=== PATIENT | male | born 1960 | race Caucasian/White ===

== ENCOUNTER 2020-07-01 10:51 | Outpatient (REF) | payer OTHER, SELFPAY ==
[2020-07-01 12:07] LABS: Cholesterol 224 mg/dL; HDL Cholesterol 51 mg/dL; LDL Cholesterol Calculated 135 mg/dl; Triglycerides 193 mg/dL
== END 2020-07-01 10:52 | disposition home or self-care (01) ==
LOC: HO.LAB 10:51
PROVIDERS: PCP Physician Assistant; Visit Provider Physician Assistant
DX: E78.5 Hyperlipidemia, unspecified (principal)
CPT/HCPCS: 80061

== ENCOUNTER → 2020-07-21 13:17 | Outpatient (BNVA) | payer OTHER, SELFPAY | PROVIDERS: PCP Physician Assistant; Referring Provider Physician Assistant; Visit Provider Nurse Practitioner Family | DX: Z76.89 Persons encountering health services in other specified circumstances (principal) ==

== ENCOUNTER 2021-01-13 07:27 | Day surgery (SDC) | payer OTHER, SELFPAY ==
[2021-01-13 07:54] VITALS: BP 117/79; PULSE 62; TEMP 36.3; O2SAT 96; BMI 27.2
--- NOTE | 2021-01-13 07:54 | MHC.SHP ---
Pre-Procedural Eval Section B Chief Complaint: Screening Relevant Social History: None Present Medications: see Short Stay Collaborative assessment Medical History: Significant History (lumbar back pain) History of Previous Operations: Relevant previous surgery/procedure and date(s) (spinal stimulator) Allergies: Allergies Allergy/AdvReac Type Severity Reaction Status Date / Time dexamethasone [DEXAMETHASONE] Allergy Unknown VERTIGO Verified 07/06/20 10:12 lisinopril [LISINOPRIL] Allergy Unknown COUGH Verified 07/06/20 10:12 atorvastatin AdvReac Unknown bone pain Verified 07/21/20 13:19 Wellbutrin Allergy Unknown Unknown Uncoded 07/06/20 06:39 Review of Systems Sugical H&P ROS: Negative: Constitution, Cardiovascular, Respiratory, Neurological, Psychiatric, Hem-Onc, Allergic/Immunologic, Gastrointestinal, Genitourinary, Musculoskeletal, Integumentary, Endocrine and Eyes/Ears/Nose/Throat Exam Surgical H&P Exam: Normal: HEENT, Normal: Heart, Normal: Lungs, Normal: Extremities, Normal: Abdomen, Normal: Skin and Normal: Neurological Plan Diagnosis/Plan: Unchanged I have reviewed the history and physical and performed a pertinent physical examination on my patient. No changes have occurred unless specified.
[2021-01-13] MEDS: Lactated Ringers 1,000 ML 20 ML IVCONT (07:57)
--- NOTE | 2021-01-13 08:19 | P.CONAN_ITS ---
FORMERLY [facility] Active Problems Active Problems: All Active Problems (Updated 07/06/20 @ 10:35 by Juan C soto PA-C) HLD (hyperlipidemia) (Acute) Overweight (BMI 25.0-29.9) (Acute) Lumbar disc disease (Acute) Annual physical exam (Acute) Screening PSA (prostate specific antigen) (Acute) Screening for hypothyroidism (Acute) Colon cancer screening (Acute) Past Medical History Medical History Spinal cord stimulator status Family History Family History Father Hypertension COPD (chronic obstructive pulmonary disease) Mother Hypertension Dementia Family/Other Lung cancer Surgical History Surgical History H/O colonoscopy Spinal cord stimulator status Social History Social History Alcohol intake: never Smoking Status: Never smoker Use of substances other than those prescribed or required for medical reasons: No Advance Directives: No Advance Directives Information Provided: Yes Recently lost weight without trying: No Meds Allergies Allergy/AdvReac Type Severity Reaction Status Date / Time dexamethasone [DEXAMETHASONE] Allergy Unknown VERTIGO Verified 07/06/20 10:12 lisinopril [LISINOPRIL] Allergy Unknown COUGH Verified 07/06/20 10:12 atorvastatin AdvReac Unknown bone pain Verified 07/21/20 13:19 Wellbutrin Allergy Unknown Unknown Uncoded 07/06/20 06:39 Active Medications: Current Medications Generic Name Dose Route Start Last Admin Trade Name Hollis PRN Reason Stop Dose Admin Lactated Ringer's 1,000 mls @ 20 mls/hr 01/12/21 14:00 01/13/21 07:57 Lr IVCONT 20 mls/hr .Q24H RENAE Administration Home Medications Medication Instructions Recorded Confirmed Last Taken Type coenzyme Q10 50 mg capsule 50 mg PO DAILY 07/21/20 07/21/20 Unknown History garlic 500 mg PO DAILY 07/21/20 07/21/20 Unknown History milk thistle 150 mg capsule 300 mg PO DAILY 07/21/20 07/21/20 Unknown History multivitamin 1 tab PO DAILY 07/21/20 07/21/20 Unknown History omega-3 fatty acids 500 mg capsule 500 mg PO DAILY 07/21/20 07/21/20 Unknown History Exam Exam Date and Time: January 13, 2021 0819 Height,Weight and Vital Signs: Height 6 ft Weight 91.172 kg Last Vital Signs Temp 97.3 F 01/13/21 07:54 Pulse 62 01/13/21 07:54 BP 117/79 01/13/21 07:54 Pulse Ox 96 01/13/21 07:54 Airway Mallampati Class: I TM Dist: >3cm Neck ROM: Full Loose/Missing/Broken Teeth: No Heart: RRR Assessment and Plan Assessment Anesthesia Assessment: Anesthesia Plan Discussed and Chart Reviewed Final Anesthetic Review NPO: Yes ASA Class: II Final Preanesthetic Review: No Changes in Pt Med Stat, Consent Obtained/Reviewed and Anes Risks/Benef Reviewed Patient Risk: Low Procedure Risk: Low Anesthetic Plan Anesthetic Plan: MAC: Disposition: Standard PACU
--- NOTE | 2021-01-13 09:15 | PM.OP ---
Brief Operative Note Date of Service: 01/13/21 Pre-op diagnosis: colon screening Post-op diagnosis: same Procedure: see op note Surgeon: Jeannette Marcum MD Anesthesia: MAC Estimated blood loss (mL): 0 Condition: stable Disposition: PACU
--- NOTE | 2021-01-13 09:17 | P.OP_ITS ---
Operative Note Operative Note Date of Service: 01/13/21 Narrative: Operative Information Procedure Description: Colonoscopy COLONOSCOPY Instrument: Olympus variable stiffness pediatric scope 190L Colonoscopy Monitoring: Vital signs and clinical assessment, continuous EKG monitoring, Pulse oximetry, Carbon Dioxide monitoring and blood pressure monitoring were done throughout the procedure. Colon withdrawal time was 13 minutes. Procedure: The patient was placed in the left lateral decubitis position and pre-procedure medications were administered. After a digital rectal examination of the ano-rectum, the video colonoscope was inserted into the rectum and advanced through the colon to the cecum/TI. The colonoscope was slowly withdrawn in a retrograde panoramic fashion and the colon mucosa was carefully examined including a retroflexed view of the rectum. Findings and interventions are described below. Procedure Difficulty: easy Findings: Terminal Ileum-normal Cecum:normal Ascending Colon: normal Transverse Colon -normal Descending Colon:normal Sigmoid Colon: moderate severe diverticulosis Rectum: Retroflexion with small internal hemorrhoids, grade I Anorectum - normal Colon preparation: [place] Bowel Preparation Scale Right colon; 2 Transverse colon: 2 Left colon; 2 (0 = Unprepared colon segment with mucosa not seen due to solid stool that cannot be cleared. 1 = Portion of mucosa of the colon segment seen, but other areas of the colon segment not well seen due to staining, residual stool and/or opaque liquid. 2 = Minor amount of residual staining, small fragments of stool and/or opaque liquid, but mucosa of colon segment seen well. 3 = Entire mucosa of colon segment seen well with no residual staining, small fragments of stool or opaque liquid) Impression and Post Procedure Diagnosis: internal hemorrhoids diverticular disease Plan: High fiber diet leaflet Avoid straining at stool, epsom salts and sitz bath, anusol supps or cream Repeat Colonoscopy in 10 years or earlier if clinically indicated Above findings were reviewed with the patient and relevant handouts were provided if indicated.
[2021-01-13 09:20] VITALS: BP 107/71; PULSE 78; RESP 16; TEMP 36.3; O2SAT 97
[2021-01-13 09:35] VITALS: BP 125/78; PULSE 76; RESP 18; O2SAT 96
== END 2021-01-13 10:30 | disposition home or self-care (01) ==
PROVIDERS: PCP Physician Assistant; Visit Provider Internal Medicine Gastroenterology
PROC: 0DJD8ZZ Inspection of Lower Intestinal Tract, Via Natural or Artificial Opening Endoscopic (ICD-10-PCS; CPT 45378; principal; 2021-01-13 08:30)
DX: Z12.11 Encounter for screening for malignant neoplasm of colon (principal); K57.30 Diverticulosis of large intestine without perforation or abscess without bleeding; K64.0 First degree hemorrhoids; E66.3 Overweight; M51.9 Unspecified thoracic, thoracolumbar and lumbosacral intervertebral disc disorder; Z96.82 Presence of neurostimulator; Z88.8 Allergy status to other drugs, medicaments and biological substances
CPT/HCPCS: 45378

== ENCOUNTER 2021-01-13 15:08 | Emergency (ER) | payer OTHER, SELFPAY ==
[2021-01-13 15:41] VITALS: BP 136/90; PULSE 62; RESP 16; TEMP 36.6; BMI 27.2
--- NOTE | 2021-01-13 16:06 | ED.GENADULT ---
HPI - General Adult General Chief complaint: General Medical Stated complaint: Difficulty breathing post colonoscopy Time Seen by Provider: 01/13/21 16:05 Source: patient Mode of arrival: ambulatory Limitations: no limitations History of Present Illness HPI narrative: 60 yo male here with dry mouth s/p colonoscopy. Had procedure earlier today with propofol. Uneventful procedure per patient. Had dry mouth in PACU. Thought he was dehydrated so went home and forcing fluids but continued dry mouth. No difficulty swallowing, abdominal cramping, vomiting, diarrhea, rash, difficulty breathing or itching/scratchy throat. Related Data Home Medications Medication Instructions Recorded Confirmed coenzyme Q10 50 mg capsule 50 mg PO DAILY 07/21/20 07/21/20 garlic 500 mg PO DAILY 07/21/20 07/21/20 milk thistle 150 mg capsule 300 mg PO DAILY 07/21/20 07/21/20 multivitamin 1 tab PO DAILY 07/21/20 07/21/20 omega-3 fatty acids 500 mg capsule 500 mg PO DAILY 07/21/20 07/21/20 Previous Rx's Medication Instructions Recorded polyethylene glycol 3350 17 17 g PO ONCE #238 g 07/21/20 gram/dose oral powder peg 3350-electrolytes 227.1 240 ml PO Q10M #1 ea 01/11/21 gram-21.5 gram-6.36gram oral powder packet Allergies Allergy/AdvReac Type Severity Reaction Status Date / Time dexamethasone [DEXAMETHASONE] Allergy Unknown VERTIGO Verified 07/06/20 10:12 lisinopril [LISINOPRIL] Allergy Unknown COUGH Verified 07/06/20 10:12 atorvastatin AdvReac Unknown bone pain Verified 07/21/20 13:19 Wellbutrin Allergy Unknown Unknown Uncoded 07/06/20 06:39 Review of Systems Review of Systems: Yes all other systems are reviewed and are negative Constitutional: Constitutional: Reports no additional constitutional complaints, Denies body ache(s), Denies chills, Denies fever(s), Denies headache(s) and Denies weakness Eyes: Eyes: Reports no additional eye complaints and Denies change in vision ENT: Reports system reviewed and no additional complaints, except as documented, Denies dizziness, Denies headache(s), Denies nasal congestion, Denies nasal discharge and Denies neck pain Comments: +dry mouth Cardiovascular: Cardiovascular: Reports no additional cardiovascular complaints, Denies chest pain, Denies leg edema and Denies dyspnea Respiratory: Respiratory: Reports no additional respiratory complaints, Denies cough and Denies dyspnea Gastrointestinal: Gastrointestinal: Reports no additional gastrointestinal complaints, Denies abdominal pain, Denies diarrhea, Denies nausea and Denies vomiting Genitourinary: Genitourinary: Denies urinary incontinence Musculoskeletal: Musculoskeletal: Reports no additional musculoskeletal complaints, Denies back pain, Denies arthralgias, Denies joint swelling, Denies neck pain, Denies numbness and Denies tingling Integumentary/Breasts: Skin/Breast: Reports system reviewed and no additional complaints, except as docu and Denies rash Neurologic: Reports system reviewed and no additional complaints, except as documented, Denies Abnormal speech present, Denies dizziness, Denies headache(s), Denies numbness, Denies tingling and Denies weakness PMFSH Past Medical History Attestation statement: The following information was validated with the patient. Source: old records reviewed and nursing notes reviewed Medical History Spinal cord stimulator status Surgical History H/O colonoscopy Spinal cord stimulator status Family History Family History Father Hypertension COPD (chronic obstructive pulmonary disease) Mother Hypertension Dementia Family/Other Lung cancer Social History Social History Alcohol intake: never Smoking Status: Never smoker Advance Directives: Yes Advance Directives Information Provided: No Advance Directives on File: No Physical Exam Vital Signs: Vital Signs: Last Vital Signs Temp 97.9 F 01/13/21 15:41 Pulse 62 01/13/21 15:41 Resp 16 01/13/21 15:41 BP 136/90 H 01/13/21 15:41 Body Mass Index 27.2 Const: General: cooperative, healthy appearing, comfortable and no acute distress Orientation/consciousness: patient oriented x3 Limitations: no limitations HENMT: Head: Yes normal to inspection Ears: hearing grossly normal bilaterally General nose exam: Normal external nose present Face and sinus: Yes normal facial exam Mouth: Normal oral and palatal mucosa present and moist mucous membranes Throat: Yes posterior oropharynx normal Eyes: General: appearance normal, both eyes and all related structures Pupils: Equal, round and reactive pupils present Neck: Neck: Yes normal visual inspection Chest: Chest palpation & inspection: normal inspection of the chest Resp: Effort & Inspection: normal respiratory effort Auscultation: clear to auscultation bilaterally Cardio: Rate: regular rate Rhythm: regular rhythm Peripheral pulses: Peripheral pulses 2+ throughout GI: Inspection: Yes normal to inspection Palpation (GI): Soft to palpation and nontender Auscultation: normal bowel sounds Back/Spine/Pelvis: Thoracic/Lumbar Spine: thoracic and lumbar spine normal to inspection Skin: General skin exam: no rashes or lesions noted Neuro: General: patient oriented x3, no focal motor deficits and normal sensation to monofilament Cranial nerves: Yes Equal, round and reactive pupils present Cognition (Neuro): normal cognition Speech: No Abnormal speech present Gait exam (Neuro): Normal gait present Motor exam (neuro): 5/5 motor strength present throughout Extrem: General: Yes normal to inspection Course Course Course Narrative: 60 yo male here with dry mouth s/p colonoscopy with propofol today. Normal exam. MMM. Discussed with patient that this is a typical side effect from anesthesia. Reviewed worrisome signs/symptom with patient and when to return to ED. Comfortable with discharge home. Medical Decision Making Medical Records Medical records reviewed: Yes I reviewed the patient's medical records. Lab Data Lab results reviewed: Yes I reviewed the patient's lab results. Discharge Plan Discharge Clinical Impression: Dry mouth, Medication side effect Patient Disposition: Home, Self-Care Instructions: Saliva Substitutes (By mouth), Dry Mouth (ED) Additional Instructions: Consider buying citrus candy like lemonheads Prescriptions: No Action Golytely 227.1-21.5-6.36 gram powder in packet 240 ml PO Q10M Qty: 1 RF: 0 polyethylene glycol 3350 [Miralax] 17 gram/dose powder 17 g PO ONCE Qty: 238 RF: 0 garlic Tablet 500 mg PO DAILY RF: 0 multivitamin Tablet 1 tab PO DAILY RF: 0 coenzyme Q10 50 mg capsule 50 mg PO DAILY RF: 0 milk thistle 150 mg capsule 300 mg PO DAILY RF: 0 omega-3 fatty acids 500 mg capsule 500 mg PO DAILY RF: 0 Referrals: Juan C Melchor PA-C [Primary Care Provider] - 2 days Interventions: ED Discharge Assessment Last Done: 01/13/21 16:14 Discharge Date/Time: 01/13/21 16:15
== END 2021-01-13 16:15 | disposition home or self-care (01) ==
PROVIDERS: Emergency Provider Emergency Medicine; PCP Physician Assistant
DX: R06.02 Shortness of breath (principal); Z79.899 Other long term (current) drug therapy
CPT/HCPCS: 99283

== ENCOUNTER → 2021-01-27 13:41 | Outpatient (BNVA) | payer OTHER, SELFPAY | PROVIDERS: PCP Physician Assistant; Visit Provider Nurse Practitioner Family ==

== ENCOUNTER 2021-02-01 15:17 | Outpatient (REF) | payer OTHER, SELFPAY | END 2021-02-01 15:18 | disposition home or self-care (01) | LOC: HO.HOSX 15:17 | PROVIDERS: Visit Provider Orthopaedic Surgery | DX: Z13.89 Encounter for screening for other disorder (principal) ==

== ENCOUNTER 2021-02-02 09:58 | Outpatient (REF) | payer OTHER, SELFPAY ==
--- NOTE | ~2021-02-02 | XR_ITS ---
EXAMINATION: XR KNEES, BILATERAL KNEES STANDING XR KNEE, LEFT CLINICAL INFORMATION: Pain. COMPARISON: Right knee 09/16/2015 TECHNIQUE: AP bilateral knees standing. Left knee 2 views. FINDINGS: Bilateral Knees: There is mild reduction in medial and lateral compartment joint space both kidneys. No bony erosive changes seen. The soft tissues are normal. Left Knee: There is mild loss of patellofemoral compartment joint space with periarticular spurring. There is no loose body. No bony erosive changes. No soft tissue mass. There is vascular calcification. XR/XR knee LT 2V IMPRESSION: Early degenerative changes medial compartment both knees and patellofemoral compartment left knee. There is mild periarticular spurring patellofemoral compartment left knee without joint effusion.
--- NOTE | ~2021-02-02 | XR_ITS ---
EXAMINATION: XR KNEES, BILATERAL KNEES STANDING XR KNEE, LEFT CLINICAL INFORMATION: Pain. COMPARISON: Right knee 09/16/2015 TECHNIQUE: AP bilateral knees standing. Left knee 2 views. FINDINGS: Bilateral Knees: There is mild reduction in medial and lateral compartment joint space both kidneys. No bony erosive changes seen. The soft tissues are normal. Left Knee: There is mild loss of patellofemoral compartment joint space with periarticular spurring. There is no loose body. No bony erosive changes. No soft tissue mass. There is vascular calcification. XR/XR knee standing BI IMPRESSION: Early degenerative changes medial compartment both knees and patellofemoral compartment left knee. There is mild periarticular spurring patellofemoral compartment left knee without joint effusion.
== END 2021-02-02 09:59 | disposition home or self-care (01) ==
LOC: HO.HOSX 09:58
PROVIDERS: PCP Physician Assistant; Visit Provider Orthopaedic Surgery
DX: S83.282A Other tear of lateral meniscus, current injury, left knee, initial encounter (principal)
CPT/HCPCS: 73560; 73565

== ENCOUNTER 2021-03-03 08:17 | Day surgery (SDC) | payer OTHER, SELFPAY ==
[2021-02-25 11:06] VITALS: BMI 28.0
--- NOTE | 2021-03-02 09:39 | HO.ANESPROP2 ---
Documented by User: Ingrid Castanoney 03/02/21 09:40 HPI - Anesthesia Eval Consult details Narrative: 60yo M for Left Knee Arthroscopy ? spinal cord stim in situ PMFSH Active Problems Active Problems: All Active Problems (Updated 02/25/21 @ 11:05 by Ayde Gomez) HLD (hyperlipidemia) (Acute) Overweight (BMI 25.0-29.9) (Acute) Lumbar disc disease (Acute) Annual physical exam (Acute) Screening PSA (prostate specific antigen) (Acute) Screening for hypothyroidism (Acute) Colon cancer screening (Acute) Neuropathy (Acute) Locking of left knee (Acute) Polyp of left ear canal (Acute) Tear of lateral meniscus of left knee (Acute) Diverticulosis (Acute) Past Medical History Medical History (Updated 03/02/21 @ 17:23 by Juan C Melchor PA-C) Diverticulosis HLD (hyperlipidemia) Lumbar disc disease Neuropathy Overweight (BMI 25.0-29.9) Family History Family History Father Hypertension COPD (chronic obstructive pulmonary disease) Mother Hypertension Dementia Family/Other Lung cancer Surgical History Surgical History (Updated 02/25/21 @ 11:05 by Ayde Gomez) H/O colonoscopy Spinal cord stimulator status Social History Social History (Updated 02/02/21 @ 10:18 by Adriana Franz) Alcohol intake: never Patient Tobacco Use Status: Former Tobacco user Quit Date: 30 YRS AGO Use of substances other than those prescribed or required for medical reasons: No Are you DNR?: No Advance Directives: No Advance Directives Information Provided: Yes Current occupational status: employed 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 Meds Allergies Allergy/AdvReac Type Severity Reaction Status Date / Time dexamethasone [DEXAMETHASONE] Allergy Intermediate VERTIGO Verified 03/03/21 08:23 atorvastatin AdvReac Intermediate bone pain Verified 03/03/21 08:23 lisinopril [LISINOPRIL] AdvReac Intermediate COUGH Verified 03/03/21 08:23 propofol AdvReac Intermediate Excessively Verified 03/03/21 08:23 dry mouth, Wellbutrin Allergy Unknown Unknown Uncoded 07/06/20 06:39 Home Medications Medication Instructions Recorded Confirmed Last Taken Type coenzyme Q10 50 mg capsule 50 mg PO DAILY 07/21/20 01/26/21 Unknown History garlic 500 mg PO DAILY 07/21/20 01/26/21 Unknown History milk thistle 150 mg capsule 300 mg PO DAILY 07/21/20 01/26/21 Unknown History multivitamin 1 tab PO DAILY 07/21/20 01/26/21 Unknown History omega-3 fatty acids 500 mg capsule 500 mg PO DAILY 07/21/20 01/26/21 Unknown History Exam Exam Date and Time: March 02, 2021 0939 Height,Weight and Vital Signs: Height 5 ft 11 in Weight 91.172 kg Assessment and Plan Assessment Anesthesia Assessment: Chart Reviewed Documented by User: Claus Melendez MD 03/03/21 08:33 PMFSH Past Medical History Medical History (Updated 03/02/21 @ 17:23 by Juan C Melchor PA-C) Diverticulosis HLD (hyperlipidemia) Lumbar disc disease Neuropathy Overweight (BMI 25.0-29.9) Family History Family History Father Hypertension COPD (chronic obstructive pulmonary disease) Mother Hypertension Dementia Family/Other Lung cancer Surgical History Surgical History (Updated 02/25/21 @ 11:05 by Ayde Gomez) H/O colonoscopy Spinal cord stimulator status Social History Social History (Updated 02/02/21 @ 10:18 by Adriana Franz) Alcohol intake: never Patient Tobacco Use Status: Former Tobacco user Quit Date: 30 YRS AGO Use of substances other than those prescribed or required for medical reasons: No Are you DNR?: No Advance Directives: No Advance Directives Information Provided: Yes Current occupational status: employed 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 Meds Allergies Allergy/AdvReac Type Severity Reaction Status Date / Time dexamethasone [DEXAMETHASONE] Allergy Intermediate VERTIGO Verified 03/03/21 08:23 atorvastatin AdvReac Intermediate bone pain Verified 03/03/21 08:23 lisinopril [LISINOPRIL] AdvReac Intermediate COUGH Verified 03/03/21 08:23 propofol AdvReac Intermediate Excessively Verified 03/03/21 08:23 dry mouth, Wellbutrin Allergy Unknown Unknown Uncoded 07/06/20 06:39 Home Medications Medication Instructions Recorded Confirmed Last Taken Type coenzyme Q10 50 mg capsule 50 mg PO DAILY 07/21/20 01/26/21 Unknown History garlic 500 mg PO DAILY 07/21/20 01/26/21 Unknown History milk thistle 150 mg capsule 300 mg PO DAILY 07/21/20 01/26/21 Unknown History multivitamin 1 tab PO DAILY 07/21/20 01/26/21 Unknown History omega-3 fatty acids 500 mg capsule 500 mg PO DAILY 07/21/20 01/26/21 Unknown History Exam Airway Mallampati Class: I TM Dist: >3cm Neck ROM: Full Loose/Missing/Broken Teeth: No Heart: RRR Lungs: NL Assessment and Plan Assessment Anesthesia Assessment: Anesthesia Plan Discussed and Chart Reviewed Final Anesthetic Review NPO: Yes ASA Class: II Final Preanesthetic Review: No Changes in Pt Med Stat, Meds/Allgs Chart Reviewed, Consent Obtained/Reviewed and Anes Risks/Benef Reviewed Patient Risk: Low Procedure Risk: Low Anesthetic Plan Anesthetic Plan: GA Disposition: Standard PACU
--- NOTE | 2021-03-02 13:31 | MHC.SHP ---
Pre-Procedural Eval Section A The patient is an INPATIENT: No Changes since office visit: No Cold of Flu in the past 2 weeks, No New Medical Problems, No Changes in Medication and No Patient answered all questions The History & Physical has been completed within 30 days and I have reviewed it.: Yes Section B Chief Complaint: tear of lateral meniscus Allergies: Allergies Allergy/AdvReac Type Severity Reaction Status Date / Time dexamethasone [DEXAMETHASONE] Allergy Intermediate VERTIGO Verified 02/25/21 11:06 atorvastatin AdvReac Intermediate bone pain Verified 02/25/21 11:06 lisinopril [LISINOPRIL] AdvReac Intermediate COUGH Verified 02/25/21 11:06 propofol AdvReac Intermediate Excessively Verified 02/25/21 11:06 dry mouth, Wellbutrin Allergy Unknown Unknown Uncoded 07/06/20 06:39 Plan I have reviewed the history and physical and performed a pertinent physical examination on my patient. No changes have occurred unless specified.
[2021-03-03] VITALS (8 sets, daily range): BP systolic 108–132; BP diastolic 66–88; PULSE 58–67; RESP 12–18; TEMP 36.1–36.3; O2SAT 94–98; BMI 28.5
[2021-03-03] MEDS: Lactated Ringers 1,000 ML 100 ML IVCONT (08:38)
[2021-03-03] MEDS: Acetaminophen 325 MG TABLET 975 MG PO (09:52)
[2021-03-03] MEDS: oxyCODONE HCl Immed Release 5 MG TABLET PO (09:53)
[2021-03-03] MEDS: HYDROmorphone HCl 0.5 MG/0.5 ML SYRINGE 0.25 MG IVPUSH (09:59)
--- NOTE | 2021-03-03 10:08 | P.OP_ITS ---
Operative Note Operative Note Date of Service: 03/03/21 Narrative: ARTHROSCOPIC SURGERY NOTE SURGEON: Dr Rachel Randall) [employer] PERFORATOR OPERATOR: Shahida NATH PREOP DIAGNOSIS: Lateral meniscal tear left knee POSTOP DIAGNOSIS: 1) medial meniscal tear left knee; 2)lateral meniscal tear left knee; 3)grade 3 injury lateral femoral and tibial articular surfaces; 4) grade 3-4 injury of patella and femoral sulcus left knee OPERATIVE PROCEDURE: 1) PARTIAL MEDIAL MENISCECTOMY LEFT KNEE, 2) PARTIAL LATERAL MENISCECTOMY LEFT KNEE,3) DEBRIDEMENT LATERAL AND ANTERIOR COMPARTMENT LEFT KNEE CLINICAL NOTE: THIS GENTLEMAN HAS HAD ONGOING PAIN AND DISCOMFORT INVOLVING HIS LATERAL ASPECT OF HIS LEFT KNEE. HIS FINDINGS WERE CONSISTENT WITH THE LATERAL MENISCAL TEAR. HE HAD FAILED NON OPERATIVE MANAGEMENT AND THEREFORE AFTER EXPLAINING THE RISKS, BENEFITS, ALTERNATIVES OF THE SURGERY IT WAS MUTUALLY AGREED UPON TO CARRY OUT THE FOLLOWING PROCEDURE MOTION: Full range of motion STABILITY: Cruciate and collateral ligaments intact OPERATIVE DETAILS PREPARATION: GA, STANDARD TECHNIQUE, tourniquet E to 300 mm of mercury for 18 MINUTES SURGICAL TIME-OUT: Patient identified; procedure confirmed; site confirmed. Medical and allergy history reviewed. No preoperative antibiotics. No DVT prophylaxis. All other items discussed and agreed upon. INCISIONS: Superolateral, inferolateral, inferomedial stab incisions SYNOVIUM: Normal SYNOVIAL FLUID: Clear MEDIAL COMPARTMENT: There was complex tearing of the posterior horn with the detached radial segment of the medial meniscus. This was resected using a combination handheld cutters and power shaver to stable meniscus. The tibial and femoral articular surfaces were intact. INTERCONDYLAR NOTCH: ACL visualized palpated and intact. PCL palpated and intact LATERAL COMPARTMENT: The lateral meniscus had degenerative complex tearing the posterior horn extending to the middle of the middle horn. This was resected using power shaver and handheld cutters to stable meniscus. There was an area of grade 3-4 injury of the weight-bearing surface of the femoral condyle. There was grade 3 injury of the tibial articular surface as well. This was debrided using the power shaver. The popliteus tendon was intact ANTERIOR COMPARTMENT: Medial and lateral gutters were clear. Suprapatellar pouch clear. The patella had his middle and lateral facet superiorly where down to grade 4. There was an area of grade 3 injury as well. The femoral sulcus had grade 3-4 injury. This was debrided with the power shaver. CLOSURE: 30 cc of 0.25% Marcaine with epinephrine injected in the knee. Steri- Strips and sterile dressing then applied. RECOMMENDATIONS: 1)Restore motion strength 2)Resume activities as tolerated 3)Discharge today with prescription for analgesic 4)Follow up in the office in 10-14 days
== END 2021-03-03 10:49 | disposition home or self-care (01) ==
PROVIDERS: PCP Physician Assistant; Visit Provider Orthopaedic Surgery
PROC: (CPT 29870; principal; 2021-03-03 09:50)
DX: S83.232A Complex tear of medial meniscus, current injury, left knee, initial encounter (principal); S83.272A Complex tear of lateral meniscus, current injury, left knee, initial encounter; M23.309 Other meniscus derangements, unspecified meniscus, unspecified knee; M51.36 Other intervertebral disc degeneration, lumbar region; G62.9 Polyneuropathy, unspecified; X58.XXXA Exposure to other specified factors, initial encounter; Y93.9 Activity, unspecified; Y92.9 Unspecified place or not applicable; Y99.8 Other external cause status; Z88.8 Allergy status to other drugs, medicaments and biological substances; Z87.891 Personal history of nicotine dependence
CPT/HCPCS: 29880; J1170; J2250; J2405; J3010

== ENCOUNTER → 2021-03-08 14:10 | Outpatient (BNVA) | payer OTHER, SELFPAY | PROVIDERS: PCP Physician Assistant; Visit Provider Nurse Practitioner Family ==

== ENCOUNTER → 2021-03-15 09:52 | Outpatient (BNVA) | payer OTHER, SELFPAY | PROVIDERS: PCP Physician Assistant; Visit Provider Orthopaedic Surgery | DX: Z48.89 Encounter for other specified surgical aftercare (principal) | CPT/HCPCS: 99212 ==

== ENCOUNTER → 2021-07-11 14:38 | Outpatient (BNVA) | payer OTHER, SELFPAY | PROVIDERS: PCP Physician Assistant; Visit Provider Internal Medicine Pulmonary Disease | DX: R06.2 Wheezing (principal); Z77.090 Contact with and (suspected) exposure to asbestos | CPT/HCPCS: 99202 ==

== ENCOUNTER 2021-07-19 14:43 | Outpatient (REF) | payer OTHER, SELFPAY ==
--- NOTE | 2021-07-19 17:28 | PFT_ITS ---
FLOWS: FEV1 101% of predicted at 3.70 L. FVC 94% of predicted at 4.59 L. FEV1 to FVC ratio of 0.81. No bronchodilator response except in small to medium airways. LUNG VOLUMES: Total lung capacity 100% of predicted at 7.27 L. Residual volume 114% of predicted at 2.69 L. Slow vital capacity 94% of predicted at 4.57 L. Expiratory reserve volume 14% of predicted at 0.20 L. Diffusion capacity is normal. IMPRESSION: No obstructive or restrictive ventilatory defect. No bronchodilator response except in small to medium airways. Essentially normal pulmonary function test. MD MAGDALENO Tinoco/MODL / [id number]
== END 2021-07-19 14:44 | disposition home or self-care (01) ==
LOC: HO.RESP 14:43
PROVIDERS: PCP Physician Assistant; Visit Provider Internal Medicine Pulmonary Disease
DX: R06.2 Wheezing (principal)
CPT/HCPCS: 94060; 94727; 94729

== ENCOUNTER 2021-07-22 09:26 | Outpatient (REF) | payer OTHER, SELFPAY ==
[2021-07-22 10:29] LABS: Hematocrit 44.6 % (42-52); Hemoglobin 14.8 g/dl (14.0-18.0); Mean Corpuscular HGB Conc 33.2 g/dl (31.0-36.0); Mean Corpuscular Hemoglobin 29.7 pg (27.0-33.0); Mean Corpuscular Volume 89.4 fL (80-98); Mean Platelet Volume 10.1 fL (9.4-12.4); Platelet Count 301 X10*3/uL (160-400); Red Blood Count 4.99 X10*6/uL (4.60-5.80); Red Cell Distribution Width 12.9 % (11.0-16.0); White Blood Count 8.1 X10*3/uL (4.8-10.8)
[2021-07-22 10:49] LABS: Alanine Aminotransferase 25 U/L (0-40); Albumin Level 4.4 g/dL (3.5-5.0); Alkaline Phosphatase 50 U/L (39-117); Anion Gap 10 (12-20); Aspartate Amino Transferase 21 U/L (5-37); Bilirubin Total 0.8 mg/dL (0.0-1.0); Blood Urea Nitrogen 15 mg/dL (9-16); Calcium 9.4 mg/dL (8.4-10.2); Carbon Dioxide 30 mmol/L (22-29); Chloride 105 mmol/L (96-108); Cholesterol 219 mg/dL; Estimated Glomerular Filt Rate > 60; Glucose Fasting 93 mg/dL (60-99); HDL Cholesterol 43 mg/dL; LDL Cholesterol Calculated 152 mg/dl; Potassium 5.2 mmol/L (3.3-5.1); Sodium 140 mmol/L (135-145); Total Protein 6.6 g/dL (6.5-8.0); Triglycerides 124 mg/dL
[2021-07-22 11:11] LABS: TSH reflex Free T4 1.05 uIU/mL (0.32-4.0)
[2021-07-22 11:20] LABS: Folate 19.3 ng/mL (> or = 4.0); Vitamin B12 576 pg/mL (200-900)
== END 2021-07-22 09:27 | disposition home or self-care (01) ==
LOC: HO.LAB 09:26
PROVIDERS: PCP Physician Assistant; Visit Provider Physician Assistant
DX: Z12.5 Encounter for screening for malignant neoplasm of prostate (principal); E78.2 Mixed hyperlipidemia; G62.9 Polyneuropathy, unspecified; I10 Essential (primary) hypertension
CPT/HCPCS: 36415; 80053; 80061; 82607; 82746; 84153; 84443; 85027

== ENCOUNTER 2021-07-26 14:17 | Outpatient (REF) | payer OTHER, SELFPAY ==
--- NOTE | ~2021-07-26 | CT_ITS ---
EXAMINATION: CT CHEST WITHOUT CONTRAST CLINICAL INFORMATION: Asbestos exposure COMPARISON: Previous chest x-ray September 2016 TECHNIQUE: Multidetector volumetric CT imaging of the chest was done. Axial MIP volume rendering provided. Sagittal and coronal reformatted images were obtained. This CT examination was performed using dose optimization techniques as appropriate, variously including the following: *Automated exposure control *Adjustment of mA and/or kV according to patient size (this includes techniques or standardized protocols for targeted exams where dose is matched to indication/reason for exam; i.e. extremities or head) *Use of iterative reconstruction technique DLP: 192 mGy-cm FINDINGS: LUNGS: There is a 6 mm peripheral or subpleural left lower lobe nodule in the anterior lateral costophrenic sulcus axial image 494 series 7. As a 3 mm peripheral or subpleural left lower lobe nodule posterior costophrenic sulcus axial image 467 series 7. There are minimal increased peripheral interstitial markings in the anterior right upper and right middle lobes for example sagittal reconstructed image 79 series 6. There is a tiny 1 mm right upper lobe nodule axial image 280 series 7. The lungs are otherwise clear. No other evidence of interstitial lung disease is seen. MEDIASTINUM: There is diffuse mediastinal lymphadenopathy. Larger lymph nodes are upper normal in size. No enlarged lymph nodes are seen. No hilar adenopathy is seen. The heart does not appear enlarged. There is mild coronary artery calcification. There is no pericardial effusion. The thoracic aorta is normal in caliber. The thyroid gland is normal. PLEURA: There is no pleural effusion. No pleural mass or thickening. No pleural calcification. AXILLA: No lymphadenopathy. UPPER ABDOMEN: Unremarkable. OSSEOUS STRUCTURES: There are degenerative changes of the spine. There is a spinal stimulator with the top of the T8 vertebral body. CT/CT chest wo con IMPRESSION: Minimal increased peripheral interstitial markings in the anterior right upper and right middle lobe. No other evidence of interstitial disease. Small left lower lobe pulmonary nodules. According to the UPDATED 2017 Fleischner Society recommendations, the advised follow-up imaging for a 6 mm nodule: Low risk, no chest CT follow-up and high risk, optional chest CT follow-up in one year. Diffuse mediastinal lymphadenopathy. Largest nodes are upper normal in size. Mild coronary artery calcification.
== END 2021-07-26 14:18 | disposition home or self-care (01) ==
LOC: HO.CT 14:17
PROVIDERS: PCP Physician Assistant; Visit Provider Internal Medicine Pulmonary Disease
DX: Z77.090 Contact with and (suspected) exposure to asbestos (principal)
CPT/HCPCS: 71250

== ENCOUNTER → 2021-07-29 15:06 | Outpatient (BNVA) | payer OTHER, SELFPAY | PROVIDERS: PCP Physician Assistant; Visit Provider Internal Medicine Pulmonary Disease | DX: R91.8 Other nonspecific abnormal finding of lung field (principal); R06.2 Wheezing | CPT/HCPCS: 99212 ==

== ENCOUNTER 2021-08-04 08:45 | Outpatient (REF) | payer OTHER, SELFPAY ==
--- NOTE | ~2021-08-04 | XR_ITS ---
EXAMINATION: XR SHOULDER, LEFT CLINICAL INFORMATION: Pain COMPARISON: None TECHNIQUE: AP external rotation, Grashey, scapular Y, and axillary views of the left shoulder. FINDINGS: Bone alignment is normal. No fracture or dislocation is seen. The glenohumeral joint is normal. There is mild arthritis at the acromioclavicular joint. Soft tissues are unremarkable. XR/XR shoulder LT min 2V IMPRESSION: Mild arthritis at the acromioclavicular joint.
== END 2021-08-04 08:46 | disposition home or self-care (01) ==
LOC: HO.HOSX 08:45
PROVIDERS: Visit Provider Physician Assistant
DX: M19.012 Primary osteoarthritis, left shoulder (principal)
CPT/HCPCS: 73030; 99212

== ENCOUNTER → 2021-08-26 14:51 | Outpatient (BNVA) | payer OTHER, SELFPAY | PROVIDERS: PCP Physician Assistant; Visit Provider Internal Medicine Pulmonary Disease | DX: J45.20 Mild intermittent asthma, uncomplicated (principal); R91.8 Other nonspecific abnormal finding of lung field | CPT/HCPCS: 99212 ==

== ENCOUNTER → 2021-10-31 14:31 | Outpatient (BNVA) | payer OTHER, SELFPAY | PROVIDERS: PCP Physician Assistant; Visit Provider Internal Medicine | DX: U09.9 Post COVID-19 condition, unspecified (principal); R91.8 Other nonspecific abnormal finding of lung field; R06.2 Wheezing | CPT/HCPCS: 99212 ==

== ENCOUNTER → 2021-11-09 12:53 | Outpatient (BNVA) | payer OTHER, SELFPAY | PROVIDERS: PCP Physician Assistant; Visit Provider Internal Medicine Pulmonary Disease | DX: R05.9 Cough, unspecified (principal); R06.83 Snoring | CPT/HCPCS: 99212 ==

== ENCOUNTER → 2021-11-25 11:42 | Outpatient (BNVA) | payer OTHER, SELFPAY | PROVIDERS: Visit Provider Orthopaedic Surgery | DX: M25.562 Pain in left knee (principal); M17.12 Unilateral primary osteoarthritis, left knee; G62.9 Polyneuropathy, unspecified; E78.5 Hyperlipidemia, unspecified; Z87.891 Personal history of nicotine dependence; Z96.652 Presence of left artificial knee joint; Z96.82 Presence of neurostimulator; Z88.8 Allergy status to other drugs, medicaments and biological substances | CPT/HCPCS: 20610; 99212; J1040 ==

== ENCOUNTER 2021-12-11 15:35 | Emergency (ER) | payer OTHER, SELFPAY ==
--- NOTE | ~2021-12-11 | CT_ITS ---
EXAMINATION: CT ABDOMEN AND PELVIS WITH CONTRAST CLINICAL INFORMATION: Left lower quadrant pain. COMPARISON: None TECHNIQUE: Multidetector volumetric images were obtained from the superior aspect of the liver through the pubic symphysis following administration 85 mL of Omnipaque 350 intravenous contrast. Sagittal and coronal reformatted images were obtained on the technologist's workstation. Oral Contrast: No. This CT examination was performed using dose optimization techniques as appropriate, variously including the following: *Automated exposure control *Adjustment of mA and/or kV according to patient size (this includes techniques or standardized protocols for targeted exams where dose is matched to indication/reason for exam; i.e. extremities or head) *Use of iterative reconstruction technique DLP: 636 mGy-cm FINDINGS: LUNG BASES: The visualized lung bases are unremarkable. LIVER, GALLBLADDER, AND BILIARY TREE: The liver is normal in size, shape, and attenuation. No focal hepatic lesion or biliary ductal dilatation is present. The gallbladder is unremarkable with no evidence of radiopaque gallstones, gallbladder wall thickening, or obvious pericholecystic inflammatory changes. PANCREAS: Unremarkable. SPLEEN: Unremarkable. ADRENAL GLANDS: Unremarkable. KIDNEYS AND URETERS: Right lower pole renal atrophy. No right-sided hydronephrosis or hydroureter. No right-sided renal or ureteral stone. Left ureterovesicular junction stone measuring up to 0.6 cm with mild left-sided hydroureteronephrosis and mild left perinephric stranding. Additional non-obstructing left midpole renal stone measuring 0.2 cm. BLADDER: Unremarkable. GASTROINTESTINAL TRACT: Sigmoid diverticulosis without evidence of acute diverticulitis. No bowel wall thickening or inflammatory change. No small or large bowel obstruction. Appendicolith measuring up to 1.3 cm without appendiceal wall thickening or inflammatory change to suggest acute appendicitis. PERITONEAL CAVITY: No intra-abdominal free air or free fluid. No intra-abdominal mass or organized fluid collection/abscess formation. ABDOMINAL WALL: Small, fat-containing periumbilical hernia. There is an intramuscular lipoma within the proximal aspect of the left iliotibial band muscle belly. LYMPH NODES: Normal. VASCULAR: No abdominal aortic dilatation or dissection. Atherosclerotic calcifications. PELVIC VISCERA: The prostate and seminal vesicles are unremarkable. OSSEOUS STRUCTURES: No acute osseous abnormality. Mechanical pump within the left posterior soft tissues with catheter leads at the level of the mid thoracic spine. CT/CT abdomen pelvis w con IMPRESSION: 1. Left ureterovesicular junction stone measuring up to 0.6 cm with mild left-sided hydroureteronephrosis and mild left perinephric stranding. Additional non-obstructing left midpole renal stone measuring 0.2 cm. No right-sided renal stone or hydronephrosis. 2. Sigmoid diverticulosis without evidence of acute diverticulitis. No small or large bowel obstruction. Appendicolith without evidence of acute appendicitis. Fleischner guidelines were followed.
[2021-12-11 15:47] VITALS: BP 148/91; PULSE 88; RESP 18; TEMP 36.8; O2SAT 100; BMI 30.6
--- NOTE | 2021-12-11 15:52 | ECG_ITS ---
Test Reason : abd pain/diaphoresis Blood Pressure : / mmHG Vent. Rate : 080 BPM Atrial Rate : 080 BPM P-R Int : 180 ms QRS Dur : 100 ms QT Int : 388 ms P-R-T Axes : 040 -14 025 degrees QTc Int : 447 ms Normal sinus rhythm with sinus arrhythmia RSR' or QR pattern in V1 suggests right ventricular conduction delay Borderline ECG When compared with ECG of 04-APR-2018 16:41, RSR' pattern in V1 is now Present Referred By: Generic ED Physician Electronically Signed By:Vega Augustin
--- NOTE | 2021-12-11 18:53 | ED_ITS ---
HPI - Abdominal Pain General Chief Complaint: Abdominal Pain Stated Complaint: abd pain Time Seen by Provider: 12/11/21 18:46 Source: patient Mode of arrival: ambulatory Limitations: no limitations History of Present Illness MD elicited complaint: abdominal pain Pertinent past history: other (diverticulosis) Onset (ago): hour(s) (12pm today) Pain Consistency: constant Location: LLQ Severity: moderate Quality: aching and dull Radiation: epigastric Migration to: no migration Exacerbating factors: movement Relieving factors: nothing Associated symptoms: nausea and other (3 BMs today not diarrhea, sweaty, hot flashes) Related Data Home Medications Medication Instructions Recorded Confirmed coenzyme Q10 50 mg capsule 50 mg PO DAILY 07/21/20 08/03/21 garlic 500 mg PO DAILY 07/21/20 08/03/21 multivitamin 1 tab PO DAILY 07/21/20 08/03/21 omega-3 fatty acids 500 mg capsule 500 mg PO DAILY 07/21/20 08/03/21 albuterol sulfate 90 mcg/actuation INHALATION 10/31/21 aerosol inhaler (ProAir HFA) ipratropium 20 mcg-albuterol 100 1 puff INHALATION Q6H PRN ml 10/31/21 mcg/actuation mist for inhalation (Combivent Respimat) Previous Rx's Medication Instructions Recorded guaifenesin 1,200 mg tablet, 1,200 mg PO BID #60 tab 11/01/21 extended release 12 hr (Mucinex) benzonatate 200 mg capsule 200 mg PO TID PRN 30 Days #90 cap 11/09/21 fluticasone propionate 115 2 puff INHALATION BID 30 Days #1 ea 11/21/21 mcg-salmeterol 21 mcg/actuation HFA inhaler (Advair HFA) morphine 15 mg immediate release 15 mg PO Q6H PRN 3 Days #12 tab 12/11/21 tablet ondansetron 4 mg disintegrating 4 mg PO Q8H PRN #20 tab 12/11/21 tablet prednisone 20 mg tablet 40 mg PO DAILY 4 Days #8 tab 12/11/21 tamsulosin 0.4 mg capsule 0.4 mg PO DAILY 5 Days #5 cap 12/11/21 Allergies Allergy/AdvReac Type Severity Reaction Status Date / Time dexamethasone [DEXAMETHASONE] Allergy Intermediate VERTIGO Verified 12/11/21 15:47 atorvastatin AdvReac Intermediate bone pain Verified 12/11/21 15:47 lisinopril [LISINOPRIL] AdvReac Intermediate COUGH Verified 12/11/21 15:47 propofol AdvReac Intermediate Excessively Verified 12/11/21 15:47 dry mouth, Wellbutrin Allergy Unknown Unknown Uncoded 10/31/21 14:44 Review of Systems Review of Systems Constitutional : No Weight loss, No Fever, No Chills ENT/Mouth : No sore throat, No Rhinorrhea Eyes: No Swelling, No Redness Cardiovascular : No Chest Pain, No SOB, NoEdema Respiratory : No Cough, No Sputum, No Wheezing Gastrointestinal : Positive Nausea, no Vomiting, no Diarrhea, positive abdominal Pain, No Hematochezia, No Melena, pos loose stools Genitourinary : No Dysuria, No Urinary Frequency, No Hematuria, No Urgency Musculoskeletal : No joint pain, No Myalgias, No Joint Swelling Skin : No Skin Lesions, No rash Neuro : No Weakness, No Numbness, No Dizziness, No Headache Psych : No Anxiety/Panic, No Depression Heme/Lymph: No Bruising, No Lymphadenopathy Endocrine : No Polyuria, No Polydipsia All other systems reviewed and are negative. [facility] Past Medical History Attestation statement: The following information was validated with the patient. Medical History Diverticulosis HLD (hyperlipidemia) Lumbar disc disease Neuropathy Overweight (BMI 25.0-29.9) Surgical History H/O arthroscopy H/O colonoscopy Spinal cord stimulator status Family History Family History Father Hypertension COPD (chronic obstructive pulmonary disease) Mother Hypertension Dementia Family/Other Lung cancer Social History Social History Housing: House Alcohol intake: never Patient Tobacco Use Status: Former Tobacco user Quit Date: 30 YRS AGO e-Cigarette/Vaping Use: Never Used Advance Directives: No Advance Directives Information Provided: No Current occupational status: employed 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 Oriented X3. No acute distress. Eyes: Pupils equal, round and reactive to light. ENT: Pharynx normal. Neck: Normal inspection. Neck supple. CVS: Normal heart rate and rhythm. Pulses normal. Respiratory: No respiratory distress. Breath sounds normal. Abdomen: Soft and mild LLQ pain no rebound Skin: Skin warm and dry. Normal skin color. Normal skin turgor. Extremities: No lower extremity edema. No calf ttp Neuro: Oriented X 3. No motor deficit. No sensory deficit. 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 Seems atypical for ACS. Lab Data Result diagrams: 12/11/21 19:31 12/11/21 19:31 Labs: Lab Results 12/11/21 12/11/21 12/11/21 Range/Units 19:19 19:31 19:31 WBC 11.0 H (4.8-10.8) X10*3/uL RBC 4.86 (4.60-5.80) X10*6/uL Hgb 14.4 (14.0-18.0) g/dl Hct 44.0 (42.0-52.0) % MCV 90.5 (80.0-98.0) fL MCH 29.6 (27.0-33.0) pg MCHC 32.7 (31.0-36.0) g/dl RDW 13.0 (11.0-16.0) % Plt Count 280 (160-400) X10*3/uL MPV 9.5 (9.4-12.4) fL Immature Gran % (Auto) 0.2 (0.0-0.4) % Neut % (Auto) 78.5 H (45-73) % Lymph % (Auto) 11.6 L (20-40) % [place] % (Auto) 7.9 (2-11) % Eos % (Auto) 1.3 (0-4) % Baso % (Auto) 0.5 (0-2) % Lymph # (Auto) 1.3 (1.2-4.9) X10*3/uL [place] # (Auto) 0.9 (0.1-1.2) X10*3/uL Eos # (Auto) 0.1 (0.0-0.4) X10*3/uL Baso # (Auto) 0.1 (0.0-0.2) X10*3/uL Abs Immat Gran (auto) 0.02 (0.00-0.03) X10*3/uL Absolute Neuts (auto) 8.6 H (2.0-8.3) x10*3/uL Absolute Nucleated RBC 0.000 (0.0-0.012) X10*3/uL Nucleated RBC % (auto) 0.0 (0.0-0.2) /100WBC PT (9.9-13.0) SEC INR (0.9-1.1) Sodium 141 (135-145) mmol/L Potassium 4.4 (3.3-5.1) mmol/L Chloride 105 (96-108) mmol/L Carbon Dioxide 27 (22-29) mmol/L Anion Gap 13 (12-20) BUN 28 H (9-16) mg/dL Creatinine 1.50 H (0.5-1.4) mg/dL Estim Creat Clear Calc 58.8 Estimated GFR 47 Random Glucose 91 (60-115) mg/dL Lactic Acid (0.5-2.0) mmol/L Calcium 9.7 (8.4-10.2) mg/dL Magnesium 2.3 (1.6-2.6) mg/dL Total Bilirubin 0.3 (0.0-1.0) mg/dL Direct Bilirubin < 0.2 (0.0-0.5) mg/dL AST 43 H D (5-37) U/L ALT 48 H (0-40) U/L Alkaline Phosphatase 48 (39-117) U/L Troponin I High Sens (<3.5-35.0) ng/L Total Protein 6.8 (6.5-8.0) g/dL Albumin 4.5 (3.5-5.0) g/dL Lipase 24 (8-78) U/L Urine Color YELLOW Urine Appearance CLEAR Urine pH 6.0 (5.0-8.0) Ur Specific [place] 1.025 (1.005-1.025) Urine Protein NEG (NEG-TRACE) MG/DL Urine Glucose (UA) NEG (NEG) MG/DL Urine Ketones 5 (NEG) MG/DL Urine Blood 1+ H (NEG) Urine Nitrite NEG (NEG) Ur Leukocyte Esterase NEG (NEG) Urine RBC 5-9 H (0) /HPF Urine WBC 0 (0-4) /HPF Ur Squamous Epith Cells TRACE /LPF Urine Bacteria NONE /LPF Urine Mucus TRACE /LPF 12/11/21 12/11/21 12/11/21 Range/Units 19:31 19:31 19:31 WBC (4.8-10.8) X10*3/uL RBC (4.60-5.80) X10*6/uL Hgb (14.0-18.0) g/dl Hct (42.0-52.0) % MCV (80.0-98.0) fL MCH (27.0-33.0) pg MCHC (31.0-36.0) g/dl RDW (11.0-16.0) % Plt Count (160-400) X10*3/uL MPV (9.4-12.4) fL Immature Gran % (Auto) (0.0-0.4) % Neut % (Auto) (45-73) % Lymph % (Auto) (20-40) % [place] % (Auto) (2-11) % Eos % (Auto) (0-4) % Baso % (Auto) (0-2) % Lymph # (Auto) (1.2-4.9) X10*3/uL [place] # (Auto) (0.1-1.2) X10*3/uL Eos # (Auto) (0.0-0.4) X10*3/uL Baso # (Auto) (0.0-0.2) X10*3/uL Abs Immat Gran (auto) (0.00-0.03) X10*3/uL Absolute Neuts (auto) (2.0-8.3) x10*3/uL Absolute Nucleated RBC (0.0-0.012) X10*3/uL Nucleated RBC % (auto) (0.0-0.2) /100WBC PT 11.3 (9.9-13.0) SEC INR 1.0 (0.9-1.1) Sodium (135-145) mmol/L Potassium (3.3-5.1) mmol/L Chloride (96-108) mmol/L Carbon Dioxide (22-29) mmol/L Anion Gap (12-20) BUN (9-16) mg/dL Creatinine (0.5-1.4) mg/dL Estim Creat Clear Calc Estimated GFR Random Glucose (60-115) mg/dL Lactic Acid 0.6 (0.5-2.0) mmol/L Calcium (8.4-10.2) mg/dL Magnesium (1.6-2.6) mg/dL Total Bilirubin (0.0-1.0) mg/dL Direct Bilirubin (0.0-0.5) mg/dL AST (5-37) U/L ALT (0-40) U/L Alkaline Phosphatase (39-117) U/L Troponin I High Sens < 3.5 (<3.5-35.0) ng/L Total Protein (6.5-8.0) g/dL Albumin (3.5-5.0) g/dL Lipase (8-78) U/L Urine Color Urine Appearance Urine pH (5.0-8.0) Ur Specific [place] (1.005-1.025) Urine Protein (NEG-TRACE) MG/DL Urine Glucose (UA) (NEG) MG/DL Urine Ketones (NEG) MG/DL Urine Blood (NEG) Urine Nitrite (NEG) Ur Leukocyte Esterase (NEG) Urine RBC (0) /HPF Urine WBC (0-4) /HPF Ur Squamous Epith Cells /LPF Urine Bacteria /LPF Urine Mucus /LPF ECG Data Attestation: I personally reviewed and interpreted this ECG as follows: ECG interpretation date: 12/11/21 ECG interpretation time: 18:57 Interpretation: Rate: 80 Rhythm: NSR [place]: left Normal P waves. Normal SUSANNE. incomplete RBBB ST T wave : inverted t waves inf leads III and aVF no VILMA qTC: normal prior studies: no sig change from prior The study has been interpreted contemporaneously by me. EKG #2 Rate: 68 Rhythm: NSR [place]: normal Normal P waves. Normal SUSANNE. Normal QRS complex. ST T wave : inverted t waves inf leads III and aVF no VILMA qTC: normal prior studies: no acute ischemia The study has been interpreted contemporaneously by me. Discharge Plan Discharge Clinical Impression: Abdominal pain, Ureterolithiasis Patient Disposition: Home, Self-Care Instructions: Ureteral Stones (ED) Additional Instructions: return to ED for any worsening symptoms or concerns if pain is not improved tomorrow, you have vomiting, cannot pee, fevers, pain persists this will need to be surgically removed repeat kidney function in 2 days drink 60 ounces of water a day Prescriptions: New prednisone 20 mg tablet 40 mg PO DAILY 4 Days Qty: 8 0RF tamsulosin 0.4 mg capsule 0.4 mg PO DAILY 5 Days Qty: 5 0RF morphine 15 mg tablet 15 mg PO Q6H PRN (Reason: pain) 3 Days Qty: 12 0RF ondansetron 4 mg tablet,disintegrating 4 mg PO Q8H PRN (Reason: nausea and vomiting) Qty: 20 0RF No Action Mucinex 1,200 mg tablet extended release 12hr 1,200 mg PO BID Qty: 60 0RF Advair HFA 115-21 mcg/actuation HFA aerosol inhaler 2 puff inhalation BID 30 Days Qty: 1 6RF garlic Tablet 500 mg PO DAILY 0RF multivitamin Tablet 1 tab PO DAILY 0RF coenzyme Q10 50 mg capsule 50 mg PO DAILY 0RF omega-3 fatty acids 500 mg capsule 500 mg PO DAILY 0RF Combivent Respimat 20-100 mcg/actuation mist 1 puff inhalation Q6H PRN (Reason: for wheezing) 0RF Rx Instructions: on hold right now, seemed to be making things worse albuterol sulfate [ProAir HFA] 90 mcg/actuation HFA aerosol inhaler inhalation 0RF benzonatate 200 mg capsule 200 mg PO TID PRN (Reason: cough) 30 Days Qty: 90 3RF Referrals: Hardy Ocampo MD [Physician] - 1 day (if not better) Interventions: ED Discharge Assessment Last Done: 12/11/21 22:15 Discharge Date/Time: 12/11/21 22:16
[2021-12-11 19:07] VITALS: BP 155/88; PULSE 74; RESP 17; TEMP 36.8; O2SAT 97
[2021-12-11 19:22] VITALS: BP 147/91; PULSE 64; RESP 14; O2SAT 98
[2021-12-11 19:30] LABS: Appearance Urine CLEAR; Color Urine YELLOW; Glucose Urine UA NEG (NEG); Leukocyte Esterase Urine NEG (NEG); Nitrite Urine NEG (NEG); Specific Gravity - Urine 1.025 (1.005-1.025); UACC Culture Trigger NO; Urine Blood 1+ (NEG); Urine Ketones 5 MG/DL (NEG); Urine Protein NEG (NEG-TRACE)
[2021-12-11 19:37] LABS: MANUAL DIFF FLAG NO
[2021-12-11 19:38] LABS: Basophils Absolute Auto 0.1 X10*3/uL (0.0-0.2); Basophils Percent Auto 0.5 % (0-2); Eosinophils Absolute Auto 0.1 X10*3/uL (0.0-0.4); Eosinophils Percent Auto 1.3 % (0-4); Hemoglobin 14.4 g/dl (14.0-18.0); Imm Gran Abs Auto 0.02 X10*3/uL (0.00-0.03); Imm Gran Pct Auto 0.2 % (0.0-0.4); Lymphocytes Absolute Auto 1.3 X10*3/uL (1.2-4.9); Lymphocytes Percent Auto 11.6 % (20-40); Mean Corpuscular HGB Conc 32.7 g/dl (31.0-36.0); Mean Corpuscular Hemoglobin 29.6 pg (27.0-33.0); Mean Corpuscular Volume 90.5 fL (80.0-98.0); Mean Platelet Volume 9.5 fL (9.4-12.4); Monocytes Absolute Auto 0.9 X10*3/uL (0.1-1.2); Monocytes Percent Auto 7.9 % (2-11); Neutrophils Absolute Auto 8.6 x10*3/uL (2.0-8.3); Neutrophils Percent Auto 78.5 % (45-73); Platelet Count 280 X10*3/uL (160-400); Red Blood Count 4.86 X10*6/uL (4.60-5.80)
[2021-12-11 19:42] LABS: Mucus Urine TRACE /LPF; Squamous Epithelial Cell Urine TRACE /LPF
[2021-12-11 19:43] LABS: WBC Urine 0 /HPF (0-4)
[2021-12-11] MEDS: 0.9 % Sodium Chloride 1,000 ML 999 ML IVCONT (19:43)
[2021-12-11] MEDS: ondansetron HCL 4 MG/2 ML VIAL IVPUSH (19:43)
[2021-12-11 19:44] LABS: Prothrombin Time 11.3 SEC (9.9-13.0)
[2021-12-11] MEDS: Morphine Sulfate 4 MG/ML CARTRIDGE IVPUSH (19:45)
[2021-12-11 19:51] LABS: Lactic Acid 0.6 mmol/L (0.5-2.0)
[2021-12-11 19:55] LABS: Alanine Aminotransferase 48 U/L (0-40); Albumin Level 4.5 g/dL (3.5-5.0); Alkaline Phosphatase 48 U/L (39-117); Anion Gap 13 (12-20); Aspartate Amino Transferase 43 U/L (5-37); Bilirubin Direct < 0.2 mg/dL (0.0-0.5); Bilirubin Total 0.3 mg/dL (0.0-1.0); Blood Urea Nitrogen 28 mg/dL (9-16); Calcium 9.7 mg/dL (8.4-10.2); Carbon Dioxide 27 mmol/L (22-29); Chloride 105 mmol/L (96-108); Creatinine Clr Calc Pharmacy 58.8; Estimated Glomerular Filt Rate 47; Glucose Random 91 mg/dL (60-115); Lipase 24 U/L (8-78); Magnesium 2.3 mg/dL (1.6-2.6); Potassium 4.4 mmol/L (3.3-5.1); Sodium 141 mmol/L (135-145); Total Protein 6.8 g/dL (6.5-8.0)
[2021-12-11 20:00] VITALS: BP 147/64; PULSE 64; RESP 14; O2SAT 98
[2021-12-11 20:01] LABS: Troponin-I High Sensitivity < 3.5 ng/L (<3.5-35.0)
[2021-12-11] MEDS: iohexoL 350 MG/ML 100 ML INFUS..BTL 85 ML IV (20:18)
[2021-12-11] MEDS: 0.9 % Sodium Chloride 1,000 ML 999 ML IV (21:16)
[2021-12-11] MEDS: predniSONE 20 MG TABLET 40 MG PO (21:55)
[2021-12-11] MEDS: Tamsulosin HCL 0.4 MG CAPSULE PO (21:55)
[2021-12-11] MEDS: Morphine Sulfate Immed Release 15 MG TABLET PO (21:56)
[2021-12-11 22:00] VITALS: BP 150/94; PULSE 66; RESP 15; O2SAT 98
--- NOTE | 2021-12-12 17:49 | ECG_ITS ---
Test Reason : abdominal pain Blood Pressure : / mmHG Vent. Rate : 068 BPM Atrial Rate : 068 BPM P-R Int : 192 ms QRS Dur : 096 ms QT Int : 404 ms P-R-T Axes : 043 -11 -02 degrees QTc Int : 429 ms Sinus rhythm with marked sinus arrhythmia Minimal voltage criteria for LVH, may be normal variant ( R in aVL ) Borderline ECG When compared with ECG of 11-DEC-2021 15:55, No significant change was found Referred By: Generic ED Physician Electronically Signed By:Vega Augustin
== END 2021-12-11 22:16 | disposition home or self-care (01) ==
PROVIDERS: Emergency Provider Emergency Medicine; PCP Physician Assistant
DX: N20.1 Calculus of ureter (principal); R10.32 Left lower quadrant pain; Z79.899 Other long term (current) drug therapy; Z87.891 Personal history of nicotine dependence
CPT/HCPCS: 36415; 74177; 80048; 80076; 81001; 83605; 83690; 83735; 84484; 85025; 85610; 93005; 99284; J2270; J2405; Q9967

== ENCOUNTER → 2021-12-12 13:20 | Outpatient (BNVA) | payer OTHER, SELFPAY | PROVIDERS: PCP Physician Assistant; Visit Provider Orthopaedic Surgery | DX: M25.561 Pain in right knee (principal); M25.361 Other instability, right knee; N20.0 Calculus of kidney; E78.5 Hyperlipidemia, unspecified; E66.3 Overweight; Z88.4 Allergy status to anesthetic agent; Z88.8 Allergy status to other drugs, medicaments and biological substances | CPT/HCPCS: 99212 ==

== ENCOUNTER → 2021-12-19 09:54 | Outpatient (BNVA) | payer OTHER, SELFPAY | PROVIDERS: PCP Physician Assistant | DX: N20.0 Calculus of kidney (principal) | CPT/HCPCS: 99202 ==

== ENCOUNTER → 2021-12-20 13:58 | Outpatient (REF) | payer OTHER, SELFPAY ==
--- NOTE | 2021-12-20 14:00 | CA_ITS ---
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 The visually estimated ejection fraction is between 65-70%. - Mildly increased right ventricular cavity size. - There is mild calcification of the aortic valve. - No obvious valvular pathology seen on this study. - The pulmonary artery systolic pressure is normal. Findings Left Ventricle Normal left ventricular cavity size. There is mildly increased left ventricular wall thickness. The left ventricular systolic function is normal. The visually estimated ejection fraction is between 65-70%. There is no evidence of regional wall motion abnormalities. Diastolic function is normal for age. Right Ventricle Mildly increased right ventricular cavity size. There is normal right ventricular systolic function. Atria Both atria are normal in size. Aortic Valve There is mild calcification of the aortic valve. There is no aortic valve stenosis. There is no aortic valve regurgitation. Mitral Valve The mitral valve appears normal. There is no mitral valve regurgitation. There is no mitral valve stenosis. Pulmonic Valve The pulmonic valve was not well visualized. Tricuspid Valve Normal tricuspid valve structure. There is trace tricuspid valve regurgitation. The pulmonary artery systolic pressure is normal. Great Vessels The aortic annulus, sinuses of valsalva, and asc aorta are normal in size. Venous The inferior vena cava is normal in size and collapses greater than 50% with inspiration. Pericardium/Pleural There is no evidence of pericardial effusion. Prior Study Comparison No prior study available for comparison. Recommendations, Care & Conclusions No obvious valvular pathology seen on this study. Measurements 2D Linear Measurements IVSd: 1.37 0.6-0.9/0.6-1.0 cm LVIDd: 4.65 3.9-5.3/4.2-5.9 cm LVIDd Index: 2.14 2.4-3.2/2.2-3.1 cm/m2 LVIDs: 2.76 2.0-3.6 cm LVPWd: 1.17 0.7-1.1 cm LA Diam: 3.00 2.7-3.8/3.0-4.0 cm LAIDs Index: 1.38 1.5-2.3 cm/m2 LV Mass: 282.00 67-162/88-224 g LV Mass Index: 129.95 43-95/49-115 g/m2 LVOT Diam: 2.30 3.0+(-)1.3 cm 2D Systolic Function EF 4C: 60.10 >55% EF 2C: 59.00 >55% EF BiP: 60.20 >55% Mitral Valve MV Pk E: 0.60 MV PK A: 0.59 MV Decel Time: 198.00 E/A: 1.00 E'Lateral: 11.50 E'Medial: 7.51 E/E' Med: 7.90 E/E' Lat: 5.20 PHT: 58.00 MVA PHT: 3.79 Decel Dundy: 3.01 Aortic Valve AoV Pk Sung: 1.16 AoV Mn Sung: 0.88 AoV VTI: 0.21 AoV Pk Grad: 5.00 Aov Mn Grad: 3.00 MILKA Cont.VTI: 4.29 LVOT LVOT Pk Sung: 1.16 LVOT Mn Sung: 0.81 LVOT VTI: 0.22 LVOT Pk Grad: 5.00 LVOT Mn Grad: 3.00 LVOT Diam: 2.30 LVOT Area: 4.15 Diastolic Function MV Pk E: 0.60 MV Pk A: 0.59 E/A: 1.00 E'Medial: 7.51 E/E' Med: 7.90 E' Laterial: 11.50 E/E' Lat: 5.20 Right Ventricle TAPSE (mm): 28.00 TVS' Sung: 16.00 Tricuspid Valve TR Pk Sung: 2.10 TR Pk Grad: 18.00 RA Press: 3.00 RVSP: 21.00 Great Vessels Aorta Sinus of Valsalva: 3.49 2.0-3.[address] [place]: 3.03 1.7-3.4 cm Ao Asc: 3.30 2.1-3.4 cm Ao Arch: 3.00 Updated in Other Vendor System with Status of Final Erasto Rivera MD electronically signed on 12/21/2021 11:20:51 AM with status of Final
== END ==
LOC: HO.CARD 13:58
PROVIDERS: Visit Provider Internal Medicine Pulmonary Disease
DX: U09.9 Post COVID-19 condition, unspecified (principal)
CPT/HCPCS: 93306

== ENCOUNTER → 2021-12-26 12:55 | Outpatient (BNVA) | payer OTHER, SELFPAY | PROVIDERS: PCP Physician Assistant; Visit Provider Internal Medicine Pulmonary Disease | DX: R06.2 Wheezing (principal); R91.8 Other nonspecific abnormal finding of lung field; Z87.891 Personal history of nicotine dependence; Z86.16 Personal history of COVID-19; Z77.090 Contact with and (suspected) exposure to asbestos | CPT/HCPCS: 99212 ==

== ENCOUNTER 2022-01-23 16:15 | Outpatient (REF) | payer OTHER, SELFPAY ==
--- NOTE | ~2022-01-23 | US_ITS ---
EXAMINATION: US RETROPERITONEAL LIMITED (RENAL ONLY) CLINICAL INFORMATION: Calculus of kidney. COMPARISON: CT abdomen and pelvis 12/11/2021. TECHNIQUE: Real-time imaging of the kidneys. FINDINGS: RIGHT KIDNEY: 11.3 x 5.8 x 4.8 cm (SAG x AP x TRV). The kidney is normal in size, contour, and echogenicity. Renal cortical thickness is normal. No calculi or focal parenchymal lesions. No hydronephrosis. LEFT KIDNEY: 12.5 x 6.8 x 4.9 cm (SAG x AP x TRV). The kidney is normal in size, contour, and echogenicity. Renal cortical thickness is normal. No focal parenchymal lesions or hydronephrosis. There is an echogenic stone midpole measuring 0.7 x 0.5 cm. US/US renal BI IMPRESSION: Unremarkable renal ultrasound. Small nonobstructive echogenic stone midpole measuring 0.7 x 0.5 cm.
== END 2022-01-23 16:16 | disposition home or self-care (01) ==
LOC: HO.US 16:15
DX: N20.0 Calculus of kidney (principal)
CPT/HCPCS: 76775

== ENCOUNTER → 2022-01-30 11:13 | Outpatient (BNVA) | payer OTHER, SELFPAY | PROVIDERS: PCP Physician Assistant | DX: Z13.89 Encounter for screening for other disorder (principal) ==

== ENCOUNTER → 2022-02-03 11:29 | Outpatient (BNVA) | payer OTHER, SELFPAY | PROVIDERS: PCP Physician Assistant; Visit Provider Orthopaedic Surgery | DX: M17.0 Bilateral primary osteoarthritis of knee (principal) | CPT/HCPCS: 20610; 99212; J1100 ==

== ENCOUNTER → 2022-03-09 12:26 | Outpatient (BNVA) | payer MEDICARE, MEDICAID, SELFPAY | PROVIDERS: PCP Physician Assistant; Visit Provider Orthopaedic Surgery | DX: M17.0 Bilateral primary osteoarthritis of knee (principal); R20.0 Anesthesia of skin | CPT/HCPCS: 99212 ==

== ENCOUNTER 2022-03-30 12:41 | Outpatient (REF) | payer MEDICARE, OTHER, SELFPAY | END 2022-03-30 12:42 | disposition home or self-care (01) | LOC: HO.CT 12:41 | PROVIDERS: Visit Provider Internal Medicine | DX: Z13.89 Encounter for screening for other disorder (principal) ==

== ENCOUNTER 2022-04-04 13:19 | Outpatient (REF) | payer MEDICARE, MEDICAID, SELFPAY ==
--- NOTE | ~2022-04-04 | CT_ITS ---
EXAMINATION: CT chest wo con. CLINICAL INFORMATION: Reason for Exam R91.8 - Other nonspecific abnormal finding of lung field COMPARISON: Prior CT scan July 2021 TECHNIQUE: Multidetector volumetric CT imaging of the chest was done. Axial MIP volume rendering provided. Sagittal and coronal reformatted images were obtained. This CT examination was performed using dose optimization techniques as appropriate, variously including the following: *Automated exposure control *Adjustment of mA and/or kV according to patient size (this includes techniques or standardized protocols for targeted exams where dose is matched to indication/reason for exam; i.e. extremities or head) *Use of iterative reconstruction technique CONTRAST: Noncontrasted study. DLP: 198 mGy-cm FINDINGS: CARTON STAPLER: LINES/TUBES: Telecom Billing Analyst reviewed, no lines. LUNGS: Lung parenchyma: Mild pulmonary emphysema. No CT evidence of significant interstitial disease process, no bronchiectasis, no peripheral honeycombing or interlobular septal thickening to suggest interstitial lung disease. Lung nodules/masses: No lung mass or suspicious spiculated nodules, no CT evidence of lung neoplasm, there are few scattered tiny nonspecific lung densities measuring up to 3 mm or less AIRWAYS: Trachea and bronchi are normal. PLEURA: No pleural effusion or pneumothorax. MEDIASTINUM AND FELA: No mediastinal, hilar or axillary lymphadenopathy. No mediastinal mass. VESSELS: HEART AND PERICARDIUM: Thoracic aorta is normal in size. Heart is normal in size. No pericardial effusion. Pulmonary arteries are normal in size. LOWER NECK, AXILLA: The visualized thyroid gland is unremarkable. No axillary mass or adenopathy. VISUALIZED ABDOMEN: Tiny calcific density projecting over the area left renal hilum probably a nonobstructing stone to millimeter. Otherwise included upper abdomen is unremarkable. CHEST WALL AND BONES: No chest wall mass. The visualized bony thorax is within normal limits. CT/CT chest wo con IMPRESSION: *No CT evidence of significant interstitial lung disease. *Ray mild pulmonary emphysema. *No lung mass or suspicious spiculated nodules, no CT evidence of lung neoplasm, there are few scattered tiny nonspecific lung densities measuring up to 3 mm or less, this has not changed. *Tiny 2 mm nonobstructing stone in the left kidney. *Coronary calcification. Various management parameters for solitary pulmonary nodules are in the literature. According to the UPDATED 2017 Fleischner Society recommendations, the advised follow-up imaging for solid nodules < 6 mm is: LOW RISK PATIENT: No routine follow-up. HIGH RISK PATIENT: Optional CT at 12 months. Reference: Guidelines for Management of Incidental Pulmonary Nodules Detected on CT Images: From the Fleischner Society 2017.
== END 2022-04-04 13:20 | disposition home or self-care (01) ==
LOC: HO.CT 13:19
PROVIDERS: Visit Provider Internal Medicine Pulmonary Disease
DX: R91.8 Other nonspecific abnormal finding of lung field (principal); J84.9 Interstitial pulmonary disease, unspecified
CPT/HCPCS: 71250

== ENCOUNTER → 2022-05-22 14:01 | Outpatient (REF) | payer MEDICARE, MEDICAID, SELFPAY | LOC: HO.SL 14:01 | PROVIDERS: PCP Physician Assistant; Visit Provider Internal Medicine Pulmonary Disease | DX: G47.33 Obstructive sleep apnea (adult) (pediatric) (principal); R06.83 Snoring | CPT/HCPCS: 95806; 99212 ==

== ENCOUNTER 2022-06-30 11:09 | Outpatient (REF) | payer MEDICARE, MEDICAID, SELFPAY ==
--- NOTE | ~2022-06-30 | CT_ITS ---
EXAMINATION: CT CHEST WITHOUT CONTRAST CLINICAL INFORMATION: Other nonspecific abnormal finding of lung field COMPARISON: Previous chest CT March 2022 and July 2021 TECHNIQUE: Multidetector volumetric CT imaging of the chest was done. Axial MIP volume rendering provided. Sagittal and coronal reformatted images were obtained. This CT examination was performed using dose optimization techniques as appropriate, variously including the following: *Automated exposure control *Adjustment of mA and/or kV according to patient size (this includes techniques or standardized protocols for targeted exams where dose is matched to indication/reason for exam; i.e. extremities or head) *Use of iterative reconstruction technique DLP: 196 mGy-cm FINDINGS: LUNGS: The 6 mm peripheral or subpleural left lower lobe nodule in the anterior lateral costophrenic sulcus axial image 463 series 7 is stable. The 3 mm peripheral or subpleural left lower lobe nodule in the posterior lateral costophrenic sulcus axial image 470 series 7 is stable. There are increased peripheral interstitial markings in the anterior right upper and right middle lobes that are stable. The lungs are otherwise clear. No evidence of emphysema or bronchiectasis. No endobronchial or endotracheal lesion. MEDIASTINUM: There are small mediastinal lymph nodes that are stable. No enlarged lymph nodes are seen. Normal heart size. No pericardial effusion. Visualized thyroid gland is normal. Normal caliber thoracic aorta. CORONARY ARTERY CALCIFICATION: Mild PLEURA: There is no pleural effusion. No pleural mass or thickening. AXILLA: No lymphadenopathy. UPPER ABDOMEN: Unremarkable. OSSEOUS STRUCTURES: There are degenerative changes of the spine. There is a spinal stimulator in the lower thoracic spinal canal. CT/CT chest wo IV con IMPRESSION: No change in left lower lobe nodules and increased peripheral interstitial markings in the anterior right upper and right middle lobes from prior exams. Fleischner guidelines were followed.
== END 2022-06-30 11:10 | disposition home or self-care (01) ==
LOC: HO.CT 11:09
PROVIDERS: Visit Provider Internal Medicine Pulmonary Disease
DX: R91.8 Other nonspecific abnormal finding of lung field (principal)
CPT/HCPCS: 71250

== ENCOUNTER → 2022-07-24 14:00 | Outpatient (BNVA) | payer MEDICARE, MEDICAID, SELFPAY | PROVIDERS: PCP Nurse Practitioner Family; Visit Provider Internal Medicine Pulmonary Disease | DX: R91.8 Other nonspecific abnormal finding of lung field (principal); J45.20 Mild intermittent asthma, uncomplicated | CPT/HCPCS: 99212 ==

== ENCOUNTER 2022-07-25 12:59 | Outpatient (REF) | payer MEDICARE, MEDICAID, SELFPAY ==
--- NOTE | ~2022-07-25 | US_ITS ---
EXAMINATION: US RETROPERITONEAL LIMITED (RENAL ONLY) CLINICAL INFORMATION: Calculus of kidney. COMPARISON: Ultrasound retroperitoneal limited (renal only) 01/23/2022. CT abdomen and pelvis with contrast 12/19/2021. TECHNIQUE: Real-time imaging of the kidneys. FINDINGS: RIGHT KIDNEY: 11.2 x 5.8 x 5.6 cm (SAG x AP x TRV). The kidney is normal in size, contour, and echogenicity. Renal cortical thickness is normal. No calculi or focal parenchymal lesions. No hydronephrosis. LEFT KIDNEY: 11.8 x 6.0 x 5.4 cm (SAG x AP x TRV). The kidney is normal in size, contour, and echogenicity. Renal cortical thickness is normal. No focal parenchymal lesions or hydronephrosis. There is a echogenic nonobstructive calculi midpole measuring 0.6 x 0.4 x 0.4 cm. US/US renal BI IMPRESSION: 1. Nonobstructive echogenic stone midpole left kidney. 2. The right kidney is unremarkable.
== END 2022-07-25 13:00 | disposition home or self-care (01) ==
LOC: HO.US 12:59
PROVIDERS: Visit Provider Urology
DX: N20.0 Calculus of kidney (principal)
CPT/HCPCS: 76775

== ENCOUNTER 2022-08-02 15:12 | Outpatient (REF) | payer MEDICARE, MEDICAID, SELFPAY ==
--- NOTE | 2022-08-02 09:45 | EMG_ITS ---
Please see scanned EMG / Nerve Conduction Report. MTDD
== END 2022-08-02 15:13 | disposition home or self-care (01) ==
LOC: HO.NEURO 15:12
PROVIDERS: PCP Physician Assistant; Visit Provider Orthopaedic Surgery
DX: R20.0 Anesthesia of skin (principal)
CPT/HCPCS: 95885; 95913

== ENCOUNTER 2022-08-11 12:23 | Outpatient (REF) | payer MEDICARE, MEDICAID, SELFPAY ==
[2022-08-11 12:42] LABS: MANUAL DIFF FLAG NO
[2022-08-11 13:28] LABS: Basophils Absolute Auto 0.1 X10*3/uL (0.0-0.2); Basophils Percent Auto 0.9 % (0-2); Eosinophils Absolute Auto 0.2 X10*3/uL (0.0-0.4); Eosinophils Percent Auto 2.6 % (0-4); Hematocrit 46.5 % (42.0-52.0); Hemoglobin 15.4 g/dl (14.0-18.0); Imm Gran Abs Auto 0.02 X10*3/uL (0.00-0.03); Imm Gran Pct Auto 0.3 % (0.0-0.4); Lymphocytes Absolute Auto 1.5 X10*3/uL (1.2-4.9); Lymphocytes Percent Auto 20.7 % (20-40); Mean Corpuscular HGB Conc 33.1 g/dl (31.0-36.0); Mean Corpuscular Hemoglobin 29.8 pg (27.0-33.0); Mean Corpuscular Volume 90.1 fL (80.0-98.0); Mean Platelet Volume 9.8 fL (9.4-12.4); Monocytes Absolute Auto 0.6 X10*3/uL (0.1-1.2); Monocytes Percent Auto 8.5 % (2-11); Platelet Count 317 X10*3/uL (160-400); Red Blood Count 5.16 X10*6/uL (4.60-5.80); Red Cell Distribution Width 13.2 % (11.0-16.0); White Blood Count 7.4 X10*3/uL (4.8-10.8)
[2022-08-11 14:07] LABS: Alanine Aminotransferase 25 U/L (0-40); Albumin Level 4.5 g/dL (3.5-5.0); Alkaline Phosphatase 56 U/L (39-117); Anion Gap 12 (12-20); Aspartate Amino Transferase 23 U/L (5-37); Bilirubin Total 0.8 mg/dL (0.0-1.0); Blood Urea Nitrogen 17 mg/dL (9-16); Calcium 9.9 mg/dL (8.4-10.2); Carbon Dioxide 29 mmol/L (22-29); Chloride 105 mmol/L (96-108); Cholesterol 247 mg/dL; Estimated Glomerular Filt Rate > 60; Glucose Random 90 mg/dL (60-115); HDL Cholesterol 48 mg/dL; LDL Cholesterol Calculated 177 mg/dl; PSA,Total (Free>4and<10) 0.62 ng/mL (0.00-4.00); Potassium 5.2 mmol/L (3.3-5.1); Sodium 141 mmol/L (135-145); TSH reflex Free T4 1.46 uIU/mL (0.32-4.0); Total Protein 6.7 g/dL (6.5-8.0); Triglycerides 114 mg/dL
[2022-08-16 11:37] LABS: Vitamin B6 168.1 ng/mL (2.1-21.7)
== END 2022-08-11 12:24 | disposition home or self-care (01) ==
LOC: HO.LAB 12:23
PROVIDERS: PCP Physician Assistant; Visit Provider Nurse Practitioner Family
DX: Z13.220 Encounter for screening for lipoid disorders (principal); Z13.29 Encounter for screening for other suspected endocrine disorder; Z12.5 Encounter for screening for malignant neoplasm of prostate; Z13.0 Encounter for screening for diseases of the blood and blood-forming organs and certain disorders involving the immune mechanism; N20.0 Calculus of kidney
CPT/HCPCS: 36415; 80053; 80061; 84153; 84207; 84443; 85025

== ENCOUNTER → 2022-08-24 15:15 | Outpatient (BNVA) | payer MEDICARE, MEDICAID, SELFPAY | PROVIDERS: PCP Physician Assistant; Visit Provider Urology | DX: N20.0 Calculus of kidney (principal) | CPT/HCPCS: 99212 ==

== ENCOUNTER → 2022-08-30 10:37 | Outpatient (BNVA) | payer MEDICARE, MEDICAID, OTHER, SELFPAY | PROVIDERS: PCP Physician Assistant; Visit Provider Orthopaedic Surgery | DX: G56.03 Carpal tunnel syndrome, bilateral upper limbs (principal) | CPT/HCPCS: 99202 ==

== ENCOUNTER 2022-09-06 12:43 | Outpatient (REF) | payer MEDICARE, MEDICAID, SELFPAY ==
--- NOTE | ~2022-09-06 | XR_ITS ---
EXAMINATION: XR SHOULDER, RIGHT CLINICAL INFORMATION: Pain COMPARISON: Previous x-rays most recent November 2019 TECHNIQUE: 3 views of the right shoulder. FINDINGS: No acute fracture or dislocation. The right acromioclavicular and coracoclavicular distances are slightly widened similar to 2020 exam questionable for old injury. Joint spaces are otherwise normal. Soft tissues are normal. Degenerative changes of the spine. Lead projecting over the mid thoracic spine. XR/XR shoulder RT min 2V IMPRESSION: Slightly widened acromioclavicular and coracoclavicular distances similar to previous exam questionable for old injury. No acute fracture or dislocation.
== END 2022-09-06 12:44 | disposition home or self-care (01) ==
LOC: HO.HOSX 12:43
PROVIDERS: Visit Provider Physician Assistant
DX: M75.41 Impingement syndrome of right shoulder (principal); M25.511 Pain in right shoulder
CPT/HCPCS: 73030; 99212

== ENCOUNTER 2022-09-27 11:13 | Outpatient (REF) | payer MEDICARE, MEDICAID, SELFPAY ==
[2022-09-27 12:54] LABS: Anion Gap 10 (12-20); Blood Urea Nitrogen 16 mg/dL (9-16); Calcium 9.8 mg/dL (8.4-10.2); Carbon Dioxide 30 mmol/L (22-29); Chloride 105 mmol/L (96-108); Cholesterol 167 mg/dL; Estimated Glomerular Filt Rate > 60; Glucose Random 98 mg/dL (60-115); HDL Cholesterol 51 mg/dL; LDL Cholesterol Calculated 99 mg/dl; Sodium 140 mmol/L (135-145); Triglycerides 85 mg/dL
[2022-10-02 15:24] LABS: Vitamin B6 65.6 ng/mL (2.1-21.7)
== END 2022-09-27 11:14 | disposition home or self-care (01) ==
LOC: HO.LAB 11:13
PROVIDERS: PCP Physician Assistant; Visit Provider Physician Assistant
DX: E78.9 Disorder of lipoprotein metabolism, unspecified (principal); E78.5 Hyperlipidemia, unspecified; E67.2 Megavitamin-B6 syndrome
CPT/HCPCS: 36415; 80048; 80061; 82550; 84207

== ENCOUNTER 2022-09-28 11:51 | Day surgery (SDC) | payer MEDICARE, MEDICAID, SELFPAY ==
--- NOTE | 2022-09-28 09:20 | W.PM.OPN ---
Operative Note Operative Note Date of Service: 09/28/22 Narrative: Preop diagnosis: 1. left Carpal tunnel syndrome Postop diagnosis: same Procedure: 1. left Carpal tunnel release Surgeon: Kyleigh Joseph MD Anesthesia: local block using 1% lidocaine with epinephrine Findings: Thickened transverse carpal ligament. EBL: Less than 5 mL Specimens: None Complications: None Disposition: Brought to recovery room in stable condition Plan: Follow-up for 10-14 days for wound check and suture removal Indications: The patient is 62 years old, with left carpal tunnel syndrome that has been unresponsive to nonoperative management. The risks and benefits of operative treatment including but not limited to risk of damage to blood vessels, nerves, tendons, infection, persistent pain, persistent symptoms, or possible need for additional surgery were discussed with the patient and the patient wishes to proceed with surgery. Procedure: Once consent was obtained a local block was performed using a combination of 1% lidocaine with epinephrine. The patient was then brought back to the operating suite and placed on the operative table in supine position. A tourniquet was applied to the proximal aspect of the left upper extremity and the limb was prepped and draped in a standard surgical fashion. Once assured that we had a good block, a 2.0 cm longitudinal incision was made centered over the carpal tunnel. The incision was made through the skin to the subcutaneous tissues using a #15 blade. Dissection was made down to the level of the transverse carpal ligament with care being taken to protect the palmar cutaneous nerve. Once the transverse carpal ligament was clearly visualized, a longitudinal incision was made in the transverse carpal ligament 1st using a #15 blade, then using tenotomy scissors under direct visualization. Care was taken to look for and protect the motor branch of the median nerve when seen in this area. Once satisfied with our carpal tunnel release the wound was copiously irrigated with normal saline and hemostasis was obtained with a brief period of local pressure. The skin edges were reapproximated with some 5.0 nylon suture material and a sterile dressing was applied. The patient appears to have tolerated the procedure well and with no complications. All digits were well vascularized at the conclusion of the case.
[2022-09-28 11:57] VITALS: BP 131/83; PULSE 74; RESP 15; TEMP 36.7; O2SAT 96; BMI 28.7
--- NOTE | 2022-09-28 12:44 | MHC.SHP ---
Pre-Procedural Eval Section A Date of Service: 09/28/22 The patient is an INPATIENT: No Changes since office visit: No Cold of Flu in the past 2 weeks, No New Medical Problems, No Changes in Medication and No Patient answered all questions The History & Physical has been completed within 30 days and I have reviewed it.: Yes Section B Chief Complaint: Carpal tunnel syndrome, left upper limb Allergies: Allergies Allergy/AdvReac Type Severity Reaction Status Date / Time dexamethasone [DEXAMETHASONE] Allergy Severe Steroid Verified 09/28/22 12:04 Physcosis atorvastatin AdvReac Intermediate bone pain Verified 09/28/22 12:04 lisinopril [LISINOPRIL] AdvReac Intermediate COUGH Verified 09/28/22 12:04 propofol AdvReac Intermediate Excessively Verified 09/28/22 12:04 dry mouth, Wellbutrin Allergy Unknown Unknown Uncoded 05/25/22 16:27 Plan I have reviewed the history and physical and performed a pertinent physical examination on my patient. No changes have occurred unless specified. Time Spent With Patient Time: Total time managing care of this patient today ____ minutes.
[2022-09-28 14:24] VITALS: BP 129/87; PULSE 70; RESP 18; O2SAT 97
== END 2022-09-28 14:26 | disposition home or self-care (01) ==
PROVIDERS: PCP Physician Assistant; Visit Provider Orthopaedic Surgery
PROC: (CPT 64721; principal; 2022-09-28 13:40)
DX: G56.02 Carpal tunnel syndrome, left upper limb (principal); R20.0 Anesthesia of skin; R20.2 Paresthesia of skin; G62.9 Polyneuropathy, unspecified; M96.1 Postlaminectomy syndrome, not elsewhere classified; Z96.82 Presence of neurostimulator; M79.7 Fibromyalgia; Z88.8 Allergy status to other drugs, medicaments and biological substances; Z87.891 Personal history of nicotine dependence
CPT/HCPCS: 64721; J0171

== ENCOUNTER → 2022-10-11 13:11 | Outpatient (BNVA) | payer MEDICARE, MEDICAID, SELFPAY | PROVIDERS: PCP Physician Assistant; Visit Provider Orthopaedic Surgery | DX: Z13.89 Encounter for screening for other disorder (principal) | CPT/HCPCS: 99212 ==

== ENCOUNTER → 2022-11-09 13:27 | Outpatient (BNVA) | payer MEDICARE, MEDICAID, SELFPAY | PROVIDERS: PCP Physician Assistant; Visit Provider Orthopaedic Surgery | DX: M17.0 Bilateral primary osteoarthritis of knee (principal) | CPT/HCPCS: 20610; 99212; J1100 ==

== ENCOUNTER → 2022-12-07 14:49 | Outpatient (BNVA) | payer MEDICARE, MEDICAID, SELFPAY | PROVIDERS: PCP Physician Assistant; Visit Provider Orthopaedic Surgery | DX: M17.11 Unilateral primary osteoarthritis, right knee (principal); M23.91 Unspecified internal derangement of right knee | CPT/HCPCS: 99212 ==

== ENCOUNTER 2022-12-11 10:41 | Outpatient (REF) | payer MEDICARE, MEDICAID, SELFPAY ==
[2022-12-11 13:04] LABS: Anion Gap 14 (12-20); Blood Urea Nitrogen 20 mg/dL (9-16); Calcium 9.6 mg/dL (8.4-10.2); Carbon Dioxide 28 mmol/L (22-29); Chloride 104 mmol/L (96-108); Cholesterol 212 mg/dL; Estimated Glomerular Filt Rate > 60; Glucose Fasting 87 mg/dL (60-99); HDL Cholesterol 43 mg/dL; LDL Cholesterol Calculated 141 mg/dl; Potassium 4.8 mmol/L (3.3-5.1); Sodium 141 mmol/L (135-145); Triglycerides 143 mg/dL
[2022-12-22 15:04] LABS: Vitamin B6 73.4 ng/mL (2.1-21.7)
== END 2022-12-11 10:42 | disposition home or self-care (01) ==
LOC: HO.LAB 10:41
PROVIDERS: PCP Physician Assistant; Visit Provider Physician Assistant
DX: E67.2 Megavitamin-B6 syndrome (principal); E78.5 Hyperlipidemia, unspecified; E55.9 Vitamin D deficiency, unspecified
CPT/HCPCS: 36415; 80048; 80061; 82306; 84207

== ENCOUNTER 2022-12-21 19:20 | Outpatient (REF) | payer MEDICARE, MEDICAID, SELFPAY ==
--- NOTE | ~2022-12-21 | MR_ITS ---
EXAMINATION: MR KNEE WITHOUT CONTRAST, RIGHT CLINICAL INFORMATION: Right knee pain COMPARISON: MRI 09/22/2015 TECHNIQUE: MRI of the knee without contrast was performed using routine sequences on a high-field scanner. FINDINGS: MENISCI: Medial Meniscus: Oblique undersurface tear of the posterior horn. Lateral Meniscus: Inner margin and horizontal tearing of the meniscal body and posterior horn. Degenerative high-grade tearing at the root of the posterior horn. LIGAMENTS: Cruciate: Intact Collateral: Intact EXTENSOR MECHANISM: Intact ARTICULAR CARTILAGE/BONE: Patellofemoral Compartment: Cartilage thinning and surface irregularity of the central trochlea and minimal irregularity of the central patella. Medial Compartment: Cartilage signal heterogeneity along the lateral weightbearing femoral condyle. Degenerative cysts of the tibia posteriorly and the junction of the meniscal root and PCL insertion. Small marginal osteophytes. Lateral Compartment: Partial-thickness cartilage loss of the posterior weightbearing femoral condyle and near full-thickness cartilage loss with degenerative cyst formation at the posterior aspect of the tibia. This has progressed since the previous study. Marginal osteophyte formation. JOINT FLUID AND BURSAE: Small joint effusion. MR/MR knee RT wo con IMPRESSION: 1. Oblique undersurface tear of the posterior horn of the medial meniscus. 2. Inner margin/horizontal tearing of the lateral meniscus body and posterior horn with high-grade tearing at the root of the posterior horn. 3. Moderate lateral compartment and mild patellofemoral/medial compartment osteoarthritis with a small joint effusion.
== END 2022-12-21 19:21 | disposition home or self-care (01) ==
LOC: HO.MRI 19:20
PROVIDERS: PCP Physician Assistant; Visit Provider Orthopaedic Surgery
DX: M23.91 Unspecified internal derangement of right knee (principal)
CPT/HCPCS: 73721

== ENCOUNTER 2022-12-25 10:37 | Day surgery (SDC) | payer MEDICARE, MEDICAID, SELFPAY ==
[2022-12-25 10:37] VITALS: BMI 28.7
[2022-12-25 10:44] VITALS: BP 125/79; PULSE 75; RESP 16; TEMP 36.3; O2SAT 96
--- NOTE | 2022-12-25 12:00 | MHC.SHP ---
Pre-Procedural Eval Section A Date of Service: 12/25/22 The patient is an INPATIENT: No Changes since office visit: No Cold of Flu in the past 2 weeks, No New Medical Problems, No Changes in Medication and No Patient answered all questions The History & Physical has been completed within 30 days and I have reviewed it.: Yes Section B Chief Complaint: Carpal tunnel syndrome, right upper limb Allergies: Allergies Allergy/AdvReac Type Severity Reaction Status Date / Time dexamethasone [DEXAMETHASONE] Allergy Severe Steroid Verified 12/14/22 14:16 Physcosis atorvastatin AdvReac Intermediate bone pain Verified 12/14/22 14:16 fluticasone AdvReac Intermediate hand Verified 12/14/22 14:16 [From [facility]] tremors, blood pressure dropping lisinopril [LISINOPRIL] AdvReac Intermediate COUGH Verified 12/14/22 14:16 propofol AdvReac Intermediate Excessively Verified 12/14/22 14:16 dry mouth, salmeterol AdvReac Intermediate hand Verified 12/14/22 14:16 [From [facility]] tremors, blood pressure dropping Wellbutrin Allergy Unknown Unknown Uncoded 12/07/22 14:52 Plan I have reviewed the history and physical and performed a pertinent physical examination on my patient. No changes have occurred unless specified. Time Spent With Patient Time: Total time managing care of this patient today ____ minutes.
--- NOTE | 2022-12-25 12:00 | W.PM.OPN ---
Operative Note Operative Note Date of Service: 12/25/22 Narrative: Preop diagnosis: 1. Right Carpal tunnel syndrome Postop diagnosis: same Procedure: 1. Right Carpal tunnel release Surgeon: Kyleigh Joseph MD Anesthesia: local block using 1% lidocaine with epinephrine Findings: Thickened transverse carpal ligament. EBL: Less than 5 mL Specimens: None Complications: None Disposition: Brought to recovery room in stable condition Plan: Follow-up for 10-14 days for wound check and suture removal Indications: The patient is 62 years old, with right carpal tunnel syndrome that has been unresponsive to nonoperative management. The risks and benefits of operative treatment including but not limited to risk of damage to blood vessels, nerves, tendons, infection, persistent pain, persistent symptoms, or possible need for additional surgery were discussed with the patient and the patient wishes to proceed with surgery. Procedure: Once consent was obtained a local block was performed using a combination of 1% lidocaine with epinephrine. The patient was then brought back to the operating suite and placed on the operative table in supine position. The right upper extremity was prepped and draped in a standard surgical fashion. Once assured that we had a good block, a 2.0 cm longitudinal incision was made centered over the carpal tunnel. The incision was made through the skin to the subcutaneous tissues using a #15 blade. Dissection was made down to the level of the transverse carpal ligament with care being taken to protect the palmar cutaneous nerve. Once the transverse carpal ligament was clearly visualized, a longitudinal incision was made in the transverse carpal ligament 1st using a #15 blade, then using tenotomy scissors under direct visualization. Care was taken to look for and protect the motor branch of the median nerve when seen in this area. Once satisfied with our carpal tunnel release the wound was copiously irrigated with normal saline and hemostasis was obtained with a brief period of local pressure. The skin edges were reapproximated with some 5.0 nylon suture material and a sterile dressing was applied. The patient appears to have tolerated the procedure well and with no complications. All digits were well vascularized at the conclusion of the case.
[2022-12-25 12:28] VITALS: BP 145/88; PULSE 96; RESP 16; O2SAT 99
== END 2022-12-25 12:29 | disposition home or self-care (01) ==
PROVIDERS: PCP Physician Assistant; Visit Provider Orthopaedic Surgery
PROC: (CPT 64721; principal; 2022-12-25 11:30)
DX: G56.01 Carpal tunnel syndrome, right upper limb (principal); M79.7 Fibromyalgia; G62.9 Polyneuropathy, unspecified; M96.1 Postlaminectomy syndrome, not elsewhere classified; Z96.82 Presence of neurostimulator; E78.5 Hyperlipidemia, unspecified; E66.3 Overweight; Z68.28 Body mass index [BMI] 28.0-28.9, adult; F32.A Depression, unspecified; Z88.8 Allergy status to other drugs, medicaments and biological substances; Z87.891 Personal history of nicotine dependence
CPT/HCPCS: 64721; J0171

== ENCOUNTER → 2022-12-28 13:29 | Outpatient (BNVA) | payer MEDICARE, MEDICAID, SELFPAY | PROVIDERS: PCP Physician Assistant; Visit Provider Orthopaedic Surgery | DX: M17.11 Unilateral primary osteoarthritis, right knee (principal) | CPT/HCPCS: 99212 ==

== ENCOUNTER → 2023-01-10 12:44 | Outpatient (BNVA) | payer MEDICARE, MEDICAID, SELFPAY | PROVIDERS: PCP Physician Assistant; Visit Provider Orthopaedic Surgery | DX: Z47.89 Encounter for other orthopedic aftercare (principal); Z86.69 Personal history of other diseases of the nervous system and sense organs | CPT/HCPCS: 99212 ==

== ENCOUNTER → 2023-01-23 12:59 | Outpatient (BNVA) | payer MEDICARE, MEDICAID, SELFPAY | PROVIDERS: PCP Physician Assistant; Visit Provider Orthopaedic Surgery ==

== ENCOUNTER 2023-02-12 11:02 | Outpatient (REF) | payer MEDICARE, MEDICAID, SELFPAY ==
--- NOTE | ~2023-02-12 | CT_ITS ---
EXAMINATION: CT CHEST WITHOUT CONTRAST CLINICAL INFORMATION: Pulmonary nodules COMPARISON: Previous chest CT most recent June 2022 TECHNIQUE: Multidetector volumetric CT imaging of the chest was done. Axial MIP volume rendering provided. Sagittal and coronal reformatted images were obtained. This CT examination was performed using dose optimization techniques as appropriate, variously including the following: *Automated exposure control *Adjustment of mA and/or kV according to patient size (this includes techniques or standardized protocols for targeted exams where dose is matched to indication/reason for exam; i.e. extremities or head) *Use of iterative reconstruction technique DLP: 213 mGy-cm FINDINGS: RAT CULTURIST: LUNGS: The 4 mm peripheral or subpleural left lower lobe nodule axial image 477 series 5 is stable. The 5 mm peripheral or subpleural left lower lobe nodule axial image 521 series 5 is stable. There is a new 3 mm peripheral or subpleural left lower lobe nodule axial image 376 series 5 probably representing a subpleural lymph node. There are increased peripheral markings in the anterior right upper and right middle lobes that is stable. The lungs are otherwise clear. MEDIASTINUM: Small mediastinal lymph nodes similar to previous exams. No enlarged lymph nodes. Normal heart size. No pericardial effusion. Normal thyroid gland. CORONARY ARTERY CALCIFICATION: Mild PLEURA: There is no pleural effusion. No pleural mass or thickening. Small left posterior medial diaphragmatic hernia containing fat. AXILLA: No lymphadenopathy. UPPER ABDOMEN: Unremarkable. OSSEOUS STRUCTURES: Degenerative changes of the spine. Spinal stimulator in the lower thoracic spine canal. CT/CT chest wo IV con IMPRESSION: New 3 mm peripheral or subpleural left lower lobe nodule probably representing a subpleural lymph node. Left lower lobe pulmonary nodules are otherwise stable. Fleischner guidelines were followed.
== END 2023-02-12 11:03 | disposition home or self-care (01) ==
LOC: HO.CT 11:02
PROVIDERS: PCP Physician Assistant; Visit Provider Internal Medicine Pulmonary Disease
DX: Z01.818 Encounter for other preprocedural examination (principal); R91.8 Other nonspecific abnormal finding of lung field
CPT/HCPCS: 36415; 71250; 80048; 84207; 85027; 85610

== ENCOUNTER 2023-02-12 11:21 | Outpatient (REF) | payer MEDICARE, MEDICAID, SELFPAY ==
[2023-02-12 12:13] LABS: Hematocrit 41.5 % (42.0-52.0); Hemoglobin 14.2 g/dl (14.0-18.0); Mean Corpuscular HGB Conc 34.2 g/dl (31.0-36.0); Mean Corpuscular Hemoglobin 30.1 pg (27.0-33.0); Mean Corpuscular Volume 87.9 fL (80.0-98.0); Mean Platelet Volume 10.3 fL (9.4-12.4); Platelet Count 266 X10*3/uL (160-400); Red Blood Count 4.72 X10*6/uL (4.60-5.80); Red Cell Distribution Width 12.4 % (11.0-16.0)
[2023-02-12 12:17] LABS: Prothrombin Time 11.5 SEC (10.0-13.1)
[2023-02-12 12:40] LABS: Anion Gap 12 (12-20); Blood Urea Nitrogen 23 mg/dL (9-16); Calcium 9.8 mg/dL (8.4-10.2); Carbon Dioxide 25 mmol/L (22-29); Chloride 107 mmol/L (96-108); Estimated Glomerular Filt Rate > 60; Glucose Random 93 mg/dL (60-115); Potassium 4.5 mmol/L (3.3-5.1); Sodium 139 mmol/L (135-145)
[2023-02-16 13:33] LABS: Vitamin B6 112.2 ng/mL (2.1-21.7)
== END 2023-02-12 11:22 | disposition home or self-care (01) ==
LOC: HO.LAB 11:21
PROVIDERS: Nurse Practitioner Family; PCP Physician Assistant; Visit Provider Physician Assistant
DX: Z13.89 Encounter for screening for other disorder (principal)
CPT/HCPCS: 36415; 80048; 84207; 85027; 85610

== ENCOUNTER 2023-02-16 11:18 | Outpatient (REF) | payer MEDICARE, MEDICAID, SELFPAY ==
--- NOTE | 2023-02-16 11:23 | ECG_ITS ---
Test Reason : PREPROC EXAM Blood Pressure : / mmHG Vent. Rate : 060 BPM Atrial Rate : 060 BPM P-R Int : 186 ms QRS Dur : 092 ms QT Int : 432 ms P-R-T Axes : 045 -09 001 degrees QTc Int : 432 ms Normal sinus rhythm Minimal voltage criteria for LVH, may be normal variant ( R in aVL ) Borderline ECG When compared with ECG of 11-DEC-2021 18:59, T wave amplitude has increased in Lateral leads Referred By: Endy Sharp Electronically Signed By:NEISHA OGDEN
[2023-02-16 12:16] LABS: Hemoglobin 14.6 g/dl (14.0-18.0); Mean Corpuscular HGB Conc 33.2 g/dl (31.0-36.0); Mean Corpuscular Hemoglobin 29.6 pg (27.0-33.0); Mean Corpuscular Volume 89.2 fL (80.0-98.0); Mean Platelet Volume 9.8 fL (9.4-12.4); Platelet Count 266 X10*3/uL (160-400); Red Blood Count 4.93 X10*6/uL (4.60-5.80); Red Cell Distribution Width 12.7 % (11.0-16.0); White Blood Count 6.7 X10*3/uL (4.8-10.8)
[2023-02-16 13:01] LABS: Alanine Aminotransferase 33 U/L (0-40); Albumin Level 4.5 g/dL (3.5-5.0); Alkaline Phosphatase 46 U/L (39-117); Anion Gap 13 (12-20); Aspartate Amino Transferase 40 U/L (5-37); Bilirubin Total 0.8 mg/dL (0.0-1.0); Blood Urea Nitrogen 17 mg/dL (9-16); Calcium 9.7 mg/dL (8.4-10.2); Carbon Dioxide 27 mmol/L (22-29); Chloride 106 mmol/L (96-108); Cholesterol 165 mg/dL; Estimated Glomerular Filt Rate > 60; Glucose Fasting 97 mg/dL (60-99); HDL Cholesterol 46 mg/dL; LDL Cholesterol Calculated 100 mg/dl; Potassium 4.7 mmol/L (3.3-5.1); Sodium 141 mmol/L (135-145); Total Protein 6.6 g/dL (6.5-8.0); Triglycerides 95 mg/dL
== END 2023-02-16 11:19 | disposition home or self-care (01) ==
LOC: HO.LAB 11:18
PROVIDERS: PCP Physician Assistant; Visit Provider Physician Assistant
DX: Z01.810 Encounter for preprocedural cardiovascular examination (principal); E78.2 Mixed hyperlipidemia
CPT/HCPCS: 36415; 80053; 80061; 85027; 93005

== ENCOUNTER 2023-02-22 12:40 | Outpatient (REF) | payer MEDICARE, MEDICAID, SELFPAY ==
--- NOTE | ~2023-02-22 | XR_ITS ---
EXAMINATIONS: XR KNEE 4 VIEWS EACH, RIGHT CLINICAL INFORMATION: Right knee pain COMPARISON: 02/02/2021 TECHNIQUE: AP, lateral, tunnel, sunrise views of each knee were obtained. FINDINGS: There are mild degenerative changes in both knee joints, more prominent on the left anterolateral tibial plateau and lateral femoral condyle with marginal spurring On the right there is mild spurring of the patella with trace of joint effusion. XR/XR knee standing BI IMPRESSION: Mild degenerative changes in both knee joints, more prominent on the left
--- NOTE | ~2023-02-22 | XR_ITS ---
EXAMINATIONS: XR KNEE 4 VIEWS EACH, RIGHT CLINICAL INFORMATION: Right knee pain COMPARISON: 02/02/2021 TECHNIQUE: AP, lateral, tunnel, sunrise views of each knee were obtained. FINDINGS: There are mild degenerative changes in both knee joints, more prominent on the left anterolateral tibial plateau and lateral femoral condyle with marginal spurring On the right there is mild spurring of the patella with trace of joint effusion. XR/XR knee RT 2V IMPRESSION: Mild degenerative changes in both knee joints, more prominent on the left
== END 2023-02-22 12:41 | disposition home or self-care (01) ==
LOC: HO.HOSX 12:40
PROVIDERS: Visit Provider Physician Assistant
DX: Z01.818 Encounter for other preprocedural examination (principal); M17.11 Unilateral primary osteoarthritis, right knee; M25.562 Pain in left knee
CPT/HCPCS: 73560; 73565; 99212

== ENCOUNTER 2023-02-27 05:52 | Day surgery (SDC) | payer MEDICARE, MEDICAID, SELFPAY ==
[2023-02-20 12:13] VITALS: BP 107/74; PULSE 94; RESP 20; O2SAT 95; BMI 30.1
[2023-02-20 14:52] LABS: MRSA Nasal PCR NEGATIVE (Negative); SA Nasal PCR NEGATIVE (Negative)
--- NOTE | 2023-02-26 09:18 | P.CONAN_ITS ---
Documented by User: Ingrid Barnhart NP 02/26/23 09:20 HPI - Anesthesia Eval Consult details Narrative: 62yo M for Right Knee Replacement Total Medically optimized per PCP [facility] Active Problems Active Problems: All Active Problems (Updated 02/26/23 @ 07:52 by Danette Ramos PA-C) Osteoarthritis of right knee (Acute) Annual physical exam (Acute) Screening PSA (prostate specific antigen) (Acute) Screening for hypothyroidism (Acute) Colon cancer screening (Acute) Locking of left knee (Acute) Polyp of left ear canal (Acute) Tear of lateral meniscus of left knee (Acute) Skin lesion (Acute) Cervical radiculitis (Acute) Visual floaters (Acute) HLD (hyperlipidemia) (Acute) Post covid-19 condition, unspecified (Acute) Wheezing (Acute) H/O asbestos exposure (Acute) Pulmonary nodules (Acute) Annual physical exam (Acute) Reactive airway disease (Acute) Borderline high cholesterol (Acute) Arthritis of left acromioclavicular joint (Acute) Lumbar disc disease (Acute) Cough (Acute) Snoring (Acute) Localized osteoarthritis of left knee (Acute) Localized osteoarthritis of right knee (Acute) Numbness of right hand (Acute) Abdominal discomfort (Acute) HLD (hyperlipidemia) (Acute) Hyperkalemia (Acute) Carpal tunnel syndrome of right wrist (Acute) Carpal tunnel syndrome of left wrist (Acute) Hypervitaminosis B6 (Acute) Impingement syndrome of right shoulder (Acute) Internal derangement of right knee (Acute) Vitamin D deficiency (Acute) Pre-op evaluation (Acute) Depression (Acute) Renal calculi (Acute) Diverticulosis (Acute) Past Medical History Medical History Allergic cough Asthma Depression Diverticulosis Failed back syndrome of lumbar spine Fibromyalgia HLD (hyperlipidemia) Lumbar disc disease Neuropathy Overweight (BMI 25.0-29.9) Pulmonary nodule Renal calculi Family History Family History Father Hypertension COPD (chronic obstructive pulmonary disease) Mother Hypertension Dementia Family/Other Lung cancer Surgical History Surgical History H/O arthroscopy H/O colonoscopy History of arthroscopy of right knee History of carpal tunnel release Spinal cord stimulator status Social History Social History Household Members: Spouse and Family Household Members Other:: Stepson Housing: House Are you a primary health care attorney to a significant other at home: No Do you presently have visiting nurse or other home services: No Alcohol intake: never Patient Tobacco Use Status: Former Tobacco user Quit Date: 1994 Tobacco use type: Cigarette Years Smoked: 20 e-Cigarette/Vaping Use: Never Used Second Hand Smoke Exposure: No Use of substances other than those prescribed or required for medical reasons: No Currently Displaying Signs/Symptoms of Drug Intoxication Withdrawal: No Any prior treatment program specific to substance use: No Have you been hit, kicked, punched, or otherwise hurt by someone within the past year? If so, by whom?: No Do you feel safe in your current relationship?: Yes Is there a partner from a previous relationship who is making you feel unsafe now?: No Are you made to feel afraid or neglected: No Buddhist Healthcare Practices: Druze, willing to talk to anyone Are you DNR?: No Advance Directives: No Advance Directives Information Provided: Yes (to bring DOS) Advance Directives on File: No Do you have thoughts of harming others: None Do you have a plan to hurt others: No Plan Recently lost weight without trying: No How much weight loss: Not applicable Eating poorly because of decreased appetite: No Nutrition screen score: 0 Nutrition Risks: No Nutritional Risk Poor oral hygiene: No service: No Current occupational status: employed 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 Current occupational exposures/hazards: No Cognitive needs: No Hearing needs: No Vision needs: No Meds Allergies Allergy/AdvReac Type Severity Reaction Status Date / Time dexamethasone [DEXAMETHASONE] Allergy Severe Steroid Verified 02/22/23 13:29 Physcosis atorvastatin AdvReac Intermediate bone pain Verified 02/22/23 13:29 fluticasone AdvReac Intermediate hand Verified 02/22/23 13:29 [From [facility]] tremors, blood pressure dropping lisinopril [LISINOPRIL] AdvReac Intermediate COUGH Verified 02/22/23 13:29 salmeterol AdvReac Intermediate hand Verified 02/22/23 13:29 [From [facility]] tremors, blood pressure dropping Wellbutrin Allergy Unknown Unknown Uncoded 02/22/23 13:29 Home Medications Medication Instructions Recorded Confirmed Last Taken Type coenzyme Q10 50 mg capsule 50 mg PO DAILY 07/21/20 02/22/23 Unknown History garlic 500 mg PO DAILY 07/21/20 02/16/23 Unknown History multivitamin 1 tab PO DAILY 07/21/20 02/16/23 Unknown History omega-3 fatty acids 500 mg capsule 500 mg PO DAILY 07/21/20 02/16/23 Unknown History red yeast rice 600 mg tablet 600 mg PO DAILY 02/12/23 02/22/23 Unknown History budesonide 90 mcg/actuation breath 2 inh inhalation BID 02/16/23 02/22/23 02/27/23 History activated powder inhaler (Pulmicort Flexhaler) ciclopirox 8 %-fluconazole 1 ml topical 02/20/23 02/22/23 Unknown History %-terbinafine 1 % topical solution minoxidil 5 % topical foam ea topical 02/20/23 02/22/23 Unknown History simvastatin 20 mg tablet 20 mg PO DAILY 02/20/23 02/22/23 Unknown History Exam Exam Date and Time: February 26, 2023 0918 Height,Weight and Vital Signs: Height 5 ft 10 in Weight 95.254 kg Last Vital Signs Pulse 94 02/20/23 12:13 Resp 20 02/20/23 12:13 BP 107/74 02/20/23 12:13 Pulse Ox 95 02/20/23 12:13 O2 Del Method Room Air 02/20/23 12:13 Pertinent Lab Results Pertinent Lab Results: Laboratory Tests 02/20/23 02/20/23 12:48 Unknown Nasal Screen MRSA (PCR) NEGATIVE Nasal S. aureus Screen NEGATIVE Nasal MRSA/S.aureus Interp SEE NOTE Blood Type A Positive Antibody Screen NEGATIVE Laboratory Tests 02/16/23 02/16/23 11:48 11:48 WBC 6.7 Hgb 14.6 Hct 44.0 Plt Count 266 Sodium 141 Potassium 4.7 Chloride 106 Carbon Dioxide 27 BUN 17 H Creatinine 0.86 Narrative Narrative: EKG 01/2023 Vent. Rate : 060 BPM ? ? Atrial Rate : 060 BPM ?? P-R Int : 186 ms? QRS Dur : 092 ms ? ? QT Int : 432 ms ? ? ? P-R-T Axes : 045 -09 001 degrees ?? QTc Int : 432 ms ? Normal sinus rhythm Minimal voltage criteria for LVH, may be normal variant ( R in aVL ) Borderline ECG When compared with ECG of 11-DEC-2021 18:59, T wave amplitude has increased in Lateral leads ECHO 2021 Conclusions: - The left ventricular systolic function is normal.? The visually estimated ejection fraction is between 65-70%. ? - Mildly increased right ventricular cavity size.? - There is mild calcification of the aortic valve. ? - No obvious valvular pathology seen on this study.? - The pulmonary artery systolic pressure is normal.? ?? Assessment and Plan Assessment Anesthesia Assessment: Chart Reviewed Documented by User: Isacc Hunter MD 02/27/23 18:11 [facility] Past Medical History Medical History Allergic cough Asthma Depression Diverticulosis Failed back syndrome of lumbar spine Fibromyalgia HLD (hyperlipidemia) Lumbar disc disease Neuropathy Overweight (BMI 25.0-29.9) Pulmonary nodule Renal calculi Functional capacity: independent ambulation Family History Family History Father Hypertension COPD (chronic obstructive pulmonary disease) Mother Hypertension Dementia Family/Other Lung cancer Family history of problems with anesthesia: No Surgical History Surgical History H/O arthroscopy H/O colonoscopy History of arthroscopy of right knee History of carpal tunnel release Spinal cord stimulator status History of Problems with Anesthesia: No Social History Social History Household Members: Spouse and Family Household Members Other:: [place] Housing: House Are you a primary health care attorney to a significant other at home: No Do you presently have visiting nurse or other home services: No Alcohol intake: never Patient Tobacco Use Status: Former Tobacco user Quit Date: 1994 Tobacco use type: Cigarette Years Smoked: 20 e-Cigarette/Vaping Use: Never Used Second Hand Smoke Exposure: No Use of substances other than those prescribed or required for medical reasons: No Currently Displaying Signs/Symptoms of Drug Intoxication Withdrawal: No Any prior treatment program specific to substance use: No Have you been hit, kicked, punched, or otherwise hurt by someone within the past year? If so, by whom?: No Do you feel safe in your current relationship?: Yes Is there a partner from a previous relationship who is making you feel unsafe now?: No Are you made to feel afraid or neglected: No Buddhist Healthcare Practices: Druze, willing to talk to anyone Are you DNR?: No Advance Directives: No Advance Directives Information Provided: Yes (to bring DOS) Advance Directives on File: No Do you have thoughts of harming others: None Do you have a plan to hurt others: No Plan Recently lost weight without trying: No How much weight loss: Not applicable Eating poorly because of decreased appetite: No Nutrition screen score: 0 Nutrition Risks: No Nutritional Risk Poor oral hygiene: No service: No Current occupational status: employed 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 Current occupational exposures/hazards: No Cognitive needs: No Hearing needs: No Vision needs: No Meds Allergies Allergy/AdvReac Type Severity Reaction Status Date / Time dexamethasone [DEXAMETHASONE] Allergy Severe Steroid Verified 02/22/23 13:29 Physcosis atorvastatin AdvReac Intermediate bone pain Verified 02/22/23 13:29 fluticasone AdvReac Intermediate hand Verified 02/22/23 13:29 [From [facility]] tremors, blood pressure dropping lisinopril [LISINOPRIL] AdvReac Intermediate COUGH Verified 02/22/23 13:29 salmeterol AdvReac Intermediate hand Verified 02/22/23 13:29 [From [facility]] tremors, blood pressure dropping Wellbutrin Allergy Unknown Unknown Uncoded 02/22/23 13:29 Home Medications Medication Instructions Recorded Confirmed Last Taken Type coenzyme Q10 50 mg capsule 50 mg PO DAILY 07/21/20 02/22/23 Unknown History garlic 500 mg PO DAILY 07/21/20 02/16/23 Unknown History multivitamin 1 tab PO DAILY 07/21/20 02/16/23 Unknown History omega-3 fatty acids 500 mg capsule 500 mg PO DAILY 07/21/20 02/16/23 Unknown History red yeast rice 600 mg tablet 600 mg PO DAILY 02/12/23 02/22/23 Unknown History budesonide 90 mcg/actuation breath 2 inh inhalation BID 02/16/23 02/22/23 02/27/23 History activated powder inhaler (Pulmicort Flexhaler) ciclopirox 8 %-fluconazole 1 ml topical 02/20/23 02/22/23 Unknown History %-terbinafine 1 % topical solution minoxidil 5 % topical foam ea topical 02/20/23 02/22/23 Unknown History simvastatin 20 mg tablet 20 mg PO DAILY 02/20/23 02/22/23 Unknown History Exam Airway Mallampati Class: III TM Dist: >3cm Neck ROM: Full Loose/Missing/Broken Teeth: Yes Assessment and Plan Assessment Anesthesia Assessment: Anesthesia Plan Discussed Final Anesthetic Review Family History of Problems with Anesthesia: No History of Problems with Anesthesia: No NPO: Yes ASA Class: III Final Preanesthetic Review: Meds/Allgs Chart Reviewed, Consent Obtained/Reviewed and Anes Risks/Benef Reviewed Patient Risk: Intermediate Procedure Risk: Intermediate Anesthetic Plan Anesthetic Plan: GA, Regional Block and Agree w/ Assess. and Plan Disposition: Standard PACU
[2023-02-27] VITALS (29 sets, daily range): BP systolic 109–156; BP diastolic 65–89; PULSE 53–84; RESP 12–18; TEMP 36.4–37.1; O2SAT 94–100; BMI 29.1
--- NOTE | ~2023-02-27 | XR_ITS ---
EXAMINATION: XR KNEE, RIGHT CLINICAL INFORMATION: Right total knee arthroplasty COMPARISON: X-rays of the right knee 02/22/2023 MRI right knee November 2022 TECHNIQUE: Portable AP and portable crosstable lateral view of the right knee FINDINGS: There is a total knee arthroplasty in place. The components are in the usual position There is no periprosthetic fracture or surrounding abnormal lucency. There is a small effusion. There is a small amount of gas in the soft tissues compatible with postoperative result. Skin heidi also noted. The surrounding soft tissues are normal. XR/XR knee RT 2V IMPRESSION: Right total knee arthroplasty without complication by x-ray.
[2023-02-27 06:41] LABS: Hematocrit 44.2 % (42.0-52.0); Hemoglobin 14.8 g/dl (14.0-18.0)
[2023-02-27] MEDS: Lactated Ringers 1,000 ML 100 ML IVCONT ×3 (06:48→20:26)
[2023-02-27] MEDS: ceFAZolin Sodium/Dextrose,Iso 2 GM/50 ML PIGGYBACK IV ×2 (07:53→14:07)
--- NOTE | 2023-02-27 09:18 | P.BOP_ITS ---
Brief Operative Note Date of Service: 02/27/23 Pre-op diagnosis: Right knee OA Post-op diagnosis: same Procedure: Right TKA Implants: Milo Triathlon press fit cruciate retaining Surgeon: Endy Sharp MD Anesthesia: regional and spinal Was an Hadoop Developer used for this Procedure?: Yes Hadoop Developer: Danette Ramos Estimated blood loss (mL): 150 IV fluids (mL): 1,000 Pathology: other Condition: stable Disposition: PACU
--- NOTE | 2023-02-27 09:18 | MHC.SHP ---
Pre-Procedural Eval Section A Date of Service: 02/27/23 The patient is an INPATIENT: No Changes since office visit: No Cold of Flu in the past 2 weeks, No New Medical Problems, No Changes in Medication and No Patient answered all questions The History & Physical has been completed within 30 days and I have reviewed it.: Yes Section B Chief Complaint: Unilateral primary osteoarthritis, right knee Allergies: Allergies Allergy/AdvReac Type Severity Reaction Status Date / Time dexamethasone [DEXAMETHASONE] Allergy Severe Steroid Verified 02/22/23 13:29 Physcosis atorvastatin AdvReac Intermediate bone pain Verified 02/22/23 13:29 fluticasone AdvReac Intermediate hand Verified 02/22/23 13:29 [From [facility]] tremors, blood pressure dropping lisinopril [LISINOPRIL] AdvReac Intermediate COUGH Verified 02/22/23 13:29 salmeterol AdvReac Intermediate hand Verified 02/22/23 13:29 [From [facility]] tremors, blood pressure dropping Wellbutrin Allergy Unknown Unknown Uncoded 02/22/23 13:29 Plan I have reviewed the history and physical and performed a pertinent physical examination on my patient. No changes have occurred unless specified. Time Spent With Patient Time: Total time managing care of this patient today ____ minutes.
--- NOTE | 2023-02-27 09:20 | PHA.MEDREC ---
Pharmacy Consult ? Medication Reconciliation Pharmacy has completed the medication reconciliation. Reviewed med rec done by nursing
[2023-02-27] MEDS: fentaNYL citrate/PF 100 MCG/2 ML VIAL 25 MCG IVPUSH ×4 (09:59→10:14)
[2023-02-27] MEDS: oxyCODONE HCl Immed Release 5 MG TABLET PO ×3 (10:00→23:35)
[2023-02-27] MEDS: Acetaminophen 1,000 MG/100 ML PIGGYBACK 400 MG IV (10:20)
[2023-02-27] MEDS: HYDROmorphone HCl 0.5 MG/0.5 ML SYRINGE 0.25 MG IVPUSH ×2 (11:17→11:30)
[2023-02-27] MEDS: Acetaminophen 325 MG TABLET 650 MG PO ×2 (14:53→21:20)
[2023-02-27] MEDS: oxyCODONE HCl ER 10 MG TAB.ER.12H PO (20:25)
[2023-02-27] MEDS: Docusate Sodium 100 MG CAPSULE PO (20:26)
[2023-02-27] MEDS: Celecoxib 200 MG CAPSULE PO (20:26)
[2023-02-28 03:23] VITALS: BP 126/71; PULSE 83; RESP 16; TEMP 37.1; O2SAT 94
[2023-02-28] MEDS: Acetaminophen 325 MG TABLET 650 MG PO (05:16)
[2023-02-28] MEDS: Lactated Ringers 1,000 ML 100 ML IVCONT (05:17)
[2023-02-28] MEDS: oxyCODONE HCl Immed Release 5 MG TABLET PO ×2 (05:17→12:04)
[2023-02-28 05:58] LABS: Basophils Percent Auto 0.3 % (0-2); Eosinophils Absolute Auto 0.1 X10*3/uL (0.0-0.4); Eosinophils Percent Auto 0.7 % (0-4); Hematocrit 37.1 % (42.0-52.0); Hemoglobin 12.6 g/dl (14.0-18.0); Imm Gran Abs Auto 0.06 X10*3/uL (0.00-0.03); Imm Gran Pct Auto 0.5 % (0.0-0.4); Lymphocytes Absolute Auto 1.4 X10*3/uL (1.2-4.9); Lymphocytes Percent Auto 12.1 % (20-40); MANUAL DIFF FLAG SCAN; Mean Corpuscular Hemoglobin 30.4 pg (27.0-33.0); Mean Corpuscular Volume 89.4 fL (80.0-98.0); Mean Platelet Volume 9.7 fL (9.4-12.4); Monocytes Absolute Auto 1.5 X10*3/uL (0.1-1.2); Monocytes Percent Auto 13.2 % (2-11); Neutrophils Absolute Auto 8.5 x10*3/uL (2.0-8.3); Neutrophils Percent Auto 73.2 % (45-73); Platelet Count 282 X10*3/uL (160-400); Red Blood Count 4.15 X10*6/uL (4.60-5.80); Red Cell Distribution Width 12.6 % (11.0-16.0); SCAN SMEAR FLAG 1; White Blood Count 11.7 X10*3/uL (4.8-10.8)
[2023-02-28 06:15] LABS: Anion Gap 11 (12-20); Blood Urea Nitrogen 15 mg/dL (9-16); Calcium 9.1 mg/dL (8.4-10.2); Carbon Dioxide 28 mmol/L (22-29); Chloride 104 mmol/L (96-108); Creatinine Clr Calc Pharmacy 103.7; Estimated Glomerular Filt Rate > 60; Glucose Fasting 138 mg/dL (60-99); Potassium 4.8 mmol/L (3.3-5.1); Sodium 138 mmol/L (135-145)
[2023-02-28] MEDS: Aspirin 325 MG TABLET PO (06:33)
[2023-02-28] MEDS: Celecoxib 200 MG CAPSULE PO (06:34)
[2023-02-28] MEDS: Docusate Sodium 100 MG CAPSULE PO (06:34)
[2023-02-28] MEDS: oxyCODONE HCl ER 10 MG TAB.ER.12H PO (06:34)
[2023-02-28 06:36] LABS: SLIDE REVIEW VERIFIED
[2023-02-28 07:08] VITALS: BP 124/74; PULSE 77; RESP 18; TEMP 36.1; O2SAT 94
--- NOTE | 2023-02-28 07:18 | PM.PNORT ---
Subjective Subjective Date of Service: 02/28/23 Interval history: POD s/p RTKA. No overnight events. Patient is resting in bed comfortably. Pain is managed. No additional complaints. Physical Exam Vital Signs: Vital Signs: Last Vital Signs Temp 97 F 02/28/23 07:08 Pulse 77 02/28/23 07:08 Resp 18 02/28/23 07:08 BP 124/74 02/28/23 07:08 Pulse Ox 94 02/28/23 07:08 O2 Del Method Room Air 02/28/23 07:08 O2 Flow Rate 2 02/27/23 14:29 BMI result Body Mass Index 29.1 Const: General: cooperative, healthy appearing and no acute distress Resp: Effort & Inspection: normal respiratory effort and able to speak in complete sentences Cardio: Rate: regular rate Peripheral pulses: Peripheral pulses 2+ throughout GI: Palpation (GI): Soft to palpation Skin: Lesions: no lesions Rashes: no rashes Extrem: Other: Right knee Aquacel is c/d/i. Able to dorsi/plantar flex. NVI. Procedures Date of Service Date of Service: 02/28/23 Progress Note: A&P Assessment and plan (1) Status post total knee replacement, right: Status: Acute Assessment and Plan: Continue pain mgmnt Begin ASA for dvt ppx begin PT for RTKA Dispo planning-Pending PT eval, pain mgmnt Time Spent With Patient Time: Total time managing care of this patient today ____ minutes. Quality Stroke Does the patient have a stroke diagnosis?: No VTE Prior VTE?: No VTE Risk Level:: Medical - moderate - high VTE Device Contraindication: N/A - Device Ordered VTE Drug Contraindication: N/A - Med Ordered
[2023-02-28 07:47] VITALS: BP 124/74; PULSE 77; O2SAT 94
[2023-02-28 09:44] VITALS: BP 124/74; PULSE 77; O2SAT 94
--- NOTE | 2023-02-28 10:37 | P.DS_ITS ---
DS: Providers Provider Date of Service: 02/28/23 Primary care physician: Juan C Melchor PA-C Consults: 02/27/23 14:42 Consult to Hospitalist Routine Comment: Consulting Provider: Hospitalist Reason For Exam: post op medical management DS: Diagnosis Discharge Diagnosis (1) Status post total knee replacement, right: Status: Acute DS: Summary Hospital Course Hospital Course: The patient underwent a successful Right total knee arthroplasty on 02/27/23, was transferred to PACU and then to the floor to recover. During their stay, their vitals were stable, afebrile at 97.0. Labs were unremarkable, H/H 12.6/37.1 . POD 1 he was started on Aspirin 325mg tabs po bid for DVT ppx, they also received Physical Therapy services twice a day. Physical therapy should include gait training, ROM to tolerance and quad strength. He is WBAT. Prior to discharge, his dressing was changed, incision clean dry and intact, new Aquacel dressing applied. The Aquacel dressing should remain intact and dry at all times. Any concerns with the dressing, please contact orthopedic office. No showering. The plan is to be discharged home with VNA Time Spent with Patient Time attestation: Total time managing care of this patient today ____ minutes. Discharge coordination time: Less than 30 minutes Quality: Safe Use of Opioids Does Pt have an Active Cancer Diagnosis on the Problem List?: No Quality: Stroke Does the patient have a stroke diagnosis?: No Physical Exam Vital Signs: Vital Signs: Last Vital Signs Temp 97 F 02/28/23 07:08 Pulse 77 02/28/23 09:44 Resp 18 02/28/23 07:08 BP 124/74 02/28/23 09:44 Pulse Ox 94 02/28/23 09:44 O2 Del Method Room Air 02/28/23 07:08 O2 Flow Rate 2 02/27/23 14:29 BMI result Body Mass Index 29.1 DS: Data Data Completed and Pending Pending studies at discharge: Pending at discharge 02/27/23 08:52 Surgical [PTH] Routine Labs on day of discharge: Laboratory Results - last 24 hr 02/28/23 02/28/23 05:35 05:35 WBC 11.7 H RBC 4.15 L Hgb 12.6 L Hct 37.1 L MCV 89.4 MCH 30.4 MCHC 34.0 RDW 12.6 Plt Count 282 MPV 9.7 Immature Gran % (Auto) 0.5 H Neut % (Auto) 73.2 H Lymph % (Auto) 12.1 L [place] % (Auto) 13.2 H Eos % (Auto) 0.7 Baso % (Auto) 0.3 Lymph # (Auto) 1.4 [place] # (Auto) 1.5 H Eos # (Auto) 0.1 Baso # (Auto) 0.0 Abs Immat Gran (auto) 0.06 H Absolute Neuts (auto) 8.5 H Absolute Nucleated RBC 0.000 Nucleated RBC % (auto) 0.0 Smear Tech's Comments VERIFIED Sodium 138 Potassium 4.8 Chloride 104 Carbon Dioxide 28 Anion Gap 11 L BUN 15 Creatinine 0.82 Estim Creat Clear Calc 103.7 Estimated GFR > 60 Fasting Glucose 138 H Calcium 9.1 D Discharge Plan Discharge Patient Disposition: Home Health Service Referrals: Danette Ramos PA-C [Physician Emergency Department Manager] - 2 Weeks (03/15/23 13:15 [facility] Orthopedic Surgeons Danette Ramos PA-C) Discharge Medications: New oxycodone-acetaminophen [Percocet] 5-325 mg tablet 1 tab PO Q4-6H PRN (Reason: pain) 7 Days Qty: 42 0RF Rx Instructions: Partial Fill upon patient request. docusate sodium 100 mg Capsule 100 mg PO BID 14 Days Qty: 28 0RF celecoxib 200 mg Capsule 200 mg PO BID 30 Days Qty: 60 0RF aspirin 325 mg Tablet 325 mg PO BID 42 Days Qty: 84 0RF Continued albuterol sulfate [Ventolin HFA] 90 mcg/actuation HFA aerosol inhaler 2 puff inhalation Q4-6H PRN (Reason: for wheezing) Qty: 18 6RF Pulmicort Flexhaler 90 mcg/actuation aerosol powdr breath activated 2 inh INHALATION BID minoxidil 5 % Foam TOPICAL unqcuhhmva-rluqjeasrvl-funxybe 8-1-1 % Solution TOPICAL simvastatin 20 mg tablet 20 mg PO DAILY red yeast rice 600 mg tablet 600 mg PO DAILY Rx Instructions: give with meal/snack garlic Tablet 500 mg PO DAILY multivitamin Tablet 1 tab PO DAILY coenzyme Q10 50 mg capsule 50 mg PO DAILY Discontinued ibuprofen 800 mg tablet 800 mg PO TID PRN (Reason: for pain) Qty: 90 0RF omega-3 fatty acids 500 mg capsule 500 mg PO DAILY tramadol 50 mg tablet 50 mg PO Q6-8H PRN (Reason: pain) 30 Days Qty: 30 0RF Discharge Orders: Discharge Order (Routine); Ordered 02/28/23 Ordered By: Danette Ramos Diet: Regular diet Activity on Discharge: Use cane or walker Activity Restrictions/Additional Instructions: Physical Therapy for Total knee arthroplasty: WBAT, gait training, ROM 0-12, quad strength * Limit stair climbing * No showering, no tub bath-keep dressing clean, dry and intact * No driving x6 weeks * Continue Aspirin twice a day x 6 weeks * Follow up with [facility] Orthopedics in 2 weeks: 03/15/2313:15[facility] [place] Orthopedic SurgeonsDanette Ramos PA-C * --you will also have your first out patient PT severoal on the day of your post op appt-so please plan on being in the office that day for an extended period of time.
--- NOTE | 2023-02-28 10:47 | MHC.CM.PN ---
PATIENT LIVES WITH HCP/ COPY REQUESTED HE IS DC HOME TODAY WITH A REFERRAL TO [facility] FOR HOME P.T. NO IMM NEEDED, PATIENT IS EXTENDED STAY TO TRANSPORT 2 CANES AND WALKER AT HOME
--- NOTE | 2023-02-28 10:58 | W.MHC.F2F ---
Service Date Service Date: 02/28/23 Encounter Date of encounter: 02/28/23 Reasons for Services Signs and symptoms assessed: right knee pain, swelling, weakness, poor balance Reason for physical therapy: home safety and mobility, therapeutic exercises, restore joint function, gait/transfer training, ADL training and energy conservation Reason for occupational therapy: home safety and mobility, therapeutic exercises, restore joint function, gait/transfer training, ADL training and energy conservation Overseeing Care: Endy Sharp Homebound: Leaving the home is medically contraindicated at this time without the asist of a device and/or another person due th the listed conditions above and below. Reason homebound: unsteady gait / fall risk, pain with ambulation, pain with transfers, poor balance / fall risk and unable to drive Homebound supporting statement: Pt. is considered home bound due to recent surgery. Unable to drive, poor balance, poor gait mechanics. Certification: Based on the above findings, I certify that this patient is confined to the home and needs intermittent retirement care, physical therapy and/or speech therapy, or continues to need occupational therapy. The patient is under my care, and I have initiated the establishment of the plan of care. The patient will be followed by a physician who will periodically review the plan of care. Time Spent With Patient Time: Total time managing care of this patient today ____ minutes.
[2023-02-28 11:03] VITALS: BP 124/74; PULSE 77; O2SAT 94
--- NOTE | 2023-02-28 14:31 | HO.POSTANES ---
Post Anesthesia Evaluation Post Anesthesia Evaluation Date of Service: 02/28/23 Vital Signs: Vital Signs Temp Pulse Resp BP Pulse Ox O2 Del Method 02/28/23 11:03 77 124/74 94 02/28/23 09:44 77 124/74 94 02/28/23 07:47 77 124/74 94 02/28/23 07:08 97 F 77 18 124/74 94 Room Air 02/28/23 03:23 98.7 F 83 16 126/71 94 Room Air Anesthesia: Spinal and Nerve Block Mental Status: Awake Pain Control: Satisfactory Nausea/Vomiting: None Hydration: Adequate Anesthesia-Related Issues: No Anes. Related Issues
--- NOTE | 2023-03-01 14:39 | W.PM.OPN ---
Operative Note Operative Note Date of Service: 02/27/23 Narrative: Pre-op diagnosis: Right knee OA Post-op diagnosis: same Procedure: Right TKA Implants: [employer] Triathlon press fit cruciate retaining Surgeon: Endy Sharp MD Anesthesia: regional and spinal Was an Upscale Security Officer used for this Procedure?: Yes Upscale Security Officer: Danette Ramos Estimated blood loss (mL): 150 IV fluids (mL): 1,000 Pathology: other Condition: stable Disposition: PACU Procedure in detail: The patient was brought to the operating room and prepped and draped in standard sterile fashion. A time-out was called to identify proper site proper procedure proper surgeon and IV antibiotics were administered. 1 g of IV tranexamic acid was administered. I began by making a midline incision to the retinaculum and performed a medial parapatellar arthrotomy. The patella was translated laterally and the knee was flexed up. There was moderate tricompartmental OA . I performed a small medial peel and resected the infrapatellar fat pad. Shelbi's line was then used to drill my intramedullary femoral guide and my distal femur cut of 10 mm was made in 5 degrees of valgus while protecting the soft tissues. I then measured a # 5 femur and placed my cutting guide and made my anterior posterior and chamfer cuts protecting the soft tissues at all times. Once I was satisfied with my cuts I turned my attention to the tibia. I removed the meniscus medially and laterally and , using an external cutting guide, in line with the tibial crest and the third ray, I made my distal tibial cut in 3 deg slope of while protecting the PCL the posterior soft tissues at all times. An extension block was used to confirm appropriate amount of bony resection. I then sized a #5 tibia and once I was satisfied that there was complete tibial coverage I placed my trial and with the trial femur in place took the knee through range of motion. I was satisfied with the extension and flexion as well as the stability and balance at 0, 30 and 90 degrees. I then turned my attention to the patella where I removed 1 cm from the undersurface of the patella and then trialed a 35a patellar button. Again the knee was taken through range of motion I was satisfied with the tracking. I then returned to the femur and drilled my femoral lug holes and prepared the tibia. A femoral bone plug was placed and the knee was irrigated copiously. I then press fit the patella, tibia and femur in standard fashion. I trialed different inserts until I selected a 9mm insert. The final insert was placed and a 3 minutes iodine soak with local TXA was performed. A Werewolf cautery wand was used to maintain hemostasis over the capsule and meniscal beds, the gutters and peripatellar soft tissues. The knee was then closed with a running Quill suture, a 3 0 Vicryl and heidi on the skin. Patient was then placed in sterile dressing and brought to recovery room in stable condition there were no known complications.
== END 2023-02-28 14:10 | disposition home health service (06) ==
LOC: HO.SSS 05:53 → HO.S3 14:17
PROVIDERS: Physician Assistant; PCP Physician Assistant; Visit Provider Orthopaedic Surgery
PROC: (CPT 27447; principal; 2023-02-27 07:30)
DX: M17.11 Unilateral primary osteoarthritis, right knee (principal); G89.29 Other chronic pain; M23.91 Unspecified internal derangement of right knee; M51.9 Unspecified thoracic, thoracolumbar and lumbosacral intervertebral disc disorder; M54.50 Low back pain, unspecified; M96.1 Postlaminectomy syndrome, not elsewhere classified; G62.9 Polyneuropathy, unspecified; M79.7 Fibromyalgia; E78.5 Hyperlipidemia, unspecified; J45.30 Mild persistent asthma, uncomplicated; E66.3 Overweight; Z68.29 Body mass index [BMI] 29.0-29.9, adult; N20.0 Calculus of kidney; F32.A Depression, unspecified; Z79.899 Other long term (current) drug therapy; Z88.8 Allergy status to other drugs, medicaments and biological substances; Z87.891 Personal history of nicotine dependence
CPT/HCPCS: 27447; 36415; 73560; 80048; 85014; 85018; 85025; 86850; 86900; 86901; 87640; 87641; 88305; 88311; 97110; 97116; 97162; C1776; J0131; J0690; J1170; J2250; J2405; J3010

== ENCOUNTER → 2023-03-15 10:28 | Outpatient (BNVA) | payer MEDICARE, MEDICAID, SELFPAY | PROVIDERS: PCP Physician Assistant; Visit Provider Nurse Practitioner Family | DX: Z47.89 Encounter for other orthopedic aftercare (principal); M17.11 Unilateral primary osteoarthritis, right knee; J45.20 Mild intermittent asthma, uncomplicated; R91.8 Other nonspecific abnormal finding of lung field; M51.9 Unspecified thoracic, thoracolumbar and lumbosacral intervertebral disc disorder; M96.1 Postlaminectomy syndrome, not elsewhere classified; M54.16 Radiculopathy, lumbar region; G89.4 Chronic pain syndrome; Z96.89 Presence of other specified functional implants; Z77.090 Contact with and (suspected) exposure to asbestos | CPT/HCPCS: 99212 ==

== ENCOUNTER 2023-04-13 12:25 | Outpatient (AMB) | payer MEDICARE, MEDICAID, SELFPAY ==
--- NOTE | 2023-04-13 12:27 | MHC.OFFVIS ---
Intake Intake Visit Reasons: PO - RT TKA 02/27/23 Intake Note: Mayco is a 62 year old male who presents today for a post operative appointment s/p Right TKA 02/27/23. Patient reports that he is doing well with no concerns. Allergies dexamethasone [DEXAMETHASONE] Allergy (Severe, Verified 04/13/23 12:28) Steroid Physcosis atorvastatin Adverse Reaction (Intermediate, Verified 04/13/23 12:28) bone pain fluticasone [From [employer] Inhub] Adverse Reaction (Intermediate, Verified 04/13/23 12:28) hand tremors, blood pressure dropping lisinopril [LISINOPRIL] Adverse Reaction (Intermediate, Verified 04/13/23 12:28) COUGH salmeterol [From [facility] [employer]] Adverse Reaction (Intermediate, Verified 04/13/23 12:28) hand tremors, blood pressure dropping Wellbutrin Allergy (Unknown, Uncoded 04/13/23 12:28) Unknown HPI PO - RT TKA 02/27/23 HPI Details Mayco is approximately 6-7 weeks status post right knee replacement. He is doing well. He is doing physical therapy. He is active. He has minimal pain. He denies fevers and chills. He complains of left knee pain. [facility] Medical History Allergic cough Asthma Depression Diverticulosis Failed back syndrome of lumbar spine Fibromyalgia HLD (hyperlipidemia) Lumbar disc disease Neuropathy Overweight (BMI 25.0-29.9) Pulmonary nodule Renal calculi Surgical History H/O arthroscopy H/O colonoscopy History of arthroscopy of right knee History of carpal tunnel release Spinal cord stimulator status Family History Father Hypertension COPD (chronic obstructive pulmonary disease) Mother Hypertension Dementia Family/Other Lung cancer Social History Household Members: Spouse and Family Household Members Other:: [place] Housing: House Are you a primary patient care representative to a significant other at home: No Do you presently have visiting nurse or other home services: No Alcohol intake: never Patient Tobacco Use Status: Former Tobacco user Quit Date: 1994 Tobacco use type: Cigarette Years Smoked: 20 e-Cigarette/Vaping Use: Never Used Second Hand Smoke Exposure: No service: No Current occupational status: employed 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 0-115 degrees of motion. Mild effusion. left knee with lateral tenderness to palpation. Results Reviewed Results Reviewed: I personally reviewed relevant radiographs. Right total knee arthroplasty in expected post operative position with no hardware complications or evidence of loosening Left with lateral compartment OA Assessment & Plan Assessment & Plan (1) Status post total knee replacement, right: Code(s): Z96.651 - Presence of right artificial knee joint Plan: Doing well status post right knee replacement. Continue strengthening and [id number] exercises. (2) Localized osteoarthritis of left knee: Code(s): M17.12 - Unilateral primary osteoarthritis, left knee Plan: Can wants to schedule left knee arthroplasty. I think this is reasonable given his arthritis and his activity limitations. We have discussed this previously. I will have our nurse navigator contact him. Medications: Discontinued simvastatin 10 mg (1/2 x 20 mg) PO DAILY 30 days 15 tabs 0RF E78.2 - Mixed hyperlipidemia Coding Level of Care Code Global (16138) Diagnoses Status post total knee replacement, right Z96.651 Localized osteoarthritis of left knee M17.12
== END 2023-04-13 12:52 | disposition home or self-care (01) ==
PROVIDERS: PCP Physician Assistant; Visit Provider Orthopaedic Surgery
DX: Z96.651 Presence of right artificial knee joint (principal); M17.12 Unilateral primary osteoarthritis, left knee
CPT/HCPCS: 99024

== ENCOUNTER → 2023-04-13 12:25 | Outpatient (BNVA) | payer MEDICARE, MEDICAID, SELFPAY | PROVIDERS: PCP Physician Assistant; Visit Provider Orthopaedic Surgery ==

== ENCOUNTER 2023-05-03 12:19 | Outpatient (REF) | payer MEDICARE, MEDICAID, SELFPAY ==
[2023-05-03 16:39] LABS: Alanine Aminotransferase 17 U/L (0-40); Albumin Level 4.5 g/dL (3.5-5.0); Alkaline Phosphatase 53 U/L (39-117); Anion Gap 12 (12-20); Aspartate Amino Transferase 19 U/L (5-37); Bilirubin Total 0.6 mg/dL (0.0-1.0); Blood Urea Nitrogen 18 mg/dL (9-16); Carbon Dioxide 29 mmol/L (22-29); Chloride 107 mmol/L (96-108); Cholesterol 206 mg/dL; Estimated Glomerular Filt Rate > 60; Glucose Fasting 80 mg/dL (60-99); HDL Cholesterol 46 mg/dL; LDL Cholesterol Calculated 137 mg/dl; Potassium 4.7 mmol/L (3.3-5.1); Sodium 143 mmol/L (135-145); Total Protein 6.9 g/dL (6.5-8.0); Triglycerides 118 mg/dL
== END 2023-05-03 12:20 | disposition home or self-care (01) ==
LOC: HO.LAB 12:19
PROVIDERS: Visit Provider Physician Assistant
DX: E78.2 Mixed hyperlipidemia (principal)
CPT/HCPCS: 36415; 80053; 80061

== ENCOUNTER 2023-05-07 13:53 | Outpatient (AMB) | payer MEDICARE, MEDICAID, SELFPAY ==
[2023-05-07 13:55] VITALS: BP 120/72; PULSE 88; O2SAT 96; BMI 28.7
--- NOTE | 2023-05-07 13:55 | A.OFFPC_ITS ---
Vital Signs 05/07/23 13:55 Height 5 ft 10 in Weight 200 lb BMI 28.7 BP 120/72 Blood Pressure Location Lt brachial Position Sitting Pulse 88 Pulse Source Pulse Oximeter Pulse Oximetry (%) 96 Oxygen Delivery Method Room Air Intake Visit Reasons: f/u HLD Allergies dexamethasone [DEXAMETHASONE] Allergy (Severe, Verified 05/07/23 14:19) Steroid Physcosis atorvastatin Adverse Reaction (Intermediate, Verified 05/07/23 14:19) bone pain fluticasone [From [employer] Inhub] Adverse Reaction (Intermediate, Verified 05/07/23 14:19) hand tremors, blood pressure dropping lisinopril [LISINOPRIL] Adverse Reaction (Intermediate, Verified 05/07/23 14:19) COUGH salmeterol [From [facility]ela Inhub] Adverse Reaction (Intermediate, Verified 05/07/23 14:19) hand tremors, blood pressure dropping Wellbutrin Allergy (Unknown, Uncoded 05/07/23 13:57) Unknown Medication List - Last Reconciled 05/07/23 by Juan C Melchor PA-C aspirin 325 mg PO BID 42 days budesonide 90 mcg/actuation (Pulmicort Flexhaler) 2 inhalations inhalation BID celecoxib 200 mg PO BID 30 days coenzyme Q10 50 mg PO DAILY docusate sodium 100 mg PO BID 14 days fluticasone propion-salmeterol 113-14 mcg/actuation (AirDuo RespiClick) 1 inh i nhalation BID 30 days garlic 500 mg PO DAILY hydrocodone-acetaminophen 5-325 mg 1 tab PO Q12H PRN 7 days minoxidil 5% ea topical multivitamin 1 tab PO DAILY red yeast rice 600 mg PO DAILY Ventolin HFA 90 mcg/actuation (albuterol sulfate) 2 puffs inhalation Q4-6H PRN NS Tobacco use date assessed: 12/14/22 HPI f/u HLD HPI Details Patient is a 62 year male here today for a follow-up visit. Patient's past medical history significant for osteoarthritis, failed back syndrome, mild asthma, borderline high total cholesterol . Patient is status post right knee replacement and anticipates getting his left knee done in May of 2023. .. Asthma: Has been stable with use of his maintenance inhales.. Has not had any severe asthma exacerbations or nighttime awakenings with asthma symptoms. .. Hyperlipidemia:? Patient's most recent lipid panel showing improved total cholesterol.? He is now off of statin in taking supplement [id number]-[id number] red rice yeast. Continues on lifestyle modifications to help reduce his cholesterol which have been helpful. Laboratory Tests 02/16/23 05/03/23 11:48 12:43 Creatinine 0.85 Cholesterol 165 206 LDL Cholesterol, C alc 100 137 PFSH Medical History (Updated 05/08/23 @ 07:26 by Juan C Melchor PA-C) Allergic cough Asthma Depression Diverticulosis Failed back syndrome of lumbar spine Fibromyalgia HLD (hyperlipidemia) Lumbar disc disease Neuropathy Overweight (BMI 25.0-29.9) Post covid-19 condition, unspecified Pulmonary nodule Pulmonary nodules Renal calculi Surgical History H/O arthroscopy H/O colonoscopy History of arthroscopy of right knee History of carpal tunnel release Spinal cord stimulator status Family History Father Hypertension COPD (chronic obstructive pulmonary disease) Mother Hypertension Dementia Family/Other Lung cancer Social History Household Members: Spouse and Family Household Members Other:: [place] Housing: House Are you a primary senior care provider to a significant other at home: No Do you presently have visiting nurse or other home services: No Alcohol intake: never Patient Tobacco Use Status: Former Tobacco user Quit Date: 1994 Tobacco use type: Cigarette Years Smoked: 20 e-Cigarette/Vaping Use: Never Used Second Hand Smoke Exposure: No service: No Current occupational status: employed 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 1. Little interest or pleasure in doing things: not at all 2. Feeling down, depressed, or hopeless: not at all 3. Trouble falling or staying asleep, or sleeping too much: not at all 4. Feeling tired or having little energy: not at all 5. Poor appetite or overeating: not at all 6. Feeling bad about yourself - or that you are a failure or have let yourself or your family down: not at all 7. Trouble concentrating on things, such as reading the newspaper or watching television: not at all 8. Moving or speaking so slowly that other people could have noticed. Or the opposite - being so fidgety or restless that you have been moving around a lot more than usual: not at all 9. Thoughts that you would be better off or of hurting yourself in some way: not at all Total score: 0 Depression Screening Interpretation: Negative 10949 - PHQ-9 Billing: Yes Source: Developed by Drs. Hernan Durant, Seble Penn, Kj Boyle and colleagues, with an educational yamel from [employer]. Thrive Questionnaire Date Thrive assessed: 12/14/22 I am a: Patient What is your living situation today?: I have a steady place to live Within the past 12 months, did the food you bought not last and you didn't have the money to get more?: Never true Within the past 12 months, did you worry whether your food would run out before you got money to buy more?: Never true Currently or been in a relationship where the following occur: no concerns reported AUDIT C Alcohol Use Questionnaire (AUDIT-C) 1. How often do you have a drink containing alcohol?: Monthly or less 2. How many drinks containing alcohol do you have on a typical day when you are drinking?: 1 or 2 3. How often do you have six or more drinks on one occasion?: Never Total Score: 1 BRIAN-7 AMB Questionnaire BRIAN-7 Date BRIAN - 7 assessed: 12/14/22 Feeling nervous, anxious, or on edge: 0 = Not at all Not being able to stop or control worryin = Not at all Worrying too much about different things: 0 = Not at all Trouble relaxin = Not at all Being so restless that it is hard to sit still: 0 = Not at all Becoming easily annoyed or irritable: 0 = Not at all Feeling afraid as if something awful might happen: 0 = Not at all Total BRIAN-7 score (0-4 normal; 5-9 mild; 10-14 moderate; 15-21 severe): 0 Source: Developed by Drs. Hernan Durant, Kj Noyola Kroenke and colleagues, with an educational yamel from [employer]. BRIAN-7 Assessment Billing BRIAN-7 Assessment Tool: BRIAN-7 Assessment 24403 ACT Questionnaire In the past 4 weeks, how much of the time did your asthma keep you from getting as much done at work, school or at home?: None of the time During the past 4 weeks, how often have you had shortness of breath?: Not at all During the past 4 weeks, how often did your asthma symptoms wake you up at night or earlier than usual in the morning?: Not at all During the past 4 weeks, how often have you had to use your rescue inhaler or nebulizer medication?: Not at all How would you rate your asthma control during the past 4 weeks?: Completely controlled ACT Interpretation: Negative Score: 25 Review of Systems Const Denies headache(s) Eyes Denies loss of vision ENT Denies vertigo, Denies dizziness, Denies headache(s) and Denies sore throat Card Denies chest pain, Denies leg edema and Denies lightheadedness Resp Denies cough, Denies hemoptysis and Denies wheezing GI Denies abdominal pain, Denies melena, Denies constipation, Denies diarrhea and Denies vomiting Denies dysuria, Denies urinary frequency and Denies urinary urgency Musc Denies arthralgias, Denies joint swelling, Denies numbness and Denies tingling Neuro Denies Abnormal speech present, Denies behavioral changes, Denies vertigo, Denies dizziness, Denies headache(s), Denies loss of vision, Denies memory loss, Denies numbness and Denies tingling Psych Denies anxiety, Denies behavioral changes, Denies depression, Denies memory loss and Denies panic attacks Gurjit/Lymph Denies easy bleeding and Denies easy bruising Aller/Immun Denies wheezing Physical exam (Primary Care) Vital Signs: Last Vital Signs Pulse 88 05/07/23 13:55 BP 120/72 05/07/23 13:55 Pulse Ox 96 05/07/23 13:55 Oxygen Delivery Method Room Air 05/07/23 13:55 BMI result Body Mass Index 28.7 Tobacco/Smoking Status: Tobacco use Status Tobacco use date assessed 12/14/22 05/07/23 14:01 Patient Tobacco Use Status Former Tobacco user 08/14/23 14:01 Tobacco use type Cigarette 05/07/23 14:01 e-Cigarette/Vaping Use Never Used 05/07/23 14:01 PHQ-9: PHQ-9 Score PHQ-9: Total score 0 05/07/23 14:59 Depression Screening Interpretation: Negative Thrive Assessment: Date of Thrive Assessment Date Thrive assessed 12/14/22 05/07/23 14:01 Currently or been in a relationship where the following occur: no concerns reported Const General: healthy appearing, no acute distress, alert and awake Nutritional Appearance: well nourished Orientation/consciousness: oriented to person, oriented to place and oriented to time HENMT Ears: TM's normal bilaterally General nose exam: Normal nasal mucous membranes and turbinates present Eyes Conjunctivae: conjunctivae normal Sclerae: sclerae normal Pupils: Equal, round and reactive pupils present Neck Neck: Yes no lymphadenopathy and Yes no JVD Thyroid: Thyroid normal Carotids: no bruits Resp Effort & Inspection: normal respiratory effort and not tachypneic Auscultation: no crackles, no rales, no rhonchi and no wheezes Cardio Rate: regular rate Rhythm: regular rhythm Heart sounds: no murmurs and normal S1 and S2 GI Palpation (GI): Soft to palpation, nontender, no hepatomegaly and no splenomegaly Auscultation: normal bowel sounds Skin General skin exam: no rashes or lesions noted and dry skin Neuro General: oriented to person, oriented to place and oriented to time Cranial nerves: Yes Equal, round and reactive pupils present Speech: No Abnormal speech present Gait exam (Neuro): Normal gait present Motor exam (neuro): no tremor noted Extrem Right upper extremity: full ROM Left upper extremity: full ROM Right lower extremity: full ROM; no edema Left lower extremity: full ROM; no edema Psych Mental Status: mental status grossly normal Speech and movement: Normal speech and movement present Affect: normal affect Attitude: cooperative Thought process: Normal thought process present Assessment and Plan Assessment & Plan (1) Borderline high cholesterol: Code(s): E78.9 - Disorder of lipoprotein metabolism, unspecified Plan: Continues to use natural lmpf-rbo-nzqgeog meds for his cholesterol. Now off of statin therapy. Most recent total cholesterol much improved. Will continue lifestyle modifications and ygnu-vxc-[id number] meds for his cholesterol. (2) Localized osteoarthritis of left knee: Code(s): M17.12 - Unilateral primary osteoarthritis, left knee Plan: Patient is due for another total knee arthroplasty in May 2023. 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 Will recheck B6 level (4) Asthma: Code(s): J45.909 - Unspecified asthma, uncomplicated Qualifiers: Asthma severity: mild Asthma persistence: persistent Asthma complicat ion type: uncomplicated Qualified Code(s): J45.30 - Mild persistent asthma, uncomplicated Plan: Patient's asthma has been well controlled with maintenance inhalers and only p.r.n. use of his Ventolin inhaler. He denies any nighttime awakenings with asthma symptoms are recent asthma exacerbations. Orders: Orders Comprehensive [place]. 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
== END 2023-05-07 14:38 | disposition home or self-care (01) ==
PROVIDERS: Visit Provider Physician Assistant
DX: E78.9 Disorder of lipoprotein metabolism, unspecified (principal); M17.12 Unilateral primary osteoarthritis, left knee; E67.2 Megavitamin-B6 syndrome; J45.30 Mild persistent asthma, uncomplicated
CPT/HCPCS: 99214

== ENCOUNTER 2023-05-17 11:24 | Outpatient (AMB) | payer MEDICARE, MEDICAID, SELFPAY ==
--- NOTE | 2023-05-17 11:28 | MHC.OFFVIS ---
Intake Vital Signs 05/17/23 11:29 Height 5 ft 10 in Weight 199 lb 8 oz BMI 28.6 BP 118/80 Blood Pressure Location Lt brachial Position Sitting Respiration 16 Pulse 80 Pulse Oximetry (%) 98 Oxygen Delivery Method Room Air Intake Visit Reasons: Procedure Discussion s/p Knee Replacement Allergies dexamethasone [DEXAMETHASONE] Allergy (Severe, Verified 05/17/23 12:29) Steroid Physcosis atorvastatin Adverse Reaction (Intermediate, Verified 05/17/23 12:29) bone pain fluticasone [From Wixela Inhub] Adverse Reaction (Intermediate, Verified 05/17/23 12:29) hand tremors, blood pressure dropping lisinopril [LISINOPRIL] Adverse Reaction (Intermediate, Verified 05/17/23 12:29) COUGH salmeterol [From W[employer] Inhub] Adverse Reaction (Intermediate, Verified 05/17/23 12:29) hand tremors, blood pressure dropping Wellbutrin Allergy (Unknown, Uncoded 05/17/23 12:29) Unknown HPI HPI Comments History of Present Illness Details Patient presents today for follow up regarding ongoing pain in his right anterior knee, more lateral aspect status post Right TKA 02/27/23. He reports residual numbness along medial aspect and localized tenderness in his lateral aspects. He continues to stay active with physical therapy 3x per week for strengthening and [id number] exercises. Patient notices increased right knee pain as his Vicodin has been titrated down. He is interested in interventional treatment options for right knee. He is scheduled to undergo left TKA on 06/05/23. We will schedule him for left femoral nerve block prior this for potential peripheral nerve stimulation after his rehab for left knee after TKA. He continues to use lumbar SCS device for his chronic back pain with good results. Denies any recent cough, cold, infection, fever or other significant changes in medical history since last office visit. PRIOR: Patient is a very pleasant 62-year-old male presents today for follow-up for SCS program adjustment and meeting with rep Kline from [employer]. He is accompanied by his Caroline. Patient was last seen in our office by Dr. Aly on 04/21/2020. Patient reports spinal cord stimulator has been working well for his back pain relief but has no pain relief coverage in his legs. He reports 0/10 pain today. As of note, patient recently underwent right total knee replacement and has follow-up appointment with Orthopedics today for staple removal. Curiously his taking Vicodin as needed for postop knee pain. Patient is looking forward to adjust his spinal cord stimulator to obtain better coverage to include his leg pain. Denies any recent cough, cold, infection, fever or other significant changes in medical history since last office visit. Patient denies any bladder or bowel incontinence or saddle anesthesia. Ambulates with mildly antalgic gait and uses cane with ambulation. PRIOR 04/21/2020 Dr. Aly: Mr. Hart returns to the office today for an ongoing left heel pain. He received transforaminal left L3-L4 and L4-5 epidural steroid injections again. He reports better mobility, better moved around, HOWEVER THIS TIME HE REPORTS AGGRAVATED PAIN FOR NEXT 2 WEEKS AFTER THE INJECTION AND THEN THE PAIN SUBSIDED AND BECAME BETTER. I A A SUSPECT THAT MIGHT BE EFFECT OF THE RADIATION OF THE NERVE ROOTS FROM THE STEROIDS. I OFFERED HIM NEXT TIME WHEN HIS PAIN IS GETTING STRONGER TO COME AND RECEIVE INJECTIONS WITH NON PARTICULATE STEROIDS. ALTERNATIVELY HIS FORAMINAL STENOSIS MIGHT BE RE-EVALUATED BY NEUROSURGEON. WE DECIDED THAT 1 MORE TIME WE WILL TRY NON PARTICULATE STEROID INJECTIONS AND IF THIS WILL GIVE YOU THE SAME AGGRAVATION I WILL REFER HIM TO NEUROSURGICAL CARE. HE WILL GIVE US A CALL WHEN HIS PAIN IS STRONGER AND HE WANTS INJECTION AGAIN. ALTERNATIVELY WE CAN RETURN BACK TO DISCUSSION OF THE PAIN PUMP FOR HIM. HE ALSO HAS SPINAL CORD STIMULATOR ALREADY IMPLANTED HOWEVER HE REPORTS THAT IT HELPS HIS PAIN ONLY 20%. PRIOR: He was evaluated by a neurosurgeon Dr. Arzola and he did not receive recommendation for surgery. 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 He reports that his pain is being helped by spinal cord stimulator but he cannot continue working he wants to apply for disability. His pain is in the projection of the posterior calcaneal bone to the skin. He reports the most severe pain he feels when he bends himself forward and at that moment he feels the pain in lthe lumbar spine with the pain increase in the area described above. He reports he has had a progressively worsening electrical charge, burning, stabbing pain. Last time we started him on gabapentin and amitriptyline a and he reported side effect on both gabapentin and amitriptyline. Gabapentin causes him to have introduced if suicidal thoughts. Amitriptyline causes dry mouth, urinary retention, and difficulties with vision. I told him to stop both medications we discussed Lyrica today. I do not thing Lyrica is a good medication considering the fact that gabapentin gave him suicidal thoughts He has not had any injuries to foot. Mr. Hart had a Spinal Cord Stimulator implanted 07/12/18, which has resulted in significant alleviation of lower back and radiating leg pain. He can obtain SCS coverage throughout legs and down to feet, including his heels. He reports that regardless of if stimulator is on or off, he continues to experience this burning nerve pain in this distribution. MRI results: Chronic fatty marrow degenerative endplate changes noted at multiple levels with moderate to severe loss of disc height at L4-5 and L5-S1, similar to prior imaging. Mild endplate in a edematous changes noted at the L3-L4 and L4-L5. There is also minimal endplate edema anterior inferiorly at the T11 level due to degenerative Schmorl's node there are no compression fractures slight a retro subluxation is stable at L3-L4 no anterior subluxations are seen small far pelvic renal cyst partially visualized the paraspinal soft tissues are otherwise unremarkable there is leftward curvature of the upper lumbar spine and the rightward curvature of the lower lumbar spine. L1-L2: No disc pathology no central canal stenosis or foraminal narrowing. L2-L3: Very mild facet arthropathy. Well-hydrated normal appearance of the disc without central canal stenosis or foraminal narrowing. L3-L4: Mild retro subluxation and disc bulge with resorption of the previously small central disc protrusion mild central canal stenosis and facet arthropathy again evident contributing to mild bilateral foraminal narrowing. L4-L5: Moderate to severe loss of disc height with makes chronic and mild edematous endplate changes hypertrophic facet arthropathy again noted with mild central canal stenosis and very mild left foraminal narrowing. L5-S1 moderate to severe loss of disc height with endplate spurring and facet arthropathy no central canal stenosis or foraminal narrowing. [facility] Medical History Allergic cough Asthma Depression Diverticulosis Failed back syndrome of lumbar spine Fibromyalgia HLD (hyperlipidemia) Lumbar disc disease Neuropathy Overweight (BMI 25.0-29.9) Post covid-19 condition, unspecified Pulmonary nodule Pulmonary nodules Renal calculi Surgical History H/O arthroscopy H/O colonoscopy History of arthroscopy of right knee History of carpal tunnel release Spinal cord stimulator status Family History Father Hypertension COPD (chronic obstructive pulmonary disease) Mother Hypertension Dementia Family/Other Lung cancer Social History Household Members: Spouse and Family Household Members Other:: Stepson Housing: House Are you a primary care management specialist to a significant other at home: No Do you presently have visiting nurse or other home services: No Alcohol intake: never Patient Tobacco Use Status: Former Tobacco user Quit Date: 1994 Tobacco use type: Cigarette Years Smoked: 20 e-Cigarette/Vaping Use: Never Used Second Hand Smoke Exposure: No service: No Current occupational status: employed 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 Alert and oriented. Mood and affect appropriate. Fully engaged in exam. Follows and participates in conversation appropriately. Respiratory effort is unlabored. Able to transition from sit to stand unassisted. Ambulates with bilaterally normal heel strike and toe off. Extrem General: Yes capillary refill normal, Yes no clubbing, cyanosis or edema and Yes no calf tenderness Right lower extremity: knee (Well healed incision.) Details: normal to inspection, tenderness Location: of the lateral joint line and normal ROM; no swelling, no ecchymosis and no unusual warmth Left lower extremity: knee (Limited ROM) Details: tenderness Location: of the lateral joint line and crepitus; no swelling, no ecchymosis and no unusual warmth Results Reviewed Results Reviewed: XR KNEE, RIGHT 02/27/23 CLINICAL INFORMATION: Right total knee arthroplasty COMPARISON: X-rays of the right knee 02/22/2023 MRI right knee November 2022 TECHNIQUE: Portable AP and portable crosstable lateral view of the right knee FINDINGS: There is a total knee arthroplasty in place. The components are in the usual position There is no periprosthetic fracture or surrounding abnormal lucency. There is a small effusion. There is a small amount of gas in the soft tissues compatible with postoperative result. Skin heidi also noted. The surrounding soft tissues are normal. IMPRESSION: Right total knee arthroplasty without complication by x-ray. Assessment & Plan Assessment & Plan (1) Chronic pain syndrome: Code(s): G89.4 - Chronic pain syndrome (2) Status post total knee replacement, right: Code(s): Z96.651 - Presence of right artificial knee joint (3) Right knee pain: Code(s): M25.561 - Pain in right knee Plan Discussed interventional treatments with patient in greater detail. Patient is 11 weeks status post right TKA with residual right lateral knee pain but significantly improved gait and ROM. He is currently active with physical therapy and HEP. He is interested to undergo Right Femoral Nerve Block with local and fluoroscopy for potential Sprint PNS trial. We also discussed genicular RFA and its limitations. Expectations, risks and benefits were reviewed. Patient is aware he will be contacted to schedule this procedure. Follow up with Orthopedic provider as scheduled. All questions were answered and the patient is in agreement of plan. Follow-up after injections and sooner as needed. Medications: Discontinued simvastatin 10 mg (1/2 x 20 mg) PO DAILY 30 days 15 tabs 0RF E78.2 - Mixed hyperlipidemia Coding Level of Care Code Est Pt Level 4 (75147) Diagnoses Chronic pain syndrome G89.4 Status post total knee replacement, right Z96.651 Right knee pain M25.561
[2023-05-17 11:29] VITALS: BP 118/80; PULSE 80; RESP 16; O2SAT 98; BMI 28.6
== END 2023-05-17 11:53 | disposition home or self-care (01) ==
PROVIDERS: PCP Physician Assistant; Visit Provider Nurse Practitioner Family
DX: M25.561 Pain in right knee (principal); G89.4 Chronic pain syndrome; Z96.651 Presence of right artificial knee joint
CPT/HCPCS: 99214

== ENCOUNTER → 2023-05-17 11:24 | Outpatient (BNVA) | payer MEDICARE, MEDICAID, SELFPAY | PROVIDERS: PCP Physician Assistant; Visit Provider Nurse Practitioner Family | DX: Z01.818 Encounter for other preprocedural examination (principal); M25.561 Pain in right knee; G89.4 Chronic pain syndrome; Z96.651 Presence of right artificial knee joint | CPT/HCPCS: 36415; 84443; 85025; 85610; 99212 ==

== ENCOUNTER 2023-05-17 13:17 | Outpatient (AMB) | payer MEDICARE, MEDICAID, SELFPAY ==
[2023-05-17 12:28] VITALS: BP 128/70; PULSE 80; O2SAT 98; BMI 28.6
--- NOTE | 2023-05-17 12:28 | A.OFFPC_ITS ---
Vital Signs 05/17/23 12:28 Height 5 ft 10 in Weight 199 lb BMI 28.6 BP 128/70 Blood Pressure Location Lt brachial Position Sitting Pulse 80 Pulse Source Pulse Oximeter Pulse Oximetry (%) 98 Oxygen Delivery Method Room Air Intake Visit Reasons: L knee surgery-06/05 Allergies dexamethasone [DEXAMETHASONE] Allergy (Severe, Verified 05/17/23 12:29) Steroid Physcosis bupropion [From Wellbutrin] Allergy (Unknown, Verified 05/18/23 08:49) Unknown atorvastatin Adverse Reaction (Intermediate, Verified 05/17/23 12:29) bone pain fluticasone [From [employer]ela Inhub] Adverse Reaction (Intermediate, Verified 05/17/23 12:29) hand tremors, blood pressure dropping lisinopril [LISINOPRIL] Adverse Reaction (Intermediate, Verified 05/17/23 12:29) COUGH salmeterol [From Wixela Inhub] Adverse Reaction (Intermediate, Verified 05/17/23 12:29) hand tremors, blood pressure dropping Tobacco use date assessed: 12/14/22 Fall risk assessment: No Falls in past year Last assessed Fall Risk: 05/17/23 Dental Screening Dental Screen Date: 05/17/23 Did you have a dental visit in the last 12 months?: Yes Did you have a dental problem in the last 6 months where you did not have access to dental care?: No Was dental information given to patient?: Patient has dentist HPI HPI Comments History of Present Illness Details 62-year-old male past medical history significant for asthma, chronic pain syndrome hyperlipidemia, depression, lumbar radiculopathy and osteoarthritis.Patient s/p right total knee replacement 11 weeks ago. Patient of Kenton Melchor presents today fro pre-op for left knee surgery on 06/05/[address] Sharp. Patient denies previous complications to general anesthesia. Denies CP,Palpitations, sob and syncope. Laboratory Tests 05/03/23 05/17/23 05/17/23 12:43 14:35 14:35 WBC 8.5 RBC 4.59 L Hgb 13.7 L Hct 41.0 L MCV 89.3 MCH 29.8 MCHC 33.4 RDW 13.1 Plt Count 308 MPV 9.4 Immature Gran % (A uto) 0.4 Neut % (Auto) 68.9 Lymph % (Auto) 20.6 PT 11.4 INR 0.9 Sodium 143 Potassium 4.7 Chloride 107 Carbon Dioxide 29 Anion Gap 12 BUN 18 H Creatinine 0.85 Estim Creat Clear Calc Not Reportable Estimated GFR > 60 Fasting Glucose 80 Calcium 10.0 D Total Bilirubin 0.6 AST 19 ALT 17 Alkaline Phosphata se 53 Total Protein 6.9 Albumin 4.5 TSH 05/17/23 14:35 WBC RBC Hgb Hct MCV MCH MCHC RDW Plt Count MPV Immature Gran % (A uto) Neut % (Auto) Lymph % (Auto) PT INR Sodium Potassium Chloride Carbon Dioxide Anion Gap BUN Creatinine Estim Creat Clear Calc Estimated GFR Fasting Glucose Calcium Total Bilirubin AST ALT Alkaline Phosphata se Total Protein Albumin TSH 0.83 EKG February 2023: Normal sinus rhythm Minimal voltage criteria for LVH, may be normal variant ( R in aVL ) Borderline ECG When compared with ECG of 11-DEC-2021 18:59, T wave amplitude has increased in Lateral leads PFSH Medical History (Updated 05/18/23 @ 08:50 by Ayde Gomez RN) Allergic cough Asthma Depression Diverticulosis Failed back syndrome of lumbar spine Fibromyalgia HLD (hyperlipidemia) Lumbar disc disease Neuropathy Osteoarthritis Overweight (BMI 25.0-29.9) Post covid-19 condition, unspecified Pulmonary nodules Renal calculi Surgical History (Updated 05/18/23 @ 08:57 by Ayde Gomez RN) H/O arthroscopy H/O colonoscopy History of arthroscopy of right knee History of carpal tunnel release History of total right knee replacement Spinal cord stimulator status Family History Father Hypertension COPD (chronic obstructive pulmonary disease) Mother Hypertension Dementia Family/Other Lung cancer Social History Household Members: Spouse and Family Household Members Other:: Stepson Housing: House Are you a primary acute care physician to a significant other at home: No Do you presently have visiting nurse or other home services: No Alcohol intake: never Patient Tobacco Use Status: Former Tobacco user Quit Date: 1994 Tobacco use type: Cigarette Years Smoked: 20 e-Cigarette/Vaping Use: Never Used Second Hand Smoke Exposure: No service: No Current occupational status: employed 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 1. Little interest or pleasure in doing things: not at all 2. Feeling down, depressed, or hopeless: not at all 3. Trouble falling or staying asleep, or sleeping too much: not at all 4. Feeling tired or having little energy: not at all 5. Poor appetite or overeating: not at all 6. Feeling bad about yourself - or that you are a failure or have let yourself or your family down: not at all 7. Trouble concentrating on things, such as reading the newspaper or watching television: not at all 8. Moving or speaking so slowly that other people could have noticed. Or the opposite - being so fidgety or restless that you have been moving around a lot more than usual: not at all 9. Thoughts that you would be better off or of hurting yourself in some way: not at all Total score: 0 Depression Screening Interpretation: Negative 09102 - PHQ-9 Billing: Yes Source: Developed by Drs. Hernan Durant, Kj Noyola and colleagues, with an educational yamel from [employer]. Thrive Questionnaire Date Thrive assessed: 12/14/22 AUDIT C Alcohol Use Questionnaire (AUDIT-C) 1. How often do you have a drink containing alcohol?: Monthly or less 2. How many drinks containing alcohol do you have on a typical day when you are drinking?: 1 or 2 3. How often do you have six or more drinks on one occasion?: Never Total Score: 1 BRIAN-7 AMB Questionnaire BRIAN-7 Date BRIAN - 7 assessed: 12/14/22 Source: Developed by Drs. Hernan Durant, Kj Noyola and colleagues, with an educational yamel from [employer]. Review of Systems Const Denies chills, Denies fatigue, Denies fever(s) and Denies poor appetite Eyes Denies no additional complaints ENT Reports Normal hearing present Card Denies chest pain, Denies syncope, Denies rapid heart rate and Denies dyspnea Resp Denies cough and Denies dyspnea GI Denies change in stool character, Denies constipation, Denies diarrhea, Denies nausea and Denies vomiting Denies dysuria, Denies urinary frequency and Denies urinary urgency Neuro Reports Normal hearing present, Denies confusion and Denies syncope Psych Denies confusion Endo Denies fatigue Physical exam (Primary Care) Vital Signs: Last Vital Signs Pulse 80 05/17/23 12:28 BP 128/70 05/17/23 12:28 Pulse Ox 98 05/17/23 12:28 Oxygen Delivery Method Room Air 05/17/23 12:28 BMI result Body Mass Index 28.6 Tobacco/Smoking Status: Tobacco use Status Tobacco use date assessed 12/14/22 05/17/23 12:32 Patient Tobacco Use Status Former Tobacco user 05/17/23 12:32 Tobacco use type Cigarette 05/17/23 12:32 e-Cigarette/Vaping Use Never Used 05/17/23 12:32 PHQ-9: PHQ-9 Score PHQ-9: Total score 0 05/17/23 14:02 Depression Screening Interpretation: Negative Thrive Assessment: Date of Thrive Assessment Date Thrive assessed 12/14/22 05/17/23 12:32 Const General: No confusion Orientation/consciousness: No confusion HENMT Head: Yes normocephalic and Yes atraumatic Eyes Conjunctivae: conjunctivae normal Chest Chest palpation & inspection: normal inspection of the chest Resp Effort & Inspection: normal respiratory effort Auscultation: clear to auscultation bilaterally, no crackles, no rhonchi and no wheezes Cardio Rate: regular rate Rhythm: regular rhythm Heart sounds: S1 normal heart sound present and S2 normal heart sound present GI Inspection: Yes normal to inspection Neuro General: No confusion Cranial nerves: Yes Normal hearing present Extrem General: No edema Assessment and Plan Assessment & Plan (1) Pre-op evaluation: Code(s): Z01.818 - Encounter for other preprocedural examination Plan: Based on a vent examination, review of labs an EKG. Patient is of average risk to undergo scheduled left total knee arthroplasty. Gaspar surgical risk: 0.0%. No further workup needed at this time and patient can proceed with scheduled surgery. Plan Keep scheduled follow-up with PCP or follow-up sooner if needed. Orders: Orders TSH reflex Free T4 05/17/23 Z01.818 - Encounter for other preprocedural examination Prothrombin Time INR 05/17/23 Z01.818 - Encounter for other preprocedural examination Complete Blood Count Auto Diff 05/17/23 Z01.818 - Encounter for other preprocedural examination Medications: Discontinued simvastatin 10 mg (1/2 x 20 mg) PO DAILY 30 days 15 tabs 0RF E78.2 - Mixed hyperlipidemia Coding Level of Care Code Est Pt Level 3 (02846) Diagnoses Pre-op evaluation Z01.818
== END 2023-05-17 13:56 | disposition home or self-care (01) ==
PROVIDERS: PCP Physician Assistant; Visit Provider Nurse Practitioner Family
DX: Z01.818 Encounter for other preprocedural examination (principal)
CPT/HCPCS: 99213

== ENCOUNTER 2023-05-17 14:18 | Outpatient (REF) | payer MEDICARE, MEDICAID, SELFPAY ==
[2023-05-17 14:37] LABS: MANUAL DIFF FLAG NO
[2023-05-17 14:49] LABS: Basophils Absolute Auto 0.1 X10*3/uL (0.0-0.2); Basophils Percent Auto 0.7 % (0-2); Eosinophils Absolute Auto 0.1 X10*3/uL (0.0-0.4); Eosinophils Percent Auto 1.4 % (0-4); Hemoglobin 13.7 g/dl (14.0-18.0); Imm Gran Abs Auto 0.03 X10*3/uL (0.00-0.03); Imm Gran Pct Auto 0.4 % (0.0-0.4); Lymphocytes Absolute Auto 1.8 X10*3/uL (1.2-4.9); Lymphocytes Percent Auto 20.6 % (20-40); Mean Corpuscular HGB Conc 33.4 g/dl (31.0-36.0); Mean Corpuscular Hemoglobin 29.8 pg (27.0-33.0); Mean Corpuscular Volume 89.3 fL (80.0-98.0); Mean Platelet Volume 9.4 fL (9.4-12.4); Monocytes Absolute Auto 0.7 X10*3/uL (0.1-1.2); Neutrophils Absolute Auto 5.9 x10*3/uL (2.0-8.3); Neutrophils Percent Auto 68.9 % (45-73); Platelet Count 308 X10*3/uL (160-400); Red Blood Count 4.59 X10*6/uL (4.60-5.80); Red Cell Distribution Width 13.1 % (11.0-16.0); White Blood Count 8.5 X10*3/uL (4.8-10.8)
[2023-05-17 14:57] LABS: INTERNATIONAL NORM RATIO 0.9 (0.9-1.1); Prothrombin Time 11.4 SEC (11.1-13.3)
[2023-05-17 17:13] LABS: TSH reflex Free T4 0.83 uIU/mL (0.32-4.0)
== END 2023-05-17 14:19 | disposition home or self-care (01) ==
LOC: HO.LAB 14:18
PROVIDERS: PCP Physician Assistant; Visit Provider Nurse Practitioner Family
DX: Z13.89 Encounter for screening for other disorder (principal)
CPT/HCPCS: 36415; 84443; 85025; 85610

== ENCOUNTER 2023-05-29 06:07 | Outpatient (REF) | payer MEDICARE, MEDICAID, SELFPAY | END 2023-05-29 06:08 | disposition home or self-care (01) | LOC: CF 06:07 | PROVIDERS: Visit Provider Anesthesiology | DX: M25.561 Pain in right knee (principal); G89.4 Chronic pain syndrome; Z96.651 Presence of right artificial knee joint | CPT/HCPCS: 64447 ==

== ENCOUNTER 2023-05-29 13:06 | Outpatient (AMB) | payer MEDICARE, MEDICAID, SELFPAY ==
--- NOTE | 2023-05-29 13:24 | MHC.OFFVIS ---
Intake Vital Signs 05/29/23 13:25 05/29/23 13:52 Height 5 ft 10 in Weight 199 lb BMI 28.6 BP 124/72 118/70 Blood Pressure Location Lt brachial Lt brachial Position Sitting Sitting Respiration 16 16 Pulse 80 68 Pulse Source Pulse Oximeter Pulse Oximeter Pulse Oximetry (%) 97 98 Oxygen Delivery Method Room Air Room Air Comment pre-op post-op Intake Visit Reasons: Right Femoral Nerve Block Allergies dexamethasone [DEXAMETHASONE] Allergy (Severe, Verified 05/29/23 13:51) Steroid Physcosis atorvastatin Adverse Reaction (Intermediate, Verified 05/29/23 13:51) bone pain bupropion [From Wellbutrin] Adverse Reaction (Intermediate, Verified 05/29/23 13:51) negative thoughts fluticasone [From Wixela Inhub] Adverse Reaction (Intermediate, Verified 05/29/23 13:51) hand tremors, blood pressure dropping lisinopril [LISINOPRIL] Adverse Reaction (Intermediate, Verified 05/29/23 13:51) COUGH salmeterol [From Wixela Inhub] Adverse Reaction (Intermediate, Verified 05/29/23 13:51) hand tremors, blood pressure dropping PFSH Medical History (Updated 05/21/23 @ 12:17 by Ayde Gomez RN) Allergic cough Asthma Depression Diverticulosis Failed back syndrome of lumbar spine Fibromyalgia HLD (hyperlipidemia) Lumbar disc disease Neuropathy Osteoarthritis Overweight (BMI 25.0-29.9) Post covid-19 condition, unspecified Pulmonary nodules Renal calculi Surgical History (Updated 05/21/23 @ 12:18 by Ayde Gomez RN) H/O arthroscopy H/O colonoscopy History of arthroscopy of right knee History of carpal tunnel release History of total right knee replacement Spinal cord stimulator status Family History Father Hypertension COPD (chronic obstructive pulmonary disease) Mother Hypertension Dementia Family/Other Lung cancer Social History Household Members: Spouse and Family Household Members Other:: Stepson Housing: House Are you a primary personal care service provider to a significant other at home: No Do you presently have visiting nurse or other home services: No Alcohol intake: never Patient Tobacco Use Status: Former Tobacco user Quit Date: 1996 Tobacco use type: Cigarette Years Smoked: 20 e-Cigarette/Vaping Use: Never Used Second Hand Smoke Exposure: No service: No Current occupational status: employed 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 Informed consent was plain to the patient. Postoperative weakness versus postoperative pain was explained to the patient. Patient expressed understanding. He was positioned supine in the bed. His right groin was prepped with ChloraPrep and draped with sterile utility towels. Sterilely draped ultrasound probe was brought over the operating field and picture of femoral vein, femoral nerve, and femoral artery were delineated on the screen. The location of the femoral nerve was noted on the screen. After that 100 mm echo stim needle was inserted extra anatomically through the skin and was advanced under in Plain fashion to were the image of the femoral nerve. When needle was positioned in the city of the nerve injection of the saline was performed after aspiration. Expansion of the saline in the tension on the screen was observed. After that 3 cc of Ropivacaine 0.5% was performed in the vicinity of the nerve. Upon completion of the injection needle was removed and sterile dressing was applied. Patient tolerated procedure fairly well. (3) Right knee pain: Code(s): M25.561 - Pain in right knee Plan Discussed interventional treatments with patient in greater detail. Patient is 11 weeks status post right TKA with residual right lateral knee pain but significantly improved gait and ROM. He is currently active with physical therapy and HEP. He is interested to undergo Right Femoral Nerve Block with local and fluoroscopy for potential Sprint PNS trial. We also discussed genicular RFA and its limitations. Expectations, risks and benefits were reviewed. Patient is aware he will be contacted to schedule this procedure. Follow up with Orthopedic provider as scheduled. All questions were answered and the patient is in agreement of plan. Follow-up after injections and sooner as needed. Orders: Orders [place] guidance in treatment room 05/29/23 M25.561 - Pain in right knee, Z96.651 - Presence of right artificial knee joint Medications: Discontinued simvastatin 10 mg (1/2 x 20 mg) PO DAILY 30 days 15 tabs 0RF E78.2 - Mixed hyperlipidemia hydrocodone-acetaminophen 5-325 mg Partial Fill upon patient request. 1 tab PO DAILY 15 days PRN 15 tabs 0RF pain Coding Level of Care Code Procedure Only Diagnoses Chronic pain syndrome G89.4 Status post total knee replacement, right Z96.651 Right knee pain M25.561
[2023-05-29 13:25] VITALS: BP 124/72; PULSE 80; RESP 16; O2SAT 97; BMI 28.6
[2023-05-29 13:52] VITALS: BP 118/70; PULSE 68; RESP 16; O2SAT 98
== END 2023-05-29 13:33 | disposition home or self-care (01) ==
LOC: HO.PMCPRC 13:06
PROVIDERS: PCP Physician Assistant; Visit Provider Anesthesiology
DX: G89.4 Chronic pain syndrome (principal); M25.561 Pain in right knee; Z96.651 Presence of right artificial knee joint
CPT/HCPCS: 64447

== ENCOUNTER 2023-05-31 12:45 | Outpatient (AMB) | payer MEDICARE, MEDICAID, SELFPAY ==
--- NOTE | 2023-05-31 12:48 | A.OFFVIS_ITS ---
<Statement entered by Endy Sharp MD - 06/01/23 15:51> Carlos has moderate arthritic changes on xray and cannot complete her ADLs without pain. He has failed NSAIDs and additional conservative treatment. TKA is indicated. Intake Intake Visit Reasons: Preop-LT TKA 06/05/23 NE Intake Note: Carlos a 62 year old male who presents today for a preoperative LT TKA 06/05/23 NE. Pain management agreement reviewed and signed. Allergies dexamethasone [DEXAMETHASONE] Allergy (Severe, Verified 05/31/23 12:49) Steroid Physcosis atorvastatin Adverse Reaction (Intermediate, Verified 05/31/23 12:49) bone pain bupropion [From Wellbutrin] Adverse Reaction (Intermediate, Verified 05/31/23 12:49) negative thoughts fluticasone [From Wixela Inhub] Adverse Reaction (Intermediate, Verified 05/31/23 12:49) hand tremors, blood pressure dropping lisinopril [LISINOPRIL] Adverse Reaction (Intermediate, Verified 05/31/23 12:49) COUGH salmeterol [From Wixela Inhub] Adverse Reaction (Intermediate, Verified 05/31/23 12:49) hand tremors, blood pressure dropping Medication List - Last Reconciled 05/31/23 by Mili Ruiz, JOANNE albuterol sulfate 90 mcg/actuation (Ventolin HFA) 2 puffs inhalation Q4-6H PRN celecoxib 200 mg PO BID 30 days coenzyme Q10 50 mg PO DAILY fluticasone propion-salmeterol 113-14 mcg/actuation (AirDuo RespiClick) 1 inh inhalation BID 30 days garlic 500 mg PO DAILY hydrocodone-acetaminophen 5-325 mg 1 tab PO BEDTIME PRN minoxidil 5% 1 ea topical DAILY multivitamin 1 tab PO DAILY red yeast rice 600 mg PO DAILY Ventolin HFA 90 mcg/actuation (albuterol sulfate) 2 puffs inhalation Q4-6H PRN NS HPI HPI Comments History of Present Illness Details Mr Hart presents to the office today for preop visit. He is scheduled for left total knee arthroplasty with Dr. Sharp. He continues to have ongoing pain and difficulty with ambulation in the left knee, which is affecting his quality of life; therefore, he has elected to move forward with surgery. He underwent a successful RT TKA with Dr Sharp approx 3 months ago. [facility] Medical History (Updated 05/21/23 @ 12:17 by Ayde Gomez RN) Osteoarthritis Allergic cough Asthma Depression Fibromyalgia Failed back syndrome of lumbar spine Renal calculi Pulmonary nodules Post covid-19 condition, unspecified Diverticulosis Neuropathy Lumbar disc disease Overweight (BMI 25.0-29.9) HLD (hyperlipidemia) Surgical History (Updated 05/21/23 @ 12:18 by Ayde Gomez RN) History of total right knee replacement History of arthroscopy of right knee History of carpal tunnel release H/O arthroscopy H/O colonoscopy Spinal cord stimulator status Family History Father Hypertension COPD (chronic obstructive pulmonary disease) Mother Hypertension Dementia Family/Other Lung cancer Social History Household Members: Spouse and Family Household Members Other:: Stepson Housing: House Are you a primary farm or ranch animal caretaker to a significant other at home: No Do you presently have visiting nurse or other home services: No Alcohol intake: never Patient Tobacco Use Status: Former Tobacco user Quit Date: 1996 Tobacco use type: Cigarette Years Smoked: 20 e-Cigarette/Vaping Use: Never Used Second Hand Smoke Exposure: No Use of substances other than those prescribed or required for medical reasons: No Have you been hit, kicked, punched, or otherwise hurt by someone within the past year? 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 Current occupational exposures/hazards: No Cognitive needs: No Hearing needs: No Vision needs: No Review of Systems Const All systems reviewed & are unremarkable except as noted in HPI and below Physical Exam Const General: cooperative and no acute distress Orientation/consciousness: patient oriented x3 Neck Neck: Yes normal visual inspection and Yes no lymphadenopathy Resp Effort & Inspection: normal respiratory effort and able to speak in complete sentences Cardio Peripheral pulses: Peripheral pulses 2+ throughout GI Inspection: Yes normal to inspection Palpation (GI): Soft to palpation Skin General skin exam: no rashes or lesions noted Neuro General: patient oriented x3 Extrem Other: Left knee: Skin intact. No open wound or rashes. ROM is 0-95 degrees. No effusion present. Calf supple, nontender. NVI. Results Reviewed Results Reviewed: XR knee RT 2V 02/22/23 IMPRESSION: Mild degenerative changes in both knee joints, more prominent on the left Assessment & Plan Assessment & Plan (1) Localized osteoarthritis of left knee: Code(s): M17.12 - Unilateral primary osteoarthritis, left knee Plan: I discussed in detail the procedure and what to expect pre and post operatively. We discussed the risks, benefits and alternatives to the surgery as well as the rehabilitation course. The risks; which include, but are not limited to infection, bleeding, nerve injury, ongoing pain, swelling, and stiffness, perioperative risk of injury to bones and soft tissues, and blood clots. I?ve answered all questions and with their understanding they have consented to move forward with Left total knee arthroplasty with Dr. Sharp Previous d/c oxycodone-acetaminophen [Percocet] 5-325 mg tablet 1 tab PO Q4-6H PRN (Reason: pain) 7 Days Qty: 42 0RF Rx Instructions: Partial Fill upon patient request. docusate sodium 100 mg Capsule 100 mg PO BID 14 Days Qty: 28 0RF celecoxib 200 mg Capsule 200 mg PO BID 30 Days Qty: 60 0RF aspirin 325 mg Tablet 325 mg PO BID 42 Days Qty: 84 0RF Patient Instructions: Scribed for Danette Ramos PA-C, by Horace De La Fuente medical educator, on 05/31/2023 at 12:45 PM EST. IDanette PA-C, have personally reviewed and agree with the information entered by the scribe. Coding Level of Care Code Est Pt Level 3 (39795) Diagnoses Localized osteoarthritis of left knee M17.12
== END 2023-05-31 14:22 | disposition home or self-care (01) ==
PROVIDERS: PCP Physician Assistant; Visit Provider Physician Assistant
DX: M17.12 Unilateral primary osteoarthritis, left knee (principal)
CPT/HCPCS: 99024

== ENCOUNTER → 2023-05-31 12:45 | Outpatient (BNVA) | payer MEDICARE, MEDICAID, SELFPAY | PROVIDERS: PCP Physician Assistant; Visit Provider Physician Assistant ==

== ENCOUNTER 2023-06-05 05:52 | Day surgery (SDC) | payer MEDICARE, MEDICAID, SELFPAY ==
[2023-05-21 12:23] VITALS: BMI 29.6
[2023-05-21 12:33] VITALS: BP 137/77; PULSE 78; RESP 20; O2SAT 98
--- NOTE | 2023-05-21 12:43 | P.CONAN_ITS ---
Documented by User: Ingrid Barnhart NP 05/30/23 14:09 HPI - Anesthesia Eval Consult details Narrative: 62yo M for Left Knee Replacement Total, 06/05/23 s/p right side 02/2023 with GA (spinal stim in situ) and nerve block Dry mouth with ?propofol, resolves with lemon candy No recent illness No CP/SOB with >5 mile hike Spinal stim in situ PMFSH Active Problems Active Problems: All Active Problems (Updated 05/21/23 @ 12:17 by Ayde Gomez RN) Annual physical exam (Acute) Screening PSA (prostate specific antigen) (Acute) Screening for hypothyroidism (Acute) Colon cancer screening (Acute) Locking of left knee (Acute) Polyp of left ear canal (Acute) Skin lesion (Acute) Cervical radiculitis (Acute) Visual floaters (Acute) Wheezing (Acute) Annual physical exam (Acute) Reactive airway disease (Acute) Borderline high cholesterol (Acute) Arthritis of left acromioclavicular joint (Acute) Localized osteoarthritis of left knee (Acute) Localized osteoarthritis of right knee (Acute) HLD (hyperlipidemia) (Acute) Carpal tunnel syndrome of right wrist (Acute) Carpal tunnel syndrome of left wrist (Acute) Hypervitaminosis B6 (Acute) Impingement syndrome of right shoulder (Acute) Internal derangement of right knee (Acute) Vitamin D deficiency (Acute) Pre-op evaluation (Acute) Osteoarthritis of right knee (Acute) Status post total knee replacement, right (Acute) Chronic pain syndrome (Acute) Lumbar radiculopathy (Acute) Right knee pain (Acute) Asthma (Acute) Spinal cord stimulator status (Acute) Depression (Acute) Renal calculi (Acute) Past Medical History Medical History Osteoarthritis Allergic cough Asthma Depression Fibromyalgia Failed back syndrome of lumbar spine Renal calculi Pulmonary nodules Post covid-19 condition, unspecified Diverticulosis Neuropathy Lumbar disc disease Overweight (BMI 25.0-29.9) HLD (hyperlipidemia) Family History Family History Father Hypertension COPD (chronic obstructive pulmonary disease) Mother Hypertension Dementia Family/Other Lung cancer Family history of problems with anesthesia: No Surgical History Surgical History History of total right knee replacement History of arthroscopy of right knee History of carpal tunnel release H/O arthroscopy H/O colonoscopy Spinal cord stimulator status History of Problems with Anesthesia: No Social History Social History Household Members: Spouse Household Members Other:: Stepson [facility] Are you a primary behavioral health care coordinator to a significant other at home: No Do you presently have visiting nurse or other home services: No Alcohol intake: never Patient Tobacco Use Status: Former Tobacco user Quit Date: 1996 Tobacco use type: Cigarette Years Smoked: 20 e-Cigarette/Vaping Use: Never Used Second Hand Smoke Exposure: No service: No Current occupational status: employed 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 Current occupational exposures/hazards: No Cognitive needs: No Hearing needs: No Vision needs: No Meds Allergies Allergy/AdvReac Type Severity Reaction Status Date / Time dexamethasone [DEXAMETHASONE] Allergy Severe Steroid Verified 06/05/23 06:50 Physcosis atorvastatin AdvReac Intermediate bone pain Verified 06/05/23 06:50 bupropion [From Wellbutrin] AdvReac Intermediate negative Verified 06/05/23 0 6:50 thoughts fluticasone AdvReac Intermediate hand Verified 06/05/23 06:50 [From Wixela Inhub] tremors, blood pressure dropping lisinopril [LISINOPRIL] AdvReac Intermediate COUGH Verified 06/05/23 06:50 salmeterol AdvReac Intermediate hand Verified 06/05/23 06:50 [From Anuragxela Marisaub] tremors, blood pressure dropping Home Medications Medication Instructions Recorded Confirmed Last Taken Type coenzyme Q10 50 mg capsule 50 mg PO DAILY 07/21/20 05/31/23 Unknown History garlic 500 mg PO DAILY 07/21/20 05/31/23 Unknown History multivitamin 1 tab PO DAILY 07/21/20 05/31/23 Unknown History red yeast rice 600 mg tablet 600 mg PO DAILY 02/12/23 05/31/23 Unknown History minoxidil 5 % topical foam 1 ea topical DAILY 02/20/23 05/31/23 Unknown History albuterol sulfate 90 mcg/actuation 2 puff inhalation Q4-6H PRN 05/21/23 05/31/23 Unknown History aerosol inhaler (Ventolin HFA) wheezing hydrocodone 5 mg-acetaminophen 325 1 tab PO BEDTIME PRN pain 05/21/23 05/31/23 Unknown History mg tablet Exam Exam Date and Time: May 21, 2023 1243 Height,Weight and Vital Signs: Height 5 ft 10 in Weight 93.44 kg Last Vital Signs Pulse 78 05/21/23 12:33 Resp 20 05/21/23 12:33 BP 137/77 05/21/23 12:33 Pulse Ox 98 05/21/23 12:33 O2 Del Method Room Air 05/21/23 12:33 Pertinent Lab Results Pertinent Lab Results: Laboratory Tests 05/03/23 05/17/23 12:43 14:35 WBC 8.5 Hgb 13.7 L Hct 41.0 L Plt Count 308 Sodium 143 Potassium 4.7 Chloride 107 Carbon Dioxide 29 BUN 18 H Creatinine 0.85 Airway Mallampati Class: I TM Dist: >3cm Neck ROM: Full Loose/Missing/Broken Teeth: No (1 x gold crown) Heart: RRR Lungs: CTAB Assessment and Plan Assessment Anesthesia Assessment: Anesthesia Plan Discussed and PAT Visit Final Anesthetic Review Family History of Problems with Anesthesia: No History of Problems with Anesthesia: No Documented by User: Isacc Hunter MD 06/05/23 18:01 [facility] Past Medical History Medical History Osteoarthritis Allergic cough Asthma Depression Fibromyalgia Failed back syndrome of lumbar spine Renal calculi Pulmonary nodules Post covid-19 condition, unspecified Diverticulosis Neuropathy Lumbar disc disease Overweight (BMI 25.0-29.9) HLD (hyperlipidemia) Family History Family History Father Hypertension COPD (chronic obstructive pulmonary disease) Mother Hypertension Dementia Family/Other Lung cancer Surgical History Surgical History History of total right knee replacement History of arthroscopy of right knee History of carpal tunnel release H/O arthroscopy H/O colonoscopy Spinal cord stimulator status Social History Social History Household Members: Spouse Household Members Other:: Stepson Housing: Condominium Are you a primary behavioral health care coordinator to a significant other at home: No Do you presently have visiting nurse or other home services: No Alcohol intake: never Patient Tobacco Use Status: Former Tobacco user Quit Date: 1996 Tobacco use type: Cigarette Years Smoked: 20 e-Cigarette/Vaping Use: Never Used Second Hand Smoke Exposure: No service: No Current occupational status: employed 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 Current occupational exposures/hazards: No Cognitive needs: No Hearing needs: No Vision needs: No Meds Allergies Allergy/AdvReac Type Severity Reaction Status Date / Time dexamethasone [DEXAMETHASONE] Allergy Severe Steroid Verified 06/05/23 06:50 Physcosis atorvastatin AdvReac Intermediate bone pain Verified 06/05/23 06:50 bupropion [From Wellbutrin] AdvReac Intermediate negative Verified 06/05/23 06:50 thoughts fluticasone AdvReac Intermediate hand Verified 06/05/23 06:50 [From Wixela Inhub] tremors, blood pressure dropping lisinopril [LISINOPRIL] AdvReac Intermediate COUGH Verified 06/05/23 06:50 salmeterol AdvReac Intermediate hand Verified 06/05/23 06:50 [From Wixela Inhub] tremors, blood pressure dropping Home Medications Medication Instructions Recorded Confirmed Last Taken Type coenzyme Q10 50 mg capsule 50 mg PO DAILY 07/21/20 05/31/23 Unknown History garlic 500 mg PO DAILY 07/21/20 05/31/23 Unknown History multivitamin 1 tab PO DAILY 07/21/20 05/31/23 Unknown History red yeast rice 600 mg tablet 600 mg PO DAILY 02/12/23 05/31/23 Unknown History minoxidil 5 % topical foam 1 ea topical DAILY 02/20/23 05/31/23 Unknown History albuterol sulfate 90 mcg/actuation 2 puff inhalation Q4-6H PRN 05/21/23 05/31/23 Unknown History aerosol inhaler (Ventolin HFA) wheezing hydrocodone 5 mg-acetaminophen 325 1 tab PO BEDTIME PRN pain 05/21/23 05/31/23 Unknown History mg tablet Exam Airway Loose/Missing/Broken Teeth: Yes (crowns) Assessment and Plan Final Anesthetic Review NPO: Yes ASA Class: III Final Preanesthetic Review: Meds/Allgs Chart Reviewed, Consent Obtained/Reviewed and Anes Risks/Benef Reviewed Patient Risk: Intermediate Procedure Risk: Intermediate Anesthetic Plan Anesthetic Plan: GA, Regional Block and Agree w/ Assess. and Plan Disposition: Standard PACU
[2023-05-21 14:42] LABS: MRSA Nasal PCR NEGATIVE (Negative); SA Nasal PCR NEGATIVE (Negative)
[2023-06-05] VITALS (21 sets, daily range): BP systolic 118–166; BP diastolic 62–98; PULSE 65–96; RESP 12–18; TEMP 31–36.9; O2SAT 93–99; BMI 29.1
--- NOTE | ~2023-06-05 | XR_ITS ---
EXAMINATION: XR KNEE, LEFT CLINICAL INFORMATION: Left total knee replacement COMPARISON: 02/22/2023 TECHNIQUE: 2 views of the left knee. FINDINGS: Left total knee replacement has been performed. Prosthetic components appear appropriate in position. Alignment is satisfactory. Surgical skin heidi, suprapatellar effusion and soft tissue air identified in the immediate postoperative state. XR/XR knee LT 2V IMPRESSION: Left total knee replacement.
[2023-06-05] MEDS: Lactated Ringers 1,000 ML 100 ML IVCONT ×3 (06:36→21:31)
[2023-06-05 06:54] LABS: Hemoglobin 13.9 g/dl (14.0-18.0)
--- NOTE | 2023-06-05 07:26 | MHC.SHP ---
Pre-Procedural Eval Section A Date of Service: 06/05/23 The patient is an INPATIENT: No Changes since office visit: No Cold of Flu in the past 2 weeks, No New Medical Problems, No Changes in Medication and No Patient answered all questions The History & Physical has been completed within 30 days and I have reviewed it.: Yes Section B Chief Complaint: Unilateral primary osteoarthritis, left knee Allergies: Allergies Allergy/AdvReac Type Severity Reaction Status Date / Time dexamethasone [DEXAMETHASONE] Allergy Severe Steroid Verified 06/05/23 06:50 Physcosis atorvastatin AdvReac Intermediate bone pain Verified 06/05/23 06:50 bupropion [From Wellbutrin] AdvReac Intermediate negative Verified 06/05/23 06:50 thoughts fluticasone AdvReac Intermediate hand Verified 06/05/23 06:50 [From Wixela Inhub] tremors, blood pressure dropping lisinopril [LISINOPRIL] AdvReac Intermediate COUGH Verified 06/05/23 06:50 salmeterol AdvReac Intermediate hand Verified 06/05/23 06:50 [From Wixela Inhub] tremors, blood pressure dropping Plan I have reviewed the history and physical and performed a pertinent physical examination on my patient. No changes have occurred unless specified. Time Spent With Patient Time: Total time managing care of this patient today ____ minutes.
--- NOTE | 2023-06-05 09:44 | PHA.MEDREC ---
Pharmacy Consult ? Medication Reconciliation Pharmacy has completed the medication reconciliation. Reviewed med rec done by nursing
[2023-06-05] MEDS: HYDROmorphone HCl 0.5 MG/0.5 ML SYRINGE 0.25 MG IVPUSH ×3 (09:56→10:22)
[2023-06-05] MEDS: oxyCODONE HCl ER 10 MG TAB.ER.12H PO ×2 (10:19→21:30)
--- NOTE | 2023-06-05 10:46 | P.BOP_ITS ---
Brief Operative Note Date of Service: 06/05/23 Pre-op diagnosis: left knee OA Post-op diagnosis: same Procedure: Left TKA Implants: [place] Triathlon press fit cruciate retaining Surgeon: Endy Sharp MD Anesthesia: regional and spinal Was an Supervisor Color Making used for this Procedure?: Yes Supervisor Color Making: Danette Ramos Estimated blood loss (mL): 20 Tourniquet time (min): 50 IV fluids (mL): 1,000 Pathology: other Condition: stable Disposition: PACU
[2023-06-05] MEDS: fentaNYL citrate/PF 100 MCG/2 ML VIAL 25 MCG IVPUSH (12:13)
[2023-06-05] MEDS: ceFAZolin Sodium/Dextrose,Iso 2 GM/50 ML PIGGYBACK IV (14:32)
--- NOTE | 2023-06-05 16:42 | P.CONHOSP_ITS ---
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 He is feeling well and reports pain is well controlled. Rates a 2/10 pain in the left knee. He has urinated and is beginning to regain sensation in the left lower extremity following nerve block. He has no complaints at this time. He denies any alcohol use, illicit drug use, or cigarette smoking. Review of Systems 2 Review of Systems: General: No fevers, malaise, unintentional weight loss HEENT: No blurred vision, diplopia. No sore throat, nasal congestion, rhinorrhea, sinus pain, ear pain Cardiovascular: No chest pain, palpitations, or leg edema Respiratory: No shortness of breath, wheezing, cough GI: No abdominal pain, nausea, vomiting, diarrhea, constipation, melena, hematochezia : No dysuria, hematuria, increased urinary frequency, decreased urinary output MSK: No myalgia, back pain. +pain L knee Neuro: No headaches, weakness, paresthesias Skin: No rashes or lesions [facility] Medical History Osteoarthritis Allergic cough Asthma Depression Fibromyalgia Failed back syndrome of lumbar spine Renal calculi Pulmonary nodules Post covid-19 condition, unspecified Diverticulosis Neuropathy Lumbar disc disease Overweight (BMI 25.0-29.9) HLD (hyperlipidemia) Family History Father Hypertension COPD (chronic obstructive pulmonary disease) Mother Hypertension Dementia Family/Other Lung cancer Surgical History History of total right knee replacement History of arthroscopy of right knee History of carpal tunnel release H/O arthroscopy H/O colonoscopy Spinal cord stimulator status Social History Household Members: Spouse Household Members Other:: Stepson Housing: Condominium Are you a primary respiratory care program director to a significant other at home: No Do you presently have visiting nurse or other home services: No Alcohol intake: never Patient Tobacco Use Status: Former Tobacco user Quit Date: 1996 Tobacco use type: Cigarette Years Smoked: 20 e-Cigarette/Vaping Use: Never Used Second Hand Smoke Exposure: No service: No Current occupational status: employed 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 Current occupational exposures/hazards: No Cognitive needs: No Hearing needs: No Vision needs: No Meds Allergies Allergy/AdvReac Type Severity Reaction Status Date / Time dexamethasone [DEXAMETHASONE] Allergy Severe Steroid Verified 06/05/23 06:50 Physcosis atorvastatin AdvReac Intermediate bone pain Verified 06/05/23 06:50 bupropion [From Wellbutrin] AdvReac Intermediate negative Verified 06/05/23 06:50 thoughts fluticasone AdvReac Intermediate hand Verified 06/05/23 06:50 [From Wixela Inhub] tremors, blood pressure dropping lisinopril [LISINOPRIL] AdvReac Intermediate COUGH Verified 06/05/23 06:50 salmeterol AdvReac Intermediate hand Verified 06/05/23 06:50 [From Wixela Inhub] tremors, blood pressure dropping Active Medications: Current Medications Acetaminophen (Acetaminophen 325 Mg Tablet) 650 mg PO Q6H PRN PRN Reason: Pain, Mild (Pain Scale 1-3) Aspirin (Aspirin 325 Mg Tablet) 325 mg PO BID [facility] Celecoxib (Celecoxib 200 Mg Capsule) 200 mg PO BID [facility] Docusate Sodium (Docusate Sodium 100 Mg Capsule) 100 mg PO BID [facility] Fentanyl (Fentanyl Citrate/Pf 100 Mcg/2 Ml Vial) 25 mcg IVPUSH Q5M PRN; Protocol PRN Reason: Pain, Moderate(Pain Scale 4-6) Last Admin: 06/05/23 12:13 Dose: 25 mcg Hydromorphone HCl (Hydromorphone Hcl 0.5 Mg/0.5 Ml Syringe) 0.25 mg IVPUSH Q5M PRN; Protocol PRN Reason: Pain, Severe (Pain Scale 7-10) Last Admin: 06/05/23 10:22 Dose: 0.25 mg Hydromorphone HCl (Hydromorphone Hcl 0.5 Mg/0.5 Ml Syringe) 0.25 mg IVPUSH Q4H PRN; Protocol PRN Reason: Pain, Severe (Pain Scale 7-10) Promethazine HCl 6.25 mg/ (Sodium Chloride) 50.25 mls @ 201 mls/hr IV ONCE PRN PRN Reason: Nausea and Vomiting Lactated Ringer's (Lr) 1,000 mls @ 100 mls/hr IVCONT .Q10H [facility] Stop: 06/06/23 09:37 Last Admin: 06/05/23 12:34 Dose: 100 mls/hr Ondansetron HCl (Ondansetron Hcl 4 Mg/2 Ml Vial) 4 mg IVPUSH Q8H PRN PRN Reason: Nausea and Vomiting Oxycodone HCl (Oxycodone Hcl Er 10 Mg Tab.Er.12h) 10 mg PO BID [facility] Last Admin: 06/05/23 10:19 Dose: 10 mg Oxycodone HCl (Oxycodone Hcl Immed Release 5 Mg Tablet) 5 mg PO Q4H PRN PRN Reason: Pain, Moderate(Pain Scale 4-6) Sodium Chloride (0.9 % Sodium Chloride Flush 3 Ml Syringe) 3 ml IVFLUSH QSHIFT [facility] Last Admin: 06/05/23 15:18 Dose: Not Given Home Medications Medication Instructions Recorded Confirmed Last Taken Type coenzyme Q10 50 mg capsule 50 mg PO DAILY 07/21/20 05/31/23 Unknown History garlic 500 mg PO DAILY 07/21/20 05/31/23 Unknown History multivitamin 1 tab PO DAILY 07/21/20 05/31/23 Unknown History red yeast rice 600 mg tablet 600 mg PO DAILY 02/12/23 05/31/23 Unknown History minoxidil 5 % topical foam 1 ea topical DAILY 02/20/23 05/31/23 Unknown History albuterol sulfate 90 mcg/actuation 2 puff inhalation Q4-6H PRN 05/21/23 05/31/23 Unknown History aerosol inhaler (Ventolin HFA) wheezing hydrocodone 5 mg-acetaminophen 325 1 tab PO BEDTIME PRN pain 05/21/23 05/31/23 Unknown History mg tablet Physical Exam 2 Vital Signs and Narrative: Vital Signs: Last Vital Signs Temp 97.4 F 06/05/23 16:00 Pulse 72 06/05/23 16:00 Resp 18 06/05/23 16:00 BP 119/78 06/05/23 16:00 Pulse Ox 97 06/05/23 16:00 O2 Del Method Room Air 06/05/23 16:00 O2 Flow Rate 2 06/05/23 12:19 BMI result Body Mass Index 29.1 Constitutional - Awake and Alert, No apparent distress Eyes - PERRLA, EOMI Cardiovascular - S1S2, RRR, No edema Respiratory - Normal lung expansion, Normal respiratory effort, No respiratory distress, CTA bilaterally Gastrointestinal - NT / ND; +BS; No rebound or guarding Extremities - no calf tenderness bilaterally, no swelling Skin - Warm/Dry Neurological - Alert & oriented x3 Psychological - Appropriate affect Results Labs 06/05/23 06:35 Imaging Radiologist's Impressions: Impressions Knee X-Ray 06/05/23 11:23 IMPRESSION: Left total knee replacement. 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 #OA Left Knee s/p TKA POD0 -plan per orthopedic surgery #Mild persistent asthma -no acute exacerbation -continue maintenance inhalers, albuterol p.r.n. # hyperlipidemia -continue supplements, not on statin Thank you for allowing me to participate in this consult. Signing off at this time. Please do not hesitate to call for further questions. Time Spent With Patient Time: Total time managing care of this patient today ____ minutes.
[2023-06-05] MEDS: Acetaminophen 325 MG TABLET 650 MG PO (18:03)
[2023-06-05] MEDS: oxyCODONE HCl Immed Release 5 MG TABLET PO (19:06)
[2023-06-05] MEDS: Docusate Sodium 100 MG CAPSULE PO (21:31)
[2023-06-05] MEDS: Celecoxib 200 MG CAPSULE PO (21:31)
[2023-06-06] VITALS (9 sets, daily range): BP systolic 129–140; BP diastolic 64–82; PULSE 80–100; RESP 16–20; TEMP 36.7–37.1; O2SAT 95–98
[2023-06-06] MEDS: oxyCODONE HCl Immed Release 5 MG TABLET PO ×5 (02:18→22:47)
[2023-06-06] MEDS: Acetaminophen 325 MG TABLET 650 MG PO ×4 (02:19→22:46)
[2023-06-06 05:53] LABS: MANUAL DIFF FLAG NO
[2023-06-06 05:59] LABS: Basophils Percent Auto 0.5 % (0-2); Eosinophils Absolute Auto 0.2 X10*3/uL (0.0-0.4); Hematocrit 36.6 % (42.0-52.0); Hemoglobin 11.9 g/dl (14.0-18.0); Imm Gran Abs Auto 0.02 X10*3/uL (0.00-0.03); Imm Gran Pct Auto 0.2 % (0.0-0.4); Lymphocytes Absolute Auto 1.3 X10*3/uL (1.2-4.9); Lymphocytes Percent Auto 15.1 % (20-40); Mean Corpuscular HGB Conc 32.5 g/dl (31.0-36.0); Mean Corpuscular Hemoglobin 29.6 pg (27.0-33.0); Mean Platelet Volume 9.8 fL (9.4-12.4); Monocytes Absolute Auto 1.4 X10*3/uL (0.1-1.2); Monocytes Percent Auto 15.9 % (2-11); Neutrophils Absolute Auto 5.9 x10*3/uL (2.0-8.3); Neutrophils Percent Auto 66.3 % (45-73); Platelet Count 247 X10*3/uL (160-400); Red Blood Count 4.02 X10*6/uL (4.60-5.80); Red Cell Distribution Width 13.2 % (11.0-16.0); White Blood Count 8.9 X10*3/uL (4.8-10.8)
[2023-06-06 06:10] LABS: Anion Gap 11 (12-20); Blood Urea Nitrogen 17 mg/dL (9-16); Calcium 9.1 mg/dL (8.4-10.2); Carbon Dioxide 29 mmol/L (22-29); Chloride 104 mmol/L (96-108); Estimated Glomerular Filt Rate > 60; Glucose Fasting 134 mg/dL (60-99); Potassium 4.5 mmol/L (3.3-5.1); Sodium 139 mmol/L (135-145)
--- NOTE | 2023-06-06 07:37 | PM.PNORT ---
Subjective Subjective Date of Service: 06/06/23 Interval history: POD1 s/p LTKA. No overnight events. Pain is managed. No additional complaints. Physical Exam Vital Signs: Vital Signs: Last Vital Signs Temp 98.1 F 06/06/23 07:01 Pulse 82 06/06/23 07:01 Resp 18 06/06/23 07:01 BP 133/82 06/06/23 07:01 Pulse Ox 97 06/06/23 07:01 O2 Del Method Room Air 06/06/23 07:01 O2 Flow Rate 2 06/05/23 12:19 BMI result Body Mass Index 29.1 Const: General: cooperative, healthy appearing and no acute distress Resp: Effort & Inspection: normal respiratory effort and able to speak in complete sentences Cardio: Rate: regular rate Peripheral pulses: Peripheral pulses 2+ throughout GI: Palpation (GI): Soft to palpation Skin: Lesions: no lesions Rashes: no rashes Extrem: Other: Left knee Aquacel is c/d/i. Able to dorsi/plantar felx. NVI. Procedures Date of Service Date of Service: 06/06/23 Progress Note: A&P Assessment and plan (1) Status post total knee replacement, right: Status: Acute Assessment and Plan: Continue pain mgmnt Begin ASA for dvt ppx begin PT for LTKA Dispo planning-Pending PT eval, pain mgmnt Time Spent With Patient Time: Total time managing care of this patient today ____ minutes. Quality Stroke Does the patient have a stroke diagnosis?: No VTE Prior VTE?: No VTE Risk Level:: Medical - moderate - high VTE Device Contraindication: N/A - Device Ordered VTE Drug Contraindication: N/A - Med Ordered
[2023-06-06] MEDS: Lactated Ringers 1,000 ML 100 ML IVCONT (07:46)
[2023-06-06] MEDS: oxyCODONE HCl ER 10 MG TAB.ER.12H PO ×2 (08:16→19:50)
[2023-06-06] MEDS: Aspirin 325 MG TABLET PO ×2 (08:16→19:50)
[2023-06-06] MEDS: Celecoxib 200 MG CAPSULE PO ×2 (08:16→19:50)
[2023-06-06] MEDS: Docusate Sodium 100 MG CAPSULE PO ×2 (08:16→19:50)
--- NOTE | 2023-06-06 08:24 | HO.POSTANES ---
Post Anesthesia Evaluation Post Anesthesia Evaluation Date of Service: 06/06/23 Vital Signs: Vital Signs Temp Pulse Resp BP Pulse Ox O2 Del Method 06/06/23 07:01 98.1 F 82 18 133/82 97 Room Air 06/06/23 02:49 98.4 F 80 18 132/74 98 Room Air 06/05/23 23:45 98.5 F 91 18 124/72 97 Room Air Anesthesia: Nerve Block and General Mental Status: Awake Pain Control: Satisfactory Nausea/Vomiting: None Hydration: Adequate Anesthesia-Related Issues: No Anes. Related Issues
--- NOTE | 2023-06-06 13:24 | MHC.CM.PN ---
pt lives with he had no servceis prior [facility] admission pt will need a vna when dcd will trans[port home
[2023-06-06] MEDS: HYDROmorphone HCl 0.5 MG/0.5 ML SYRINGE 0.25 MG IVPUSH (15:54)
[2023-06-06] MEDS: 0.9 % Sodium Chloride Flush 3 ML SYRINGE IVFLUSH ×2 (15:55→22:47)
[2023-06-07] MEDS: oxyCODONE HCl Immed Release 5 MG TABLET PO ×2 (03:26→12:19)
[2023-06-07 04:00] VITALS: BP 138/71; PULSE 87; RESP 16; TEMP 36.4; O2SAT 96
[2023-06-07 06:25] LABS: MANUAL DIFF FLAG NO
[2023-06-07 06:28] LABS: Basophils Percent Auto 0.4 % (0-2); Eosinophils Absolute Auto 0.2 X10*3/uL (0.0-0.4); Eosinophils Percent Auto 2.2 % (0-4); Hematocrit 35.2 % (42.0-52.0); Hemoglobin 11.6 g/dl (14.0-18.0); Imm Gran Abs Auto 0.04 X10*3/uL (0.00-0.03); Imm Gran Pct Auto 0.4 % (0.0-0.4); Lymphocytes Percent Auto 10.5 % (20-40); Mean Corpuscular Hemoglobin 29.5 pg (27.0-33.0); Mean Corpuscular Volume 89.6 fL (80.0-98.0); Mean Platelet Volume 9.9 fL (9.4-12.4); Monocytes Absolute Auto 1.2 X10*3/uL (0.1-1.2); Monocytes Percent Auto 12.8 % (2-11); Neutrophils Absolute Auto 6.8 x10*3/uL (2.0-8.3); Neutrophils Percent Auto 73.7 % (45-73); Platelet Count 224 X10*3/uL (160-400); Red Blood Count 3.93 X10*6/uL (4.60-5.80); Red Cell Distribution Width 13.2 % (11.0-16.0); White Blood Count 9.3 X10*3/uL (4.8-10.8)
[2023-06-07 06:44] LABS: Anion Gap 11 (12-20); Blood Urea Nitrogen 15 mg/dL (9-16); Carbon Dioxide 27 mmol/L (22-29); Chloride 106 mmol/L (96-108); Creatinine Clr Calc Pharmacy 110.4; Estimated Glomerular Filt Rate > 60; Glucose Fasting 149 mg/dL (60-99); Potassium 3.9 mmol/L (3.3-5.1); Sodium 140 mmol/L (135-145)
[2023-06-07 07:44] VITALS: BP 155/94; PULSE 84; RESP 16; TEMP 37; O2SAT 95
[2023-06-07] MEDS: Aspirin 325 MG TABLET PO (08:24)
[2023-06-07] MEDS: 0.9 % Sodium Chloride Flush 3 ML SYRINGE IVFLUSH (08:25)
[2023-06-07] MEDS: HYDROmorphone HCl 0.5 MG/0.5 ML SYRINGE 0.25 MG IVPUSH (08:26)
[2023-06-07] MEDS: Docusate Sodium 100 MG CAPSULE PO (08:26)
[2023-06-07] MEDS: oxyCODONE HCl ER 10 MG TAB.ER.12H PO (08:26)
[2023-06-07] MEDS: Celecoxib 200 MG CAPSULE PO (08:30)
--- NOTE | 2023-06-07 09:01 | P.DS_ITS ---
DS: Providers Provider Date of Service: 06/07/23 Primary care physician: Juan C Melchor PA-C Consults: 06/05/23 12:29 Consult to Hospitalist Routine Comment: Consulting Provider: Hospitalist Reason For Exam: medical management DS: Diagnosis Discharge Diagnosis (1) Status post total knee replacement, right: Status: Acute DS: Summary Hospital Course Hospital Course: The patient underwent a successful left total knee arthroplasty, they were tr ansferred to PACU and then to the floor to recover. During their stay, their vitals were stable, afebrile at 98.6. Labs were unremarkable, H/H 11.6/35.2. POD 1 they were started on Aspirin 325mg po bid for DVT ppx, they also received Physical Therapy services twice a day. Prior to discharge, their dressing was changed, incision clean dry and intact, new Aquacel dressing applied and the plan was to be discharged home with VNA services. Time Spent with Patient Time attestation: Total time managing care of this patient today ____ minutes. Discharge coordination time: Less than 30 minutes Quality: Safe Use of Opioids Does Pt have an Active Cancer Diagnosis on the Problem List?: No Quality: Stroke Does the patient have a stroke diagnosis?: No Physical Exam Vital Signs: Vital Signs: Last Vital Signs Temp 98.6 F 06/07/23 07:44 Pulse 84 06/07/23 07:44 Resp 16 06/07/23 07:44 BP 155/94 H 06/07/23 07:44 Pulse Ox 95 06/07/23 07:44 O2 Del Method Room Air 06/07/23 07:44 O2 Flow Rate 2 06/05/23 12:19 BMI result Body Mass Index 29.1 Const: General: cooperative, healthy appearing and no acute distress Resp: Effort & Inspection: normal respiratory effort and able to speak in complete sentences Cardio: Rate: regular rate Peripheral pulses: Peripheral pulses 2+ throughout GI: Palpation (GI): Soft to palpation Skin: Lesions: no lesions Rashes: no rashes Extrem: Other: Left knee incision site is c/d/i. Able to flex and extend the knee. Able to dorsi/plantar flex. NVI. DS: Data Data Completed and Pending Pending studies at discharge: Pending at discharge 06/05/23 09:22 Surgical [PTH] Routine Labs on day of discharge: Laboratory Results - last 24 hr 06/07/23 05:35 WBC 9.3 RBC 3.93 L Hgb 11.6 L Hct 35.2 L MCV 89.6 MCH 29.5 MCHC 33.0 RDW 13.2 Plt Count 224 MPV 9.9 Immature Gran % (Auto) 0.4 Neut % (Auto) 73.7 H Lymph % (Auto) 10.5 L Hickman % (Auto) 12.8 H Eos % (Auto) 2.2 Baso % (Auto) 0.4 Lymph # (Auto) 1.0 L Hickman # (Auto) 1.2 Eos # (Auto) 0.2 Baso # (Auto) 0.0 Abs Immat Gran (auto) 0.04 H Absolute Neuts (auto) 6.8 Absolute Nucleated RBC 0.000 Nucleated RBC % (auto) 0.0 Sodium 140 Potassium 3.9 Chloride 106 Carbon Dioxide 27 Anion Gap 11 L BUN 15 Creatinine 0.77 Estim Creat Clear Calc 110.4 Estimated GFR > 60 Fasting Glucose 149 H Calcium 9.0 Discharge Plan Discharge Patient Disposition: Home, Self-Care Referrals: Danette Ramos PA-C [Physician Bread Dough Mixer] - 06/21/23 11:15 am Discharge Medications: New acetaminophen 325 mg Tablet 650 mg PO Q6H PRN (Reason: Pain, Mild (Pain Scale 1-3)) 30 Days Qty: 240 0RF aspirin 325 mg Tablet 325 mg PO BID 42 Days Qty: 84 0RF celecoxib 200 mg Capsule 200 mg PO BID 30 Days Qty: 60 0RF docusate sodium 100 mg Capsule 100 mg PO BID 30 Days Qty: 60 0RF oxycodone 5 mg Tablet 5 mg PO Q4H PRN (Reason: Pain, Moderate(Pain Scale 4-6)) 7 Days Qty: 42 0RF Rx Instructions: Partial Fill upon patient request. Continued albuterol sulfate [Ventolin HFA] 90 mcg/actuation HFA aerosol inhaler 2 puff inhalation Q4-6H PRN (Reason: for wheezing) Qty: 18 6RF fluticasone propion-salmeterol [AirDuo RespiClick] 113-14 mcg/actuation aerosol powdr breath activated 1 inh inhalation BID 30 Days Qty: 1 6RF celecoxib 200 mg capsule 200 mg PO BID 30 Days Qty: 60 3RF minoxidil 5 % Foam 1 ea TOPICAL DAILY albuterol sulfate [Ventolin HFA] 90 mcg/actuation HFA aerosol inhaler 2 puff inhalation Q4-6H PRN (Reason: wheezing) hydrocodone-acetaminophen 5-325 mg tablet 1 tab PO BEDTIME PRN (Reason: pain) Rx Instructions: Partial Fill upon patient request. red yeast rice 600 mg tablet 600 mg PO DAILY Rx Instructions: give with meal/snack garlic Tablet 500 mg PO DAILY multivitamin Tablet 1 tab PO DAILY coenzyme Q10 50 mg capsule 50 mg PO DAILY Discharge Orders: Discharge Order (Routine); Ordered 06/07/23 Ordered By: Shahida Sosa Diet: Advance to usual diet Activity on Discharge: Use cane or walker Activity Restrictions/Additional Instructions: Physical Therapy for ROM 0-120, quad strength, gait training. Use walker for ambulation Limit stair climbing, No shower, No tub bath, No driving Continue anticoagulant Keep Aquacel dressing clean, dry and intact. Follow up with orthopedics in 2 weeks
--- NOTE | 2023-06-07 09:29 | MHC.CM.PN ---
DP: PT HAS BEEN MEDICALLY CLEARED FOR DC HME WITH [facility] FOR P.T. [facility] NOTIFIED OF TODAY'S DC. PT HAS OWN RIDE HOME.
--- NOTE | 2023-06-07 09:30 | W.MHC.F2F ---
Service Date Service Date: 06/07/23 Encounter Date of encounter: 06/07/23 Reasons for Services Signs and symptoms assessed: Pt. is considered homebound due to recent surgery. Unable to drive, poor balance, poor gait mechanics. S/p LTKA. Reason for physical therapy: home safety and mobility, therapeutic exercises, restore joint function, gait/transfer training, assess need for DME and ADL training Homebound: Leaving the home is medically contraindicated at this time without the asist of a device and/or another person due th the listed conditions above and below. Reason homebound: unsteady gait / fall risk, leg weakness, pain with ambulation, pain with transfers, poor balance / fall risk and unable to drive Certification: Based on the above findings, I certify that this patient is confined to the home and needs intermittent halfway care, physical therapy and/or speech therapy, or continues to need occupational therapy. The patient is under my care, and I have initiated the establishment of the plan of care. The patient will be followed by a physician who will periodically review the plan of care. Time Spent With Patient Time: Total time managing care of this patient today ____ minutes.
[2023-06-07] MEDS: Acetaminophen 325 MG TABLET 650 MG PO (12:20)
--- NOTE | 2023-06-15 11:10 | W.PM.OPN ---
Operative Note Operative Note Date of Service: 06/05/23 Narrative: Date of Service: 06/05/23 Pre-op diagnosis: left knee OA Post-op diagnosis: same Procedure: Left TKA Implants: Larned Triathlon press fit cruciate retaining Surgeon: Endy Sharp MD Anesthesia: regional and spinal Was an Printed Circuit Designer used for this Procedure?: Yes Printed Circuit Designer: Danette Ramos Estimated blood loss (mL): 20 Tourniquet time (min): 50 IV fluids (mL): 1,000 Pathology: other Condition: stable Disposition: PACU Procedure in detail: The patient was brought to the operating room and prepped and draped in standard sterile fashion. A time-out was called to identify proper site proper procedure proper surgeon and IV antibiotics were administered. 1 g of IV tranexamic acid was administered. I began by making a midline incision to the retinaculum and performed a medial parapatellar arthrotomy. The patella was translated laterally and the knee was flexed up. There was medial comaprtment G4 changes . I performed a small medial peel and resected the infrapatellar fat pad. Vincent's line was then used to drill my intramedullary femoral guide and my distal femur cut of 10mm was made in 5 degrees of valgus while protecting the soft tissues. I then measured a # 5 femur and placed my cutting guide in 3 deg or ER and made my anterior posterior and chamfer cuts protecting the soft tissues at all times. Once I was satisfied with my cuts I turned my attention to the tibia. I removed the meniscus medially and laterally and , using an external cutting guide, in line with the tibial crest and the third ray, I made my distal tibial cut in 3 deg slope of while protecting the PCL the posterior soft tissues at all times. An extension block was used to confirm appropriate amount of bony resection. I then sized a #5 tibia and once I was satisfied that there was complete tibial coverage I placed my trial and with the trial femur in place took the knee through range of motion. I was satisfied with the extension and flexion as well as the stability and balance at 0, 30 and 90 degrees. I then turned my attention to the patella where I removed 1 cm from the undersurface of the patella and then trialed a 35a patellar button. Again the knee was taken through range of motion I was satisfied with the tracking. I then returned to the femur and drilled my femoral lug holes and prepared the tibia. A femoral bone plug was placed and the knee was irrigated copiously. I then press fit the patella, tibia and femur in standard fashion. I trialed different inserts until I selected a #9 insert. The final insert was placed and a 3 minutes iodine soak with local TXA was performed. A Werewolf cautery wand was used to maintain hemostasis over the capsule and meniscal beds, the gutters and peripatellar soft tissues. The knee was then closed with a running Quill suture, a 3 0 Vicryl and heidi on the skin. Patient was then placed in sterile dressing and brought to recovery room in stable condition there were no known complications.
== END 2023-06-07 14:13 | disposition home health service (06) ==
LOC: HO.SSS 05:53 → HO.S3 10:29
PROVIDERS: Physician Assistant; PCP Physician Assistant; Visit Provider Orthopaedic Surgery
PROC: (CPT 27447; principal; 2023-06-05 08:00)
DX: M17.12 Unilateral primary osteoarthritis, left knee (principal); Z96.651 Presence of right artificial knee joint; M79.7 Fibromyalgia; M51.36 Other intervertebral disc degeneration, lumbar region; Z96.82 Presence of neurostimulator; J45.30 Mild persistent asthma, uncomplicated; J45.909 Unspecified asthma, uncomplicated; R91.8 Other nonspecific abnormal finding of lung field; Z79.51 Long term (current) use of inhaled steroids; Z79.899 Other long term (current) drug therapy; Z88.8 Allergy status to other drugs, medicaments and biological substances; Z86.16 Personal history of COVID-19; Z87.891 Personal history of nicotine dependence
CPT/HCPCS: 27447; 36415; 73560; 80048; 85014; 85018; 85025; 86850; 86900; 86901; 87640; 87641; 88305; 88311; 97110; 97116; 97162; C1776; J0131; J0690; J1170; J2250; J2795; J3010

== ENCOUNTER → 2023-06-05 05:52 | Outpatient (BNV) | payer MEDICARE, MEDICAID, SELFPAY | PROVIDERS: PCP Physician Assistant; Visit Provider Orthopaedic Surgery | DX: M17.12 Unilateral primary osteoarthritis, left knee (principal) | CPT/HCPCS: 27447; 99024; G0180 ==

== ENCOUNTER → 2023-06-05 05:52 | Outpatient (BNV) | payer MEDICARE, MEDICAID, SELFPAY | PROVIDERS: PCP Physician Assistant; Visit Provider Physician Assistant | DX: M17.12 Unilateral primary osteoarthritis, left knee (principal) | CPT/HCPCS: 99221 ==

== ENCOUNTER 2023-06-21 11:13 | Outpatient (AMB) | payer MEDICARE, MEDICAID, SELFPAY ==
--- NOTE | 2023-06-21 11:22 | A.OFFVIS_ITS ---
Intake Intake Visit Reasons: PO-LT TKA 06/05/23 NE Intake Note: Carlos a 62 year old female who presents today for a post operative LT TKA, DOS 06/05/23 NE. Patient reports he is doing well, no concerns. States pain is controlled with medication Allergies dexamethasone [DEXAMETHASONE] Allergy (Severe, Verified 06/21/23 11:26) Steroid Physcosis atorvastatin Adverse Reaction (Intermediate, Verified 06/21/23 11:26) bone pain bupropion [From Wellbutrin] Adverse Reaction (Intermediate, Verified 06/21/23 11:26) negative thoughts fluticasone [From Wixela Inhub] Adverse Reaction (Intermediate, Verified 06/21/23 11:26) hand tremors, blood pressure dropping lisinopril [LISINOPRIL] Adverse Reaction (Intermediate, Verified 06/21/23 11:26) COUGH salmeterol [From Wixela Inhub] Adverse Reaction (Intermediate, Verified 06/21/23 11:26) hand tremors, blood pressure dropping HPI PO-LT TKA 06/05/23 NE HPI Details 62-year-old male who returns to the [facility] today for post-op left TKA, 06/05/[address] Sharp. He continues to have mild pain in his knee but the pain is well controlled with his medication. He is doing well otherwise and has no concerns today. [facility] Medical History Osteoarthritis Allergic cough Asthma Depression Fibromyalgia Failed back syndrome of lumbar spine Renal calculi Pulmonary nodules Post covid-19 condition, unspecified Diverticulosis Neuropathy Lumbar disc disease Overweight (BMI 25.0-29.9) HLD (hyperlipidemia) Surgical History History of total right knee replacement History of arthroscopy of right knee History of carpal tunnel release H/O arthroscopy H/O colonoscopy Spinal cord stimulator status Family History Father Hypertension COPD (chronic obstructive pulmonary disease) Mother Hypertension Dementia Family/Other Lung cancer Social History Household Members: Spouse Household Members Other:: Stepson Housing: Condominium Are you a primary direct support professional caregiver to a significant other at home: No Do you presently have visiting nurse or other home services: No Alcohol intake: never Patient Tobacco Use Status: Former Tobacco user Quit Date: 1996 Tobacco use type: Cigarette Years Smoked: 20 e-Cigarette/Vaping Use: Never Used Second Hand Smoke Exposure: No service: No Current occupational status: employed 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 No erythema. ROM is 0-90 degrees. Calf supple, nontender. NVI. Assessment & Plan Assessment & Plan (1) History of total left knee replacement: Code(s): Z96.652 - Presence of left artificial knee joint Plan Francisca removed, steri strips applied. He will begin to transition to Outpatient PT to continue working on Gait training, ROM and quad strength. No driving for another 4 weeks. He will require ppx abx for dental procedures. He will f/u in 4 weeks, sooner if needed. Orders: Orders PT Evaluation and Treatment Today Z96.652 - Presence of left artificial knee joint Patient Instructions: Scribed for Danette Ramos PA-C, by Horace De La Fuente emergency medical services coordinator, on 06/21/2023 at 11:15 AM EST. IDanette PA-C, have personally reviewed and agree with the information entered by the scribe. Coding Level of Care Code Global (05432) Diagnoses History of total left knee replacement Z96.652
== END 2023-06-21 11:51 | disposition home or self-care (01) ==
PROVIDERS: PCP Physician Assistant; Visit Provider Physician Assistant
DX: Z96.652 Presence of left artificial knee joint (principal)
CPT/HCPCS: 99024

== ENCOUNTER → 2023-06-21 11:13 | Outpatient (BNVA) | payer MEDICARE, MEDICAID, SELFPAY | PROVIDERS: PCP Physician Assistant; Visit Provider Physician Assistant ==

== ENCOUNTER 2023-07-05 13:20 | Outpatient (AMB) | payer MEDICARE, MEDICAID, SELFPAY ==
--- NOTE | 2023-07-05 13:29 | A.OFFVIS_ITS ---
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 Required: No Accompanied by: Self / Same As Patient Allergies dexamethasone [DEXAMETHASONE] Allergy (Severe, Verified 07/05/23 13:34) Steroid Physcosis atorvastatin Adverse Reaction (Intermediate, Verified 07/05/23 13:34) bone pain bupropion [From Wellbutrin] Adverse Reaction (Intermediate, Verified 07/05/23 13:34) negative thoughts fluticasone [From Wixela Inhub] Adverse Reaction (Intermediate, Verified 07/05/23 13:34) hand tremors, blood pressure dropping lisinopril [LISINOPRIL] Adverse Reaction (Intermediate, Verified 07/05/23 13:34) COUGH salmeterol [From Wixela Inhub] Adverse Reaction (Intermediate, Verified 07/05/23 13:34) hand tremors, blood pressure dropping HPI HPI Comments History of Present Illness Details Patient presents today to assess response to Diagnostic Right Femoral Nerve Block 05/29/[address] Aly. Patient reports 100% pain relief for 14 hours status post procedure with significant improvement in mobility, functioning, and ADLs on the right. Patient undergone left sided TKA on 06/05/23 and has been recovering well. He is currently in Physical Therapy rehabbing his left knee. Patient takes oxycodone for left knee pain and this provides partial pain relief for his right knee as well. Patient is interested to proceed with Sprint PNS trial for a longer term pain relief. Denies any recent cough, cold, infection, fever or other significant changes in medical history since last office visit. Past Procedures: 05/29/23: Diagnostic Right Femoral Nerve Block-100% pain relief for 14 hours PRIOR: Patient presents today for follow up regarding ongoing pain in his right anterior knee, more lateral aspect status post Right TKA 02/27/23. He reports residual numbness along medial aspect and localized tenderness in his lateral aspects. He continues to stay active with physical therapy 3x per week for strengthening and [id number] exercises. Patient notices increased right knee pain as his Vicodin has been titrated down. He is interested in interventional treatment options for right knee. He is scheduled to undergo left TKA on 06/05/23. We will schedule him for left femoral nerve block prior this for potential peripheral nerve stimulation after his rehab for left knee after TKA. He continues to use lumbar SCS device for his chronic back pain with good results. Denies any recent cough, cold, infection, fever or other significant changes in medical history since last office visit. PRIOR: Patient is a very pleasant 62-year-old male presents today for follow-up for SCS program adjustment and meeting with rep Kline from [employer]. He is accompanied by his Caroline. Patient was last seen in our office by Dr. Aly on 04/21/2020. Patient reports spinal cord stimulator has been working well for his back pain relief but has no pain relief coverage in his legs. He reports 0/10 pain today. As of note, patient recently underwent right total knee replacement and has follow-up appointment with Orthopedics today for staple removal. Curiously his taking Vicodin as needed for postop knee pain. Patient is looking forward to adjust his spinal cord stimulator to obtain better coverage to include his leg pain. Denies any recent cough, cold, infection, fever or other significant changes in medical history since last office visit. Patient denies any bladder or bowel incontinence or saddle anesthesia. Ambulates with mildly antalgic gait and uses cane with ambulation. PRIOR 04/21/2020 Dr. Aly: Mr. Hart returns to the office today for an ongoing left heel pain. He received transforaminal left L3-L4 and L4-5 epidural steroid injections again. He reports better mobility, better moved around, HOWEVER THIS TIME HE REPORTS AGGRAVATED PAIN FOR NEXT 2 WEEKS AFTER THE INJECTION AND THEN THE PAIN SUBSIDED AND BECAME BETTER. I A A SUSPECT THAT MIGHT BE EFFECT OF THE RADIATION OF THE NERVE ROOTS FROM THE STEROIDS. I OFFERED HIM NEXT TIME WHEN HIS PAIN IS GETTING STRONGER TO COME AND RECEIVE INJECTIONS WITH NON PARTICULATE STEROIDS. ALTERNATIVELY HIS FORAMINAL STENOSIS MIGHT BE RE-EVALUATED BY NEUROSURGEON. WE DECIDED THAT 1 MORE TIME WE WILL TRY NON PARTICULATE STEROID INJECTIONS AND IF THIS WILL GIVE YOU THE SAME AGGRAVATION I WILL REFER HIM TO NEUROSURGICAL CARE. HE WILL GIVE US A CALL WHEN HIS PAIN IS STRONGER AND HE WANTS INJECTION AGAIN. ALTERNATIVELY WE CAN RETURN BACK TO DISCUSSION OF THE PAIN PUMP FOR HIM. HE ALSO HAS SPINAL CORD STIMULATOR ALREADY IMPLANTED HOWEVER HE REPORTS THAT IT HELPS HIS PAIN ONLY 20%. PRIOR: He was evaluated by a neurosurgeon Dr. Arzola and he did not receive recommendation for surgery. 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 He reports that his pain is being helped by spinal cord stimulator but he cannot continue working he wants to apply for disability. His pain is in the projection of the posterior calcaneal bone to the skin. He reports the most severe pain he feels when he bends himself forward and at that moment he feels the pain in lthe lumbar spine with the pain increase in the area described above. He reports he has had a progressively worsening electrical charge, burning, stabbing pain. Last time we started him on gabapentin and amitriptyline a and he reported side effect on both gabapentin and amitriptyline. Gabapentin causes him to have introduced if suicidal thoughts. Amitriptyline causes dry mouth, urinary retention, and difficulties with vision. I told him to stop both medications we discussed Lyrica today. I do not thing Lyrica is a good medication considering the fact that gabapentin gave him suicidal thoughts He has not had any injuries to foot. Mr. Hart had a Spinal Cord Stimulator implanted 07/12/18, which has resulted in significant alleviation of lower back and radiating leg pain. He can obtain SCS coverage throughout legs and down to feet, including his heels. He reports that regardless of if stimulator is on or off, he continues to experience this burning nerve pain in this distribution. MRI results: Chronic fatty marrow degenerative endplate changes noted at multiple levels with moderate to severe loss of disc height at L4-5 and L5-S1, similar to prior imaging. Mild endplate in a edematous changes noted at the L3-L4 and L4- L5. There is also minimal endplate edema anterior inferiorly at the T11 level due to degenerative Schmorl's node there are no compression fractures slight a retro subluxation is stable at L3-L4 no anterior subluxations are seen small far pelvic renal cyst partially visualized the paraspinal soft tissues are otherwise unremarkable there is leftward curvature of the upper lumbar spine and the rightward curvature of the lower lumbar spine. L1-L2: No disc pathology no central canal stenosis or foraminal narrowing. L2-L3: Very mild facet arthropathy. Well-hydrated normal appearance of the disc without central canal stenosis or foraminal narrowing. L3-L4: Mild retro subluxation and disc bulge with resorption of the previously small central disc protrusion mild central canal stenosis and facet arthropathy again evident contributing to mild bilateral foraminal narrowing. L4-L5: Moderate to severe loss of disc height with makes chronic and mild edematous endplate changes hypertrophic facet arthropathy again noted with mild central canal stenosis and very mild left foraminal narrowing. L5-S1 moderate to severe loss of disc height with endplate spurring and facet arthropathy no central canal stenosis or foraminal narrowing. [facility] Medical History Localized osteoarthritis of left knee Osteoarthritis Allergic cough Asthma Depression Fibromyalgia Failed back syndrome of lumbar spine Renal calculi Pulmonary nodules Post covid-19 condition, unspecified Diverticulosis Neuropathy Lumbar disc disease Overweight (BMI 25.0-29.9) HLD (hyperlipidemia) Surgical History History of total right knee replacement History of arthroscopy of right knee History of carpal tunnel release H/O arthroscopy H/O colonoscopy Spinal cord stimulator status Family History Father Hypertension COPD (chronic obstructive pulmonary disease) Mother Hypertension Dementia Family/Other Lung cancer Social History Household Members: Spouse Household Members Other:: Stepson Housing: Condominium Are you a primary pet caregiver to a significant other at home: No Do you presently have visiting nurse or other home services: No Alcohol intake: never Patient Tobacco Use Status: Former Tobacco user Quit Date: 1996 Tobacco use type: Cigarette Years Smoked: 20 e-Cigarette/Vaping Use: Never Used Second Hand Smoke Exposure: No service: No Current occupational status: employed 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 Alert and oriented. Mood and affect appropriate. Fully engaged in exam. Follows and participates in conversation appropriately. Respiratory effort is unlabored. Able to transition from sit to stand unassisted. Ambulates with bilaterally normal heel strike and toe off. Extrem General: Yes capillary refill normal, Yes no clubbing, cyanosis or edema and Yes no calf tenderness Right lower extremity: knee (Well healed incision.) Details: normal to inspection, tenderness Location: of the lateral joint line and normal ROM; no swelling, no ecchymosis and no unusual warmth Left lower extremity: knee (Well healed incision. Limited ROM. ) Details: normal to inspection, tenderness Location: of the lateral joint line and crepitus; no swelling, no ecchymosis, no deformity and no unusual warmth Results Reviewed Results Reviewed: XR KNEE, RIGHT 02/27/23 CLINICAL INFORMATION: Right total knee arthroplasty COMPARISON: X-rays of the right knee 02/22/2023 MRI right knee November 2022 TECHNIQUE: Portable AP and portable crosstable lateral view of the right knee FINDINGS: There is a total knee arthroplasty in place. The components are in the usual position There is no periprosthetic fracture or surrounding abnormal lucency. There is a small effusion. There is a small amount of gas in the soft tissues compatible with postoperative result. Skin heidi also noted. The surrounding soft tissues are normal. IMPRESSION: Right total knee arthroplasty without complication by x-ray. XR KNEE, LEFT 06/05/23 CLINICAL INFORMATION: Left total knee replacement COMPARISON: 02/22/2023 FINDINGS: Left total knee replacement has been performed. Prosthetic components appear appropriate in position. Alignment is satisfactory. Surgical skin heidi, suprapatellar effusion and soft tissue air identified in the immediate postoperative state. IMPRESSION: Left total knee replacement. Assessment & Plan Assessment & Plan (1) Status post total knee replacement, right: Code(s): Z96.651 - Presence of right artificial knee joint (2) Right knee pain: Code(s): M25.561 - Pain in right knee (3) History of total left knee replacement: Code(s): Z96.652 - Presence of left artificial knee joint (4) Osteoarthritis of right knee: Code(s): M17.11 - Unilateral primary osteoarthritis, right knee Plan Patient is status post Right Diagnostic Femoral nerve block with good results. He also recently underwent left TKA and recovering and rehabbing left knee well. Patient wishes to proceed with Right Femoral Nerve Sprint PNS temporary lead placement with local and US guidance for a longer term relief. Expectations, risks and benefits were reviewed. Patient is aware he will be contacted to schedule this procedure. All questions were answered and the patient is in agreement of plan. Follow-up after Sprint PNS trial and sooner as needed. Coding Level of Care Code Est Pt Level 3 (19970) Diagnoses Status post total knee replacement, right Z96.651 Right knee pain M25.561 History of total left knee replacement Z96.652 Osteoarthritis of right knee M17.11
[2023-07-05 13:33] VITALS: BP 115/82; PULSE 89; O2SAT 100; BMI 28.4
== END 2023-07-05 13:58 | disposition home or self-care (01) ==
PROVIDERS: PCP Physician Assistant; Visit Provider Nurse Practitioner Family
DX: Z96.651 Presence of right artificial knee joint (principal); M25.561 Pain in right knee; Z96.652 Presence of left artificial knee joint; M17.11 Unilateral primary osteoarthritis, right knee
CPT/HCPCS: 99213

== ENCOUNTER → 2023-07-05 13:20 | Outpatient (BNVA) | payer MEDICARE, MEDICAID, SELFPAY | PROVIDERS: PCP Physician Assistant; Visit Provider Nurse Practitioner Family | DX: M25.561 Pain in right knee (principal); M25.562 Pain in left knee; Z96.651 Presence of right artificial knee joint | CPT/HCPCS: 99212 ==

== ENCOUNTER 2023-07-19 12:36 | Outpatient (AMB) | payer MEDICARE, MEDICAID, SELFPAY ==
--- NOTE | 2023-07-19 12:37 | MHC.OFFVIS ---
Intake Intake Visit Reasons: 4 wk PO-LT TKA 06/05/23 NE Intake Note: Carlos a 62 year old female who presents today for a post operative LT TKA, DOS 06/05/23 NE. Right Femoral nerve block done 07/05/23 with Pain mgmt. Allergies dexamethasone [DEXAMETHASONE] Allergy (Severe, Verified 07/19/23 12:49) Steroid Physcosis atorvastatin Adverse Reaction (Intermediate, Verified 07/19/23 12:49) bone pain bupropion [From Wellbutrin] Adverse Reaction (Intermediate, Verified 07/19/23 12:49) negative thoughts fluticasone [From Wixela Inhub] Adverse Reaction (Intermediate, Verified 07/19/23 12:49) hand tremors, blood pressure dropping lisinopril [LISINOPRIL] Adverse Reaction (Intermediate, Verified 07/19/23 12:49) COUGH salmeterol [From Wixela Inhub] Adverse Reaction (Intermediate, Verified 07/19/23 12:49) hand tremors, blood pressure dropping HPI 4 wk PO-LT TKA 06/05/23 NE HPI Details Mayco is a 63 year old man ~6 weeks S/P left TKA. He is ~5 months S/P right TKA. He says he is doing well in regards to his left knee. He has been working with PT & continues to use Oxycodone. Doing PT. Pain at night. [facility] Medical History Localized osteoarthritis of left knee Osteoarthritis Allergic cough Asthma Depression Fibromyalgia Failed back syndrome of lumbar spine Renal calculi Pulmonary nodules Post covid-19 condition, unspecified Diverticulosis Neuropathy Lumbar disc disease Overweight (BMI 25.0-29.9) HLD (hyperlipidemia) Surgical History History of total right knee replacement History of arthroscopy of right knee History of carpal tunnel release H/O arthroscopy H/O colonoscopy Spinal cord stimulator status Family History Father Hypertension COPD (chronic obstructive pulmonary disease) Mother Hypertension Dementia Family/Other Lung cancer Social History Household Members: Spouse Household Members Other:: [place]pson [facility] Are you a primary out of school hours care worker to a significant other at home: No Do you presently have visiting nurse or other home services: No Alcohol intake: never Patient Tobacco Use Status: Former Tobacco user Quit Date: 1996 Tobacco use type: Cigarette Years Smoked: 20 e-Cigarette/Vaping Use: Never Used Second Hand Smoke Exposure: No service: No Current occupational status: employed 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 Current occupational exposures/hazards: No Cognitive needs: No Hearing needs: No Vision needs: No Review of Systems Const All systems reviewed & are unremarkable except as noted in HPI and below Physical Exam Const General: no acute distress, alert and awake Orientation/consciousness: patient oriented x3 HEENT Head: Yes normocephalic and Yes atraumatic Eyes EOM: EOMs intact bilaterally Resp Effort & Inspection: normal respiratory effort and able to speak in complete sentences Cardio Jugular venous distension: no JVD Skin General skin exam: turgor normal Rashes: no rashes Neuro General: patient oriented x3 Extrem Other: inc c/d/i 0-115 on left Psych Appearance: grossly normal Affect: normal affect Attitude: cooperative Assessment & Plan Assessment & Plan (1) History of total left knee replacement: Code(s): Z96.652 - Presence of left artificial knee joint Plan: This is a 63 year old man S/P left TKA, DOS: 06/05/23. He is doing well. Continue PT and activity as tolerated. F/u 6 weeks (2) Status post total knee replacement, right: Code(s): Z96.651 - Presence of right artificial knee joint Plan: S/P right TKA, DOS: 02/27/23. Continued pain with activity, good but short relief from femoral nerve block done by Pain Management on 06/05/23. Going to proceed with femoral PNS trial soon. (3) Right knee pain: Code(s): M25.561 - Pain in right knee Coding Level of Care Code Global (79580) Diagnoses History of total left knee replacement Z96.652 Status post total knee replacement, right Z96.651 Right knee pain M25.561
== END 2023-07-19 14:09 | disposition home or self-care (01) ==
PROVIDERS: PCP Physician Assistant; Visit Provider Orthopaedic Surgery
DX: Z96.652 Presence of left artificial knee joint (principal); Z96.651 Presence of right artificial knee joint; M25.561 Pain in right knee
CPT/HCPCS: 99024

== ENCOUNTER → 2023-07-19 12:36 | Outpatient (BNVA) | payer MEDICARE, MEDICAID, SELFPAY | PROVIDERS: PCP Physician Assistant; Visit Provider Orthopaedic Surgery ==

== ENCOUNTER 2023-07-26 14:50 | Outpatient (REF) | payer MEDICARE, MEDICAID, SELFPAY ==
--- NOTE | ~2023-07-26 | XR_ITS ---
EXAMINATION: XR ABDOMEN KUB CLINICAL INDICATION: Calculus of kidney COMPARISON: 07/25/2022 renal ultrasound TECHNIQUE: AP view of the abdomen. FINDINGS: Mild fecal retention. No abnormal calcifications. Soft tissues within normal limits. Lung bases are clear. Bony structures are intact. Spinal stimulation or identified. Internal leads terminating in the mid/lower thoracic spine. XR/XR KUB IMPRESSION: No identifiable renal calculi.
== END 2023-07-26 14:51 | disposition home or self-care (01) ==
LOC: HO.XRAY 14:50
PROVIDERS: PCP Physician Assistant; Visit Provider Urology
DX: N20.0 Calculus of kidney (principal)
CPT/HCPCS: 74018

== ENCOUNTER 2023-07-27 13:26 | Outpatient (AMB) | payer MEDICARE, MEDICAID, SELFPAY ==
--- NOTE | 2023-07-27 13:31 | A.OFFVIS_ITS ---
Intake Intake Visit Reasons: 12 month follow up/stones/with KUB results Intake Note: Patient is Present for Follow Up Stones/KUB Urology Medication:None Antibiotic Allergies: None Blood Thinners: Aspirin Allergies dexamethasone [DEXAMETHASONE] Allergy (Severe, Verified 07/27/23 15:10) Steroid Physcosis atorvastatin Adverse Reaction (Intermediate, Verified 07/27/23 15:10) bone pain bupropion [From Wellbutrin] Adverse Reaction (Intermediate, Verified 07/27/23 15:10) negative thoughts fluticasone [From Wixela Inhub] Adverse Reaction (Intermediate, Verified 07/27/23 15:10) hand tremors, blood pressure dropping lisinopril [LISINOPRIL] Adverse Reaction (Intermediate, Verified 07/27/23 15:10) COUGH salmeterol [From Wixela Inhub] Adverse Reaction (Intermediate, Verified 07/27/23 15:10) hand tremors, blood pressure dropping Medication List - Last Reconciled 07/27/23 by GEORGES Redmond-MARÍA acetaminophen 650 mg (2 x 325 mg) PO Q6H PRN 30 days albuterol sulfate 90 mcg/actuation (Ventolin HFA) 2 puffs inhalation Q4-6H PRN aspirin 325 mg PO BID 42 days celecoxib 200 mg PO BID docusate sodium 100 mg PO BID 30 days fluticasone propion-salmeterol 113-14 mcg/actuation (AirDuo RespiClick) 1 inh inhalation BID 30 days garlic 500 mg PO DAILY minoxidil 5% 1 ea topical DAILY multivitamin 1 tab PO DAILY oxycodone 5 mg PO Q12H PRN 7 days red yeast rice 600 mg PO DAILY Ventolin HFA 90 mcg/actuation (albuterol sulfate) 2 puffs inhalation Q4-6H PRN NS HPI HPI Comments History of Present Illness Details Mayco is a very pleasant 63-year-old male patient of Dr. Melchor. He presents to the office today for follow-up of his nephrolithiasis. He has a past medical history of osteoarthritis, asthma, depression, fibromyalgia, nephrolithiasis, pulmonary nodules, neuropathy, lumbar disc disease, and hyperlipidemia. In discussion with the patient today he reports to be doing and feeling well. KUB results reviewed with the patient today. No identifiable renal calculi. He denies any urological issues or concerns at this time. In office urinalysis results reviewed with the patient today. Discussed at length potential causes of nephrolithiasis. 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 Discussed and stressed the importance of drinking plenty of water daily. He discusses following up with his PCP regarding his PSA. He denies urinary urgency, urinary frequency, incontinence, nocturia, hematuria, dysuria, foul smelling urine, changes to urinary stream, flank pain, fever, and or chills. He is happy with his current voiding parameters. He discusses previously being on vitamin B6 daily however when obtaining blood work with PCP elevation and labs were noted and he has since stopped taking vitamin B6. He otherwise offers no other issues or concerns at this time. [facility] Medical History Localized osteoarthritis of left knee Osteoarthritis Allergic cough Asthma Depression Fibromyalgia Failed back syndrome of lumbar spine Renal calculi Pulmonary nodules Post covid-19 condition, unspecified Diverticulosis Neuropathy Lumbar disc disease Overweight (BMI 25.0-29.9) HLD (hyperlipidemia) Surgical History History of total right knee replacement History of arthroscopy of right knee History of carpal tunnel release H/O arthroscopy H/O colonoscopy Spinal cord stimulator status Family History Father Hypertension COPD (chronic obstructive pulmonary disease) Mother Hypertension Dementia Family/Other Lung cancer Social History Household Members: Spouse Household Members Other:: Stepson Housing: Condominium Are you a primary congregational care pastor to a significant other at home: No Do you presently have visiting nurse or other home services: No Alcohol intake: never Patient Tobacco Use Status: Former Tobacco user Quit Date: 1996 Tobacco use type: Cigarette Years Smoked: 20 e-Cigarette/Vaping Use: Never Used Second Hand Smoke Exposure: No service: No Current occupational status: employed 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 Current occupational exposures/hazards: No Cognitive needs: No Hearing needs: No Vision needs: No Review of Systems Const All systems reviewed & are unremarkable except as noted in HPI and below Eyes Reports no additional complaints ENT Reports no additional complaints Card Reports as per [facility] Resp Reports as per [facility] GI Reports no additional complaints Reports as per HPI Musc Reports as per HPI Neuro Reports as per [facility] Psych Reports as per [facility] Endo Reports no additional complaints Physical Exam Const General: cooperative, healthy appearing, comfortable, no acute distress, well developed, alert and awake Orientation/consciousness: patient oriented x3 Limitations: no limitations HEENT Head: Yes normal to inspection, Yes normocephalic and Yes atraumatic Ears: hearing grossly normal bilaterally Eyes General: appearance normal, both eyes and all related structures Neck Neck: Yes normal visual inspection and Yes trachea midline Chest Chest palpation & inspection: normal inspection of the chest Resp Effort & Inspection: normal respiratory effort and able to speak in complete sentences Cardio Rate: regular rate GI Inspection: Yes normal to inspection General: Yes no CVA tenderness Back/Spine/Pelvis Back: no CVA tenderness Skin General skin exam: no rashes or lesions noted Neuro General: patient oriented x3 Extrem General: Yes normal to inspection Psych Appearance: grossly normal and well kempt Mental Status: mental status grossly normal Speech and movement: Normal speech and movement present and Clear speech present Affect: normal affect Attitude: cooperative Thought process: Normal thought process present Thought content: Normal thought content present Insight: Fair insight present (Psych) Judgement: Fair judgement present (Psych) Results AMB Urinalysis, Automated UA Leukoctes 0 Ang/uL Last Edit by ABBEY Hatfield on 07/27/23 13:47 UA Nitrite Negative Last Edit by ABBEY Hatfield on 07/27/23 13:47 UA Urobilinogen 0.2 mg/dL Last Edit by ABBEY Hatfield on 07/27/23 13:4 7 UA Protein 15 mg/dL Last Edit by ABBEY Hatfield on 07/27/23 13:47 UA pH 5.5 Last Edit by ABBEY Hatfield on 07/27/23 13:47 UA Blood 0 Dain/uL Last Edit by ABBEY Hatfield on 07/27/23 13:47 UA Specific [place] 1.025 Last Edit by ABBEY Hatfield on 07/27/23 13: 47 UA Ketone Negative Last Edit by AUDELIA HatfieldA on 07/27/23 13:47 UA Bilirubin 0 mg/dL Last Edit by AUDELIA HatfieldA on 07/27/23 13:47 UA Glucose 0 mg/dL Last Edit by ABBEY Hatfield on 07/27/23 13:47 Results Reviewed Results Reviewed: Laboratory Last Values Urine pH (Auto) 5.5 07/27/23 13:34 Specific [place] (Auto) 1.025 07/27/23 13:34 Urine Protein (Auto) 15 mg/dL 07/27/23 13:34 Glucose (UA)(Auto) 0 mg/dL 07/27/23 13:34 Urine Ketones (Auto) Negative 07/27/23 13:34 Urine Blood (Auto) 0 Dain/uL 07/27/23 13:34 Urine Nitrite (Auto) Negative 07/27/23 13:34 Urine Bilirubin (Auto) 0 mg/dL 07/27/23 13:34 Urine Urobilinogen (Auto) 0.2 mg/dL 07/27/23 13:34 Leukocyte Esterase (Auto) 0 Ang/uL 07/27/23 13:34 Date of Service: 07/26/23 EXAMINATION: XR ABDOMEN KUB FINDINGS: Mild fecal retention. No abnormal calcifications. Soft tissues within normal limits. Lung bases are clear. Bony structures are intact. Spinal stimulation or identified. Internal leads terminating in the mid/lower thoracic spine. IMPRESSION: No identifiable renal calculi. Assessment & Plan Assessment & Plan (1) Renal calculi: Code(s): N20.0 - Calculus of kidney Plan In office urinalysis results reviewed with the patient today; as noted above Recent KUB results reviewed with the patient today; as noted above Patient denies any bothersome urinary issues or concerns at this time He is happy with his current voiding parameters Discussed importance of drinking plenty of water daily Continue adding one ounce of lemon juice to water daily. Discussed surveillance monitoring Will obtain KUB in 2 years Follow up in 2 years with imaging to be completed prior; or sooner with any issues, concerns, or questions. Orders: Orders AMB Urinalysis Automated Today Z13.9 - Encounter for screening, unspecified XR KUB 364 Days N20.0 - Calculus of kidney Patient Instructions: The patient had an opportunity to ask questions regarding the treatment plan. All questions were answered. Physical exam, labs, and imaging were discussed and reviewed in detail. As well as risks, benefits, and discussion of treatment choices. No major barriers to understanding were identified. The patient expressed understanding and agreement with the above treatment plan. The patient was made aware they should contact our office by phone for worsening of their current condition, the appearance of new symptoms, or with any questions or concerns. Compliance is encouraged with any medications and follow up testing that is ordered. It is a privilege to be allowed the opportunity to p articipate in? your urological care.? Again, if you have any questions or concerns If you have any questions or concerns please do not hesitate to contact me. The office is [phone]. This note is constructed using voice recognition software. While every effort has been made to ensure accuracy java grails developer errors may have been included. Yours sincerely, HARITHA Redmond Coding Level of Care Code Est Pt Level 3 (08459) Diagnoses Renal calculi N20.0
== END 2023-07-27 14:30 | disposition home or self-care (01) ==
PROVIDERS: Visit Provider Nurse Practitioner Family
DX: N20.0 Calculus of kidney (principal); Z13.9 Encounter for screening, unspecified
CPT/HCPCS: 99213

== ENCOUNTER → 2023-07-27 13:26 | Outpatient (BNVA) | payer MEDICARE, MEDICAID, SELFPAY | PROVIDERS: Visit Provider Nurse Practitioner Family | DX: N20.0 Calculus of kidney (principal) | CPT/HCPCS: 81003; 99212 ==

== ENCOUNTER 2023-08-02 13:40 | Day surgery (SDC) | payer MEDICARE, MEDICAID, SELFPAY ==
[2023-08-02 13:50] VITALS: BMI 28.4
--- NOTE | 2023-08-02 13:52 | MHC.SHP ---
Pre-Procedural Eval Section A Date of Service: 08/02/23 Section B Chief Complaint: Pain in right knee Details of Present Illness: as above Relevant Family History (Specify if Yes): No Relevant Social History: None Present Medications: None Medical History: No relevant PMH History of Previous Operations: No relevant previous surgery Allergies: Allergies Allergy/AdvReac Type Severity Reaction Status Date / Time dexamethasone [DEXAMETHASONE] Allergy Severe Steroid Verified 08/02/23 13:49 Physcosis atorvastatin AdvReac Intermediate bone pain Verified 08/02/23 13:49 bupropion [From Wellbutrin] AdvReac Intermediate negative Verified 08/02/23 13:49 thoughts fluticasone AdvReac Intermediate hand Verified 08/02/23 13:49 [From Wixela Inhub] tremors, blood pressure dropping lisinopril [LISINOPRIL] AdvReac Intermediate COUGH Verified 08/02/23 13:49 salmeterol AdvReac Intermediate hand Verified 08/02/23 13:49 [From Wixela Inhub] tremors, blood pressure dropping Review of Systems Sugical H&P ROS: Negative: Constitution, Cardiovascular, Respiratory, Neurological, Psychiatric, Hem-Onc, Allergic/Immunologic, Gastrointestinal, Genitourinary, Integumentary, Endocrine and Eyes/Ears/Nose/Throat and Yes, Specify: Musculoskeletal (right knee pain) Exam Surgical H&P Exam: Normal: HEENT, Normal: Heart, Normal: Lungs, Normal: Extremities, Normal: Abdomen, Normal: Skin and Normal: Neurological Plan Diagnosis/Plan: Unchanged I have reviewed the history and physical and performed a pertinent physical examination on my patient. No changes have occurred unless specified. Time Spent With Patient Time: Total time managing care of this patient today ____ minutes.
[2023-08-02 14:12] VITALS: BP 147/103; PULSE 85; RESP 16; TEMP 36.6; O2SAT 95
--- NOTE | 2023-08-02 14:56 | PC.NURSE ---
Pt confirmed procedure for Right Side Sprint. Dr. Aly to enter order to reflect side.
--- NOTE | 2023-08-02 15:29 | P.OP_ITS ---
Operative Note Operative Note Date of Service: 08/02/23 Narrative: Sprint PNS femoral nerve right side. After the risks, benefits and alternatives were discussed with the patient and informed consent was obtained, patient was placed in the prone position and padded to foster comfort. Time out was performed delineating correct site and side of the procedure , name and of the patient, patient participated in time out procedure. right groin right lower abdomen and right anterior thigh were prepped with ChloraPrep and draped with sterile utility towels. Full body drape was applied. ?Sterily draped Ultrasound probe was brought over the operating field and ultrasound picture of the right femoral nerve right femoral artery and right femoral vein were demonstrated on the screen. After identifying and marking the intended target, the skin around the planned entry point and the subcutaneous tissues were injected with local anesthetic forming skin wheal.. ?A percutaneous sleeve and stimulating probe lead introduction system were assembled, inserted and advanced through the skin wheal to the? point of interest under Live ultrasound view, the introducer needle was delivered to a location in proximity to the femoral nerve in upper portion of the nerve. Mu ltiple stimulation parameters were used to deliver stimulation to the? nerve in concert with stimulating at multiple positions around the nerve. Nerve target acquisition was confirmed noting generation of? in the? corresponding to the nerve being stimulated. Various electrical parameter combinations were tested, and the lead location was adjusted? until the patient indicated? overlapping the distribution of the patient?s typical region of pain. The stimulating probe was removed from the introducer and a percutaneous lead was guided through the needle and delivered to a location in similar proximity to the nerve. Final location was verified with electrical stimulation. The introducer needle was removed, and the exposed end of the percutaneous lead was attached to an external stimulator unit. Various electrical parameter combinations were again tested until the patient indicated paresthesia or muscle tension overlapping the distribution of the patient?s typical region of pain. After confirming that lead impedance was in the normal range, the external unit was detached, the needle was removed, and the lead was anchored at the skin. The lead was threaded into the connector block and electrical continuity and desired patient response was confirmed. The connector block was attached to the external stimulator unit. The site was covered with a sterile occlusive dressing .. ?Upon completion of the procedure the patient was taken outside the OR where he recovered uneventfully, He went home without immediate complications.
[2023-08-02 15:31] VITALS: BP 148/98; PULSE 75; RESP 20; TEMP 36.6; O2SAT 96
--- NOTE | 2023-08-02 15:33 | PM.OP ---
Brief Operative Note Date of Service: 08/02/23 Pre-op diagnosis: right knee pain, status post total knee replacement right Post-op diagnosis: same Procedure: sprint PNS right femoral nerve Surgeon: Abram Aly MD Anesthesia: local Was an Automobile Repossessor used for this Procedure?: No Estimated blood loss (mL): 0 Condition: stable Disposition: PACU
== END 2023-08-02 16:09 | disposition home or self-care (01) ==
PROVIDERS: PCP Physician Assistant; Visit Provider Anesthesiology
PROC: (CPT 64555; principal; 2023-08-02 14:50)
DX: M25.561 Pain in right knee (principal); M17.0 Bilateral primary osteoarthritis of knee; Z96.653 Presence of artificial knee joint, bilateral; M79.7 Fibromyalgia; M96.1 Postlaminectomy syndrome, not elsewhere classified; E66.3 Overweight; Z68.28 Body mass index [BMI] 28.0-28.9, adult; E78.5 Hyperlipidemia, unspecified; J45.909 Unspecified asthma, uncomplicated; R91.8 Other nonspecific abnormal finding of lung field; Z88.8 Allergy status to other drugs, medicaments and biological substances; Z87.891 Personal history of nicotine dependence
CPT/HCPCS: 64555; C1778; J2795

== ENCOUNTER → 2023-08-02 13:40 | Outpatient (BNV) | payer MEDICARE, MEDICAID, SELFPAY | PROVIDERS: PCP Physician Assistant; Visit Provider Anesthesiology | DX: M25.561 Pain in right knee (principal) | CPT/HCPCS: 64555 ==

== ENCOUNTER 2023-08-09 13:02 | Outpatient (AMB) | payer MEDICARE, MEDICAID, SELFPAY ==
--- NOTE | 2023-08-09 13:05 | A.OFFVIS_ITS ---
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 Accompanied by: Self / Same As Patient Allergies dexamethasone [DEXAMETHASONE] Allergy (Severe, Verified 08/09/23 13:11) Steroid Physcosis atorvastatin Adverse Reaction (Intermediate, Verified 08/09/23 13:11) bone pain bupropion [From Wellbutrin] Adverse Reaction (Intermediate, Verified 08/09/23 13:11) negative thoughts fluticasone [From Wixela Inhub] Adverse Reaction (Intermediate, Verified 08/09/23 13:11) hand tremors, blood pressure dropping lisinopril [LISINOPRIL] Adverse Reaction (Intermediate, Verified 08/09/23 13:11) COUGH salmeterol [From Wixela Inhub] Adverse Reaction (Intermediate, Verified 08/09/23 13:11) hand tremors, blood pressure dropping HPI HPI Comments History of Present Illness Details Patient presents today 1 week status post Right femoral nerve Sprint PNS placement on 08/02/[address] Aly. Patient reports 60-70% ongoing pain relief with significant improvement in mobility, functioning, and ADLs on the right. Patient also had left sided TKA on 06/05/23 and has ongoing residual pain. He recently stopped taking oxycodone and notes increase in his left knee pain. Patient would like to undergo left femoral nerve block for potential Sprint PNS on the left too. He continues Physical Therapy for left knee s/p TKA. Romi franco from Sprint PNS was present today and has changed patient's dressing. Patient will continue this at home with the help of his family as well as in clinic dressing changes as needed. Denies any recent cough, cold, infection, fever or other significant changes in medical history since last office visit. Past Procedures: 08/02/23: Right femoral nerve Sprint PNS : 60-70% ongoing pain relief at stimulation setting 55 05/29/23: Diagnostic Right Femoral Nerve Block-100% pain relief for 14 hours PRIOR: Patient presents today for follow up regarding ongoing pain in his right anterior knee, more lateral aspect status post Right TKA 02/27/23. He reports residual numbness along medial aspect and localized tenderness in his lateral aspects. He continues to stay active with physical therapy 3x per week for strengthening and [id number] exercises. Patient notices increased right knee pain as his Vicodin has been titrated down. He is interested in interventional treatment options for right knee. He is scheduled to undergo left TKA on 06/05/23. We will schedule him for left femoral nerve block prior this for potential peripheral nerve stimulation after his rehab for left knee after TKA. He continues to use lumbar SCS device for his chronic back pain with good results. Denies any recent cough, cold, infection, fever or other significant changes in medical history since last office visit. PRIOR: Patient is a very pleasant 62-year-old male presents today for follow-up for SCS program adjustment and meeting with rep Kline from [employer]. He is accompanied by his Caroline. Patient was last seen in our office by Dr. Aly on 04/21/2020. Patient reports spinal cord stimulator has been working well for his back pain relief but has no pain relief coverage in his legs. He reports 0/10 pain today. As of note, patient recently underwent right total knee replacement and has follow-up appointment with Orthopedics today for staple removal. Curiously his taking Vicodin as needed for postop knee pain. Patient is looking forward to adjust his spinal cord stimulator to obtain better coverage to include his leg pain. Denies any recent cough, cold, infection, fever or other significant changes in medical history since last office visit. Patient denies any bladder or bowel incontinence or saddle anesthesia. Ambulates with mildly antalgic gait and uses cane with ambulation. PRIOR 04/21/2020 Dr. Aly: Mr. Hart returns to the office today for an ongoing left heel pain. He received transforaminal left L3-L4 and L4-5 epidural steroid injections again. He reports better mobility, better moved around, HOWEVER THIS TIME HE REPORTS AGGRAVATED PAIN FOR NEXT 2 WEEKS AFTER THE INJECTION AND THEN THE PAIN SUBSIDED AND BECAME BETTER. I A A SUSPECT THAT MIGHT BE EFFECT OF THE RADIATION OF THE NERVE ROOTS FROM THE STEROIDS. I OFFERED HIM NEXT TIME WHEN HIS PAIN IS GETTING STRONGER TO COME AND RECEIVE INJECTIONS WITH NON PARTICULATE STEROIDS. ALTERNATIVELY HIS FORAMINAL STENOSIS MIGHT BE RE-EVALUATED BY NEUROSURGEON. WE DECIDED THAT 1 MORE TIME WE WILL TRY NON PARTICULATE STEROID INJECTIONS AND IF THIS WILL GIVE YOU THE SAME AGGRAVATION I WILL REFER HIM TO NEUROSURGICAL CARE. HE WILL GIVE US A CALL WHEN HIS PAIN IS STRONGER AND HE WANTS INJECTION AGAIN. ALTERNATIVELY WE CAN RETURN BACK TO DISCUSSION OF THE PAIN PUMP FOR HIM. HE ALSO HAS SPINAL CORD STIMULATOR ALREADY IMPLANTED HOWEVER HE REPORTS THAT IT HELPS HIS PAIN ONLY 20%. PRIOR: He was evaluated by a neurosurgeon Dr. Arzola and he did not receive recommendation for surgery. 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 He reports that his pain is being helped by spinal cord stimulator but he cannot continue working he wants to apply for disability. His pain is in the projection of the posterior calcaneal bone to the skin. He reports the most severe pain he feels when he bends himself forward and at that moment he feels the pain in lthe lumbar spine with the pain increase in the area described above. He reports he has had a progressively worsening electrical charge, burning, stabbing pain. Last time we started him on gabapentin and amitriptyline a and he reported side effect on both gabapentin and amitriptyline. Gabapentin causes him to have introduced if suicidal thoughts. Amitriptyline causes dry mouth, urinary retention, and difficulties with vision. I told him to stop both medications we discussed Lyrica today. I do not thing Lyrica is a good medication considering the fact that gabapentin gave him suicidal thoughts He has not had any injuries to foot. Mr. Hart had a Spinal Cord Stimulator implanted 07/12/18, which has resulted in significant alleviation of lower back and radiating leg pain. He can obtain SCS coverage throughout legs and down to feet, including his heels. He reports that regardless of if stimulator is on or off, he continues to experience this burning nerve pain in this distribution. MRI results: Chronic fatty marrow degenerative endplate changes noted at multiple levels with moderate to severe loss of disc height at L4-5 and L5-S1, similar to prior imaging. Mild endplate in a edematous changes noted at the L3-L4 and L4- L5. There is also minimal endplate edema anterior inferiorly at the T11 level due to degenerative Schmorl's node there are no compression fractures slight a retro subluxation is stable at L3-L4 no anterior subluxations are seen small far pelvic renal cyst partially visualized the paraspinal soft tissues are otherwise unremarkable there is leftward curvature of the upper lumbar spine and the rightward curvature of the lower lumbar spine. L1-L2: No disc pathology no central canal stenosis or foraminal narrowing. L2-L3: Very mild facet arthropathy. Well-hydrated normal appearance of the disc without central canal stenosis or foraminal narrowing. L3-L4: Mild retro subluxation and disc bulge with resorption of the previously small central disc protrusion mild central canal stenosis and facet arthropathy again evident contributing to mild bilateral foraminal narrowing. L4-L5: Moderate to severe loss of disc height with makes chronic and mild edematous endplate changes hypertrophic facet arthropathy again noted with mild central canal stenosis and very mild left foraminal narrowing. L5-S1 moderate to severe loss of disc height with endplate spurring and facet arthropathy no central canal stenosis or foraminal narrowing. [facility] Medical History Localized osteoarthritis of left knee Osteoarthritis Allergic cough Asthma Depression Fibromyalgia Failed back syndrome of lumbar spine Renal calculi Pulmonary nodules Post covid-19 condition, unspecified Diverticulosis Neuropathy Lumbar disc disease Overweight (BMI 25.0-29.9) HLD (hyperlipidemia) Surgical History History of total right knee replacement History of arthroscopy of right knee History of carpal tunnel release H/O arthroscopy H/O colonoscopy Spinal cord stimulator status Family History Father Hypertension COPD (chronic obstructive pulmonary disease) Mother Hypertension Dementia Family/Other Lung cancer Social History Household Members: Spouse Household Members Other:: Stepson Housing: Condominium Are you a primary care tech to a significant other at home: No Do you presently have visiting nurse or other home services: No Alcohol intake: never Patient Tobacco Use Status: Former Tobacco user Quit Date: 1996 Tobacco use type: Cigarette Years Smoked: 20 e-Cigarette/Vaping Use: Never Used Second Hand Smoke Exposure: No service: No Current occupational status: employed 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 Alert and oriented. Mood and affect appropriate. Fully engaged in exam. Follows and participates in conversation appropriately. Respiratory effort is unlabored. Able to transition from sit to stand unassisted. Ambulates with bilaterally normal heel strike and toe off. Lead Insertion Site: Lead insertion sites look clean, dry, intact. Dressing change in clinic today by Sprint PNS rep . Positive paresthesia at right knee at 55 stimulation. Extrem General: Yes capillary refill normal, Yes no clubbing, cyanosis or edema and Yes no calf tenderness Assessment & Plan Assessment & Plan (1) Status post total knee replacement, right: Code(s): Z96.651 - Presence of right artificial knee joint (2) Right knee pain: Code(s): M25.561 - Pain in right knee (3) History of total left knee replacement: Code(s): Z96.652 - Presence of left artificial knee joint (4) Osteoarthritis of right knee: Code(s): M17.11 - Unilateral primary osteoarthritis, right knee Plan Patient is one week status post Right femoral nerve Sprint PNS placement with good results, improved function and mobility on the right. Dressing change done in clinic today and will be continued by patient at home with assistance of his family as needed as well as in clinic dressing changes if needed. Patient wishes to proceed with Left Diagnostic Femoral Nerve Block with local and US guidance for left knee pain s/p recent TKA. Expectations, risks and benefits were reviewed. Patient is aware he will be contacted to schedule this procedure. All questions were answered and the patient is in agreement of plan. Follow-up after injection and sooner as needed. Coding Level of Care Code Est Pt Level 3 (68274) Diagnoses Status post total knee replacement, right Z96.651 Right knee pain M25.561 History of total left knee replacement Z96.652 Osteoarthritis of right knee M17.11
[2023-08-09 13:10] VITALS: BP 137/88; PULSE 97; O2SAT 100; BMI 28.4
== END 2023-08-09 13:24 | disposition home or self-care (01) ==
PROVIDERS: PCP Physician Assistant; Visit Provider Nurse Practitioner Family
DX: M25.561 Pain in right knee (principal); Z96.651 Presence of right artificial knee joint; M25.562 Pain in left knee; Z96.652 Presence of left artificial knee joint; M17.0 Bilateral primary osteoarthritis of knee
CPT/HCPCS: 99024

== ENCOUNTER → 2023-08-09 13:02 | Outpatient (BNVA) | payer MEDICARE, MEDICAID, SELFPAY | PROVIDERS: PCP Physician Assistant; Visit Provider Nurse Practitioner Family | DX: Z48.811 Encounter for surgical aftercare following surgery on the nervous system (principal); M25.562 Pain in left knee; M25.561 Pain in right knee; M17.11 Unilateral primary osteoarthritis, right knee; Z96.651 Presence of right artificial knee joint; Z96.652 Presence of left artificial knee joint | CPT/HCPCS: 99212 ==

== ENCOUNTER 2023-08-09 13:30 | Outpatient (AMB) | payer MEDICARE, MEDICAID, SELFPAY ==
--- NOTE | 2023-08-09 13:37 | AM.OFFVISNUR ---
Intake Intake Visit Reasons: Flu Shot Allergies dexamethasone [DEXAMETHASONE] Allergy (Severe, Verified 08/09/23 13:11) Steroid Physcosis atorvastatin Adverse Reaction (Intermediate, Verified 08/09/23 13:11) bone pain bupropion [From Wellbutrin] Adverse Reaction (Intermediate, Verified 08/09/23 13:11) negative thoughts fluticasone [From Wixela Inhub] Adverse Reaction (Intermediate, Verified 08/09/23 13:11) hand tremors, blood pressure dropping lisinopril [LISINOPRIL] Adverse Reaction (Intermediate, Verified 08/09/23 13:11) COUGH salmeterol [From Wixela Inhub] Adverse Reaction (Intermediate, Verified 08/09/23 13:11) hand tremors, blood pressure dropping Office Procedures Flu Questionnaire Does the patient have a severe egg allergy?: No Does the patient have severe life threatening allergies?: No Does the patient have a fever or illness today?: No Has the patient ever had Guillain-[place] Syndrome?: No Has the patient ever had any past reaction to a flu shot?: No Immunizations flu vacc [id number] 6mos up(PF) 60 mcg(15 mcgx4)/0.5 mL IM syringe Performing Provider: Juan C Melchor PA-C [facility] Administered by: Eleanor You RN on 08/09/23 13:37 Dose Route Admin Location Dispensed Lot Number Expiration Date [employer] 0.5 mL IM Left Deltoid 0.5 mL [id number] 03/23/24 17234-292-49 [employer] VIS Given Date VIS Provided VIS Publication Date 08/09/23 Single Vaccine 21 Eligibility Eligibility Date Funding Source Not [facility] Eligible 08/09/23 Private Coding Assessment & Plan Assessment & Plan Orders: Orders Influenza [id number] Immunization Today Z23 - Encounter for immunization
== END 2023-08-09 13:39 | disposition home or self-care (01) ==
LOC: HO.HMGH 13:30
PROVIDERS: PCP Physician Assistant; Visit Provider Physician Assistant
DX: Z23 Encounter for immunization (principal)
CPT/HCPCS: 90471; 90686

== ENCOUNTER 2023-08-30 12:37 | Outpatient (REF) | payer MEDICARE, MEDICAID, SELFPAY ==
--- NOTE | ~2023-08-30 | XR_ITS ---
EXAMINATION: XR BILATERAL KNEES AP STANDING XR LATERAL AND SUNRISE VIEWS OF BILATERAL KNEES CLINICAL INFORMATION: Pain in unspecified knee. COMPARISON: 02/22/2023, 06/05/2023, 02/27/2023. TECHNIQUE: AP standing view of bilateral knees. Lateral and sunrise views of bilateral knees. FINDINGS: Right Knee: Redemonstration of right total knee arthroplasty with hardware intact. Joint effusion. Alignment is preserved. Left Knee: Redemonstration of right total knee arthroplasty with hardware intact. Joint effusion. Alignment is preserved. XR/XR knee RT 2V IMPRESSION: Bilateral total knee arthroplasties. Hardware appears intact.
--- NOTE | ~2023-08-30 | XR_ITS ---
EXAMINATION: XR BILATERAL KNEES AP STANDING XR LATERAL AND SUNRISE VIEWS OF BILATERAL KNEES CLINICAL INFORMATION: Pain in unspecified knee. COMPARISON: 02/22/2023, 06/05/2023, 02/27/2023. TECHNIQUE: AP standing view of bilateral knees. Lateral and sunrise views of bilateral knees. FINDINGS: Right Knee: Redemonstration of right total knee arthroplasty with hardware intact. Joint effusion. Alignment is preserved. Left Knee: Redemonstration of right total knee arthroplasty with hardware intact. Joint effusion. Alignment is preserved. XR/XR knee LT 2V IMPRESSION: Bilateral total knee arthroplasties. Hardware appears intact.
--- NOTE | ~2023-08-30 | XR_ITS ---
EXAMINATION: XR BILATERAL KNEES AP STANDING XR LATERAL AND SUNRISE VIEWS OF BILATERAL KNEES CLINICAL INFORMATION: Pain in unspecified knee. COMPARISON: 02/22/2023, 06/05/2023, 02/27/2023. TECHNIQUE: AP standing view of bilateral knees. Lateral and sunrise views of bilateral knees. FINDINGS: Right Knee: Redemonstration of right total knee arthroplasty with hardware intact. Joint effusion. Alignment is preserved. Left Knee: Redemonstration of right total knee arthroplasty with hardware intact. Joint effusion. Alignment is preserved. XR/XR knee standing BI IMPRESSION: Bilateral total knee arthroplasties. Hardware appears intact.
== END 2023-08-30 12:38 | disposition home or self-care (01) ==
LOC: HO.HOSX 12:37
PROVIDERS: Visit Provider Orthopaedic Surgery
DX: M25.561 Pain in right knee (principal); M25.562 Pain in left knee; Z47.1 Aftercare following joint replacement surgery; Z96.653 Presence of artificial knee joint, bilateral
CPT/HCPCS: 73560; 73565; 99212

== ENCOUNTER 2023-08-30 13:30 | Outpatient (AMB) | payer MEDICARE, MEDICAID, SELFPAY ==
[2023-08-30 13:32] VITALS: BMI 28.4
--- NOTE | 2023-08-30 13:32 | MHC.OFFVIS ---
Intake Vital Signs 08/30/23 13:32 Height 5 ft 10 in Weight 198 lb BMI 28.4 Intake Visit Reasons: PO-LT TKA 06/05/23 NE w/xrays Intake Note: Carlos a 62 year old female who presents today for a post operative LT TKA, DOS 06/05/23 NE. Sprint device was implanted on 08/02/2023. Patient reports that he is still acclimated with the sprint device but it is helping. He is also using CBD cream, tincture and edible. Allergies dexamethasone [DEXAMETHASONE] Allergy (Severe, Verified 08/30/23 13:33) Steroid Physcosis atorvastatin Adverse Reaction (Intermediate, Verified 08/30/23 13:33) bone pain bupropion [From Wellbutrin] Adverse Reaction (Intermediate, Verified 08/30/23 13:33) negative thoughts fluticasone [From Wixela Inhub] Adverse Reaction (Intermediate, Verified 08/30/23 13:33) hand tremors, blood pressure dropping lisinopril [LISINOPRIL] Adverse Reaction (Intermediate, Verified 08/30/23 13:33) COUGH salmeterol [From Wixela Inhub] Adverse Reaction (Intermediate, Verified 08/30/23 13:33) hand tremors, blood pressure dropping HPI PO-LT TKA 06/05/23 NE w/xrays HPI Details Mayco is a 63 year old man ~3 months S/P left TKA. He is ~6 1/2 months S/P right TKA. He is doing well [facility] Medical History Localized osteoarthritis of left knee Osteoarthritis Allergic cough Asthma Depression Fibromyalgia Failed back syndrome of lumbar spine Renal calculi Pulmonary nodules Post covid-19 condition, unspecified Diverticulosis Neuropathy Lumbar disc disease Overweight (BMI 25.0-29.9) HLD (hyperlipidemia) Surgical History History of total right knee replacement History of arthroscopy of right knee History of carpal tunnel release H/O arthroscopy H/O colonoscopy Spinal cord stimulator status Family History Father Hypertension COPD (chronic obstructive pulmonary disease) Mother Hypertension Dementia Family/Other Lung cancer Social History Household Members: Spouse Household Members Other:: Stepson Housing: Condominium Are you a primary care asst to a significant other at home: No Do you presently have visiting nurse or other home services: No Alcohol intake: never Patient Tobacco Use Status: Former Tobacco user Quit Date: 1996 Tobacco use type: Cigarette Years Smoked: 20 e-Cigarette/Vaping Use: Never Used Second Hand Smoke Exposure: No service: No Current occupational status: employed 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 Current occupational exposures/hazards: No Cognitive needs: No Hearing needs: No Vision needs: No Review of Systems Const All systems reviewed & are unremarkable except as noted in HPI and below Physical Exam Vital Signs: BMI result Body Mass Index 28.4 Const General: no acute distress, alert and awake Orientation/consciousness: patient oriented x3 HEENT Head: Yes normocephalic and Yes atraumatic Eyes EOM: EOMs intact bilaterally Resp Effort & Inspection: normal respiratory effort and able to speak in complete sentences Cardio Jugular venous distension: no JVD Skin General skin exam: turgor normal Rashes: no rashes Neuro General: patient oriented x3 Extrem Other: 5-130 bilaterally with inc c/d/i Psych Appearance: grossly normal Affect: normal affect Attitude: cooperative Results Reviewed Results Reviewed: I personally reviewed relevant radiographs Left total knee arthroplasty in expected post operative position with no hardware complications or evidence of loosening Assessment & Plan Assessment & Plan (1) History of total left knee replacement: Code(s): Z96.652 - Presence of left artificial knee joint Plan: doing well. continue strengthening (2) Status post total knee replacement, right: Code(s): Z96.651 - Presence of right artificial knee joint Plan: doingw ell. continue strengthening Plan Scribed for Endy Sharp MD by Isaias Cody, medical lab specialist, on 08/30/23 at 2:10 PM, EST. Orders: Orders XR knee standing BI 08/30/23 M25.569 - Pain in unspecified knee XR knee RT 2V 08/30/23 M25.569 - Pain in unspecified knee XR knee LT 2V 08/30/23 M25.569 - Pain in unspecified knee Coding Level of Care Code Global (39130) Diagnoses History of total left knee replacement Z96.652 Status post total knee replacement, right Z96.651
== END 2023-08-30 15:14 | disposition home or self-care (01) ==
PROVIDERS: PCP Physician Assistant; Visit Provider Orthopaedic Surgery
DX: Z96.652 Presence of left artificial knee joint (principal); Z96.651 Presence of right artificial knee joint
CPT/HCPCS: 99024

== ENCOUNTER 2023-09-04 13:35 | Outpatient (AMB) | payer MEDICARE, MEDICAID, SELFPAY ==
[2023-09-04 14:03] VITALS: BP 130/70; PULSE 89; O2SAT 97; BMI 30.1
--- NOTE | 2023-09-04 14:03 | A.OFFVIS_ITS ---
Intake Vital Signs 09/04/23 14:03 Height 5 ft 10 in Weight 210 lb BMI 30.1 BP 130/70 Blood Pressure Location Rt brachial Position Sitting Pulse 89 Pulse Source Pulse Oximeter Pulse Oximetry (%) 97 Oxygen Delivery Method Room Air Intake Visit Reasons: productive cough Reaming Press Operator Required: No Environmental Engineering Assistant: Environmental Engineering Assistant offered & declined Accompanied by: Self / Same As Patient Allergies dexamethasone [DEXAMETHASONE] Allergy (Severe, Verified 09/04/23 14:13) Steroid Physcosis atorvastatin Adverse Reaction (Intermediate, Verified 09/04/23 14:13) bone pain bupropion [From Wellbutrin] Adverse Reaction (Intermediate, Verified 09/04/23 14:13) negative thoughts fluticasone [From Wixela Inhub] Adverse Reaction (Intermediate, Verified 09/04/23 14:13) hand tremors, blood pressure dropping lisinopril [LISINOPRIL] Adverse Reaction (Intermediate, Verified 09/04/23 14:13) COUGH salmeterol [From Wixela Inhub] Adverse Reaction (Intermediate, Verified 09/04/23 14:13) hand tremors, blood pressure dropping Medication List - Last Reconciled 09/04/23 by Lisa Flores LPN acetaminophen 650 mg (2 x 325 mg) PO Q6H PRN 30 days albuterol sulfate 90 mcg/actuation (Ventolin HFA) 2 puffs inhalation Q4-6H PRN celecoxib 200 mg PO BID docusate sodium 100 mg PO BID 30 days fluticasone propion-salmeterol 113-14 mcg/actuation (AirDuo RespiClick) 1 inh inhalation BID 30 days garlic 500 mg PO DAILY minoxidil 5% 1 ea topical DAILY multivitamin 1 tab PO DAILY red yeast rice 600 mg PO DAILY Ventolin HFA 90 mcg/actuation (albuterol sulfate) 2 puffs inhalation Q4-6H PRN NS HPI productive cough HPI Details Carlos is a pleasant 63 year old male, former under 10 pack-year sm oker, quit over 30 years prior, with underlying history of exposure to asbestos and prior COVID-1. At baseline, he is well controlled on AirDuo and albuterol MDI. Today he presents for an acute visit. He reports symptoms of productive cough with green to brown sputum for the past 2 weeks. He denies any dyspnea, wheezing or chest tightness. He denies any fevers or chills. [facility] Medical History Localized osteoarthritis of left knee Osteoarthritis Allergic cough Asthma Depression Fibromyalgia Failed back syndrome of lumbar spine Renal calculi Pulmonary nodules Post covid-19 condition, unspecified Diverticulosis Neuropathy Lumbar disc disease Overweight (BMI 25.0-29.9) HLD (hyperlipidemia) Surgical History History of total right knee replacement History of arthroscopy of right knee History of carpal tunnel release H/O arthroscopy H/O colonoscopy Spinal cord stimulator status Family History Father Hypertension COPD (chronic obstructive pulmonary disease) Mother Hypertension Dementia Family/Other Lung cancer Social History (Updated 09/04/23 @ 14:15 by Lisa Flores LPN) Household Members: Spouse Household Members Other:: [place] [facility] Are you a primary aged or disabled care worker to a significant other at home: No Do you presently have visiting nurse or other home services: No Alcohol intake: never Patient Tobacco Use Status: Former Tobacco user Quit Date: 1996 Tobacco use type: Cigarette Years Smoked: 20 Smoked in Last 30 Days: No e-Cigarette/Vaping Use: Never Used Second Hand Smoke Exposure: No service: No Current occupational status: employed 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 Current occupational exposures/hazards: No Cognitive needs: No Hearing needs: No Vision needs: No Review of Systems Const Denies chills, Denies excessive sweating, Denies fever(s), Denies headache(s) and Denies night sweats Eyes Denies dry eyes, Denies irritation and Denies itchy eyes ENT Reports Normal hearing present, Denies headache(s), Denies nasal congestion, Denies nasal discharge, Denies post nasal drip and Denies sore throat Card Denies chest pain, Denies chest pain at rest, Denies chest pain with activity, Denies claudication, Denies leg edema, Denies dyspnea, Denies dyspnea on exertion, Denies orthopnea and Denies paroxysmal nocturnal dyspnea Resp Denies pain on inspiration, Denies pain with cough, Denies dyspnea, Denies dyspnea on exertion, Denies stridor and Denies wheezing Musc Denies myalgias Neuro Reports Normal hearing present and Denies headache(s) Endo Denies excessive sweating Gurjit/Lymph Denies lymphadenopathy Aller/Immun Denies itchy eyes, Denies seasonal rhinorrhea and Denies wheezing Physical Exam Vital Signs: Last Vital Signs Pulse 89 09/04/23 14:03 BP 130/70 09/04/23 14:03 Pulse Ox 97 09/04/23 14:03 Oxygen Delivery Method Room Air 09/04/23 14:03 BMI result Body Mass Index 30.1 Const General: cooperative, healthy appearing, comfortable, no acute distress, well developed and alert Orientation/consciousness: patient oriented x3 Limitations: no limitations HEENT Head: Yes normal to inspection, Yes normocephalic and Yes atraumatic Ears: hearing grossly normal bilaterally and external ears normal Eyes General: appearance normal, both eyes and all related structures Eyelids: Yes eyelids normal Sclerae: sclerae normal EOM: EOMs intact bilaterally Neck Neck: Yes normal visual inspection and Yes no lymphadenopathy Lymphatic: no lymphadenopathy noted Chest Chest palpation & inspection: normal inspection of the chest Resp Effort & Inspection: normal respiratory effort, able to speak in complete sentences, no audible wheezes, no cough, no stridor, not tachypneic, no tripod positioning and no use of accessory muscles Auscultation: clear to auscultation bilaterally Cardio Jugular venous distension: no JVD Rate: regular rate Rhythm: regular rhythm Skin Other: warm, dry General skin exam: no rashes or lesions noted Neuro General: patient oriented x3 Cranial nerves: Yes Normal hearing present Cognition (Neuro): normal cognition Gait exam (Neuro): Normal gait present Extrem General: Yes normal to inspection, Yes capillary refill normal, Yes no clubbing, cyanosis or edema and Yes no pedal edema Psych Appearance: grossly normal and well kempt Speech and movement: Normal speech and movement present and Clear speech present Affect: normal affect Attitude: cooperative Thought process: Normal thought process present Thought content: Normal thought content present Insight: Good insight present (Psych) Judgement: Good judgement present (Psych) Assessment & Plan Assessment & Plan (1) Bronchitis: Code(s): J40 - Bronchitis, not specified as acute or chronic (2) Reactive airway disease: Code(s): J45.909 - Unspecified asthma, uncomplicated Qualifiers: Asthma complication type: uncomplicated Asthma persistence: intermittent Asthma severity: mild Qualified Code(s): J45.20 - Mild intermittent asthma, uncomplicated Plan Will treat bronchitic symptoms with azithromycin. Patient aware if symptoms do not improve to contact office and seek emergent care if they worsen. All questions were answered and patient is in agreement of plan. Will follow up for regularly scheduled appointment with Dr. Healy or sooner if needed. Medications: New azithromycin For 250 mg dose pack: take 500 mg today (day 1), then 250 mg for 4 days (days 2-5) PO 6 tabs 0RF Refilled acetaminophen 650 mg (2 x 325 mg) PO Q6H PRN 240 tabs 0RF Pain, Mild (Pain Scale 1-3) 30 days Coding Level of Care Code Est Pt Level 3 (71713) Diagnoses Bronchitis J40 Mild intermittent reactive airway disease without complication J45.20 Asthma complication type: uncomplicated Asthma persistence: intermittent Asthma severity: mild
== END 2023-09-04 14:36 | disposition home or self-care (01) ==
PROVIDERS: PCP Physician Assistant; Visit Provider Nurse Practitioner Family
DX: J40 Bronchitis, not specified as acute or chronic (principal); J45.20 Mild intermittent asthma, uncomplicated
CPT/HCPCS: 99213

== ENCOUNTER → 2023-09-04 13:35 | Outpatient (BNVA) | payer MEDICARE, MEDICAID, SELFPAY | PROVIDERS: PCP Physician Assistant; Visit Provider Nurse Practitioner Family | DX: J40 Bronchitis, not specified as acute or chronic (principal); J45.20 Mild intermittent asthma, uncomplicated | CPT/HCPCS: 99212 ==

== ENCOUNTER 2023-09-11 05:20 | Outpatient (REF) | payer MEDICARE, MEDICAID, SELFPAY | END 2023-09-11 05:21 | disposition home or self-care (01) | LOC: CF 05:20 | PROVIDERS: Visit Provider Anesthesiology | DX: M25.561 Pain in right knee (principal); G89.4 Chronic pain syndrome; Z96.651 Presence of right artificial knee joint | CPT/HCPCS: 64447; J2795 ==

== ENCOUNTER 2023-09-11 12:40 | Outpatient (AMB) | payer MEDICARE, MEDICAID, SELFPAY ==
--- NOTE | 2023-09-11 13:02 | MHC.OFFVIS ---
Intake Vital Signs 09/11/23 14:15 09/11/23 14:16 Height 5 ft 10 in 5 ft 10 in Weight 210 lb 210 lb BMI 30.1 30.1 BP 120/86 114/72 Blood Pressure Location Lt brachial Lt brachial Position Sitting Sitting Respiration 16 16 Pulse 88 87 Pulse Source Pulse Oximeter Pulse Oximeter Pulse Oximetry (%) 97 97 Oxygen Delivery Method Room Air Room Air Comment pre-op post-op Intake Visit Reasons: LEFT DIAGNOSTIC FEMORAL NERVE BLOCK Allergies dexamethasone [DEXAMETHASONE] Allergy (Severe, Verified 09/11/23 13:03) Steroid Physcosis atorvastatin Adverse Reaction (Intermediate, Verified 09/11/23 13:03) bone pain bupropion [From Wellbutrin] Adverse Reaction (Intermediate, Verified 09/11/23 13:03) negative thoughts fluticasone [From Wixela Inhub] Adverse Reaction (Intermediate, Verified 09/11/23 13:03) hand tremors, blood pressure dropping lisinopril [LISINOPRIL] Adverse Reaction (Intermediate, Verified 09/11/23 13:03) COUGH salmeterol [From Wixela Inhub] Adverse Reaction (Intermediate, Verified 09/11/23 13:03) hand tremors, blood pressure dropping PFSH Medical History Localized osteoarthritis of left knee Osteoarthritis Allergic cough Asthma Depression Fibromyalgia Failed back syndrome of lumbar spine Renal calculi Pulmonary nodules Post covid-19 condition, unspecified Diverticulosis Neuropathy Lumbar disc disease Overweight (BMI 25.0-29.9) HLD (hyperlipidemia) Surgical History History of total right knee replacement History of arthroscopy of right knee History of carpal tunnel release H/O arthroscopy H/O colonoscopy Spinal cord stimulator status Family History Father Hypertension COPD (chronic obstructive pulmonary disease) Mother Hypertension Dementia Family/Other Lung cancer Social History (Updated 09/04/23 @ 14:15 by Lisa Flores LPN) Household Members: Spouse Household Members Other:: [place] Housing: Condominium Are you a primary childcare director to a significant other at home: No Do you presently have visiting nurse or other home services: No Alcohol intake: never Patient Tobacco Use Status: Former Tobacco user Quit Date: 1996 Tobacco use type: Cigarette Years Smoked: 20 e-Cigarette/Vaping Use: Never Used Second Hand Smoke Exposure: No service: No Current occupational status: employed 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 Informed consent was plain to the patient. Postoperative weakness versus postoperative pain was explained to the patient. Patient expressed understanding. He was positioned supine in the bed. His left groin was prepped with ChloraPrep and draped with sterile utility towels. Sterilely draped ultrasound probe was brought over the operating field and picture of femoral vein, femoral nerve, and femoral artery were delineated on the screen. The location of the femoral nerve was noted on the screen. After that 100 mm echo stim needle was inserted extra anatomically through the skin and was advanced under in-plain fashion toward the image of the femoral nerve. When needle was positioned in the vicinity of the nerve injection of the saline was performed after aspiration. Expansion of the saline inthe perineural spave on the screen was observed. After that 5 cc of Ropivacaine 0.5% was performed in the vicinity of the nerve. Upon completion of the injection needle was removed and sterile dressing was applied. Patient tolerated procedure fairly well. (3) Right knee pain: Code(s): M25.561 - Pain in right knee Plan: Orders: Orders FL guidance in treatment room Today M25.562 - Pain in left knee Coding Level of Care Code Procedure Only Diagnoses Chronic pain syndrome G89.4 Status post total knee replacement, right Z96.651 Right knee pain M25.561
[2023-09-11 14:15] VITALS: BP 120/86; PULSE 88; RESP 16; O2SAT 97; BMI 30.1
[2023-09-11 14:16] VITALS: BP 114/72; PULSE 87; RESP 16; O2SAT 97; BMI 30.1
== END 2023-09-11 13:20 | disposition home or self-care (01) ==
LOC: HO.PMCPRC 12:40
PROVIDERS: PCP Physician Assistant; Visit Provider Anesthesiology
DX: G89.4 Chronic pain syndrome (principal); Z96.651 Presence of right artificial knee joint; M25.561 Pain in right knee
CPT/HCPCS: 64447

== ENCOUNTER 2023-09-13 14:04 | Outpatient (AMB) | payer MEDICARE, MEDICAID, SELFPAY ==
[2023-09-13 14:05] VITALS: BP 117/72; PULSE 88; O2SAT 99
--- NOTE | 2023-09-13 14:05 | MHC.OFFVIS ---
Intake Vital Signs 09/13/23 14:05 Height 5 ft 10 in Weight 209 lb BMI 30.0 BP 117/72 Blood Pressure Location Rt brachial Position Sitting Pulse 88 Pulse Source Doppler Pulse Oximetry (%) 99 Oxygen Delivery Method Room Air Intake Visit Reasons: pulm nodule Allergies dexamethasone [DEXAMETHASONE] Allergy (Severe, Verified 09/13/23 14:10) Steroid Physcosis atorvastatin Adverse Reaction (Intermediate, Verified 09/13/23 14:10) bone pain bupropion [From Wellbutrin] Adverse Reaction (Intermediate, Verified 09/13/23 14:10) negative thoughts fluticasone [From Wixela Inhub] Adverse Reaction (Intermediate, Verified 09/13/23 14:10) hand tremors, blood pressure dropping lisinopril [LISINOPRIL] Adverse Reaction (Intermediate, Verified 09/13/23 14:10) COUGH salmeterol [From Wixela Inhub] Adverse Reaction (Intermediate, Verified 09/13/23 14:10) hand tremors, blood pressure dropping HPI pulm nodule HPI Details 63-year-old gentleman, former under 10 pack-year smoker, quit over 30 years prior, with underlying history of exposure to asbestos and prior COVID-19. Patient states that his father has had asbestosis and mesothelioma from his exposure to asbestos. Patient's pulmonary function tests that has been essentially normal and CT chest that did not show any evidence of asbestosis, but pulmonary nodules 6 mm and under. He has completed his 2D echocardiogram which has essentially been normal.? His sleep study showed no underlying obstructive sleep apnea.? His symptoms previously well controlled on Advair, however his insurance stopped covering.? He has been using AirDuo with good control of his symptoms. He did have a recent exacerbation treated with a course of azithromycin and now is essentially back to baseline. [facility] Medical History (Updated 09/13/23 @ 14:20 by Michael Healy MD) Pulmonary nodules Localized osteoarthritis of left knee Osteoarthritis Allergic cough Asthma Depression Fibromyalgia Failed back syndrome of lumbar spine Renal calculi Post covid-19 condition, unspecified Diverticulosis Neuropathy Lumbar disc disease Overweight (BMI 25.0-29.9) HLD (hyperlipidemia) Surgical History History of total right knee replacement History of arthroscopy of right knee History of carpal tunnel release H/O arthroscopy H/O colonoscopy Spinal cord stimulator status Family History Father Hypertension COPD (chronic obstructive pulmonary disease) Mother Hypertension Dementia Family/Other Lung cancer Social History Household Members: Spouse Household Members Other:: Ste[place] Housing: Condominium Are you a primary child care associate to a significant other at home: No Do you presently have visiting nurse or other home services: No Alcohol intake: never Patient Tobacco Use Status: Former Tobacco user Quit Date: 1996 Tobacco use type: Cigarette Years Smoked: 20 e-Cigarette/Vaping Use: Never Used Second Hand Smoke Exposure: No service: No Current occupational status: employed 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 Current occupational exposures/hazards: No Cognitive needs: No Hearing needs: No Vision needs: No Review of Systems Const Denies daytime sleepiness, Denies excessive sweating, Denies fatigue, Denies fever(s), Denies lethargy, Denies malaise, Denies night sweats, Denies snoring and Denies weight loss Eyes Denies blurry vision and Denies itchy eyes ENT Denies nasal congestion, Denies post nasal drip, Denies sinus pain, Denies sinus pressure and Denies other ( Thrush) Card Denies chest pain, Denies pedal edema, Denies dyspnea, Denies orthopnea and Denies paroxysmal nocturnal dyspnea Resp Denies cough, Denies hemoptysis, Denies excessive phlegm production, Denies dyspnea, Denies snoring and Denies wheezing GI Denies abdominal pain and Denies heartburn Musc Denies myalgias, Denies arthralgias and Denies joint swelling Skin/Breast Denies rash Neuro Denies memory loss and Denies seizure-like activity Psych Denies abnormal sleep pattern, Denies anxiety and Denies memory loss Endo Denies excessive sweating, Denies fatigue and Denies heat intolerance Gurjit/Lymph Denies easy bruising Aller/Immun Denies itchy eyes, Denies seasonal rhinorrhea and Denies wheezing Physical Exam Vital Signs: Last Vital Signs Pulse 88 09/13/23 14:05 BP 117/72 09/13/23 14:05 Pulse Ox 99 09/13/23 14:05 Oxygen Delivery Method Room Air 09/13/23 14:05 BMI result Body Mass Index 30.0 Const General: no acute distress and alert Nutritional Appearance: not obese Orientation/consciousness: Other orientation findings ( oriented) HEENT Head: Yes atraumatic Eyes General: appearance normal, both eyes and all related structures Sclerae: sclerae normal EOM: EOMs intact bilaterally Neck Neck: Yes supple Lymphatic: no lymphadenopathy noted Resp Effort & Inspection: normal respiratory effort and no use of accessory muscles Auscultation: clear to auscultation bilaterally Cardio Rate: regular rate Rhythm: regular rhythm Heart sounds: no gallops, no murmurs and no rubs Skin General skin exam: other ( warm) Extrem General: No clubbing, No cyanosis and No edema Assessment & Plan Assessment & Plan (1) Reactive airway disease: Code(s): J45.909 - Unspecified asthma, uncomplicated Qualifiers: Asthma severity: mild Asthma persistence: intermittent Asthma complication type: uncomplicated Qualified Code(s): J45.20 - Mild intermittent asthma, uncomplicated Plan: Well controlled on current regimen of AirDuo and albuterol MDI. Continue current regimen. (2) Pulmonary nodules: Code(s): R91.8 - Other nonspecific abnormal finding of lung field Plan: Previously stable nodules, follow-up CT chest is pending for January of 2024. Coding Level of Care Code Est Pt Level 4 (78280) Diagnoses Mild intermittent reactive airway disease without complication J45.20 Asthma severity: mild Asthma persistence: intermittent Asthma complication type: uncomplicated Pulmonary nodules R91.8
== END 2023-09-13 14:19 | disposition home or self-care (01) ==
PROVIDERS: PCP Physician Assistant; Visit Provider Internal Medicine Pulmonary Disease
DX: J45.20 Mild intermittent asthma, uncomplicated (principal); R91.8 Other nonspecific abnormal finding of lung field
CPT/HCPCS: 99214

== ENCOUNTER → 2023-09-13 14:04 | Outpatient (BNVA) | payer MEDICARE, MEDICAID, SELFPAY | PROVIDERS: PCP Physician Assistant; Visit Provider Internal Medicine Pulmonary Disease | DX: J45.20 Mild intermittent asthma, uncomplicated (principal); R91.8 Other nonspecific abnormal finding of lung field | CPT/HCPCS: 99212 ==

== ENCOUNTER 2023-09-18 10:55 | Outpatient (AMB) | payer MEDICARE, MEDICAID, SELFPAY ==
[2023-09-18 11:07] VITALS: BP 119/78; PULSE 80; RESP 18; O2SAT 99; BMI 29.2
--- NOTE | 2023-09-18 11:07 | MHC.OFFVIS ---
Intake Vital Signs 09/18/23 11:07 Height 5 ft 10 in Weight 203 lb 8 oz BMI 29.2 BP 119/78 Blood Pressure Location Lt brachial Position Sitting Respiration 18 Pulse 80 Pulse Source Pulse Oximeter Pulse Oximetry (%) 99 Oxygen Delivery Method Room Air Intake Visit Reasons: LEFT DIAGNOSTIC FEMORAL NB/09/11/23/lvm Allergies dexamethasone [DEXAMETHASONE] Allergy (Severe, Verified 09/18/23 11:07) Steroid Physcosis atorvastatin Adverse Reaction (Intermediate, Verified 09/18/23 11:07) bone pain bupropion [From Wellbutrin] Adverse Reaction (Intermediate, Verified 09/18/23 11:07) negative thoughts fluticasone [From Wixela Inhub] Adverse Reaction (Intermediate, Verified 09/18/23 11:07) hand tremors, blood pressure dropping lisinopril [LISINOPRIL] Adverse Reaction (Intermediate, Verified 09/18/23 11:07) COUGH salmeterol [From Wixela Inhub] Adverse Reaction (Intermediate, Verified 09/18/23 11:07) hand tremors, blood pressure dropping HPI HPI Comments History of Present Illness Details Carlos presents to the office today for follow up, 1 week s/p left femoral nerve block. Patient reports greater than 90% pain relief in the 9 hours after the procedure with improvement in function mobility. He denies untoward effects and would like to proceed with Sprint PNS placement. Past Procedures: 09/11/23: Diagnostic Left Femoral Nerve Block->90% pain relief for 9 hours 08/02/23: Right femoral nerve Sprint PNS: 60-70% ongoing pain relief 05/29/23: Diagnostic Right Femoral Nerve Block-100% pain relief for 14 hours Prior: Patient presents today 1 week status post Right femoral nerve Sprint PNS placement on 08/02/[address] Aly. Patient reports 60-70% ongoing pain relief with significant improvement in mobility, functioning, and ADLs on the right. Patient also had left sided TKA on 06/05/23 and has ongoing residual pain. He recently stopped taking oxycodone and notes increase in his left knee pain. Patient would like to undergo left femoral nerve block for potential Sprint PNS on the left too. He continues Physical Therapy for left knee s/p TKA. Romi franco from Sprint PNS was present today and has changed patient's dressing. Patient will continue this at home with the help of his family as well as in clinic dressing changes as needed. Denies any recent cough, cold, infection, fever or other significant changes in medical history since last office visit. PRIOR: Patient presents today for follow up regarding ongoing pain in his right anterior knee, more lateral aspect status post Right TKA 02/27/23. He reports residual numbness along medial aspect and localized tenderness in his lateral aspects. He continues to stay active with physical therapy 3x per week for strengthening and [id number] exercises. Patient notices increased right knee pain as his Vicodin has been titrated down. He is interested in interventional treatment options for right knee. He is scheduled to undergo left TKA on 06/05/23. We will schedule him for left femoral nerve block prior this for potential peripheral nerve stimulation after his rehab for left knee after TKA. He continues to use lumbar SCS device for his chronic back pain with good results. Denies any recent cough, cold, infection, fever or other significant changes in medical history since last office visit. PRIOR: Patient is a very pleasant 62-year-old male presents today for follow-up for SCS program adjustment and meeting with rep Kline from [facility]. He is accompanied by his Caroline. Patient was last seen in our office by Dr. Aly on 04/21/2020. Patient reports spinal cord stimulator has been working well for his back pain relief but has no pain relief coverage in his legs. He reports 0/10 pain today. As of note, patient recently underwent right total knee replacement and has follow-up appointment with Orthopedics today for staple removal. Curiously his taking Vicodin as needed for postop knee pain. Patient is looking forward to adjust his spinal cord stimulator to obtain better coverage to include his leg pain. Denies any recent cough, cold, infection, fever or other significant changes in medical history since last office visit. Patient denies any bladder or bowel incontinence or saddle anesthesia. Ambulates with mildly antalgic gait and uses cane with ambulation. PRIOR 04/21/2020 Dr. Aly: Mr. Hart returns to the office today for an ongoing left heel pain. He received transforaminal left L3-L4 and L4-5 epidural steroid injections again. He reports better mobility, better moved around, HOWEVER THIS TIME HE REPORTS AGGRAVATED PAIN FOR NEXT 2 WEEKS AFTER THE INJECTION AND THEN THE PAIN SUBSIDED AND BECAME BETTER. I A A SUSPECT THAT MIGHT BE EFFECT OF THE RADIATION OF THE NERVE ROOTS FROM THE STEROIDS. I OFFERED HIM NEXT TIME WHEN HIS PAIN IS GETTING STRONGER TO COME AND RECEIVE INJECTIONS WITH NON PARTICULATE STEROIDS. ALTERNATIVELY HIS FORAMINAL STENOSIS MIGHT BE RE-EVALUATED BY NEUROSURGEON. WE DECIDED THAT 1 MORE TIME WE WILL TRY NON PARTICULATE STEROID INJECTIONS AND IF THIS WILL GIVE YOU THE SAME AGGRAVATION I WILL REFER HIM TO NEUROSURGICAL CARE. HE WILL GIVE US A CALL WHEN HIS PAIN IS STRONGER AND HE WANTS INJECTION AGAIN. ALTERNATIVELY WE CAN RETURN BACK TO DISCUSSION OF THE PAIN PUMP FOR HIM. HE ALSO HAS SPINAL CORD STIMULATOR ALREADY IMPLANTED HOWEVER HE REPORTS THAT IT HELPS HIS PAIN ONLY 20%. PRIOR: He was evaluated by a neurosurgeon Dr. Arzola and he did not receive recommendation for surgery. 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 He reports that his pain is being helped by spinal cord stimulator but he cannot continue working he wants to apply for disability. His pain is in the projection of the posterior calcaneal bone to the skin. He reports the most severe pain he feels when he bends himself forward and at that moment he feels the pain in lthe lumbar spine with the pain increase in the area described above. He reports he has had a progressively worsening electrical charge, burning, stabbing pain. Last time we started him on gabapentin and amitriptyline a and he reported side effect on both gabapentin and amitriptyline. Gabapentin causes him to have introduced if suicidal thoughts. Amitriptyline causes dry mouth, urinary retention, and difficulties with vision. I told him to stop both medications we discussed Lyrica today. I do not thing Lyrica is a good medication considering the fact that gabapentin gave him suicidal thoughts He has not had any injuries to foot. Mr. Hart had a Spinal Cord Stimulator implanted 07/12/18, which has resulted in significant alleviation of lower back and radiating leg pain. He can obtain SCS coverage throughout legs and down to feet, including his heels. He reports that regardless of if stimulator is on or off, he continues to experience this burning nerve pain in this distribution. MRI results: Chronic fatty marrow degenerative endplate changes noted at multiple levels with moderate to severe loss of disc height at L4-5 and L5-S1, similar to prior imaging. Mild endplate in a edematous changes noted at the L3-L4 and L4-L5. There is also minimal endplate edema anterior inferiorly at the T11 level due to degenerative Schmorl's node there are no compression fractures slight a retro subluxation is stable at L3-L4 no anterior subluxations are seen small far pelvic renal cyst partially visualized the paraspinal soft tissues are otherwise unremarkable there is leftward curvature of the upper lumbar spine and the rightward curvature of the lower lumbar spine. L1-L2: No disc pathology no central canal stenosis or foraminal narrowing. L2-L3: Very mild facet arthropathy. Well-hydrated normal appearance of the disc without central canal stenosis or foraminal narrowing. L3-L4: Mild retro subluxation and disc bulge with resorption of the previously small central disc protrusion mild central canal stenosis and facet arthropathy again evident contributing to mild bilateral foraminal narrowing. L4-L5: Moderate to severe loss of disc height with makes chronic and mild edematous endplate changes hypertrophic facet arthropathy again noted with mild central canal stenosis and very mild left foraminal narrowing. L5-S1 moderate to severe loss of disc height with endplate spurring and facet arthropathy no central canal stenosis or foraminal narrowing. [facility] Medical History (Updated 09/13/23 @ 14:20 by Michael Healy MD) Pulmonary nodules Localized osteoarthritis of left knee Osteoarthritis Allergic cough Asthma Depression Fibromyalgia Failed back syndrome of lumbar spine Renal calculi Post covid-19 condition, unspecified Diverticulosis Neuropathy Lumbar disc disease Overweight (BMI 25.0-29.9) HLD (hyperlipidemia) Surgical History History of total right knee replacement History of arthroscopy of right knee History of carpal tunnel release H/O arthroscopy H/O colonoscopy Spinal cord stimulator status Family History Father Hypertension COPD (chronic obstructive pulmonary disease) Mother Hypertension Dementia Family/Other Lung cancer Social History Household Members: Spouse Household Members Other:: Stepson Housing: Condominium Are you a primary resident care aid to a significant other at home: No Do you presently have visiting nurse or other home services: No Alcohol intake: never Patient Tobacco Use Status: Former Tobacco user Quit Date: 1996 Tobacco use type: Cigarette Years Smoked: 20 e-Cigarette/Vaping Use: Never Used Second Hand Smoke Exposure: No service: No Current occupational status: employed 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 Answers questions appropriately. Fully engaged in examination. Skin: warm, dry, intact HEENT: Normocephalic. Hearing intact. Cardiac: External chest normal in appearance. Respiratory: No cough, audible wheezing or stridor. Abdomen: without gross distension. MS: No obvious swelling or deformities. Able to transition from sit to stand unassisted. Ambulates with bilaterally normal heel strike and toe off Neurological: Oriented to person, place, time and situation. Thought process intact. Psychiatric: Appropriate mood and affect. Good judgment and insight. Results Reviewed Results Reviewed: XR KNEE, RIGHT 02/27/23 CLINICAL INFORMATION: Right total knee arthroplasty COMPARISON: X-rays of the right knee 02/22/2023 MRI right knee November 2022 TECHNIQUE: Portable AP and portable crosstable lateral view of the right knee FINDINGS: There is a total knee arthroplasty in place. The components are in the usual position There is no periprosthetic fracture or surrounding abnormal lucency. There is a small effusion. There is a small amount of gas in the soft tissues compatible with postoperative result. Skin heidi also noted. The surrounding soft tissues are normal. IMPRESSION: Right total knee arthroplasty without complication by x-ray. XR KNEE, LEFT 06/05/23 CLINICAL INFORMATION: Left total knee replacement COMPARISON: 02/22/2023 FINDINGS: Left total knee replacement has been performed. Prosthetic components appear appropriate in position. Alignment is satisfactory. Surgical skin heidi, suprapatellar effusion and soft tissue air identified in the immediate postoperative state. IMPRESSION: Left total knee replacement. Assessment & Plan Assessment & Plan (1) Status post total knee replacement, right: Code(s): Z96.651 - Presence of right artificial knee joint (2) Right knee pain: Code(s): M25.561 - Pain in right knee (3) History of total left knee replacement: Code(s): Z96.652 - Presence of left artificial knee joint (4) Osteoarthritis of right knee: Code(s): M17.11 - Unilateral primary osteoarthritis, right knee Plan Carlos is a very pleasant 63 year old male who presents to the office for follow up 1 week s/p left femoral nerve block for chronic knee pain after knee replacement surgery. Patient tolerated well and reports greater than 90% pain relief in the hours after the injection with improvement in function and mobility. He would like to proceed with Sprint PNS. Will Schedule for Fluoroscopy guided left femoral nerve Sprint PNS with local anesthetic. All questions and concerns were addressed during the visit. Patient agrees with the plan. Follow-up after Sprint placement, sooner if needed. Coding Level of Care Code Est Pt Level 3 (87047) Diagnoses Status post total knee replacement, right Z96.651 Right knee pain M25.561 History of total left knee replacement Z96.652 Osteoarthritis of right knee M17.11
== END 2023-09-18 11:12 | disposition home or self-care (01) ==
PROVIDERS: PCP Physician Assistant; Visit Provider Registered Nurse Emergency
DX: Z96.651 Presence of right artificial knee joint (principal); M25.561 Pain in right knee; Z96.652 Presence of left artificial knee joint; M17.11 Unilateral primary osteoarthritis, right knee
CPT/HCPCS: 99213

== ENCOUNTER → 2023-09-18 10:55 | Outpatient (BNVA) | payer MEDICARE, MEDICAID, SELFPAY | PROVIDERS: PCP Physician Assistant; Visit Provider Registered Nurse Emergency | DX: M25.561 Pain in right knee (principal); M17.11 Unilateral primary osteoarthritis, right knee; Z96.651 Presence of right artificial knee joint; Z96.652 Presence of left artificial knee joint | CPT/HCPCS: 99212 ==

== ENCOUNTER 2023-10-04 10:57 | Day surgery (SDC) | payer MEDICARE, MEDICAID, SELFPAY ==
[2023-10-04 11:48] VITALS: BMI 29.5
--- NOTE | 2023-10-04 12:33 | MHC.SHP ---
Pre-Procedural Eval Section A Date of Service: 10/04/23 The patient is an INPATIENT: No Changes since office visit: Yes Patient answered all questions The History & Physical has been completed within 30 days and I have reviewed it.: No Section B Chief Complaint: Pain in left knee Details of Present Illness: as above Relevant Family History (Specify if Yes): No Relevant Social History: None Present Medications: None Medical History: No relevant PMH History of Previous Operations: No relevant previous surgery Allergies: Allergies Allergy/AdvReac Type Severity Reaction Status Date / Time dexamethasone [DEXAMETHASONE] Allergy Severe Steroid Verified 09/18/23 11:07 Physcosis atorvastatin AdvReac Intermediate bone pain Verified 09/18/23 11:07 bupropion [From Wellbutrin] AdvReac Intermediate negative Verified 09/18/23 11:07 thoughts fluticasone AdvReac Intermediate hand Verified 09/18/23 11:07 [From Wixela Inhub] tremors, blood pressure dropping lisinopril [LISINOPRIL] AdvReac Intermediate COUGH Verified 09/18/23 11:07 salmeterol AdvReac Intermediate hand Verified 09/18/23 11:07 [From Wixela Inhub] tremors, blood pressure dropping Review of Systems Sugical H&P ROS: Negative: Constitution, Cardiovascular, Respiratory, Neurological, Psychiatric, Hem-Onc, Allergic/Immunologic, Gastrointestinal, Genitourinary, Musculoskeletal, Integumentary, Endocrine and Eyes/Ears/Nose/Throat Exam Surgical H&P Exam: Normal: HEENT, Normal: Heart, Normal: Lungs, Normal: Extremities, Normal: Abdomen, Normal: Skin and Normal: Neurological Plan Diagnosis/Plan: Unchanged I have reviewed the history and physical and performed a pertinent physical examination on my patient. No changes have occurred unless specified. Time Spent With Patient Time: Total time managing care of this patient today ____ minutes.
--- NOTE | 2023-10-04 12:34 | W.PM.OPN ---
Operative Note Operative Note Date of Service: 10/04/23 Narrative: Sprint PNS femoral nerve left side. After the risks, benefits and alternatives were discussed with the patient and informed consent was obtained, patient was placed in the prone position and padded to foster comfort. Time out was performed delineating correct site and side of the procedure , name and of the patient, patient participated in time out procedure. Left groinleft lower abdomen and left anterior thigh were prepped with ChloraPrep and draped with sterile utility towels. Full body drape was applied. ?Sterily draped Ultrasound probe was brought over the operating field and ultrasound picture of the left femoral nerve right femoral artery and left femoral vein were demonstrated on the screen. After identifying and marking the intended target, the skin around the planned entry point and the subcutaneous tissues were injected with local anesthetic forming skin wheal.. ?A percutaneous sleeve and stimulating probe lead introduction system were assembled, inserted and advanced through the skin wheal to the? point of interest under Live ultrasound view, the introducer needle was delivered to a location in proximity to the femoral nerve in upper portion of the nerve. Multiple stimulation parameters were used to deliver stimulation to the? nerve in concert with stimulating at multiple positions around the nerve. Nerve target acquisition was confirmed noting generation of? in the? corresponding to the nerve being stimulated. Various electrical parameter combinations were tested, and the lead location was adjusted? until the patient indicated? overlapping the distribution of the patient?s typical region of pain. The stimulating probe was removed from the introducer and a percutaneous lead was guided through the needle and delivered to a location in similar proximity to the nerve. Final location was verified with electrical stimulation. The introducer needle was removed, and the exposed end of the percutaneous lead was attached to an external stimulator unit. Various electrical parameter combinations were again tested until the patient indicated paresthesia or muscle tension overlapping the distribution of the patient?s typical region of pain. After confirming that lead impedance was in the normal range, the external unit was detached, the needle was removed, and the lead was anchored at the skin. The lead was threaded into the connector block and electrical continuity and desired patient response was confirmed. The connector block was attached to the external stimulator unit. The site was covered with a sterile occlusive dressing .. ?Upon completion of the procedure the patient was taken outside the OR where he recovered uneventfully, He went home without immediate complications.
[2023-10-04 13:08] VITALS: BP 136/80; PULSE 74; RESP 18; TEMP 37.1; O2SAT 98
--- NOTE | 2023-10-04 13:32 | P.BOP_ITS ---
Brief Operative Note Date of Service: 10/04/23 Pre-op diagnosis: pain in the left knee Post-op diagnosis: same Procedure: Sprint PNS left femoral nerve Surgeon: Abram Aly MD Anesthesia: local Was an Ornamental Metal Worker Apprentice used for this Procedure?: No Estimated blood loss (mL): 0 Pathology: none sent Condition: stable Disposition: PACU
== END 2023-10-04 13:36 | disposition home or self-care (01) ==
PROVIDERS: PCP Physician Assistant; Visit Provider Anesthesiology
PROC: (CPT 64555; principal; 2023-10-04 12:30)
DX: M25.562 Pain in left knee (principal); G89.4 Chronic pain syndrome; M17.12 Unilateral primary osteoarthritis, left knee; Z96.652 Presence of left artificial knee joint; M79.7 Fibromyalgia; M96.1 Postlaminectomy syndrome, not elsewhere classified; E66.9 Obesity, unspecified; Z68.29 Body mass index [BMI] 29.0-29.9, adult; E78.5 Hyperlipidemia, unspecified; J45.909 Unspecified asthma, uncomplicated; R91.8 Other nonspecific abnormal finding of lung field; Z79.51 Long term (current) use of inhaled steroids; Z79.899 Other long term (current) drug therapy; Z88.8 Allergy status to other drugs, medicaments and biological substances; Z98.890 Other specified postprocedural states; Z87.891 Personal history of nicotine dependence
CPT/HCPCS: 64555; C1778; J2795

== ENCOUNTER → 2023-10-04 10:57 | Outpatient (BNV) | payer MEDICARE, MEDICAID, SELFPAY | PROVIDERS: PCP Physician Assistant; Visit Provider Anesthesiology | DX: M25.562 Pain in left knee (principal) | CPT/HCPCS: 64555 ==

== ENCOUNTER 2023-10-11 11:21 | Outpatient (REF) | payer MEDICARE, MEDICAID, SELFPAY ==
[2023-10-11 12:23] LABS: Hematocrit 42.2 % (42.0-52.0); Hemoglobin 13.9 g/dl (14.0-18.0); Mean Corpuscular HGB Conc 32.9 g/dl (31.0-36.0); Mean Corpuscular Hemoglobin 30.1 pg (27.0-33.0); Mean Corpuscular Volume 91.3 fL (80.0-98.0); Mean Platelet Volume 9.8 fL (9.4-12.4); Platelet Count 401 X10*3/uL (160-400); Red Blood Count 4.62 X10*6/uL (4.60-5.80); White Blood Count 6.9 X10*3/uL (4.8-10.8)
[2023-10-11 12:55] LABS: Alanine Aminotransferase 24 U/L (0-40); Albumin Level 4.5 g/dL (3.5-5.0); Alkaline Phosphatase 66 U/L (39-117); Anion Gap 13 (12-20); Aspartate Amino Transferase 22 U/L (5-37); Bilirubin Total 0.5 mg/dL (0.0-1.0); Blood Urea Nitrogen 20 mg/dL (9-16); Carbon Dioxide 29 mmol/L (22-29); Chloride 105 mmol/L (96-108); Cholesterol 218 mg/dL (<200); Estimated Glomerular Filt Rate > 60; Glucose Fasting 94 mg/dL (60-99); HDL Cholesterol 43 mg/dL (>40); LDL Cholesterol Calculated 151 mg/dL (<100); Potassium 4.6 mmol/L (3.3-5.1); Sodium 142 mmol/L (135-145); Total Protein 7.3 g/dL (6.5-8.0); Triglycerides 123 mg/dL (<150)
[2023-10-11 13:37] LABS: Prostate Specific Antigen Scr 1.01 ng/mL (<0.05-4.0)
[2023-10-15 11:33] LABS: Vitamin B6 47.9 ng/mL (2.1-21.7)
== END 2023-10-11 11:22 | disposition home or self-care (01) ==
LOC: HO.LAB 11:21
PROVIDERS: Visit Provider Physician Assistant
DX: Z12.5 Encounter for screening for malignant neoplasm of prostate (principal); E67.2 Megavitamin-B6 syndrome; E78.2 Mixed hyperlipidemia; Z96.653 Presence of artificial knee joint, bilateral
CPT/HCPCS: 36415; 80053; 80061; 84153; 84207; 85027; 99212

== ENCOUNTER 2023-10-11 11:41 | Outpatient (AMB) | payer MEDICARE, MEDICAID, SELFPAY ==
--- NOTE | 2023-10-11 11:45 | A.OFFVIS_ITS ---
Intake Vital Signs 10/11/23 11:49 Height 5 ft 10 in Weight 200 lb 8 oz BMI 28.8 BP 138/87 Blood Pressure Location Rt brachial Position Sitting Pulse 75 Pulse Source Pulse Oximeter Pulse Oximetry (%) 99 Oxygen Delivery Method Room Air Intake Visit Reasons: S/p (L) Femoral Nerve Sprint 10/04/23 Intake Note: Pain today 12/01 Hand [employer] Required: No Accompanied by: Self / Same As Patient Allergies dexamethasone [DEXAMETHASONE] Allergy (Severe, Verified 09/18/23 11:07) Steroid Physcosis atorvastatin Adverse Reaction (Intermediate, Verified 09/18/23 11:07) bone pain bupropion [From Wellbutrin] Adverse Reaction (Intermediate, Verified 09/18/23 11:07) negative thoughts fluticasone [From Wixela Inhub] Adverse Reaction (Intermediate, Verified 09/18/23 11:07) hand tremors, blood pressure dropping lisinopril [LISINOPRIL] Adverse Reaction (Intermediate, Verified 09/18/23 11:07) COUGH salmeterol [From Wixela Inhub] Adverse Reaction (Intermediate, Verified 09/18/23 11:07) hand tremors, blood pressure dropping HPI HPI Comments History of Present Illness Details Patient presents today one week s/p Left femoral nerve Sprint PNS trial on 10/04/[address] Aly. Patient reports 70% ongoing pain relief with significant improvement in mobility, functioning, and ADLs with the left knee. His right femoral Sprint lead was pulled by Dr. Aly on 10/04/23 with ongoing 90% right knee pain relief. Patient is content with outcome of both Sprint trials so far. He will continue to monitor his symptoms. Patient has changed his left Sprint dressing this morning and showed picture of lead site on his phone. The site is clean, intact, no pathological discharge. Patient denies any difficulties with device care and dressing changes. Denies any recent cough, cold, infection, fever or other significant changes in medical history since last office visit. Past Procedures: 10/04/23: Left femoral nerve Sprint PNS: 70% ongoing pain relief 09/11/23: Diagnostic Left Femoral Nerve Block->90% pain relief for 9 hours 08/02/23: Right femoral nerve Sprint PNS : 60-70% ongoing pain relief, removed 01/11/24-90% pain relief 05/29/23: Diagnostic Right Femoral Nerve Block-100% pain relief for 14 hours PRIOR: Patient presents today for follow up regarding ongoing pain in his right anterior knee, more lateral aspect status post Right TKA 02/27/23. He reports residual numbness along medial aspect and localized tenderness in his lateral aspects. He continues to stay active with physical therapy 3x per week for strengthening and [id number] exercises. Patient notices increased right knee pain as his Vicodin has been titrated down. He is interested in interventional treatment options for right knee. He is scheduled to undergo left TKA on 06/05/23. We will schedule him for left femoral nerve block prior this for potential peripheral nerve stimulation after his rehab for left knee after TKA. He continues to use lumbar SCS device for his chronic back pain with good results. Denies any recent cough, cold, infection, fever or other significant changes in medical history since last office visit. PRIOR: Patient is a very pleasant 62-year-old male presents today for follow-up for SCS program adjustment and meeting with rep Kline from [employer]. He is accompanied by his Caroline. Patient was last seen in our office by Dr. Aly on 04/21/2020. Patient reports spinal cord stimulator has been working well for his back pain relief but has no pain relief coverage in his legs. He reports 0/10 pain today. As of note, patient recently underwent right total knee replacement and has follow-up appointment with Orthopedics today for staple removal. Curiously his taking Vicodin as needed for postop knee pain. Patient is looking forward to adjust his spinal cord stimulator to obtain better coverage to include his leg pain. Denies any recent cough, cold, infection, fever or other significant changes in medical history since last office visit. Patient denies any bladder or bowel incontinence or saddle anesthesia. Ambulates with mildly antalgic gait and uses cane with ambulation. PRIOR 04/21/2020 Dr. Aly: Mr. Hart returns to the office today for an ongoing left heel pain. He received transforaminal left L3-L4 and L4-5 epidural steroid injections again. He reports better mobility, better moved around, HOWEVER THIS TIME HE REPORTS AGGRAVATED PAIN FOR NEXT 2 WEEKS AFTER THE INJECTION AND THEN THE PAIN SUBSIDED AND BECAME BETTER. I A A SUSPECT THAT MIGHT BE EFFECT OF THE RADIATION OF THE NERVE ROOTS FROM THE STEROIDS. I OFFERED HIM NEXT TIME WHEN HIS PAIN IS GETTING STRONGER TO COME AND RECEIVE INJECTIONS WITH NON PARTICULATE STEROIDS. ALTERNATIVELY HIS FORAMINAL STENOSIS MIGHT BE RE-EVALUATED BY NEUROSURGEON. WE DECIDED THAT 1 MORE TIME WE WILL TRY NON PARTICULATE STEROID INJECTIONS AND IF THIS WILL GIVE YOU THE SAME AGGRAVATION I WILL REFER HIM TO NEUROSURGICAL CARE. HE WILL GIVE US A CALL WHEN HIS PAIN IS STRONGER AND HE WANTS INJECTION AGAIN. ALTERNATIVELY WE CAN RETURN BACK TO DISCUSSION OF THE PAIN PUMP FOR HIM. HE ALSO HAS SPINAL CORD STIMULATOR ALREADY IMPLANTED HOWEVER HE REPORTS THAT IT HELPS HIS PAIN ONLY 20%. PRIOR: He was evaluated by a neurosurgeon Dr. Arzola and he did not receive recommendation for surgery. 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 He reports that his pain is being helped by spinal cord stimulator but he cannot continue working he wants to apply for disability. His pain is in the projection of the posterior calcaneal bone to the skin. He reports the most severe pain he feels when he bends himself forward and at that moment he feels the pain in lthe lumbar spine with the pain increase in the area described above. He reports he has had a progressively worsening electrical charge, burning, stabbing pain. Last time we started him on gabapentin and amitriptyline a and he reported side effect on both gabapentin and amitriptyline. Gabapentin causes him to have introduced if suicidal thoughts. Amitriptyline causes dry mouth, urinary retention, and difficulties with vision. I told him to stop both medications we discussed Lyrica today. I do not thing Lyrica is a good medication considering the fact that gabapentin gave him suicidal thoughts He has not had any injuries to foot. Mr. Hart had a Spinal Cord Stimulator implanted 07/12/18, which has resulted in significant alleviation of lower back and radiating leg pain. He can obtain SCS coverage throughout legs and down to feet, including his heels. He reports that regardless of if stimulator is on or off, he continues to experience this burning nerve pain in this distribution. MRI results: Chronic fatty marrow degenerative endplate changes noted at multiple levels with moderate to severe loss of disc height at L4-5 and L5-S1, similar to prior imaging. Mild endplate in a edematous changes noted at the L3-L4 and L4- L5. There is also minimal endplate edema anterior inferiorly at the T11 level due to degenerative Schmorl's node there are no compression fractures slight a retro subluxation is stable at L3-L4 no anterior subluxations are seen small far pelvic renal cyst partially visualized the paraspinal soft tissues are otherwise unremarkable there is leftward curvature of the upper lumbar spine and the rightward curvature of the lower lumbar spine. L1-L2: No disc pathology no central canal stenosis or foraminal narrowing. L2-L3: Very mild facet arthropathy. Well-hydrated normal appearance of the disc without central canal stenosis or foraminal narrowing. L3-L4: Mild retro subluxation and disc bulge with resorption of the previously small central disc protrusion mild central canal stenosis and facet arthropathy again evident contributing to mild bilateral foraminal narrowing. L4-L5: Moderate to severe loss of disc height with makes chronic and mild edematous endplate changes hypertrophic facet arthropathy again noted with mild central canal stenosis and very mild left foraminal narrowing. L5-S1 moderate to severe loss of disc height with endplate spurring and facet arthropathy no central canal stenosis or foraminal narrowing. [facility] Medical History Pulmonary nodules Localized osteoarthritis of left knee Osteoarthritis Allergic cough Asthma Depression Fibromyalgia Failed back syndrome of lumbar spine Renal calculi Post covid-19 condition, unspecified Diverticulosis Neuropathy Lumbar disc disease Overweight (BMI 25.0-29.9) HLD (hyperlipidemia) Surgical History History of total right knee replacement History of arthroscopy of right knee History of carpal tunnel release H/O arthroscopy H/O colonoscopy Spinal cord stimulator status Family History Father Hypertension COPD (chronic obstructive pulmonary disease) Mother Hypertension Dementia Family/Other Lung cancer Social History Household Members: Spouse Household Members Other:: Stepson Housing: Condominium Are you a primary geriatric personal care aide to a significant other at home: No Do you presently have visiting nurse or other home services: No Alcohol intake: never Patient Tobacco Use Status: Former Tobacco user Quit Date: 1996 Tobacco use type: Cigarette Years Smoked: 20 e-Cigarette/Vaping Use: Never Used Second Hand Smoke Exposure: No service: No Current occupational status: employed 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 Alert and oriented. Mood and affect appropriate. Fully engaged in exam. Follows and participates in conversation appropriately. Respiratory effort is unlabored. Able to transition from sit to stand unassisted. Ambulates with bilaterally normal heel strike and toe off. Lead Insertion Site: Lead insertion sites look clean, dry, intact. Dressing change done by patient at home this morning. Positive paresthesia at left knee at 54 stimulation. Extrem General: Yes capillary refill normal, Yes no clubbing, cyanosis or edema and Yes no calf tenderness Results Reviewed Results Reviewed: XR KNEE, RIGHT 02/27/23 CLINICAL INFORMATION: Right total knee arthroplasty COMPARISON: X-rays of the right knee 02/22/2023 MRI right knee November 2022 TECHNIQUE: Portable AP and portable crosstable lateral view of the right knee FINDINGS: There is a total knee arthroplasty in place. The components are in the usual position There is no periprosthetic fracture or surrounding abnormal lucency. There is a small effusion. There is a small amount of gas in the soft tissues compatible with postoperative result. Skin heidi also noted. The surrounding soft tissues are normal. IMPRESSION: Right total knee arthroplasty without complication by x-ray. XR KNEE, LEFT 06/05/23 CLINICAL INFORMATION: Left total knee replacement COMPARISON: 02/22/2023 FINDINGS: Left total knee replacement has been performed. Prosthetic components appear appropriate in position. Alignment is satisfactory. Surgical skin heidi, suprapatellar effusion and soft tissue air identified in the immediate postoperative state. IMPRESSION: Left total knee replacement. Assessment & Plan Assessment & Plan (1) Status post total knee replacement, right: Code(s): Z96.651 - Presence of right artificial knee joint (2) Right knee pain: Code(s): M25.561 - Pain in right knee (3) History of total left knee replacement: Code(s): Z96.652 - Presence of left artificial knee joint (4) Left knee pain: Code(s): M25.562 - Pain in left knee Plan Patient presents to the office today for follow up 1 week s/p left femoral nerve Sprint PNS lead placement for chronic knee pain after knee replacement surgery. Patient tolerated procedure well and reports greater than 70% ongoing pain relief at the 54 stimulation setting with improvement in function, mobility and sleep. Patient will continue to monitor his left knee pain level and adjust settings accordingly. All questions and concerns were addressed during the visit. Patient agrees with the plan. Follow-up for Sprint removal as scheduled and sooner if needed. Coding Level of Care Code Est Pt Level 3 (55954) Diagnoses Status post total knee replacement, right Z96.651 Right knee pain M25.561 History of total left knee replacement Z96.652 Left knee pain M25.562
[2023-10-11 11:49] VITALS: BP 138/87; PULSE 75; O2SAT 99; BMI 28.8
== END 2023-10-11 11:55 | disposition home or self-care (01) ==
PROVIDERS: PCP Physician Assistant; Visit Provider Nurse Practitioner Family
DX: Z96.651 Presence of right artificial knee joint (principal); M25.561 Pain in right knee; Z96.652 Presence of left artificial knee joint; M25.562 Pain in left knee
CPT/HCPCS: 99024

== ENCOUNTER 2023-10-15 12:34 | Outpatient (AMB) | payer MEDICARE, MEDICAID, SELFPAY ==
[2023-10-15 12:37] VITALS: BP 132/78; PULSE 64; O2SAT 98; BMI 28.8
--- NOTE | 2023-10-15 12:37 | A.OFFVIS_ITS ---
Intake Vital Signs 10/15/23 12:37 Height 5 ft 10 in Weight 200 lb 8 oz BMI 28.8 BP 132/78 Blood Pressure Location Lt brachial Position Sitting Pulse 64 Pulse Source Pulse Oximeter Pulse Oximetry (%) 98 Oxygen Delivery Method Room Air Intake Visit Reasons: [id number] Intake Note: Patient is here for an Annual Wellness Visit. 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 Accompanied by: Self / Same As Patient Allergies dexamethasone [DEXAMETHASONE] Allergy (Severe, Verified 10/15/23 13:04) Steroid Physcosis atorvastatin Adverse Reaction (Intermediate, Verified 10/15/23 13:04) bone pain bupropion [From Wellbutrin] Adverse Reaction (Intermediate, Verified 10/15/23 13:04) negative thoughts fluticasone [From Wixela Inhub] Adverse Reaction (Intermediate, Verified 10/15/23 13:04) hand tremors, blood pressure dropping lisinopril [LISINOPRIL] Adverse Reaction (Intermediate, Verified 10/15/23 13:04) COUGH salmeterol [From Wixela Inhub] Adverse Reaction (Intermediate, Verified 10/15/23 13:04) hand tremors, blood pressure dropping Medication List - Last Reconciled 10/15/23 by Juan C Melchor PA-C acetaminophen 650 mg (2 x 325 mg) PO Q6H PRN 30 days albuterol sulfate 90 mcg/actuation (Ventolin HFA) 2 puffs inhalation Q4-6H PRN celecoxib 200 mg PO BID docusate sodium 100 mg PO BID 30 days fluticasone propion-salmeterol 113-14 mcg/actuation (AirDuo RespiClick) 1 inh inhalation BID 30 days garlic 500 mg PO DAILY minoxidil 5% 1 ea topical DAILY multivitamin 1 tab PO DAILY red yeast rice 600 mg PO DAILY HPI [id number] HPI Details Patient is a 63-year-old male here today for annual wellness visit. Today we discussed the red cliff of care and end of life planning. Concern--> reports having issues with erectile dysfunction and is interested in starting medication. Colon cancer screening: Colonoscopy done in 2020, normal repeat 10 years Vaccines: Up-to-date with flu vaccine, COVID vaccine, tetanus and pneumonia vaccines. Considering the shingles vaccine Laboratory Tests 10/11/23 11:36 RBC 4.62 Fasting Glucose 94 Cholesterol 218 H LDL Cholesterol, C alc 151 H Vitamin B6 47.9 H HPI Comments History of Present Illness Details reviewed past medical history- yes reviewed surgical / hospitalization history- yes reviewed current medications- yes reviewed family history- yes home safety throw rugs? grab bars? raised toilet seat? working smoke detectors? activities of daily living difficulty bathing or showering? difficulty dressing? difficulty using the toilet? difficulty getting in and out of bed? difficulty walking? receives help from other person's with any of the above tasks? instrumental activities of daily living uses telephone - gets to place out of walking distance- go shopping for groceries- repairs own meals- does own minor home maintenance- does own laundry- does own housework- manages own money- currently takes medication- end of life planning discussed advanced directives- yes advanced directives on file? discussed wishes expressed in advanced directives. fall risk have you had any falls with injuries in the past year? have you had 2 or more falls in the past year? fall risk assessment: [facility] Medical History Pulmonary nodules Localized osteoarthritis of left knee Osteoarthritis Allergic cough Asthma Depression Fibromyalgia Failed back syndrome of lumbar spine Renal calculi Post covid-19 condition, unspecified Diverticulosis Neuropathy Lumbar disc disease Overweight (BMI 25.0-29.9) HLD (hyperlipidemia) Surgical History History of total right knee replacement History of arthroscopy of right knee History of carpal tunnel release H/O arthroscopy H/O colonoscopy Spinal cord stimulator status Family History Father Hypertension COPD (chronic obstructive pulmonary disease) Mother Hypertension Dementia Family/Other Lung cancer Social History Household Members: Spouse Household Members Other:: Stepson Housing: Condominium Are you a primary out of school hours care worker to a significant other at home: No Do you presently have visiting nurse or other home services: No Alcohol intake: never Patient Tobacco Use Status: Former Tobacco user Quit Date: 1996 Tobacco use type: Cigarette Years Smoked: 20 e-Cigarette/Vaping Use: Never Used Second Hand Smoke Exposure: No service: No Current occupational status: employed 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 Current occupational exposures/hazards: No Cognitive needs: No Hearing needs: No Vision needs: No Questionnaire Medicare Wellness Checkup [age] What gender do you identify with?: male During the past 4 weeks, how much have you been bothered by emotional problems such as feeling anxious, depressed, irritable, sad or downhearted, and blue?: not at all During the past 4 weeks, has your physical & emotional health limited your social activities with family, friends, neighbors, or groups?: not at all During the past 4 weeks, how much bodily pain have you generally had?: mild pain During the past 4 weeks, was someone available to help you if you needed & wanted help?: yes, as much as I wanted During the past 4 weeks, what was the hardest physical activity you could do for at least 2 minutes?: very heavy Can you get to places out of walking distance without help? (For eg., can you travel alone on buses, taxis or drive your car?): Yes Can you go shopping for groceries or clothes without someone's help?: Yes Can you prepare your own meals?: Yes Can you do your housework without help?: Yes Because of any health problems, do you need the help of another person with your personal care needs such as eating, bathing, dressing or getting around the house?: Yes Can you handle your own money without help?: Yes During the past 4 weeks, how would you rate your health in general?: good During the past 4 weeks how have things been going for you?: pretty well Are you having difficulties driving your car?: no Do you always fasten your seat belt when you are in a car?: yes, usually During past 4 weeks, have you been bothered by the following: never: Teeth or denture problems? and Problems using the telephone?, seldom: Falling or dizzy when standing up and Trouble eating well?, sometimes: Tiredness or fatigue? and always: Sexual problems? Have you fallen 2 or more times in the past year?: No Are you afraid of falling?: Yes Are you a smoker?: no During the past 4 weeks, how many drinks of wine, beer, or other alcoholic beverages did you have?: no alcohol at all Do you exercise for about 20 minutes 3 or more times a week?: yes, some of the time Have you been given information to help with the following?: no: Hazards in your house that might hurt you? and no: Keeping track of your medications? How often do you have trouble taking medicines the way you have been told to take them?: I do not have to take medicine How confident are you that you can control & manage most of your health problems?: somewhat confident What is your race?: White Mini Mental State Exam (MMSE) Orientation What is the (year) (season) (date) (day) (month)?: season and date Where are we (state) (county) (town or city) (hospital) (floor)?: state Score Score: 3 Activity of Daily Living Bathing - sponge bath, tub bath or shower: receives no assistance (gets in/out by self, if usual bathing means Dressing - getting clothes from closets & drawers, including inner/outer garments & fasteners.: gets clothes & gets completely dressed without help Toileting - going to the 'toilet room' for urine/bowel elimination & cleaning self/arranging clothes: goes to toilet room, cleans self, arranges clothes without help Transfer: moves in & out of bed and chair without help (may use support object) Continence: controls urination/bowel movements completely by self Feeding: feeds self without help Total Score: 0 Information obtained from: patient Using telephone: independent Traveling: independent Shopping: independent Preparing meals: independent Housework: independent Taking medicine: independent Managing money: independent PHQ-9 Over the last 2 weeks, how often have you been bothered by any of the following problems? 1. Little interest or pleasure in doing things: several days 2. Feeling down, depressed, or hopeless: several days 3. Trouble falling or staying asleep, or sleeping too much: several days 4. Feeling tired or having little energy: several days 5. Poor appetite or overeating: several days 6. Feeling bad about yourself - or that you are a failure or have let yourself or your family down: not at all 7. Trouble concentrating on things, such as reading the newspaper or watching television: not at all 8. Moving or speaking so slowly that other people could have noticed. Or the opposite - being so fidgety or restless that you have been moving around a lot more than usual: several days 9. Thoughts that you would be better off or of hurting yourself in some way: not at all Total score: 6 Depression Screening Interpretation: Positive Depression Screening Follow-up: Existing condition and Declines treatment Depression Screening Done: Yes 33622 - PHQ-9 Billing: Yes Source: Developed by Drs. Hernan Durant, Seble Penn, Kj Boyle and colleagues, with an educational yamel from [employer]. Thrive Questionnaire Date Thrive assessed: 10/15/23 I am a: Patient What is your living situation today?: I have a steady place to live Within the past 12 months, did the food you bought not last and you didn't have the money to get more?: Never true Within the past 12 months, did you worry whether your food would run out before you got money to buy more?: Never true Do you have trouble paying for medicines?: No Do you have trouble getting transportation to medical appointments?: No Do you have trouble paying your heating and electricity bill?: No Do you have trouble taking care of your child, family member or friend?: No Do you have trouble with day-to-day activities such as bathing, preparing meals, shopping, managing finances, etc.?: No Are you currently unemployed and looking for a job?: No Are you interested in more education?: No Please select the resources that you would like help with: None Currently or been in a relationship where the following occur: no concerns reported THRIVE Score: 0 Physical Exam Vital Signs: Last Vital Signs Pulse 64 10/15/23 12:37 BP 132/78 10/15/23 12:37 Pulse Ox 98 10/15/23 12:37 Oxygen Delivery Method Room Air 10/15/23 12:37 BMI result Body Mass Index 28.8 HEENT Other: hearing screening whisper test- Eyes Other: vision screening- Other: urinary incontinence? Neuro Other: balance Romberg- tandem walk test- walk-in turned test- rise from sit to stand- Assessment & Plan Assessment & Plan (1) Medicare annual wellness visit, initial: Code(s): Z00.00 - Encounter for general adult medical examination without abnormal findings Plan: As per HPI. EKG has been done prior to surgery in May of 2023- nor abnormalities (2) Erectile dysfunction: Code(s): N52.9 - Male erectile dysfunction, unspecified Qualifiers: Erectile dysfunction type: unspecified Qualified Code(s): N52.9 - Male erectile dysfunction, unspecified Plan: Patient interested in starting medication for erectile dysfunction. (3) HLD (hyperlipidemia): Code(s): E78.5 - Hyperlipidemia, unspecified Qualifiers: Hyperlipidemia type: mixed hyperlipidemia Qualified Code(s): E78.2 - Mixed hyperlipidemia Plan: Patient does have borderline high total cholesterol. He will continue working on being more physically active and adapting to better eating habits to reduce his cholesterol. (4) MDD (major depressive disorder), recurrent episode, mild: Code(s): F33.0 - Major depressive disorder, recurrent, mild Plan: Patient's PHQ-9 score positive for mild depression which has been existing condition for him. Was previously on medication though feels he does not need medication or therapy at this time. Plan As per HPI discuss patient's red cliff of care and given a MOLST form to fill out and bring back to office Medications: New sildenafil 100 mg PO DAILY 5 days 5 tabs 0RF N52.9 - Male erectile dysfunction, unspecified Quality Reporting (2019) Depression/Bipolar (159/160/161/177) PHQ-9: Total score: 6 Coding Level of Care Code Medicare Subsequent (G0439) Est Pt Level 3 (93930) Diagnoses Medicare annual wellness visit, initial Z00.00 Erectile dysfunction, unspecified erectile dysfunction type N52.9 Erectile dysfunction type: unspecified Mixed hyperlipidemia E78.2 Hyperlipidemia type: mixed hyperlipidemia MDD (major depressive disorder), recurrent episode, mild F33.0 CPT Codes Advance Care Planning - Time spent: 1-15 minutes, not on file ([id number]) Advance Care Planning Advance Care Planning discussion: Exists, not on file Date of discussion: 10/15/23 Forms completed: MOLST Time spent: 1-15 minutes, not on file Actual minutes spent: 3
--- NOTE | 2023-10-15 12:37 | A.OFFPC_ITS ---
Vital Signs 10/15/23 12:37 Height 5 ft 10 in Intake Visit Reasons: [id number] Allergies dexamethasone [DEXAMETHASONE] Allergy (Severe, Verified 09/18/23 11:07) Steroid Physcosis atorvastatin Adverse Reaction (Intermediate, Verified 09/18/23 11:07) bone pain bupropion [From Wellbutrin] Adverse Reaction (Intermediate, Verified 09/18/23 11:07) negative thoughts fluticasone [From Wixela Inhub] Adverse Reaction (Intermediate, Verified 1 11/19/22 11:07) hand tremors, blood pressure dropping lisinopril [LISINOPRIL] Adverse Reaction (Intermediate, Verified 09/18/23 11:07) COUGH salmeterol [From Wixela Inhub] Adverse Reaction (Intermediate, Verified 09/18/23 11:07) hand tremors, blood pressure dropping Tobacco use date assessed: 12/14/22 [facility] Medical History Pulmonary nodules Localized osteoarthritis of left knee Osteoarthritis Allergic cough Asthma Depression Fibromyalgia Failed back syndrome of lumbar spine Renal calculi Post covid-19 condition, unspecified Diverticulosis Neuropathy Lumbar disc disease Overweight (BMI 25.0-29.9) HLD (hyperlipidemia) Surgical History History of total right knee replacement History of arthroscopy of right knee History of carpal tunnel release H/O arthroscopy H/O colonoscopy Spinal cord stimulator status Family History Father Hypertension COPD (chronic obstructive pulmonary disease) Mother Hypertension Dementia Family/Other Lung cancer Social History Household Members: Spouse Household Members Other:: Stepson Housing: Condominium Are you a primary health care facility administrator to a significant other at home: No Do you presently have visiting nurse or other home services: No Alcohol intake: never Patient Tobacco Use Status: Former Tobacco user Quit Date: 1996 Tobacco use type: Cigarette Years Smoked: 20 e-Cigarette/Vaping Use: Never Used Second Hand Smoke Exposure: No service: No Current occupational status: employed 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 Hernan Durant, Seble Penn, Kj Boyle and colleagues, with an educational yamel from [employer]. Physical exam (Primary Care) Tobacco/Smoking Status: Tobacco use Status Tobacco use date assessed 12/14/22 08/20/23 16:00 Patient Tobacco Use Status Former Tobacco user 10/04/23 13:27 Tobacco use type Cigarette 09/04/23 14:15 e-Cigarette/Vaping Use Never Used 09/04/23 14:15 Thrive Assessment: Date of Thrive Assessment Date Thrive assessed 06/06/23 08/20/23 16:00 Coding
== END 2023-10-15 13:30 | disposition home or self-care (01) ==
PROVIDERS: PCP Physician Assistant; Visit Provider Physician Assistant
DX: Z00.00 Encounter for general adult medical examination without abnormal findings (principal); N52.9 Male erectile dysfunction, unspecified; E78.2 Mixed hyperlipidemia; F33.0 Major depressive disorder, recurrent, mild
CPT/HCPCS: 1124F; 99213; G0439

== ENCOUNTER 2023-12-06 13:41 | Outpatient (AMB) | payer MEDICARE, MEDICAID, SELFPAY ==
--- NOTE | 2023-12-06 13:42 | MHC.OFFVIS ---
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: No Accompanied by: Self / Same As Patient Allergies dexamethasone [DEXAMETHASONE] Allergy (Severe, Verified 12/06/23 14:09) Steroid Physcosis atorvastatin Adverse Reaction (Intermediate, Verified 12/06/23 14:09) bone pain bupropion [From Wellbutrin] Adverse Reaction (Intermediate, Verified 12/06/23 14:09) negative thoughts fluticasone [From Wixela Inhub] Adverse Reaction (Intermediate, Verified 12/06/23 14:09) hand tremors, blood pressure dropping lisinopril [LISINOPRIL] Adverse Reaction (Intermediate, Verified 12/06/23 14:09) COUGH salmeterol [From Wixela Inhub] Adverse Reaction (Intermediate, Verified 12/06/23 14:09) hand tremors, blood pressure dropping HPI HPI Comments History of Present Illness Details Patient presents today for Left femoral nerve Sprint PNS removal. Patient continues to report 80% ongoing pain relief with significant improvement in mobility, functioning, and ADLs with the left knee with stimulation set at 56. He continues to report ongoing pain relief for right knee s/p Sprint removal last year as well. Patient reports he was able to enjoy skiing without significant discomfort. The dressing was removed today. Lead insertion sites look clean, dry, intact, no redness, no swelling, no pathological discharge. Area was cleansed with Chloraprep. Lead pulled with tip intact and the area was cleansed again with Chloraprep, applied Bacitracin and covered it with gauze and Tegaderm film dressing. Denies any recent cough, cold, infection, fever or other significant changes in medical history since last office visit. Past Procedures: 12/06/23: Left femoral nerve Sprint PNS removal: 80% ongoing pain relief 10/04/23: Left femoral nerve Sprint PNS: 70% ongoing pain relief. Right femoral nerve Sprint removed. 09/11/23: Diagnostic Left Femoral Nerve Block->90% pain relief for 9 hours 08/02/23: Right femoral nerve Sprint PNS: 60-70% ongoing pain relief, removed 10/04/23-90% pain relief 05/29/23: Diagnostic Right Femoral Nerve Block-100% pain relief for 14 hours PRIOR: Patient presents today for follow up regarding ongoing pain in his right anterior knee, more lateral aspect status post Right TKA 02/27/23. He reports residual numbness along medial aspect and localized tenderness in his lateral aspects. He continues to stay active with physical therapy 3x per week for strengthening and [id number] exercises. Patient notices increased right knee pain as his Vicodin has been titrated down. He is interested in interventional treatment options for right knee. He is scheduled to undergo left TKA on 06/05/23. We will schedule him for left femoral nerve block prior this for potential peripheral nerve stimulation after his rehab for left knee after TKA. He continues to use lumbar SCS device for his chronic back pain with good results. Denies any recent cough, cold, infection, fever or other significant changes in medical history since last office visit. PRIOR: Patient is a very pleasant 62-year-old male presents today for follow-up for SCS program adjustment and meeting with rep Klnie from [employer]. He is accompanied by his Caroline. Patient was last seen in our office by Dr. Aly on 04/21/2020. Patient reports spinal cord stimulator has been working well for his back pain relief but has no pain relief coverage in his legs. He reports 0/10 pain today. As of note, patient recently underwent right total knee replacement and has follow-up appointment with Orthopedics today for staple removal. Curiously his taking Vicodin as needed for postop knee pain. Patient is looking forward to adjust his spinal cord stimulator to obtain better coverage to include his leg pain. Denies any recent cough, cold, infection, fever or other significant changes in medical history since last office visit. Patient denies any bladder or bowel incontinence or saddle anesthesia. Ambulates with mildly antalgic gait and uses cane with ambulation. PRIOR 04/21/2020 Dr. Aly: Mr. Hart returns to the office today for an ongoing left heel pain. He received transforaminal left L3-L4 and L4-5 epidural steroid injections again. He reports better mobility, better moved around, HOWEVER THIS TIME HE REPORTS AGGRAVATED PAIN FOR NEXT 2 WEEKS AFTER THE INJECTION AND THEN THE PAIN SUBSIDED AND BECAME BETTER. I A A SUSPECT THAT MIGHT BE EFFECT OF THE RADIATION OF THE NERVE ROOTS FROM THE STEROIDS. I OFFERED HIM NEXT TIME WHEN HIS PAIN IS GETTING STRONGER TO COME AND RECEIVE INJECTIONS WITH NON PARTICULATE STEROIDS. ALTERNATIVELY HIS FORAMINAL STENOSIS MIGHT BE RE-EVALUATED BY NEUROSURGEON. WE DECIDED THAT 1 MORE TIME WE WILL TRY NON PARTICULATE STEROID INJECTIONS AND IF THIS WILL GIVE YOU THE SAME AGGRAVATION I WILL REFER HIM TO NEUROSURGICAL CARE. HE WILL GIVE US A CALL WHEN HIS PAIN IS STRONGER AND HE WANTS INJECTION AGAIN. ALTERNATIVELY WE CAN RETURN BACK TO DISCUSSION OF THE PAIN PUMP FOR HIM. HE ALSO HAS SPINAL CORD STIMULATOR ALREADY IMPLANTED HOWEVER HE REPORTS THAT IT HELPS HIS PAIN ONLY 20%. PRIOR: He was evaluated by a neurosurgeon Dr. Arzola and he did not receive recommendation for surgery. 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 He reports that his pain is being helped by spinal cord stimulator but he cannot continue working he wants to apply for disability. His pain is in the projection of the posterior calcaneal bone to the skin. He reports the most severe pain he feels when he bends himself forward and at that moment he feels the pain in lthe lumbar spine with the pain increase in the area described above. He reports he has had a progressively worsening electrical charge, burning, stabbing pain. Last time we started him on gabapentin and amitriptyline a and he reported side effect on both gabapentin and amitriptyline. Gabapentin causes him to have introduced if suicidal thoughts. Amitriptyline causes dry mouth, urinary retention, and difficulties with vision. I told him to stop both medications we discussed Lyrica today. I do not thing Lyrica is a good medication considering the fact that gabapentin gave him suicidal thoughts He has not had any injuries to foot. Mr. Hart had a Spinal Cord Stimulator implanted 07/12/18, which has resulted in significant alleviation of lower back and radiating leg pain. He can obtain SCS coverage throughout legs and down to feet, including his heels. He reports that regardless of if stimulator is on or off, he continues to experience this burning nerve pain in this distribution. MRI results: Chronic fatty marrow degenerative endplate changes noted at multiple levels with moderate to severe loss of disc height at L4-5 and L5-S1, similar to prior imaging. Mild endplate in a edematous changes noted at the L3-L4 and L4-L5. There is also minimal endplate edema anterior inferiorly at the T11 level due to degenerative Schmorl's node there are no compression fractures slight a retro subluxation is stable at L3-L4 no anterior subluxations are seen small far pelvic renal cyst partially visualized the paraspinal soft tissues are otherwise unremarkable there is leftward curvature of the upper lumbar spine and the rightward curvature of the lower lumbar spine. L1-L2: No disc pathology no central canal stenosis or foraminal narrowing. L2-L3: Very mild facet arthropathy. Well-hydrated normal appearance of the disc without central canal stenosis or foraminal narrowing. L3-L4: Mild retro subluxation and disc bulge with resorption of the previously small central disc protrusion mild central canal stenosis and facet arthropathy again evident contributing to mild bilateral foraminal narrowing. L4-L5: Moderate to severe loss of disc height with makes chronic and mild edematous endplate changes hypertrophic facet arthropathy again noted with mild central canal stenosis and very mild left foraminal narrowing. L5-S1 moderate to severe loss of disc height with endplate spurring and facet arthropathy no central canal stenosis or foraminal narrowing. [facility] Medical History Pulmonary nodules Localized osteoarthritis of left knee Osteoarthritis Allergic cough Asthma Depression Fibromyalgia Failed back syndrome of lumbar spine Renal calculi Post covid-19 condition, unspecified Diverticulosis Neuropathy Lumbar disc disease Overweight (BMI 25.0-29.9) HLD (hyperlipidemia) Surgical History History of total right knee replacement History of arthroscopy of right knee History of carpal tunnel release H/O arthroscopy H/O colonoscopy Spinal cord stimulator status Family History Father Hypertension COPD (chronic obstructive pulmonary disease) Mother Hypertension Dementia Family/Other Lung cancer Social History Household Members: Spouse Household Members Other:: Stepson Housing: Condominium Are you a primary lead care manager to a significant other at home: No Do you presently have visiting nurse or other home services: No Alcohol intake: never Patient Tobacco Use Status: Former Tobacco user Quit Date: 1996 Tobacco use type: Cigarette Years Smoked: 20 e-Cigarette/Vaping Use: Never Used Second Hand Smoke Exposure: No service: No Current occupational status: employed 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 Alert and oriented. Mood and affect appropriate. Fully engaged in exam. Follows and participates in conversation appropriately. Respiratory effort is unlabored. Able to transition from sit to stand unassisted. Ambulates with bilaterally normal heel strike and toe off. Lead Insertion Site: Lead insertion sites look clean, dry, intact. Lead pulled with tip intact. Extrem General: Yes capillary refill normal, Yes no clubbing, cyanosis or edema and Yes no calf tenderness Results Reviewed Results Reviewed: XR KNEE, RIGHT 02/27/23 CLINICAL INFORMATION: Right total knee arthroplasty COMPARISON: X-rays of the right knee 02/22/2023 MRI right knee November 2022 TECHNIQUE: Portable AP and portable crosstable lateral view of the right knee FINDINGS: There is a total knee arthroplasty in place. The components are in the usual position There is no periprosthetic fracture or surrounding abnormal lucency. There is a small effusion. There is a small amount of gas in the soft tissues compatible with postoperative result. Skin heidi also noted. The surrounding soft tissues are normal. IMPRESSION: Right total knee arthroplasty without complication by x-ray. XR KNEE, LEFT 06/05/23 CLINICAL INFORMATION: Left total knee replacement COMPARISON: 02/22/2023 FINDINGS: Left total knee replacement has been performed. Prosthetic components appear appropriate in position. Alignment is satisfactory. Surgical skin heidi, suprapatellar effusion and soft tissue air identified in the immediate postoperative state. IMPRESSION: Left total knee replacement. Assessment & Plan Assessment & Plan (1) Left knee pain: Code(s): M25.562 - Pain in left knee (2) History of total left knee replacement: Code(s): Z96.652 - Presence of left artificial knee joint Plan Patient is status post left femoral nerve Sprint removal. He reports good results providing him ongoing 80% pain relief for left knee pain. He had right knee Sprint PNS trial last year and continues to have good pain relief as well. Patient will continue to monitor his symptoms and notify our office when his pain returns to baseline. Patient reports significant improvement in his daily activities, mobility, sleep and better social interactions. Lead pulled with tip intact and the area was cleansed again with Chloraprep, applied Bacitracin and covered it with gauze and tegaderm. All questions were answered. Follow up as needed. Coding Level of Care Code Est Pt Level 3 (24586) Diagnoses Left knee pain M25.562 History of total left knee replacement Z96.652
[2023-12-06 13:46] VITALS: BP 156/88; PULSE 68; O2SAT 100; BMI 29.1
== END 2023-12-06 13:58 | disposition home or self-care (01) ==
PROVIDERS: PCP Physician Assistant; Visit Provider Nurse Practitioner Family
DX: M25.562 Pain in left knee (principal); Z96.652 Presence of left artificial knee joint
CPT/HCPCS: 99213

== ENCOUNTER → 2023-12-06 13:41 | Outpatient (BNVA) | payer MEDICARE, MEDICAID, SELFPAY | PROVIDERS: PCP Physician Assistant; Visit Provider Nurse Practitioner Family | DX: M25.562 Pain in left knee (principal); Z96.652 Presence of left artificial knee joint | CPT/HCPCS: 99212 ==

== ENCOUNTER 2024-01-14 13:35 | Outpatient (AMB) | payer MEDICARE, MEDICAID, SELFPAY ==
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
[2024-01-14 13:43] VITALS: BMI 29.0
== END 2024-01-14 15:19 | disposition home or self-care (01) ==
LOC: HO.HOS 13:36
PROVIDERS: PCP Physician Assistant; Visit Provider Orthopaedic Surgery
DX: M76.62 Achilles tendinitis, left leg (principal)
CPT/HCPCS: 99212

== ENCOUNTER → 2024-01-14 13:36 | Outpatient (BNVA) | payer MEDICARE, MEDICAID, SELFPAY | PROVIDERS: PCP Physician Assistant; Visit Provider Orthopaedic Surgery | DX: M76.62 Achilles tendinitis, left leg (principal) | CPT/HCPCS: 99212 ==

== ENCOUNTER 2024-02-01 11:26 | Outpatient (AMB) | payer MEDICARE, MEDICAID, SELFPAY ==
[2024-02-01 11:29] VITALS: BP 132/76; PULSE 81; O2SAT 95
--- NOTE | 2024-02-01 11:29 | MHC.OFFVIS ---
Vital Signs 02/01/24 11:29 Height 5 ft 10 in Weight 209 lb 2 oz BMI 30.0 BP 132/76 Blood Pressure Location Lt brachial Position Sitting Pulse 81 Pulse Source Pulse Oximeter Pulse Oximetry (%) 95 Oxygen Delivery Method Room Air Intake Visit Reasons: cough, congestion and wheezing Allergies dexamethasone [DEXAMETHASONE] Allergy (Severe, Verified 02/01/24 11:32) Steroid Physcosis atorvastatin Adverse Reaction (Intermediate, Verified 02/01/24 11:32) bone pain bupropion [From Wellbutrin] Adverse Reaction (Intermediate, Verified 02/01/24 11:32) negative thoughts fluticasone [From Wixela Inhub] Adverse Reaction (Intermediate, Verified 02/01/24 11:32) hand tremors, blood pressure dropping lisinopril [LISINOPRIL] Adverse Reaction (Intermediate, Verified 02/01/24 11:32) COUGH salmeterol [From Wixela Inhub] Adverse Reaction (Intermediate, Verified 02/01/24 11:32) hand tremors, blood pressure dropping HPI HPI cough, congestion and wheezing: Details: Carlos is a pleasant 63 year old male, former under 10 pack-year smoker, quit over 30 years prior, with underlying history of exposure to asbestos and prior COVID-19. At baseline, he is well controlled on AirDuo and albuterol MDI. Today he presents for an acute visit. He reports symptoms of productive cough with green to brown sputum for the past 9 days. He also reports associated chest congestion and wheezing, using albuterol 2-3 per day with good effect. [facility] Medical History (Updated 02/01/24 @ 12:42 by Paris Crow NP) Pulmonary nodules Localized osteoarthritis of left knee Osteoarthritis Allergic cough Asthma Depression Fibromyalgia Failed back syndrome of lumbar spine Renal calculi Post covid-19 condition, unspecified Diverticulosis Neuropathy Lumbar disc disease Overweight (BMI 25.0-29.9) HLD (hyperlipidemia) Surgical History History of total right knee replacement History of arthroscopy of right knee History of carpal tunnel release H/O arthroscopy H/O colonoscopy Spinal cord stimulator status Family History Father Hypertension COPD (chronic obstructive pulmonary disease) Mother Hypertension Dementia Family/Other Lung cancer Social History Household Members: Spouse Household Members Other:: Pedro Housing: Condominium Are you a primary primary care nurse practitioner to a significant other at home: No Do you presently have visiting nurse or other home services: No Alcohol intake: never Patient Tobacco Use Status: Former Tobacco user Quit Date: 1996 Tobacco use type: Cigarette Years Smoked: 20 e-Cigarette/Vaping Use: Never Used Second Hand Smoke Exposure: No service: No Current occupational status: employed 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 Current occupational exposures/hazards: No Cognitive needs: No Hearing needs: No Vision needs: No Review of Systems Const Denies excessive sweating, Denies headache(s) and Denies night sweats Eyes Denies dry eyes, Denies irritation and Denies itchy eyes ENT Reports Normal hearing present, Denies headache(s), Denies nasal congestion, Denies nasal discharge, Denies post nasal drip and Denies sore throat Card Denies chest pain, Denies chest pain at rest, Denies chest pain with activity, Denies claudication, Denies leg edema, Denies orthopnea and Denies paroxysmal nocturnal dyspnea Resp Denies excessive phlegm production, Denies pain on inspiration, Denies pain with cough and Denies stridor Musc Denies myalgias Neuro Reports Normal hearing present and Denies headache(s) Endo Denies excessive sweating Gurjit/Lymph Denies lymphadenopathy Aller/Immun Denies itchy eyes and Denies seasonal rhinorrhea Physical Exam Vital Signs: Last Vital Signs Pulse 81 02/01/24 11:29 BP 132/76 02/01/24 11:29 Pulse Ox 95 02/01/24 11:29 Oxygen Delivery Method Room Air 02/01/24 11:29 BMI result Body Mass Index 30.0 Const General: cooperative, healthy appearing, comfortable, no acute distress, well developed and alert Orientation/consciousness: patient oriented x3 Limitations: no limitations HEENT Head: Yes normal to inspection, Yes normocephalic and Yes atraumatic Ears: hearing grossly normal bilaterally and external ears normal Eyes General: appearance normal, both eyes and all related structures Eyelids: Yes eyelids normal Sclerae: sclerae normal EOM: EOMs intact bilaterally Neck Neck: Yes normal visual inspection and Yes no lymphadenopathy Lymphatic: no lymphadenopathy noted Chest Chest palpation & inspection: normal inspection of the chest Resp Other: Expiratory wheezing throughout, mildly improved after nebulizer. Effort & Inspection: normal respiratory effort, able to speak in complete sentences, no audible wheezes, no stridor, not tachypneic, no tripod positioning and no use of accessory muscles Cardio Jugular venous distension: no JVD Rate: regular rate Rhythm: regular rhythm Skin Other: warm, dry General skin exam: no rashes or lesions noted Neuro General: patient oriented x3 Cranial nerves: Yes Normal hearing present Cognition (Neuro): normal cognition Gait exam (Neuro): Normal gait present Extrem General: Yes normal to inspection, Yes capillary refill normal, Yes no clubbing, cyanosis or edema and Yes no pedal edema Psych Appearance: grossly normal and well kempt Speech and movement: Normal speech and movement present and Clear speech present Affect: normal affect Attitude: cooperative Thought process: Normal thought process present Thought content: Normal thought content present Insight: Good insight present (Psych) Judgement: Good judgement present (Psych) Office Procedures Nebulizer Treatment Nebulizer Treatment [id number] RX initial, or Nebulizer Subsequent Treatment Office Meds ipratropium 0.5 mg-albuterol 3 mg (2.5 mg base)/3 mL nebulization soln Performing Provider: Paris Crow NP Performing Location: [facility] [place] Pulmonology Services-[facility] Administered by: Lisa Flores LPN on 02/01/24 12:03 Dose Route Admin Location Dispensed Lot Number Expiration Date [facility] Production Proofreader 3 mL inhalation 3 mL [id number] 07/24/25 90725-763-63 [email or web address] Assessment & Plan Assessment & Plan (1) Asthma: Code(s): J45.909 - Unspecified asthma, uncomplicated Category: Medical Qualifiers: Asthma severity: mild Asthma persistence: persistent Asthma complication type: uncomplicated Qualified Code(s): J45.30 - Mild persistent asthma, uncomplicated (2) Environmental allergies: Code(s): Z91.09 - Other allergy status, other than to drugs and biological substances Category: Medical (3) Bronchitis: Code(s): J40 - Bronchitis, not specified as acute or chronic Category: Medical Plan Patient with expiratory wheezing throughout on exam, improved with nebulizer. Will give nebulizer for home use today. Will treat bronchitic symptoms with azithromycin and prednisone. Patient aware if symptoms do not improve to contact office and seek emergent care if they worsen. Patient also questioning environmentall allergies contributing to symptoms, will send for RAST testing. All questions were answered and patient is in agreement of plan. Will follow up for regularly scheduled appointment with Dr. Healy or sooner if needed. Orders: Orders AMB Nebulizer Treatment Today J45.30 - Mild persistent asthma, uncomplicated Immunoglobulin E Today Z91.09 - Other allergy status, other than to drugs and biological substances Complete Blood Count Auto Diff Today Z91.09 - Other allergy status, other than to drugs and biological substances Resp Allergy Profile Region I Today Z91.09 - Other allergy status, other than to drugs and biological substances Medications: New azithromycin For 250 mg dose pack: take 500 mg today (day 1), then 250 mg for 4 days (days 2-5) PO 6 tabs 0RF prednisone 40 mg (2 x 20 mg) PO DAILY 10 tabs 0RF ipratropium-albuterol 0.5 mg-3 mg(2.5 mg base)/3 mL 3 mL inhalation Q6H PRN 180 mL 3RF wheezing Coding Level of Care Code Est Pt Level 4 (70720) Diagnoses Mild persistent asthma without complication J45.30 Asthma severity: mild Asthma persistence: persistent Asthma complication type: uncomplicated Environmental allergies Z91.09 Bronchitis J40 CPT Codes Nebulizer Treatment - Nebulizer Treatment, initial or subsequent: [id number] RX initial, or Nebulizer Subsequent Treatment ([id number])
== END 2024-02-01 13:12 | disposition home or self-care (01) ==
PROVIDERS: PCP Physician Assistant; Visit Provider Nurse Practitioner Family
DX: J45.30 Mild persistent asthma, uncomplicated (principal); Z91.09 Other allergy status, other than to drugs and biological substances; J40 Bronchitis, not specified as acute or chronic
CPT/HCPCS: 99214

== ENCOUNTER → 2024-02-01 11:26 | Outpatient (BNVA) | payer MEDICARE, MEDICAID, SELFPAY | PROVIDERS: PCP Physician Assistant; Visit Provider Nurse Practitioner Family ==

== ENCOUNTER 2024-02-01 12:04 | Outpatient (REF) | payer MEDICARE, MEDICAID, SELFPAY ==
[2024-02-01 14:27] LABS: MANUAL DIFF FLAG NO
[2024-02-01 14:42] LABS: Basophils Percent Auto 0.5 % (0-2); Eosinophils Absolute Auto 0.1 X10*3/uL (0.0-0.4); Hematocrit 45.9 % (42.0-52.0); Hemoglobin 15.2 g/dl (14.0-18.0); Imm Gran Abs Auto 0.03 X10*3/uL (0.00-0.03); Imm Gran Pct Auto 0.3 % (0.0-0.4); Lymphocytes Absolute Auto 1.5 X10*3/uL (1.2-4.9); Lymphocytes Percent Auto 16.5 % (20-40); Mean Corpuscular HGB Conc 33.1 g/dl (31.0-36.0); Mean Corpuscular Hemoglobin 29.6 pg (27.0-33.0); Mean Corpuscular Volume 89.5 fL (80.0-98.0); Mean Platelet Volume 10.1 fL (9.4-12.4); Monocytes Absolute Auto 0.8 X10*3/uL (0.1-1.2); Neutrophils Absolute Auto 6.4 x10*3/uL (2.0-8.3); Neutrophils Percent Auto 72.7 % (45-73); Platelet Count 307 X10*3/uL (160-400); Red Blood Count 5.13 X10*6/uL (4.60-5.80); Red Cell Distribution Width 12.6 % (11.0-16.0); White Blood Count 8.8 X10*3/uL (4.8-10.8)
[2024-02-11 05:33] LABS: Class Alternaria alternata 0; Class Aspergillus fumigatus 0; Class Bermuda Grass 0; Class Birch 0; Class Cat Dander 0; Class Cladosporium herbarum 0; Class Cockroach 0; Class Common Ragweed 0; Class Cottonwood 0; Class Derm. pterony 0; Class Dermatophagoides farinae 0; Class Dog Dander 0; Class Elm 0; Class Maple Box Elder 0; Class Mountain Cedar 0; Class Mouse Urine Protein 0; Class Mugwort 0; Class Oak 0; Class Penicillium crysogenum 0; Class Rough Pigweed 0; Class Sheep Sorrel 0; Class Sycamore 0; Class Timothy Grass 0; Class Walnut Tree 0; Class White Ash 0; Class White Mulberry 0; D001 IgE D pteronyssinus <0.10 kU/L; D002 - IgE D farinae <0.10 kU/L; E001 - IgE Cat Dander <0.10 kU/L; E005 - IgE Dog Dander <0.10 kU/L; E072-IgE Mouse Urine <0.10 kU/L; G002 IgE Bermuda Grass <0.10 kU/L; G006 - IgE Timothy Grass <0.10 kU/L; I006-IgE Cockroach, German <0.10 kU/L; Immunoglobulin E 10 kU/L (<OR=114); M001 IgE Penicillium chrysogen <0.10 kU/L; M002 - IgE Cladosporium herbar <0.10 kU/L; M003 - IgE Aspergillus fumigat <0.10 kU/L; M006 - IgE Alternaria alternat <0.10 kU/L; T001 IgE Maple/Box Elder <0.10 kU/L; T003 IgE Common Silver Birch <0.10 kU/L; T006 - IgE Cedar, Mountain <0.10 kU/L; T007 - IgE Oak, White <0.10 kU/L; T008 IgE Elm, American <0.10 kU/L; T010 - IgE Walnut <0.10 kU/L; T011 - IgE Maple Leaf Sycamore <0.10 kU/L; T014 - IgE Cottonwood <0.10 kU/L; T015 - IgE Ash, White <0.10 kU/L; T070 - IgE White Mulberry <0.10 kU/L; W001 - IgE Ragweed, Short <0.10 kU/L; W006 - IgE Mugwort <0.10 kU/L; W014 IgE Pigweed, Common <0.10 kU/L; W018 IgE Sheep Sorrel <0.10 kU/L
== END 2024-02-01 12:05 | disposition home or self-care (01) ==
LOC: HO.WFDLDS 12:04
PROVIDERS: Visit Provider Nurse Practitioner Family
DX: Z91.09 Other allergy status, other than to drugs and biological substances (principal); J45.30 Mild persistent asthma, uncomplicated
CPT/HCPCS: 36415; 82785; 85025; 86003; 94640; 99212

== ENCOUNTER 2024-03-03 14:31 | Outpatient (REF) | payer MEDICARE, MEDICAID, SELFPAY ==
--- NOTE | ~2024-03-03 | CT_ITS ---
EXAMINATION: CT CHEST WITHOUT CONTRAST CLINICAL INFORMATION: Abnormal findings on prior study. COMPARISON: 02/12/2023 TECHNIQUE: Multidetector volumetric CT imaging of the chest was done. Axial MIP volume rendering provided. Sagittal and coronal reformatted images were obtained. This CT examination was performed using dose optimization techniques as appropriate, variously including the following: *Automated exposure control *Adjustment of mA and/or kV according to patient size (this includes techniques or standardized protocols for targeted exams where dose is matched to indication/reason for exam; i.e. extremities or head) *Use of iterative reconstruction technique DLP: 163 mGy-cm FINDINGS: DIRECTOR SOFTWARE QUALITY ASSURANCE: Unremarkable LUNGS: Note was made on the prior study of small peripheral and/or subpleural nodules measuring up to 4 mm. On today's exam, these are either stable or less conspicuous. I do not see any concerning nodules greater than 4 mm on today's study. There are no consolidations or masses. MEDIASTINUM: This study is done without IV contrast. Size normal. No pericardial effusion. Scattered small mediastinal nodes are observed, all less than 10 mm. No change. The thoracic inlet appears unremarkable. CORONARY ARTERY CALCIFICATION: Mild PLEURA: There is no pleural effusion. No pleural mass or thickening. Previously described in left Bochdalek hernia less conspicuous. AXILLA: No lymphadenopathy. UPPER ABDOMEN: Unremarkable. OSSEOUS STRUCTURES: Degenerative changes observed in the spondylitic thoracic spine. CT/CT chest wo IV con IMPRESSION: No significant change. Previously noted sub-4 mm areas of nodularity are either stable or less conspicuous. Recommend 12 month follow-up. Fleischner guidelines were followed.
== END 2024-03-03 14:32 | disposition home or self-care (01) ==
LOC: HO.CT 14:31
PROVIDERS: PCP Physician Assistant; Visit Provider Internal Medicine Pulmonary Disease
DX: R91.8 Other nonspecific abnormal finding of lung field (principal)
CPT/HCPCS: 71250

== ENCOUNTER 2024-03-25 11:14 | Outpatient (AMB) | payer MEDICARE, MEDICAID, SELFPAY ==
[2024-03-25 11:17] VITALS: BP 120/62; PULSE 78; O2SAT 97; BMI 29.2
--- NOTE | 2024-03-25 11:17 | MHC.OFFVIS ---
Vital Signs 03/25/24 11:17 Height 5 ft 10 in Weight 203 lb 5 oz BMI 29.2 BP 120/62 Blood Pressure Location Rt brachial Position Sitting Pulse 78 Pulse Source Doppler Pulse Oximetry (%) 97 Oxygen Delivery Method Room Air Intake Visit Reasons: Cough Allergies dexamethasone [DEXAMETHASONE] Allergy (Severe, Verified 03/25/24 11:24) Steroid Physcosis atorvastatin Adverse Reaction (Intermediate, Verified 03/25/24 11:24) bone pain bupropion [From Wellbutrin] Adverse Reaction (Intermediate, Verified 03/25/24 11:24) negative thoughts fluticasone [From Wixela Inhub] Adverse Reaction (Intermediate, Verified 03/25/24 11:24) hand tremors, blood pressure dropping lisinopril [LISINOPRIL] Adverse Reaction (Intermediate, Verified 03/25/24 11:24) COUGH salmeterol [From Wixela Inhub] Adverse Reaction (Intermediate, Verified 03/25/24 11:24) hand tremors, blood pressure dropping HPI HPI Cough: Details: 63-year-old gentleman, former under 10 pack-year smoker, quit over 30 years prior, with underlying history of exposure to asbestos and prior COVID-19. Patient states that his father has had asbestosis and mesothelioma from his exposure to asbestos. Patient's pulmonary function tests that has been essentially normal and CT chest that did not show any evidence of asbestosis, but pulmonary nodules 6 mm and under. He has completed his 2D echocardiogram which has essentially been normal.? His sleep study showed no underlying obstructive sleep apnea.? His symptoms previously well controlled on Advair, however his insurance stopped covering.? He has been using AirDuo with good control of his symptoms. He did have a recent exacerbation treated with a course of azithromycin and now is essentially back to baseline. His follow-up CT scan shows stable pulmonary nodules. [facility] Medical History (Updated 02/01/24 @ 12:42 by Paris Crow NP) Pulmonary nodules Localized osteoarthritis of left knee Osteoarthritis Allergic cough Asthma Depression Fibromyalgia Failed back syndrome of lumbar spine Renal calculi Post covid-19 condition, unspecified Diverticulosis Neuropathy Lumbar disc disease Overweight (BMI 25.0-29.9) HLD (hyperlipidemia) Surgical History History of total right knee replacement History of arthroscopy of right knee History of carpal tunnel release H/O arthroscopy H/O colonoscopy Spinal cord stimulator status Family History Father Hypertension COPD (chronic obstructive pulmonary disease) Mother Hypertension Dementia Family/Other Lung cancer Social History Household Members: Spouse Household Members Other:: Stepson Housing: Condominium Are you a primary health care marketing specialist to a significant other at home: No Do you presently have visiting nurse or other home services: No Alcohol intake: never Patient Tobacco Use Status: Former Tobacco user Tobacco use type: Cigarette Years Smoked: 20 e-Cigarette/Vaping Use: Never Used Second Hand Smoke Exposure: No service: No Current occupational status: employed 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 Current occupational exposures/hazards: No Cognitive needs: No Hearing needs: No Vision needs: No Review of Systems Const Denies daytime sleepiness, Denies excessive sweating, Denies fatigue, Denies fever(s), Denies lethargy, Denies malaise, Denies night sweats, Denies snoring and Denies weight loss Eyes Denies blurry vision and Denies itchy eyes ENT Denies nasal congestion, Denies post nasal drip, Denies sinus pain, Denies sinus pressure and Denies other ( Thrush) Card Denies chest pain, Denies pedal edema, Denies dyspnea, Denies orthopnea and Denies paroxysmal nocturnal dyspnea Resp Denies cough, Denies hemoptysis, Denies excessive phlegm production, Denies dyspnea, Denies snoring and Denies wheezing GI Denies abdominal pain and Denies heartburn Musc Denies myalgias, Denies arthralgias and Denies joint swelling Skin/Breast Denies rash Neuro Denies memory loss and Denies seizure-like activity Psych Denies abnormal sleep pattern, Denies anxiety and Denies memory loss Endo Denies excessive sweating, Denies fatigue and Denies heat intolerance Gurjit/Lymph Denies easy bruising Aller/Immun Denies itchy eyes, Denies seasonal rhinorrhea and Denies wheezing Physical Exam Vital Signs: Last Vital Signs Pulse 78 03/25/24 11:17 BP 120/62 03/25/24 11:17 Pulse Ox 97 03/25/24 11:17 Oxygen Delivery Method Room Air 03/25/24 11:17 BMI result Body Mass Index 29.2 Const General: no acute distress and alert Nutritional Appearance: not obese Orientation/consciousness: Other orientation findings ( oriented) HEENT Head: Yes atraumatic Eyes General: appearance normal, both eyes and all related structures Sclerae: sclerae normal EOM: EOMs intact bilaterally Neck Neck: Yes supple Lymphatic: no lymphadenopathy noted Resp Effort & Inspection: normal respiratory effort and no use of accessory muscles Auscultation: clear to auscultation bilaterally Cardio Rate: regular rate Rhythm: regular rhythm Heart sounds: no gallops, no murmurs and no rubs Skin General skin exam: other ( warm) Extrem General: No clubbing, No cyanosis and No edema Assessment & Plan Assessment & Plan (1) Reactive airway disease: Code(s): J45.909 - Unspecified asthma, uncomplicated Category: Medical Qualifiers: Asthma severity: mild Asthma persistence: intermittent Asthma complication type: uncomplicated Qualified Code(s): J45.20 - Mild intermittent asthma, uncomplicated Plan: Well controlled on current regimen of AirDuo, albuterol MDI, and duo nebs. Continue current regimen. (2) Pulmonary nodules: Code(s): R91.8 - Other nonspecific abnormal finding of lung field Category: Medical Plan: Results of follow-up CT chest reviewed, stable pulmonary nodules under 6 mm with approximately 24 months stability. No further imaging follow-up is required. Coding Level of Care Code Est Pt Level 4 (33749) Diagnoses Mild intermittent reactive airway disease without complication J45.20 Asthma severity: mild Asthma persistence: intermittent Asthma complication type: uncomplicated Pulmonary nodules R91.8
== END 2024-03-25 11:36 | disposition home or self-care (01) ==
PROVIDERS: PCP Physician Assistant; Visit Provider Internal Medicine Pulmonary Disease
DX: J45.20 Mild intermittent asthma, uncomplicated (principal); R91.8 Other nonspecific abnormal finding of lung field
CPT/HCPCS: 99214

== ENCOUNTER → 2024-03-25 11:14 | Outpatient (BNVA) | payer MEDICARE, MEDICAID, SELFPAY | PROVIDERS: PCP Physician Assistant; Visit Provider Internal Medicine Pulmonary Disease | DX: J45.20 Mild intermittent asthma, uncomplicated (principal); R91.8 Other nonspecific abnormal finding of lung field | CPT/HCPCS: 99212 ==

== ENCOUNTER 2024-04-07 11:07 | Outpatient (REF) | payer MEDICARE, MEDICAID, SELFPAY ==
[2024-04-07 11:37] LABS: Hematocrit 47.1 % (42.0-52.0); Hemoglobin 15.3 g/dl (14.0-18.0); Mean Corpuscular HGB Conc 32.5 g/dl (31.0-36.0); Mean Corpuscular Hemoglobin 29.2 pg (27.0-33.0); Mean Corpuscular Volume 89.9 fL (80.0-98.0); Mean Platelet Volume 9.3 fL (9.4-12.4); Platelet Count 335 X10*3/uL (160-400); Red Blood Count 5.24 X10*6/uL (4.60-5.80); White Blood Count 7.1 X10*3/uL (4.8-10.8)
[2024-04-07 12:00] LABS: Alanine Aminotransferase 27 U/L (0-40); Albumin Level 4.5 g/dL (3.5-5.0); Alkaline Phosphatase 62 U/L (39-117); Anion Gap 12 (12-20); Aspartate Amino Transferase 25 U/L (5-37); Bilirubin Total 0.6 mg/dL (0.0-1.0); Blood Urea Nitrogen 19 mg/dL (9-16); Calcium 9.2 mg/dL (8.4-10.2); Carbon Dioxide 29 mmol/L (22-29); Chloride 106 mmol/L (96-108); Cholesterol 220 mg/dL (<200); Estimated Glomerular Filt Rate > 60; Glucose Fasting 99 mg/dL (60-99); HDL Cholesterol 54 mg/dL (>40); LDL Cholesterol Calculated 148 mg/dL (<100); Potassium 4.8 mmol/L (3.3-5.1); Sodium 142 mmol/L (135-145); Triglycerides 90 mg/dL (<150)
[2024-04-07 12:22] LABS: Prostate Specific Antigen Scr 0.79 ng/mL (<0.05-4.0)
[2024-04-11 17:38] LABS: Vitamin B6 58.2 ng/mL (2.1-21.7)
== END 2024-04-07 11:08 | disposition home or self-care (01) ==
LOC: HO.LAB 11:07
PROVIDERS: PCP Physician Assistant; Visit Provider Physician Assistant
DX: E78.9 Disorder of lipoprotein metabolism, unspecified (principal); E78.2 Mixed hyperlipidemia; E67.2 Megavitamin-B6 syndrome; J45.30 Mild persistent asthma, uncomplicated; Z12.5 Encounter for screening for malignant neoplasm of prostate
CPT/HCPCS: 36415; 80053; 80061; 84153; 84207; 85027

== ENCOUNTER 2024-04-17 13:57 | Outpatient (AMB) | payer MEDICARE, MEDICAID, SELFPAY ==
--- NOTE | 2024-04-17 14:00 | A.OFFPC_ITS ---
Vital Signs 3 04/17/24 14:03 Height 5 ft 10 in Weight 203 lb 8 oz BMI 29.2 BP 124/76 Blood Pressure Location Lt brachial Position Sitting Pulse 67 Pulse Source Pulse Oximeter Pulse Oximetry (%) 96 Oxygen Delivery Method Room Air Intake Visit Reasons: 6mth f/u Guard Driver Required: No Accompanied by: Self / Same As Patient Allergies dexamethasone [DEXAMETHASONE] Allergy (Severe, Verified 04/17/24 14:07) Steroid Physcosis atorvastatin Adverse Reaction (Intermediate, Verified 04/17/24 14:07) bone pain bupropion [From Wellbutrin] Adverse Reaction (Intermediate, Verified 04/17/24 14:07) negative thoughts fluticasone [From Wixela Inhub] Adverse Reaction (Intermediate, Verified 04/17/24 14:07) hand tremors, blood pressure dropping lisinopril [LISINOPRIL] Adverse Reaction (Intermediate, Verified 04/17/24 14:07) COUGH salmeterol [From Wixela Inhub] Adverse Reaction (Intermediate, Verified 04/17/24 14:07) hand tremors, blood pressure dropping Medication List - Last Reconciled 04/17/24 by Juan C Melchor PA-C acetaminophen 650 mg (2 x 325 mg) PO Q6H PRN 30 days albuterol sulfate 90 mcg/actuation (Ventolin HFA) 2 puffs inhalation Q4-6H PRN 30 days fluticasone propion-salmeterol 113-14 mcg/actuation (AirDuo RespiClick) 1 inh inhalation BID 30 days garlic 500 mg PO DAILY ipratropium-albuterol 0.5 mg-3 mg(2.5 mg base)/3 mL 3 mL inhalation Q6H PRN minoxidil 5% 1 ea topical DAILY multivitamin 1 tab PO DAILY red yeast rice 600 mg PO DAILY sildenafil 100 mg PO DAILY 5 days Tobacco use date assessed: 04/17/24 Fall risk assessment: No Falls in past year Last assessed Fall Risk: 04/17/24 Dental Screening Dental Screen Date: 04/17/24 Did you have a dental visit in the last 12 months?: Yes Did you have a dental problem in the last 6 months where you did not have access to dental care?: No Was dental information given to patient?: Patient has dentist HPI 6mth f/u 2 HPI0 Details Patient is a 63-year-old male here today for six-month follow-up visit. Patient has a past medical history significant for hyperlipidemia, asthma, depression .. Asthma: Now followed by [place] pulmonology. Has been started on Advair and has been doing quite well. Does have a stable pulmonary nodule- 6mm that is been followed with CT scans. He was also told he has slight emphysema as well. .. Hyperlipidemia: Most recent lipid panel showing borderline high total cholesterol. Continues to work on dietary modifications and [id number] cholesterol-lowering medication. He does report having a family history of high cholesterol. He is not interested in statin therapy at this time. .. Depression: Has been stable without mental health medication. He reports he continues to keep his mind active and occupied with doing some medical reading. [facility] Medical History Pulmonary nodules Localized osteoarthritis of left knee Osteoarthritis Allergic cough Asthma Depression Fibromyalgia Failed back syndrome of lumbar spine Renal calculi Post covid-19 condition, unspecified Diverticulosis Neuropathy Lumbar disc disease Overweight (BMI 25.0-29.9) HLD (hyperlipidemia) Surgical History History of total right knee replacement History of arthroscopy of right knee History of carpal tunnel release H/O arthroscopy H/O colonoscopy Spinal cord stimulator status Family History Father Hypertension COPD (chronic obstructive pulmonary disease) Mother Hypertension Dementia Family/Other Lung cancer Social History Household Members: Spouse Household Members Other:: Stepson Housing: Condominium Are you a primary vision care associate to a significant other at home: No Do you presently have visiting nurse or other home services: No Alcohol intake: never Patient Tobacco Use Status: Former Tobacco user Tobacco use type: Cigarette Years Smoked: 20 e-Cigarette/Vaping Use: Never Used Second Hand Smoke Exposure: No service: No Current occupational status: employed 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 Hernan Durant, Seble Penn, Kj Boyle and colleagues, with an educational yamel from [employer]. Review of Systems Const Denies headache(s) Eyes Denies loss of vision ENT Denies vertigo, Denies dizziness, Denies headache(s) and Denies sore throat Card Denies chest pain, Denies leg edema and Denies lightheadedness Resp Denies cough, Denies hemoptysis and Denies wheezing GI Denies abdominal pain, Denies melena, Denies constipation, Denies diarrhea and Denies vomiting Denies dysuria, Denies urinary frequency and Denies urinary urgency Musc Denies arthralgias, Denies joint swelling, Denies numbness and Denies tingling Neuro Denies Abnormal speech present, Denies behavioral changes, Denies vertigo, Denies dizziness, Denies headache(s), Denies loss of vision, Denies memory loss, Denies numbness and Denies tingling Psych Denies anxiety, Denies behavioral changes, Denies depression, Denies memory loss and Denies panic attacks Gurjit/Lymph Denies easy bleeding and Denies easy bruising Aller/Immun Denies wheezing Physical exam (Primary Care) Vital Signs: Last Vital Signs Pulse 67 04/17/24 14:03 BP 124/76 04/17/24 14:03 Pulse Ox 96 04/17/24 14:03 Oxygen Delivery Method Room Air 04/17/24 14:03 BMI result Body Mass Index 29.2 Tobacco/Smoking Status: Tobacco use Status Tobacco use date assessed 04/17/24 04/17/24 14:05 Patient Tobacco Use Status Former Tobacco user 04/17/24 14:00 Tobacco use type Cigarette 04/17/24 14:00 e-Cigarette/Vaping Use Never Used 04/17/24 14:00 Thrive Assessment: Date of Thrive Assessment Date Thrive assessed 10/15/23 04/17/24 14:00 Const General: healthy appearing, no acute distress, alert and awake Nutritional Appearance: well nourished Orientation/consciousness: oriented to person, oriented to place and oriented to time HENMT Ears: TM's normal bilaterally General nose exam: Normal nasal mucous membranes and turbinates present Eyes Conjunctivae: conjunctivae normal Sclerae: sclerae normal Pupils: Equal, round and reactive pupils present Neck Neck: Yes no lymphadenopathy and Yes no JVD Thyroid: Thyroid normal Carotids: no bruits Resp Effort & Inspection: normal respiratory effort and not tachypneic Auscultation: no crackles, no rales, no rhonchi and no wheezes Cardio Rate: regular rate Rhythm: regular rhythm Heart sounds: no murmurs and normal S1 and S2 GI Palpation (GI): Soft to palpation, nontender, no hepatomegaly and no splenomegaly Auscultation: normal bowel sounds Skin General skin exam: no rashes or lesions noted and dry skin Neuro General: oriented to person, oriented to place and oriented to time Cranial nerves: Yes Equal, round and reactive pupils present Speech: No Abnormal speech present Gait exam (Neuro): Normal gait present Motor exam (neuro): no tremor noted Extrem Right upper extremity: full ROM Left upper extremity: full ROM Elbow/forearm/wrist images: 2 1. SOME NOTED HEALING ABRASIONS. SOME LIMITED FLEXION NOTED Right lower extremity: full ROM; no edema Left lower extremity: full ROM; no edema Psych Mental Status: mental status grossly normal Speech and movement: Normal speech and movement present Affect: normal affect Attitude: cooperative Thought process: Normal thought process present Assessment and Plan Assessment & Plan (1) HLD (hyperlipidemia): Code(s): E78.5 - Hyperlipidemia, unspecified Qualifiers: Hyperlipidemia type: mixed hyperlipidemia Qualified Code(s): E78.2 - Mixed hyperlipidemia Plan: Patient's total cholesterol still remains borderline high. He continues to use [id number] cholesterol lowering medication. Will continue to follow lipid panel. (2) Migraine with visual aura: Code(s): G43.109 - Migraine with aura, not intractable, without status migrainosus Plan: Patient reporting daily episodes of visual disturbances. He describes him as a migraine without head pain. Will refer to Neurology (3) Right elbow pain: Code(s): M25.521 - Pain in right elbow Plan: Reports recent episode of a softball injury falling on his right elbow. He does report feeling bit better though has some decreased range of motion on his right elbow. He will follow up with Orthopedics (4) Emphysema lung: Code(s): J43.9 - Emphysema, unspecified Qualifiers: Emphysema type: centrilobular Qualified Code(s): J43.2 - Centrilobular emphysema Plan: Now followed by [place] [facility] and has even seen a occupational hygienist in [place]. Has been diagnosed with asthma and emphysema. He has started on Advair inhaler which has been effective for his pulmonary symptoms. Orders: Orders 2 Comprehensive [place]. Panel Fast Today E78.2 - Mixed hyperlipidemia Complete Blood Count no Diff Today E78.2 - Mixed hyperlipidemia Lipid Panel Today E78.2 - Mixed hyperlipidemia Patient Instructions: Goal: Control asthma symptoms. LDL to remain below 160 Barriers: Adherence to physical activity and healthy eating habits Coding Level of Care Code Est Pt Level 4 (24658) Diagnoses Mixed hyperlipidemia E78.2 Hyperlipidemia type: mixed hyperlipidemia Migraine with visual aura G43.109 Right elbow pain M25.521 Centrilobular emphysema J43.2 Emphysema type: centrilobular
[2024-04-17 14:03] VITALS: BP 124/76; PULSE 67; O2SAT 96; BMI 29.2
== END 2024-04-17 14:41 | disposition home or self-care (01) ==
PROVIDERS: PCP Physician Assistant; Visit Provider Physician Assistant
DX: E78.2 Mixed hyperlipidemia (principal); G43.109 Migraine with aura, not intractable, without status migrainosus; M25.521 Pain in right elbow; J43.2 Centrilobular emphysema
CPT/HCPCS: 99214

== ENCOUNTER 2024-04-30 13:54 | Outpatient (REF) | payer MEDICARE, MEDICAID, SELFPAY ==
--- NOTE | ~2024-04-30 | XR_ITS ---
EXAMINATION: XR ELBOW, RIGHT CLINICAL INFORMATION: Right elbow pain. COMPARISON: 11/28/2016 TECHNIQUE: AP, lateral, and oblique views of the right elbow. FINDINGS: There is a large joint effusion present. Again seen is an ossific density anterior to the humerus consistent with an intra-articular free osseous body which can also be seen on the 11/28/2016 study. No acute fractures or dislocations. XR/XR elbow RT min 3V IMPRESSION: Large joint effusion with intra-articular free osseous body. Electronically signed by: Aron Love MD 05/29/2024 09:58 PM EDT
== END 2024-04-30 13:55 | disposition home or self-care (01) ==
LOC: HO.HOSX 13:54
PROVIDERS: PCP Physician Assistant; Visit Provider Physician Assistant
DX: S52.121A Displaced fracture of head of right radius, initial encounter for closed fracture (principal)
CPT/HCPCS: 73080; 99212

== ENCOUNTER 2024-04-30 13:54 | Outpatient (AMB) | payer MEDICARE, MEDICAID, SELFPAY ==
--- NOTE | 2024-04-30 14:11 | MHC.OFFVIS ---
Vital Signs 04/30/24 14:15 Height 5 ft 10 in Weight 203 lb BMI 29.1 Intake Visit Reasons: [place]-Right elbow pain/hurts to extend Intake Note: Carlos a63 year old right hand dominant male who presents today for an evaluation of right elbow pain. Patient reports having a fall a couple of weeks ago while he was playing softball. States about 10 years ago he had a foreign body that was never removed. Denies numbness and tingling. Allergies dexamethasone [DEXAMETHASONE] Allergy (Severe, Verified 04/30/24 14:17) Steroid Physcosis atorvastatin Adverse Reaction (Intermediate, Verified 04/30/24 14:17) bone pain bupropion [From Wellbutrin] Adverse Reaction (Intermediate, Verified 04/30/24 14:17) negative thoughts fluticasone [From Wixela Inhub] Adverse Reaction (Intermediate, Verified 04/30/24 14:17) hand tremors, blood pressure dropping lisinopril [LISINOPRIL] Adverse Reaction (Intermediate, Verified 04/30/24 14:17) COUGH salmeterol [From Wixela Inhub] Adverse Reaction (Intermediate, Verified 04/30/24 14:17) hand tremors, blood pressure dropping HPI HPI [place]prob-Right elbow pain/hurts to extend: Details: 63-year-old right hand dominant male who presents to the office today for an evaluation of right elbow pain. He reports he had a fall a couple of weeks ago while he was playing softball. He states he has pain in his elbow however he denies any numbness or tingling. His pain is aggravated with extension. He also mentions he had a foreign body about 10 years ago that was never removed. [facility] Medical History Pulmonary nodules Localized osteoarthritis of left knee Osteoarthritis Allergic cough Asthma Depression Fibromyalgia Failed back syndrome of lumbar spine Renal calculi Post covid-19 condition, unspecified Diverticulosis Neuropathy Lumbar disc disease Overweight (BMI 25.0-29.9) HLD (hyperlipidemia) Surgical History History of total right knee replacement History of arthroscopy of right knee History of carpal tunnel release H/O arthroscopy H/O colonoscopy Spinal cord stimulator status Family History Father Hypertension COPD (chronic obstructive pulmonary disease) Mother Hypertension Dementia Family/Other Lung cancer Social History Household Members: Spouse Household Members Other:: [place] [facility] Are you a primary pharmacy customer care specialist to a significant other at home: No Do you presently have visiting nurse or other home services: No Alcohol intake: never Patient Tobacco Use Status: Former Tobacco user Tobacco use type: Cigarette Years Smoked: 20 e-Cigarette/Vaping Use: Never Used Second Hand Smoke Exposure: No service: No Current occupational status: employed 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 No tenderness over the radial head. No pain over the olecranon. No difficulty with flexion or extension, No discomfort with supination or pronation No pain along the distal radius or proximal humerus. Sensation and peripheral pulses present. Results Reviewed Results Reviewed: Xrays were obtained in the office today and personally reviewed by me of the right elbow show a possible non displaced radial head fracture Assessment & Plan Assessment & Plan (1) Right radial head fracture: Code(s): S52.121A - Displaced fracture of head of right radius, initial encounter for closed fracture Category: Medical Plan Based off his mechanism of injury and clinical exam along with x-ray findings, he may have a nondisplaced radial head fracture. This may have been healing on its own on x-rays. Given the improvement in function, he will increase activities as tolerated. He however does lack some ROM therefore I recommend flexion and extension stretching exercises I did showed some exercises which he can use with weights for stretching of flexor and extensor muscle of the forearm. If symptoms persist or worsen, patient will contact the office, otherwise follow-up as needed. Orders: Orders XR elbow RT min 3V Today M25.521 - Pain in right elbow Patient Instructions: Scribed for Ta-Cecily Ramos PA-C, by Horace Abhang, medical staff director, on 04/30/2024 at 1:45 PM EST.? I, Danette Ramos PA-C, have personally reviewed and agree with the information entered by the scribe. Coding Level of Care Code Est Pt Level 3 (07774) Diagnoses Right radial head fracture S52.121A
[2024-04-30 14:15] VITALS: BMI 29.1
== END 2024-04-30 15:22 | disposition home or self-care (01) ==
LOC: HO.HOS 13:54
PROVIDERS: PCP Physician Assistant; Visit Provider Physician Assistant
DX: S52.121A Displaced fracture of head of right radius, initial encounter for closed fracture (principal); W19.XXXA Unspecified fall, initial encounter
CPT/HCPCS: 99213

== ENCOUNTER 2024-08-24 19:29 | Emergency (ER) | payer MEDICARE, MEDICAID, SELFPAY ==
--- NOTE | 2024-08-24 19:35 | ED.GENADULT ---
HPI - General Adult General Chief complaint: Eye Problems Stated complaint: R eye pain/swelling Time Seen by Provider: 08/24/24 21:31 Source: patient Mode of arrival: ambulatory Limitations: no limitations History of Present Illness ED Provider: Dr. Paris Singleton HPI narrative: Patient comes to the emergency room complaining of pain in his right eye, present for couple of days. Patient states that he has redness and pain in a localized area in the lower lid. Denies fever chills, no rash anywhere else. Related Data Home Medications ?Medication ?Instructions ?Recorded ?Confirmed garlic 500 mg PO DAILY 07/21/20 04/17/24 multivitamin 1 tab PO DAILY 07/21/20 04/17/24 red yeast rice 600 mg tablet 600 mg PO DAILY 02/12/23 04/17/24 minoxidil 5 % topical foam 1 ea topical DAILY 02/20/23 04/17/24 Previous Rx's ?Medication ?Instructions ?Recorded acetaminophen 325 mg tablet 650 mg (2 x 325 mg) PO Q6H PRN 09/04/23 Pain, Mild (Pain Scale 1-3) 30 days #240 tabs sildenafil 100 mg tablet 100 mg PO DAILY 5 days #5 tabs 10/15/23 ipratropium 0.5 mg-albuterol 3 mg 3 ml inhalation Q6H PRN wheezing 02/01/24 (2.5 mg base)/3 mL nebulization #180 mL soln fluticasone 113 mcg-salmeterol 14 1 inh inhalation BID 30 days #1 ea 03/11/24 mcg/actuation breath activated powdr (AirDuo RespiClick) albuterol sulfate 90 mcg/actuation 2 puff inhalation Q4-6H PRN 04/07/24 aerosol inhaler (Ventolin HFA) wheezing 30 days #8.5 grams erythromycin 5 mg/gram (0.5 %) eye 0.5 inch ophthalmic (eye) BID #3.5 08/24/24 ointment grams Allergies Allergy/AdvReac Type Severity Reaction Status Date / Time dexamethasone [DEXAMETHASONE] Allergy Severe Steroid Verified 08/24/24 19:39 Physcosis atorvastatin AdvReac Intermediate bone pain Verified 08/24/24 19:39 bupropion [From Wellbutrin] AdvReac Intermediate negative Verified 08/24/24 19:39 thoughts fluticasone AdvReac Intermediate hand Verified 08/24/24 19:39 [From Wixela Inhub] tremors, blood pressure dropping lisinopril [LISINOPRIL] AdvReac Intermediate COUGH Verified 08/24/24 19:39 salmeterol AdvReac Intermediate hand Verified 08/24/24 19:39 [From Wixela Inhub] tremors, blood pressure dropping Review of Systems Review of Systems: Constitutional : No Weight loss, No Fever, No Chills, No Night Sweats, No Fatigue, No Malaise ENT/Mouth : No Hearing loss, No Ear Pain, No Nasal Congestion, No Sinus Pain, No Hoarseness, No sore throat, No Rhinorrhea, No Swallowing Difficulty Eyes: Complaining of pain in the lower eyelid, erythema No Eye Pain, No Swelling, No Redness, No Foreign Body, No Discharge, No Vision Changes Cardiovascular : No Chest Pain, No SOB, No Dyspnea on Exertion, No Orthopnea, No Edema, No Palpitations Respiratory : No Cough, No Sputum, No Wheezing, No Smoke Exposure, No Dyspnea Gastrointestinal : No Nausea, No Vomiting, No Diarrhea, No Constipation, No abdominal Pain, No Hematochezia, No Melena Genitourinary : no irregular bleeding, No Dysuria, No Urinary Frequency, No Hematuria, No Urinary Incontinence, No Urgency, No Flank Pain, No Urinary Flow Changes, No Hesitancy Musculoskeletal : No joint pain, No Myalgias, No Joint Swelling Skin : No Skin Lesions, No rash Neuro : No Weakness, No Numbness, No Paresthesias, No Loss of Consciousness, No Dizziness, No Headache Psych : No Anxiety/Panic, No Depression, No SI/HI/AH/VH, No Social Issues, Heme/Lymph: No Bruising, No Bleeding,No Lymphadenopathy Endocrine : No Polyuria, No Polydipsia, No Temperature Intolerance [facility] Past Medical History Medical History Pulmonary nodules Localized osteoarthritis of left knee Osteoarthritis Allergic cough Asthma Depression Fibromyalgia Failed back syndrome of lumbar spine Renal calculi Post covid-19 condition, unspecified Diverticulosis Neuropathy Lumbar disc disease Overweight (BMI 25.0-29.9) HLD (hyperlipidemia) Surgical History History of total right knee replacement History of arthroscopy of right knee History of carpal tunnel release H/O arthroscopy H/O colonoscopy Spinal cord stimulator status Family History Family History Father Hypertension COPD (chronic obstructive pulmonary disease) Mother Hypertension Dementia Family/Other Lung cancer Social History Social History Household Members: Spouse Household Members Other:: [place] [facility] Are you a primary childcare center administrator to a significant other at home: No Do you presently have visiting nurse or other home services: No Alcohol intake: never Patient Tobacco Use Status: Former Tobacco user Tobacco use type: Cigarette Years Smoked: 20 e-Cigarette/Vaping Use: Never Used Second Hand Smoke Exposure: No Advance Directives: Yes Advance Directives on File: Yes Advance Directives Date on File: 05/31/23 service: No Current occupational status: employed 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 Oriented X3. No acute distress. Eyes: Pupils equal, round and reactive to light. ENT: Pharynx normal. Patient has a stye in the internal aspect of the lower eyelid. Neck: Normal inspection. Neck supple. No lymph nodes noted. No crepitus CVS: Normal heart rate and rhythm. Pulses normal. Normal S1 and S2 Respiratory: No respiratory distress. Breath sounds normal. No Wheezing. No rales Abdomen: Soft and nontender. No rigidity. No distention. Skin: Skin warm and dry. Normal skin color. Normal skin turgor. Extremities: No lower extremity edema. No Lacerations. No Rash Neuro: Oriented X 3. No motor deficit. No sensory deficit. Moving all extremities. No slurred speech. CN 2 through 12 grossly intact Psych: calm, cooperative, normal affect Course Course Course Narrative: RME performed by Kimberley Story PA-C. Patient is a 64 year old assigned male at presenting to the emergency department with right eye pain over the last few days. Patient states that he does have a history of shingles. Patient states that the lower portion of his right eye lid has been painful over the last few days and is not getting better. Detailed physical exam and review of systems are deferred to the software engineering analyst. Patient placed back in the waiting room pending room availability. Medical Decision Making Medical Decision Making MDM Narrative: I discussed the physical exam with the patient. Patient has a stye. -the stye itself is round, on the bigger side, seems that it is about to pop. -I applied tetracaine drops in the eyelid, then with a 22 gauge needle, unroof the lesion and with Q-tips drained the stye. Patient states it was painless, the stye is pretty much gone. Patient tolerated well the procedure Discharge Plan Discharge Clinical Impression: Stye Patient Disposition: Home, Self-Care Instructions: Stye (ED) Additional Instructions: Please follow-up with your primary care physician tomorrow. If you have any worsening or new symptoms, please return to the emergency room or call 911 Prescriptions: New erythromycin 5 mg/gram (0.5 %) ointment 0.5 inch ophthalmic (eye) BID Qty: 3.5 0RF No Action fluticasone propion-salmeterol [AirDuo RespiClick] 113-14 mcg/actuation aerosol powdr breath activated 1 inh inhalation BID 30 Days Qty: 1 6RF albuterol sulfate [Ventolin HFA] 90 mcg/actuation HFA aerosol inhaler 2 puff inhalation Q4-6H PRN (Reason: wheezing) 30 Days Qty: 8.5 1RF minoxidil 5 % Foam 1 ea TOPICAL DAILY sildenafil 100 mg tablet 100 mg PO DAILY 5 Days Qty: 5 0RF red yeast rice 600 mg tablet 600 mg PO DAILY Rx Instructions: give with meal/snack garlic Tablet 500 mg PO DAILY multivitamin Tablet 1 tab PO DAILY ipratropium-albuterol 0.5 mg-3 mg(2.5 mg base)/3 mL solution for nebulization 3 ml inhalation Q6H PRN (Reason: wheezing) Qty: 180 3RF acetaminophen 325 mg tablet 650 mg PO Q6H PRN (Reason: Pain, Mild (Pain Scale 1-3)) 30 Days Qty: 240 0RF Print Language: Lao
[2024-08-24 19:36] VITALS: BP 136/82; PULSE 82; RESP 20; TEMP 36.6; O2SAT 97; BMI 29.5
[2024-08-24 21:38] VITALS: BP 120/85; PULSE 70; RESP 16; O2SAT 96
[2024-08-24 22:46] VITALS: BP 120/85; PULSE 70; RESP 16; TEMP -17.7; TEMP 0; O2SAT 96
== END 2024-08-24 22:47 | disposition home or self-care (01) ==
PROVIDERS: Emergency Provider Emergency Medicine; PCP Physician Assistant
DX: H00.012 Hordeolum externum right lower eyelid (principal); H57.11 Ocular pain, right eye; Z87.891 Personal history of nicotine dependence; Z79.899 Other long term (current) drug therapy
CPT/HCPCS: 99283

== ENCOUNTER 2024-10-21 11:04 | Outpatient (REF) | payer MEDICARE, MEDICAID, SELFPAY ==
[2024-10-21 11:48] LABS: Hematocrit 44.6 % (42.0-52.0); Hemoglobin 14.8 g/dl (14.0-18.0); Mean Corpuscular HGB Conc 33.2 g/dl (31.0-36.0); Mean Corpuscular Hemoglobin 29.5 pg (27.0-33.0); Mean Corpuscular Volume 88.8 fL (80.0-98.0); Mean Platelet Volume 10.7 fL (9.4-12.4); Platelet Count 235 X10*3/uL (160-400); Red Blood Count 5.02 X10*6/uL (4.60-5.80); Red Cell Distribution Width 13.1 % (11.0-16.0); White Blood Count 6.5 X10*3/uL (4.8-10.8)
--- OUTSIDE RECORDS SUMMARY | 2024-10-21 12:20 | XMS_ITS | Clinical Summary ---
Author Organization [facility] Address [address] [place] [address] Care Team Providers Care Director Call Center Sales Name Role Phone Juan C Melchor Primary Care Provider [phone] Social History Tobacco Use Types Packs/Day Years Used Date Smoking Tobacco: Never Assessed Sex and Gender Information Value Date Recorded Sex Assigned at Not on file Legal Sex Male 9:44 AM EDT Gender Identity Not on file Sexual Orientation Not on file Last Filed Vital Signs Vital Sign Reading Time Taken Comments Blood Pressure 126/85 05/12/2021 11:19 AM EDT Pulse 62 05/12/2021 11:19 AM EDT Temperature - - Respiratory Rate 16 05/12/2021 11:19 AM EDT Oxygen Saturation 97% 05/12/2021 11:19 AM EDT Inhaled Oxygen Concentration - - Weight 92.1 kg (203 lb) 05/12/2021 10:03 AM EDT Height - - Body Mass Index - - Plan of Treatment Health Maintenance Due Date Last Done Comments Cologuard 1958 Colon Cancer Screening 1960 Colonoscopy 1958 FOBT / Fit Test 1958 Sigmoidoscopy 1958 DTaP,Tdap,and Td Vaccines (1 - Tdap) 1980 Zoster Vaccines (1 of 2) 2008 Pneumococcal Vaccine: 65+ Ye ars (1 of 1 - PCV) 2023 COVID-19 Vaccine ( - 2023-2 5 season) 2024 Influenza Vaccine (#1) 2024 Alcohol/Substance Use Screening 09/24/2024 Health Care Proxy Review 09/24/2024 RSV Vaccine (60+ years old a nd patients) (1 - 1-dose 75+ series) 2033 Hepatitis B Vaccines Aged Out No long er eligible based on patient's age to complete this topic Insurance [facility] [place] [id number] Care Teams Director Call Center Sales Relationship Specialty Start Date End Date Juan C Melchor PA [address] [place] [id number] PCP - General 05/12/21
--- OUTSIDE RECORDS SUMMARY | 2024-10-21 12:20 | XMS_ITS | Referral Summary ---
Author Organization [facility] Address [address] [place] [address] Care Team Providers Care Oil Heat Technician Name Role Phone Juan C Melchor Primary Care Provider [phone] Social History Tobacco Use Types Packs/Day Years [...] Mass Index - - Plan of Treatment Not on file [facility] Care Teams Oil Heat Technician Relationship Specialty Start Date End Date Juan C Melchor PA [address] [place] [id number] [facility] - General 05/12/21
[2024-10-21 12:24] LABS: Alanine Aminotransferase 26 U/L (0-40); Albumin Level 4.3 g/dL (3.5-5.0); Alkaline Phosphatase 49 U/L (39-117); Anion Gap 8 (12-20); Aspartate Amino Transferase 25 U/L (5-37); Bilirubin Total 0.6 mg/dL (0.0-1.0); Blood Urea Nitrogen 19 mg/dL (9-16); Calcium 9.2 mg/dL (8.4-10.2); Carbon Dioxide 30 mmol/L (22-29); Chloride 107 mmol/L (96-108); Cholesterol 214 mg/dL (<200); Estimated Glomerular Filt Rate > 60; Glucose Fasting 92 mg/dL (60-99); HDL Cholesterol 51 mg/dL (>40); LDL Cholesterol Calculated 146 mg/dL (<100); Potassium 4.6 mmol/L (3.3-5.1); Sodium 140 mmol/L (135-145); Total Protein 6.9 g/dL (6.5-8.0); Triglycerides 88 mg/dL (<150)
[2024-10-21 12:37] LABS: Prostate Specific Antigen Scr 0.59 ng/mL (<0.05-4.0)
[2024-10-28 15:44] LABS: Vitamin B6 45.2 ng/mL (2.1-21.7)
== END 2024-10-21 11:05 | disposition home or self-care (01) ==
LOC: HO.LAB 11:04
PROVIDERS: PCP Physician Assistant; Visit Provider Physician Assistant
DX: E78.2 Mixed hyperlipidemia (principal); Z12.5 Encounter for screening for malignant neoplasm of prostate
CPT/HCPCS: 36415; 80053; 80061; 84153; 84207; 85027

== ENCOUNTER 2024-10-23 13:25 | Outpatient (AMB) | payer MEDICARE, MEDICAID, SELFPAY ==
[2024-10-23 13:26] VITALS: BP 110/76; PULSE 71; O2SAT 96; BMI 29.8
--- NOTE | 2024-10-23 13:26 | A.OFFVIS_ITS ---
Intake Vital Signs 10/23/24 13:26 Height 5 ft 10 in Weight 208 lb BMI 29.8 BP 110/76 Blood Pressure Location Lt brachial Position Sitting Pulse 71 Pulse Source Pulse Oximeter Pulse Oximetry (%) 96 Oxygen Delivery Method Room Air Intake Visit Reasons: EZEQUIEL G0439 Sap Bobj Developer Required: No Accompanied by: Self / Same As Patient Allergies dexamethasone [DEXAMETHASONE] Allergy (Severe, Verified 10/25/24 21:08) Steroid Physcosis atorvastatin Adverse Reaction (Intermediate, Verified 10/25/24 21:08) bone pain bupropion [From Wellbutrin] Adverse Reaction (Intermediate, Verified 10/25/24 21:08) negative thoughts fluticasone [From Wixela Inhub] Adverse Reaction (Intermediate, Verified 10/25/24 21:08) hand tremors, blood pressure dropping lisinopril [LISINOPRIL] Adverse Reaction (Intermediate, Verified 10/25/24 21:08) COUGH salmeterol [From Wixela Inhub] Adverse Reaction (Intermediate, Verified 10/25/24 21:08) hand tremors, blood pressure dropping Medication List - Last Reconciled 10/25/24 by JESSE Gamino acetaminophen 650 mg (2 x 325 mg) PO Q6H PRN 30 days albuterol sulfate 90 mcg/actuation (Ventolin HFA) 2 puffs inhalation Q4-6H PRN 30 days amoxicillin 1,000 mg PO BID fluticasone propion-salmeterol 113-14 mcg/actuation (AirDuo RespiClick) 1 inh inhalation BID 30 days garlic 500 mg PO DAILY ipratropium-albuterol 0.5 mg-3 mg(2.5 mg base)/3 mL 3 mL inhalation Q6H PRN minoxidil 5% 1 ea topical DAILY multivitamin 1 tab PO DAILY red yeast rice 600 mg PO DAILY Do you need a note to return to daycare/school/sports/work: No HPI [facility] G0439 HPI Details Dentist: Up-to-date Eye: Up to date Snellen:n/a Right: Left: Corrected vision: Colonoscopy: Due 2030 PHQ-9: Flu: Up-to-date COVID: Up-to-date Tdap: Up to date Diet: Balanced diet Exercise: Swimming Reports replacing lilly knees 2020. He sees PT twice a wk, knee and back, spinal stimulator Former smoker for 20 years, 1pack/day--quick 1994 The patient is a 64-year-old male presenting today for a wellness visit and follow up He denies shortness of breath, chest pain, heart palpitation Discuss [place] of life and end of life planning with patient. Reports he has a healthcare proxy and a living will The patient is up-to-date on all his screenings and vaccinations Reports that he has been staying active, swimming as frequently as he can HPI Comments History of Present Illness Details reviewed past medical history- yes reviewed surgical / hospitalization history- yes reviewed current medications- yes reviewed family history- yes home safety throw rugs? n grab bars? n raised toilet seat? n working smoke detectors? y activities of daily living difficulty bathing or showering?n difficulty dressing? n difficulty using the toilet? n difficulty getting in and out of bed?n difficulty walking?n receives help from other person's with any of the above tasks?n instrumental activities of daily living uses telephone -y gets to place out of walking distance-y go shopping for groceries- y repairs own meals- y does own minor home maintenance- y does own laundry-y does own housework-y manages own money- y currently takes medication-y end of life planning discussed advanced directives- yes advanced directives on file? discussed wishes expressed in advanced directives. fall risk have you had any falls with injuries in the past year?n have you had 2 or more falls in the past year? n fall risk assessment:y [facility] Medical History Pulmonary nodules Localized osteoarthritis of left knee Osteoarthritis Allergic cough Asthma Depression Fibromyalgia Failed back syndrome of lumbar spine Renal calculi Post covid-19 condition, unspecified Diverticulosis Neuropathy Lumbar disc disease Overweight (BMI 25.0-29.9) HLD (hyperlipidemia) Surgical History History of total right knee replacement History of arthroscopy of right knee History of carpal tunnel release H/O arthroscopy H/O colonoscopy Spinal cord stimulator status Family History Father Hypertension COPD (chronic obstructive pulmonary disease) Mother Hypertension Dementia Family/Other Lung cancer Social History Household Members: Spouse Household Members Other:: Ste[place] Housing: Condominium Are you a primary palliative care physician to a significant other at home: No Do you presently have visiting nurse or other home services: No Alcohol intake: never Patient Tobacco Use Status: Former Tobacco user Tobacco use type: Cigarette Years Smoked: 20 e-Cigarette/Vaping Use: Never Used Second Hand Smoke Exposure: No Advance Directives Date on File: 05/31/23 service: No Current occupational status: employed 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 Current occupational exposures/hazards: No Cognitive needs: No Hearing needs: No Vision needs: No Questionnaire Medicare Wellness Checkup [age] What gender do you identify with?: male During the past 4 weeks, how much have you been bothered by emotional problems such as feeling anxious, depressed, irritable, sad or downhearted, and blue?: not at all During the past 4 weeks, has your physical & emotional health limited your social activities with family, friends, neighbors, or groups?: not at all During the past 4 weeks, how much bodily pain have you generally had?: very mild pain During the past 4 weeks, was someone available to help you if you needed & wanted help?: yes, quite a bit During the past 4 weeks, what was the hardest physical activity you could do for at least 2 minutes?: heavy Can you get to places out of walking distance without help? (For eg., can you travel alone on buses, taxis or drive your car?): Yes Can you go shopping for groceries or clothes without someone's help?: Yes Can you prepare your own meals?: Yes Can you do your housework without help?: Yes Because of any health problems, do you need the help of another person with your personal care needs such as eating, bathing, dressing or getting around the house?: No Can you handle your own money without help?: Yes During the past 4 weeks, how would you rate your health in general?: very good During the past 4 weeks how have things been going for you?: pretty well Are you having difficulties driving your car?: no Do you always fasten your seat belt when you are in a car?: yes, usually During past 4 weeks, have you been bothered by the following: never: Falling or dizzy when standing up and Problems using the telephone?, seldom: Trouble eating well? and Teeth or denture problems?, sometimes: Tiredness or fatigue? and often: Sexual problems? Have you fallen 2 or more times in the past year?: No Are you afraid of falling?: Yes Are you a smoker?: no During the past 4 weeks, how many drinks of wine, beer, or other alcoholic beverages did you have?: no alcohol at all Do you exercise for about 20 minutes 3 or more times a week?: yes, most of the time Have you been given information to help with the following?: yes: Hazards in your house that might hurt you? and yes: Keeping track of your medications? How often do you have trouble taking medicines the way you have been told to take them?: I always take medicine as prescribed How confident are you that you can control & manage most of your health problems?: very confident What is your race?: White Mini Mental State Exam (MMSE) Orientation What is the (year) (season) (date) (day) (month)?: year, season, date, day and month Where are we (state) (county) (town or city) (hospital) (floor)?: state, county, town or city, hospital/clinic and floor Score Score: 10 Activity of Daily Living Bathing - sponge bath, tub bath or shower: receives no assistance (gets in/out by self, if usual bathing means Dressing - getting clothes from closets & drawers, including inner/outer garments & fasteners.: gets clothes & gets completely dressed without help Toileting - going to the 'toilet room' for urine/bowel elimination & cleaning self/arranging clothes: goes to toilet room, cleans self, arranges clothes without help Transfer: moves in & out of bed and chair without help (may use support object) Continence: controls urination/bowel movements completely by self Feeding: feeds self without help Total Score: 0 Information obtained from: patient Using telephone: independent Traveling: independent Shopping: independent Preparing meals: independent Housework: independent Taking medicine: independent Managing money: independent PHQ-9 Over the last 2 weeks, how often have you been bothered by any of the following problems? 1. Little interest or pleasure in doing things: several days 2. Feeling down, depressed, or hopeless: several days 3. Trouble falling or staying asleep, or sleeping too much: several days 4. Feeling tired or having little energy: several days 5. Poor appetite or overeating: several days 6. Feeling bad about yourself - or that you are a failure or have let yourself or your family down: not at all 7. Trouble concentrating on things, such as reading the newspaper or watching television: not at all 8. Moving or speaking so slowly that other people could have noticed. Or the opposite - being so fidgety or restless that you have been moving around a lot more than usual: several days 9. Thoughts that you would be better off or of hurting yourself in some way: not at all Total score: 6 Depression Screening Interpretation: Positive Depression Screening Follow-up: Existing condition and Declines treatment Depression Screening Done: Yes 11388 - PHQ-9 Billing: Yes Source: Developed by Drs. Hernan Durant, Seble Penn, Kj Boyle and colleagues, with an educational yamel from [employer]. PHQ-2/PHQ-9 PHQ-2 Over the last 2 weeks, how often have you been bothered by any of the following problems? 1. Little interest or pleasure in doing things: several days 2. Feeling down, depressed, or hopeless: several days Total score: 2 If score is 3 or greater, continue 3. Trouble falling or staying asleep, or sleeping too much: several days 4. Feeling tired or having little energy: several days 5. Poor appetite or overeating: several days 6. Feeling bad about yourself - or that you are a failure or have let yourself or your family down: not at all 7. Trouble concentrating on things, such as reading the newspaper or watching television: not at all 8. Moving or speaking so slowly that other people could have noticed. Or the opposite - being so fidgety or restless that you have been moving around a lot more than usual: several days 9. Thoughts that you would be better off or of hurting yourself in some way: not at all Total score: 6 0-4 None-Minimal, 5-9 Mild, 10-14 Moderate, 15-19 Moderately Severe, 20-27 Severe Source: Developed by Drs. Hernan Durant, Seble Penn, Kj Boyle and colleagues, with an educational yamel from [employer]. Thrive Questionnaire Date Thrive assessed: 10/23/24 I am a: Patient What is your living situation today?: I have a steady place to live Within the past 12 months, did the food you bought not last and you didn't have the money to get more?: Never true Within the past 12 months, did you worry whether your food would run out before you got money to buy more?: Never true Do you have trouble paying for medicines?: No Do you have trouble getting transportation to medical appointments?: No Do you have trouble paying your heating and electricity bill?: No Do you have trouble taking care of your child, family member or friend?: No Do you have trouble with day-to-day activities such as bathing, preparing meals, shopping, managing finances, etc.?: No Are you currently unemployed and looking for a job?: No Are you interested in more education?: No Please select the resources that you would like help with: None Currently or been in a relationship where the following occur: No concerns reported THRIVE Score: 0 BRIAN-7 AMB Questionnaire BRIAN-7 Date BRIAN - 7 assessed: 10/23/24 Feeling nervous, anxious, or on edge: 0 = Not at all Not being able to stop or control worryin = Not at all Worrying too much about different things: 0 = Not at all Trouble relaxin = Not at all Being so restless that it is hard to sit still: 0 = Not at all Becoming easily annoyed or irritable: 0 = Not at all Feeling afraid as if something awful might happen: 0 = Not at all Total BRIAN-7 score (0-4 normal; 5-9 mild; 10-14 moderate; 15-21 severe): 0 Source: Developed by Drs. Hernan Durant, Seble Penn, Kj Boyle and colleagues, with an educational yamel from [employer]. BRIAN-7 Assessment Billing BRIAN-7 Assessment Tool: BRIAN-7 Assessment 16914 Review of Systems Const Details: Denies chills, Denies fatigue, Denies fever(s), Denies headache(s) and Denies weakness HEENT Denies change in vision, Denies dizziness, Denies headache(s), Denies hearing loss, Denies nasal congestion, Denies sinus pain, Denies sinus pressure and Denies sore throat Card Denies chest pain, Denies lightheadedness, Denies dyspnea and Denies other (palpitations) Resp Denies cough, Denies dyspnea and Denies wheezing GI Denies abdominal pain, Denies melena, Denies hematochezia, Denies change in bowel habits, Denies dyspepsia and Denies nausea Denies hematuria and Denies dysuria Musc Denies abnormal gait, Denies myalgias, Denies arthralgias, Denies numbness and Denies tingling Skin/Breast Denies rash, Denies unusual bruising and Denies wounds Neuro Denies abnormal gait, Denies dizziness, Denies headache(s), Denies memory loss, Denies numbness, Denies Sensory deficit (Neuro), Denies tingling and Denies weakness Psych Denies anxiety, Denies depression and Denies memory loss Endo Denies cold intolerance, Denies fatigue, Denies heat intolerance, Denies polydipsia and Denies polyuria Gurjit/Lymph Denies easy bleeding and Denies easy bruising Aller/Immun Denies wheezing Physical Exam Vital Signs: Last Vital Signs Pulse 71 10/23/24 13:26 BP 110/76 10/23/24 13:26 Pulse Ox 96 10/23/24 13:26 Oxygen Delivery Method Room Air 10/23/24 13:26 BMI result Body Mass Index 29.8 Const Other: IPPE/AWV: Balance Romberg Yes . Tandem walk Yes. Walk and Turn Yes . Rise from sit to stand Yes . Vision Corrective lens No Vision screen pass Hearing Whisper test pass . Urinary incont. no. EKG Not clinically necessary. Results Reviewed Results Reviewed: Laboratory Tests 10/21/24 11:17 WBC 6.5 RBC 5.02 Hgb 14.8 Hct 44.6 Sodium 140 Potassium 4.6 Chloride 107 Carbon Dioxide 30 H Creatinine 0.86 Estimated GFR > 60 Fasting Glucose 92 Calcium 9.2 AST 25 ALT 26 Alkaline Phosphatase 49 Triglycerides 88 Cholesterol 214 H LDL Cholesterol, Calc 146 H HDL Cholesterol 51 PSA Screen 0.59 Assessment & Plan Assessment & Plan (1) Medicare annual wellness visit, initial: Code(s): Z00.00 - Encounter for general adult medical examination without abnormal findings Plan: [place] of life and end of life discussion with patient. The patient is up-to-date on all screens and vaccines He continues to be active, swims frequently and sees PT twice a week for chronic back pain Recent lab results reviewed with patient (2) MDD (major depressive disorder), recurrent episode, mild: Code(s): F33.0 - Major depressive disorder, recurrent, mild Plan: Reports that he has been able to cope without added medical management. Reports that he is very active in a mu-ism. Denies SI/HI (3) Status post total knee replacement, right: Code(s): Z96.651 - Presence of right artificial knee joint Plan: Patient denies pain in office today Continues acetaminophen 650 mg q.6 hours p.r.n. 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 Plan: Vitamin B6 lab results is currently pending (6) HLD (hyperlipidemia): Code(s): E78.5 - Hyperlipidemia, unspecified Qualifiers: Hyperlipidemia type: mixed hyperlipidemia Qualified Code(s): E78.2 - Mixed hyperlipidemia Plan: Total cholesterol and LDL continue to be slightly elevated but trending down Reinforced a diet low in cholesterol/activity as tolerated Continue red yeast rice 600 mg daily (7) Pulmonary nodules: Code(s): R91.8 - Other nonspecific abnormal finding of lung field Plan: Stable: Being monitored follow-up imaging Follow up with pulmonology as scheduled (8) Reactive airway disease: Code(s): J45.909 - Unspecified asthma, uncomplicated Qualifiers: Asthma complication type: uncomplicated Asthma persistence: intermittent Asthma severity: mild Qualified Code(s): J45.20 - Mild intermittent asthma, uncomplicated Plan: Continue Ventolin HFA 2 puffs q.4-6 hours as needed, continue Advair 1 puff b.i.d. and nebulizer treatment 6 hours as needed Follow up with pulmonology as scheduled Plan To return in 1 year for his next annual wellness exam with PCP Orders: Orders Complete Blood Count Auto Diff 1 Year E55.9 - Vitamin D deficiency, unspecified, E67.2 - Megavitamin-B6 syndrome, Z00.00 - Encounter for general adult medical examination without abnormal findings Comprehensive [place]. Panel Fast 1 Year E55.9 - Vitamin D deficiency, unspecified, E67.2 - Megavitamin-B6 syndrome, Z00.00 - Encounter for general adult medical examination without abnormal findings Vitamin D 25-OH Total 1 Year E55.9 - Vitamin D deficiency, unspecified, E67.2 - Megavitamin-B6 syndrome, Z00.00 - Encounter for general adult medical examination without abnormal findings Vitamin B6 1 Year E55.9 - Vitamin D deficiency, unspecified, E67.2 - Megavitamin-B6 syndrome, Z00.00 - Encounter for general adult medical examination without abnormal findings UA CC w/rflx Micro + Cult 1 Year E55.9 - Vitamin D deficiency, unspecified, E67.2 - Megavitamin-B6 syndrome, Z00.00 - Encounter for general adult medical examination without abnormal findings TSH reflex Free T4 1 Year E55.9 - Vitamin D deficiency, unspecified, E67.2 - Megavitamin-B6 syndrome, Z00.00 - Encounter for general adult medical examination without abnormal findings Glucose Fasting 1 Year E55.9 - Vitamin D deficiency, unspecified, E67.2 - Megavitamin-B6 syndrome, Z00.00 - Encounter for general adult medical examination without abnormal findings Lipid Panel 1 Year E55.9 - Vitamin D deficiency, unspecified, E67.2 - Megavitamin-B6 syndrome, Z00.00 - Encounter for general adult medical examination without abnormal findings Quality Reporting (2020) Depression/Bipolar (159/160/161/177) PHQ-9: Total score: 6 Coding Level of Care Code Medicare Subsequent (G0439) Est Pt Level 3 (33170) Diagnoses Medicare annual wellness visit, initial Z00.00 MDD (major depressive disorder), recurrent episode, mild F33.0 Status post total knee replacement, right Z96.651 Vitamin D deficiency E55.9 Hypervitaminosis B6 E67.2 Mixed hyperlipidemia E78.2 Hyperlipidemia type: mixed hyperlipidemia Pulmonary nodules R91.8 Mild intermittent reactive airway disease without complication J45.20 Asthma complication type: uncomplicated Asthma persistence: intermittent Asthma severity: mild Additional Codes BRIAN-7 Assessment Billing - BRIAN-7 Assessment Tool: BRIAN-7 Assessment 95049 ([id number]) PHQ-9 - 79703 - PHQ-9 Billing: Yes ([id number]) Time Spent (min) 37 Advance Care Planning Advance Care Planning discussion: Exists, not on file Forms completed: None Actual minutes spent: 17 Did not discuss due to Cultural/Spiritual beliefs: Yes
--- OUTSIDE RECORDS SUMMARY | 2024-10-23 17:20 | XMS_ITS | Clinical Summary ---
Author Organization [facility] Address [address] [place] [address] Care Team Providers Care Batch Heat Treat Operator Name Role Phone Juan C Melchor Primary Care Provider [phone] Social History Tobacco Use Types Packs/Day Years [...] patient's age to complete this topic Insurance [facility] [id number] Care Teams Batch Heat Treat Operator Relationship Specialty Start Date End Date Juan C Melchor PA [address] [place] [id number] PCP - General 05/12/21
--- OUTSIDE RECORDS SUMMARY | 2024-10-23 17:20 | XMS_ITS | Referral Summary ---
Author Organization [facility] Address [address] [place] [address] Care Team Providers Care Flatwork Tier Name Role Phone Juan C Melchor Primary Care Provider [phone] Social History Tobacco Use Types Packs/Day Years [...] Plan of Treatment Not on file Insurance [facility] Care Teams Flatwork Tier Relationship Specialty Start Date End Date Juan C Melchor PA [address] [place] [id number] [facility] - General 05/12/21
== END 2024-10-23 14:44 | disposition home or self-care (01) ==
PROVIDERS: PCP Physician Assistant; Visit Provider Physician Assistant
DX: Z00.00 Encounter for general adult medical examination without abnormal findings (principal); F33.0 Major depressive disorder, recurrent, mild; Z96.651 Presence of right artificial knee joint; E55.9 Vitamin D deficiency, unspecified; E67.2 Megavitamin-B6 syndrome; E78.2 Mixed hyperlipidemia; R91.8 Other nonspecific abnormal finding of lung field; J45.20 Mild intermittent asthma, uncomplicated

== ENCOUNTER → 2024-10-23 13:25 | Outpatient (BNVA) | payer MEDICARE, MEDICAID, SELFPAY | PROVIDERS: PCP Physician Assistant; Visit Provider Physician Assistant | DX: Z00.00 Encounter for general adult medical examination without abnormal findings (principal); F33.0 Major depressive disorder, recurrent, mild; E55.9 Vitamin D deficiency, unspecified; E67.2 Megavitamin-B6 syndrome; E78.2 Mixed hyperlipidemia; R91.8 Other nonspecific abnormal finding of lung field; J45.20 Mild intermittent asthma, uncomplicated | CPT/HCPCS: 96127; 99212 ==

== ENCOUNTER 2025-04-06 14:50 | Outpatient (AMB) | payer MEDICARE, MEDICAID, SELFPAY ==
[2025-04-06 15:29] VITALS: BP 122/64; PULSE 96; O2SAT 94; BMI 30.3
--- NOTE | 2025-04-06 15:29 | MHC.OFFVIS ---
Vital Signs 04/06/25 15:29 Height 5 ft 10 in Weight 211 lb 2 oz BMI 30.3 BP 122/64 Blood Pressure Location Rt brachial Position Sitting Pulse 96 Pulse Source Pulse Oximeter Pulse Oximetry (%) 94 Oxygen Delivery Method Room Air Intake Visit Reasons: Pulmonary nodules Allergies dexamethasone (DEXAMETHASONE) Allergy (Severe, Verified 04/06/25 15:33) Steroid Physcosis atorvastatin Adverse Reaction (Intermediate, Verified 04/06/25 15:33) bone pain bupropion (From Wellbutrin) Adverse Reaction (Intermediate, Verified 04/06/25 15:33) negative thoughts fluticasone (From Wixela Inhub) Adverse Reaction (Intermediate, Verified 04/06/25 15:33) hand tremors, blood pressure dropping lisinopril (LISINOPRIL) Adverse Reaction (Intermediate, Verified 04/06/25 15:33) COUGH salmeterol (From Wixela Inhub) Adverse Reaction (Intermediate, Verified 04/06/25 15:33) hand tremors, blood pressure dropping HPI HPI Pulmonary nodules: Details: 64-year-old gentleman, former under 10 pack-year smoker, quit over 30 years prior, with underlying history of exposure to asbestos and prior COVID-19. Patient states that his father has had asbestosis and mesothelioma from his exposure to asbestos. Patient's pulmonary function tests that has been essentially normal and CT chest that did not show any evidence of asbestosis, but pulmonary nodules 6 mm and under. He has completed his 2D echocardiogram which has essentially been normal.? His sleep study showed no underlying obstructive sleep apnea.? His symptoms previously well controlled on Advair, however his insurance stopped covering.? He has been using AirDuo with good control of his symptoms. His CT scan showed pulmonary nodules stable for 24 months. He denies recent exacerbations. [facility] Medical History Pulmonary nodules Localized osteoarthritis of left knee Osteoarthritis Allergic cough Asthma Depression Fibromyalgia Failed back syndrome of lumbar spine Renal calculi Post covid-19 condition, unspecified Diverticulosis Neuropathy Lumbar disc disease Overweight (BMI 25.0-29.9) HLD (hyperlipidemia) Surgical History History of total right knee replacement History of arthroscopy of right knee History of carpal tunnel release H/O arthroscopy H/O colonoscopy Spinal cord stimulator status Family History Father Hypertension COPD (chronic obstructive pulmonary disease) Mother Hypertension Dementia Family/Other Lung cancer Social History Household Members: Spouse Household Members Other:: Stepson Housing: Condominium Are you a primary career and technology education teacher to a significant other at home: No Do you presently have visiting nurse or other home services: No Alcohol intake: never Patient Tobacco Use Status: Former Tobacco user Tobacco use type: Cigarette Years Smoked: 20 e-Cigarette/Vaping Use: Never Used Second Hand Smoke Exposure: No Advance Directives Date on File: 05/31/23 service: No Current occupational status: employed 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 Current occupational exposures/hazards: No Cognitive needs: No Hearing needs: No Vision needs: No Review of Systems Const Denies daytime sleepiness, Denies excessive sweating, Denies fatigue, Denies fever(s), Denies lethargy, Denies malaise, Denies night sweats, Denies snoring and Denies weight loss Eyes Denies blurry vision and Denies itchy eyes ENT Denies nasal congestion, Denies post nasal drip, Denies sinus pain, Denies sinus pressure and Denies other ( Thrush) Card Denies chest pain, Denies pedal edema, Denies dyspnea, Denies orthopnea and Denies paroxysmal nocturnal dyspnea Resp Denies cough, Denies hemoptysis, Denies excessive phlegm production, Denies dyspnea, Denies snoring and Denies wheezing GI Denies abdominal pain and Denies heartburn Musc Denies myalgias, Denies arthralgias and Denies joint swelling Skin/Breast Denies rash Neuro Denies memory loss and Denies seizure-like activity Psych Denies abnormal sleep pattern, Denies anxiety and Denies memory loss Endo Denies excessive sweating, Denies fatigue and Denies heat intolerance Gurjit/Lymph Denies easy bruising Aller/Immun Denies itchy eyes, Denies seasonal rhinorrhea and Denies wheezing Physical Exam Vital Signs: Last Vital Signs Pulse 96 04/06/25 15:29 BP 122/64 04/06/25 15:29 Pulse Ox 94 04/06/25 15:29 Oxygen Delivery Method Room Air 04/06/25 15:29 BMI result Body Mass Index 30.3 Const General: no acute distress and alert Nutritional Appearance: not obese Orientation/consciousness: Other orientation findings ( oriented) HEENT Head: Yes atraumatic Eyes General: appearance normal, both eyes and all related structures Sclerae: sclerae normal EOM: EOMs intact bilaterally Neck Neck: Yes supple Lymphatic: no lymphadenopathy noted Resp Effort & Inspection: normal respiratory effort and no use of accessory muscles Auscultation: clear to auscultation bilaterally Cardio Rate: regular rate Rhythm: regular rhythm Heart sounds: no gallops, no murmurs and no rubs Skin General skin exam: other ( warm) Extrem General: No clubbing, No cyanosis and No edema Assessment & Plan Assessment & Plan (1) Reactive airway disease: Code(s): J45.909 - Unspecified asthma, uncomplicated Category: Medical Qualifiers: Asthma severity: mild Asthma persistence: intermittent Asthma complication type: uncomplicated Qualified Code(s): J45.20 - Mild intermittent asthma, uncomplicated Plan: Well controlled on AirDuo, duo nebs, and albuterol MDI. Continue current regimen. Coding Level of Care Code Est Pt Level 3 (57100) Diagnoses Mild intermittent reactive airway disease without complication J45.20 Asthma severity: mild Asthma persistence: intermittent Asthma complication type: uncomplicated
--- OUTSIDE RECORDS SUMMARY | 2025-04-06 16:05 | XMS_ITS | Referral Summary ---
Author Organization [facility] Address [address] [place] [address] Care Team Providers Care Hosiery Mater Name Role Phone Juan C Melchor Primary Care Provider [phone] Social History Tobacco Use Types Packs/Day Years [...] Plan of Treatment Not on file Insurance [facility] Care Teams Hosiery Mater Relationship Specialty Start Date End Date Juan C Melchor PA [address] [place] [id number] [facility] - General 05/12/21
== END 2025-04-06 15:54 | disposition home or self-care (01) ==
LOC: HO.HPS 14:51
PROVIDERS: PCP Physician Assistant; Visit Provider Internal Medicine Pulmonary Disease
DX: J45.20 Mild intermittent asthma, uncomplicated (principal)
CPT/HCPCS: 99213

== ENCOUNTER → 2025-04-06 14:50 | Outpatient (BNVA) | payer MEDICARE, MEDICAID, SELFPAY | PROVIDERS: PCP Physician Assistant; Visit Provider Internal Medicine Pulmonary Disease | DX: J45.20 Mild intermittent asthma, uncomplicated (principal) | CPT/HCPCS: 99212 ==